=== PATIENT | female | born 1975 | race Caucasian/White ===

== ENCOUNTER 2017-12-13 09:27 | Emergency (ER) | payer MEDICAID, SELFPAY ==
[2017-12-13 09:35] VITALS: BP 158/89; PULSE 88; RESP 16; TEMP 36.9; O2SAT 94
[2017-12-13 09:51] LABS: Bilirubin Negative (Negative); Blood Small (Negative); Clarity Cloudy; Glucose 500 mg/dL (Negative); Ketones Negative (Negative); Leukocyte Esterase Trace (Negative); Nitrite Negative (Negative)
[2017-12-13 10:00] LABS: Bacteria Moderate HPF (Negative); C & S Indicated? Yes; Casts Negative LPF (Negative); Crystals Negative HPF (Negative); Epithelial Cells Few HPF (Negative); Mucus Moderate (Negative); Other Cells Few Renal (Negative)
[2017-12-13] MEDS: Cephalexin 500 MG CAP PO (10:27)
[2017-12-13] MEDS: Phenazopyridine 100 MG TAB PO (10:27)
[2017-12-13 11:00] VITALS: BP 158/89; PULSE 88; RESP 16; TEMP 36.9; O2SAT 94
--- NOTE | 2017-12-16 18:10 | ED.GENADUL_ITS ---
Discharge Plan Disposition Patient Disposition: HOME Discharge Details Chief Complaint: Urinary Clinical Impression: UTI (urinary tract infection) Primary Care Provider: Emeli Villarreal ED Provider: Jose Eduardo Olguin Home Meds and New Rx's Prescriptions: New phenazopyridine [Pyridium] 100 mg tablet 100 mg PO TID PRN (Reason: uti) 5 Days Qty: 6 RF: 0 cephalexin [Keflex] 500 mg capsule 500 mg PO BID Qty: 14 RF: 0 Continue fluticasone-salmeterol [Advair Diskus] 1 EACH blister with device 1 puff Inhalation BID Qty: 1 RF: 11 pen needle, diabetic [Pen Needle] 1 EACH needle 1 ea Miscellaneous DAILY Qty: 100 RF: 3 metformin 850 MG tablet 850 mg PO BID Qty: 60 RF: 6 montelukast [Singulair] 10 MG tablet 10 mg PO DAILY Qty: 30 RF: 3 lisinopril 5 MG tablet 5 mg PO DAILY Qty: 90 RF: 6 Shower Chair DAILY Qty: 1 RF: 0 albuterol sulfate 2.5 MG/3 ML solution for nebulization 2.5 mg Inhalation Q4H PRNQty: 125 RF: 11 ipratropium-albuterol [Combivent Respimat] 4 GM mist 1 puff Inhalation QID Qty: 1 RF: 11 blood sugar diagnostic [OneTouch Ultra Test] 1 EACH strip 1 ea Miscellaneous BID Qty: 200 RF: 3 lancets [OneTouch UltraSoft Lancets] 1 EACH misc 1 ea Miscellaneous BID Qty: 200 RF: 3 blood-glucose meter [OneTouch UltraMini] 1 EACH kit 1 ea Miscellaneous BID Qty: 1 RF: 0 trazodone 150 MG tablet 150 mg PO HS RF: 0 quetiapine [Seroquel] 200 MG tablet 200 mg PO HS Qty: 28 RF: 0 insulin glargine [Lantus Solostar U-100 Insulin] 300 UNITS/3 ML insulin pen 12 units Sub-Q DAILY Qty: 5 RF: 3 insulin lispro [Humalog KwikPen Insulin] 200 UNIT/1 ML insulin pen 5 unit SQ AC Qty: 5 RF: 3 buprenorphine-naloxone [Suboxone] 1 EACH film 14 mg Sublingual DAILY RF: 0 diclofenac sodium 50 MG tablet,delayed release (DR/EC) 50 mg PO Q8H PRN (Reason: Pain) Qty: 15 RF: 0 Discharge Instructions Instructions: Urinary Tract Infection in Women (ED) Additional Instructions: Please take antibiotic as prescribed. Please follow-up with your primary care physician. Call on Friday to arrange follow-up. 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 We can always return to the emergency department and should should she have any worsening or new concerning symptoms. Referrals: Emeli Villarreal NP [Primary Care Provider] - Discharge Data Discharge Date/Time-TO BE ENTERED AT DEPARTURE: 12/13/17 11:03 Medical Decision Making MDM Narrative Medical decision making narrative: 42-year-old female presents with symptoms consistent with urinary tract infection. Urinalysis reviewed and consistent with UTI. Plan to start antibiotics and Pyridium. Usual and customary discharge instructions were provided to the patient. Patient was instructed to return immediately to the emergency department should she have any worsening or new concerning symptoms. Lab Data Lab results reviewed: Yes I reviewed the patient's lab results. Lab Results 12/13/17 Range/Units 09:44 Urine Color Yellow (Yellow) Urine Clarity Cloudy Urine pH 7.0 (5-8) Ur Specific [place] 1.020 (1.005-1.025) Urine Protein 30 H (Negative) mg/dL Urine Ketones Negative (Negative) mg/dL Urine Blood Small H (Negative) Urine Nitrite Negative (Negative) Urine Bilirubin Negative (Negative) Urine Urobilinogen 1.0 H (Up TO 0.2) EU/dL Ur Leukocyte Esterase Trace H (Negative) Urine RBC 5-10 H (0-2) Urine WBC 10-20 (0-5) HPF Ur Epithelial Cells Few (Negative) HPF Urine Crystals Negative (Negative) HPF Urine Bacteria Moderate (Negative) HPF Urine Casts Negative (Negative) LPF Urine Mucus Moderate (Negative) Urine Other Few renal (Negative) Ur Culture Indicated? Yes Urine Glucose 500 H (Negative) mg/dL HPI - General Adult General Mode of arrival: ambulatory . Date/Time Provider Initiated Documentation: 12/13/17 10:05 . Limitations to Documentation: no limitations . Information obtained by: patient . HPI Narrative: 42-year-old female here with chief plan of urinary tract infection. Patient notes that for the past week she has had increased urinary frequency, dysuria, blood tinged urine. Symptoms are moderate with no modifiers no associated fever. No flank pain. Related Data Home Medications Medication Instructions Recorded Confirmed fluticasone-salmeterol [Advair 1 puff INHALATION BID #1 puff 10/25/16 12/13/17 Diskus] pen needle, diabetic [Pen Needle] #100 ndl 11/05/16 12/13/17 Shower Chair DAILY #1 03/21/17 albuterol sulfate 2.5 mg INHALATION Q4H PRN #125 vial 03/21/17 12/13/17 trazodone 150 mg PO HS 05/09/17 12/13/17 buprenorphine-naloxone [Suboxone] 14 mg SUBLINGUAL DAILY film 10/14/17 12/13/17 Previous Rx's Medication Instructions Recorded lisinopril 5 mg PO DAILY #90 tab-cap 12/16/16 metformin 850 mg PO BID #60 tab-cap 12/16/16 montelukast [Singulair] 10 mg PO DAILY #30 tab-cap 12/16/16 ipratropium-albuterol [Combivent 1 puff INHALATION QID #1 inhaler 03/21/17 Respimat] blood sugar diagnostic [OneTouch #200 strip 03/28/17 Ultra Test] blood-glucose meter [OneTouch #1 kit 03/28/17 UltraMini] lancets [OneTouch UltraSoft #200 ea 03/28/17 Lancets] diclofenac sodium 50 mg PO Q8H PRN #15 tablet. 09/21/17 insulin glargine [Lantus Solostar 12 units SUB-Q DAILY #5 box 09/22/17 U-100 Insulin] insulin lispro [Humalog KwikPen 5 unit SQ AC #5 box 09/22/17 Insulin] quetiapine [Seroquel] 200 mg PO HS #28 tab-cap 09/22/17 cephalexin [Keflex] 500 mg PO BID #14 cap 12/13/17 phenazopyridine [Pyridium] 100 mg PO TID PRN 5 Days #6 tab 12/13/17 Allergies Allergy/AdvReac Type Severity Reaction Status Date / Time povidone-iodine Allergy Severe Skin Rash Unverified 12/13/17 10:28 [From Betadine] acetaminophen AdvReac Severe GI upset Unverified 12/13/17 10:28 paroxetine AdvReac Intermediate nightmares, Unverified 12/13/17 10:28 shaking codeine [Codeine] AdvReac Mild Nausea Unverified 12/13/17 10:28 lisdexamfetamine dimesylate AdvReac Unknown GI upset Unverified 12/13/17 10:28 [From Ana] General Stated Complaint: Urinary LAWANDA: 4 Review of Systems Constitutional Denies fever(s) Genitourinary Reports as per HPI and Denies vaginal discharge PFSH Family History Son Crohn disease Daughter Crohn disease Daughter Crohn disease Medical History Diabetes type 2, uncontrolled HLD (hyperlipidemia) History of peptic ulcer Hypertension LBBB (left bundle branch block) Mental health disorder Morbid obesity Steatosis of liver Substance use disorder Urolithiasis Social History Smoking/Tobacco Use Status: Former Tobacco Use Surgical History Appendectomy section Cholecystectomy Colonoscopy - MAC (02/07/16) Ligation of fallopian tube Open Carpal Tunnel release Removal of foreign body (06/26/16) Trigger Finger release Exam Const General: well developed and not in acute distress HENMT Mouth: moist mucous membranes Eyes Conjunctivae: conjunctivae normal Sclera: sclerae normal Neck Neck: normal visual inspection Resp Effort & Inspection: normal respiratory effort and no respiratory distress Auscultation: no rales, no rhonchi and no wheezes Cardio Jugular venous pressure: no JVD Rate: regular rate Rhythm: regular rhythm Heart Sounds: no gallops, no murmurs and no rubs GI Inspection: non-distended Palpation: soft and nontender Auscultation: normal bowel sounds Skin General skin exam: no rashes or lesions noted and other (warm) Neuro General: alert, awake and moves all extremities Extrem General: no edema Psych Appearance: grossly normal Mental Status: mental status grossly normal Speech and Movement: speech and movement normal Course Vital Signs Temperature 36.9 C 12/13/17 09:35 Pulse 88 12/13/17 09:35 Respiratory Rate 16 12/13/17 09:35 Blood Pressure 158/89 H 12/13/17 09:35 Pulse Oximetry 94 L 12/13/17 09:35 Temperature 36.9 C 12/13/17 09:35 Pulse 88 12/13/17 09:35 Respiratory Rate 16 12/13/17 09:35 Blood Pressure 158/89 H 12/13/17 09:35 Pulse Oximetry 94 L 12/13/17 09:35 Lab/Test Results Lab/Test Results: Laboratory Tests 12/13/17 09:44 Urine Color Yellow Urine Clarity Cloudy Urine pH 7.0 Ur Specific Bacova 1.020 Urine Protein 30 H Urine Ketones Negative Urine Blood Small H Urine Nitrite Negative Urine Bilirubin Negative Urine Urobilinogen 1.0 H Ur Leukocyte Esterase Trace H Urine RBC 5-10 H Urine WBC 10-20 Ur Epithelial Cells Few Urine Crystals Negative Urine Bacteria Moderate Urine Casts Negative Urine Mucus Moderate Urine Other Few renal Ur Culture Indicated? Yes Urine Glucose 500 H
== END 2017-12-13 11:03 | disposition home or self-care (01) ==
PROVIDERS: Emergency Provider Student in an Organized Health Care Education/Training Program; PCP Nurse Practitioner Family
DX: N39.0 Urinary tract infection, site not specified (principal); B95.7 Other staphylococcus as the cause of diseases classified elsewhere; E11.9 Type 2 diabetes mellitus without complications; Z79.4 Long term (current) use of insulin; I10 Essential (primary) hypertension
CPT/HCPCS: 81025; 99283; 81003; 81015; 87086; 87186

== ENCOUNTER 2018-01-21 02:13 | Outpatient (CLI) | payer MEDICAID, SELFPAY | END 2018-01-21 02:33 | PROVIDERS: PCP Nurse Practitioner Family; Visit Provider Internal Medicine | DX: J45.909 Unspecified asthma, uncomplicated (principal) ==

== ENCOUNTER 2018-02-09 12:33 | Outpatient (REF) | payer MEDICAID, SELFPAY ==
[2018-02-09 15:20] LABS: Bilirubin Negative (Negative); Glucose 500 mg/dL (Negative); Ketones Negative (Negative); Leukocyte Esterase Negative (Negative); Nitrite Negative (Negative)
[2018-02-09 15:25] LABS: Clarity Cloudy
[2018-02-09 15:42] LABS: Blood Color Interference (Negative)
[2018-02-09 15:47] LABS: C & S Indicated? C&S Done As Ordered
[2018-02-09 16:55] LABS: COMMENT (LAB VIEW ONLY) 36.29 mg/dL; Microalb ug/mg Crea 138.3 ug/mg Cr
== END 2018-02-09 12:53 ==
LOC: LBN 12:33
PROVIDERS: PCP Nurse Practitioner Family; Visit Provider Nurse Practitioner Family
DX: R31.0 Gross hematuria (principal); R80.9 Proteinuria, unspecified
CPT/HCPCS: 81003; 81015; 82043; 82570; 87086

== ENCOUNTER 2018-02-11 00:21 | Outpatient (CLI) | payer MEDICAID, SELFPAY ==
--- NOTE | 2018-02-11 07:19 | MERGEMPI_ITS ---
*[facility]* *[facility]* [address] [place] [address] Myocardial Perfusion Imaging - SPECT [place] protocol Date of study: 02/11/2018 *PATIENT PRESENTATION* Height: 152.4cm (60in) Blood Pressure: Weight: 124.1kg (273lb) BSA: 2.38m^2 Referring physician: Brody Dempsey Ordering physician: Emeli Villarreal Impressions: Normal myocardial perfusion and contraction after pharmacological stress. Summary: 1. Myocardial perfusion imaging: No myocardial perfusion defects noted. 2. The calculated left ventricular ejection fraction after stress: 51%. LV global systolic function is low normal. No left ventricular regional motion abnormality. 3. Stress ECG conclusions: The stress ECG is negative. Recommendations: Medical management is recommended. Indication: R07.89. I44.7, Appropriate Use Criteria: A (Appropriate). History: REASON FOR TESTING: INTERMITTANT CHEST PRESSURE ON GOING FOR SOMETIME RADIATING DOWN LEFT EXTREMITY. HX OF LEFT AND RIGHT BUNDLE BRANCH BLOCKS. PMH: DIABETES, FRANKI SECONDARY TO POSSIBLE OD, HX OF LEFT AND RIGHT BUNDLE BRANCH BLOCK, SUBSTANCE AND OPIOD USE DISORDER, OBESITY, APNEA, SNORING, SCIATICA, DEVELOPMENTAL DIASBILITY, TOBACCO USE DISORDER, HYPERTENSION, ADD, ASTHMA, MOOD DISORDER, DIABETIC NEUROPATHY, RESTLESS LEG DISORDER, HERNIATED LUMBAR DISC, CHRONIC PAIN, INSOMNIA, RIGHT ARM PAIN, HEMORRHOIDS, PUD, NEPHROLITHIASIS, TRIGGER FINGER, UROLITHIASIS, ESOPHAGEAL MICROPERFORATION. FAMILY HX: NON-DONTRIBUTORY. SMOKING: FORMER SMOKER, 1/2PPD X 11 YEARS. EXCERCISE: WALKS DAILY X 3HRS, WORKS OUT IN GYM. PMH: COPD. Asthma. Asthma. Risk factors: Hypertension. Diabetes mellitus. Obesity. Cholesterol: 214mg/dl. HDL: 146mg/dl. LDL: 36mg/dl. Triglycerides: 203mg/dl. ALLERGIES: POVIDONE-IODINE, ACETAMINOPHIN, PAROXETIN, CODEINE, LISDEXAMFETAMINE DIMESYLATE. MEDICATIONS: TRAZADONE 150 MG HS, SERTRALINE 25 MG DAILY, QUETIAPETAMINE 200 MG HS, OMEPRAZOLE 20 MG BID, MONTELUKAST 10 MG DAILY, METFORMIN 850 MG DAILY, LISINOPRIL 5 MG DAILY, IPRATROPIUM-ALBUTEROL 1 PUFF QID, INUSLIN LISPRO 5 UNITS SQ AC, INSULIN GLARGINE 12 UNITS SQ DAILY, FLUTICASONE-SALMETEROL 1 PUFF BID, DICLOFENAC SODIUM 50 MG Q8H PRN, BUPRENORPHINE-NALOXONE 14 MG SL DAILY, ALBUTEROL SULFATE 90 MMCG 2 PUFFS Q4H PRN, ALBUTEROL SULFATE 2.5 MG INHALLATIION Q4H PRN. Imaging Technique: Protocol: [place] protocol. Acquisition: Gated SPECT; 1 day - rest/stress. The patient was imaged in the supine position. Attenuation correction used. Isotope administration: - Rest. Tc[99m]-sestamibi. Dose: 10.2mCi. Injection time: 11:41 AM. Injection to stress time: 00:45. - Stress. Tc[99m]-sestamibi. Dose: 32.1mCi. Injection time: 02:05 PM. 1-2 min before end of exercise Baseline ECG: LAST EKG1-SINUS RHYTHM, VEB, LBBB. HR 74. TODAY'S EKG-SINUS RHYTHM, 1ST DEGREE AVB, INC. RBBB, AND LAFB, PROLONGED QT INTERVAL. Normal sinus rhythm. Stress protocol: +--------+--+ + + !Stage !HR!BP (mmHg) !Comments ! +--------+--+ + + !Baseline!79!150/80 (103)! ! +--------+--+ + + !1 min !91!152/84 (107)!Inject Regadenoson.! +--------+--+ + + !3 min !84!164/78 (107)! ! +--------+--+ + + !6 min !83!146/64 (91) ! ! +--------+--+ + + !9 min !76!132/68 (89) ! ! +--------+--+ + + !1 min !--! !Inject Regadenoson.! +--------+--+ + + * Stress results: The rate-pressure product for the peak heart rate and blood pressure was 60274wn Hg/min. Stress ECG: LEXISCAN TESTING ENDED IN 8 MINS, 30 SECS, EFFECT OF MEDICATION NO LONGER PRESENT. MAX HR WAS 92, WITH A HYPERTENSIVE BLOOD PRESSURE RESPONSE. ECTOPY:OCCASIONAL PAC NOTED. ANGINA: PT REPORTED 5/10 CHEST HEAVINESS AND PRESSURE AT 2 MINS OF TESTING, 2/10 AT 5 MINS OF TESTING, AND 0/10 AT 8 MINS OF TESTING. ISCHEMIA: NO ISCHEMIC CHANGES NOTED. The stress ECG is negative. Myocardial perfusion: Imaging information: gated. Image quality reduced due to breast attenuation. Left ventricular size is normal. No myocardial perfusion defects noted. Ventricular Function (Wall Motion): The calculated left ventricular ejection fraction after stress: 51%. LV global systolic function is low normal. No left ventricular regional motion abnormality. Study data: Brody Dempsey MD supervised and was readily available during the procedure. This study was interpreted by [facility]. Study status: Routine. Consent: The risks, benefits, and alternatives to the procedure were explained to the patient and informed consent was obtained. Procedure: Initial setup. A baseline ECG was recorded. Surface ECG leads and manual cuff blood pressure measurements were monitored. Heart sounds: Normal. Lung sounds: Normal. Treadmill exercise testing was performed using the [place] protocol. Study completion: All catheters inserted during the procedure were removed. The patient tolerated the procedure well and was discharged from the lab. Discharge: The patient left the laboratory in stable condition. Birthdate: Patient birthdate: 1975. Sex: Gender: female. Study date: Study date: 02/11/2018. Study time: 07:19 AM. Signature Documentation: - The imaging portion of this study was interpreted by Nuclear Christmas Tree Contractor Brody Dempsey MD. - The imaging portion of this study was interpreted by Nuclear Radiologist Torin Campbell MD. - The Stress ECG portion of this study was interpreted by Brody Dempsey MD. Electronically signed by Brody Dempsey 02/13/2018 10:08
[2018-02-11 11:43] LABS: Abs Immature Grans 0.01 k/cumm (0.0-0.09); Absolute Basophil Count 0.02 k/cumm (0.0-0.2); Absolute Eosinophil Count 0.05 k/cumm (0.0-0.7); Absolute Lymphocyte Count 1.97 k/cumm (1.2-3.4); Absolute Monocyte Count 0.36 k/cumm (0.11-0.7); Absolute Neutrophil Count 5.55 k/cumm (1.2-6.7); Basophils % 0.3; Eosinophils % 0.6; HCT 42.9 % (36.0-46.0); HGB 14.7 g/dL (12.0-15.5); Immature Grans % 0.1; Lymphocytes % 24.7; Mean Corp. HGB Concentration 34.3 g/dL (32.0-36.0); Mean Corpuscular Hemoglobin 29.1 pg (27.0-33.0); Mean Platelet Volume 10.3 fL (8.0-11.0); Monocytes % 4.5; Neutrophils % 69.8; Platelet Count 265 x1000/uL (130-400); RBC 5.05 m/cumm (4.00-5.20); White Blood Cell Count 7.96 k/cumm (4.4-10.8)
[2018-02-11 12:02] LABS: ALT 29 U/L (12-78); AST 15 U/L (15-37); Albumin 3.2 g/dL (3.4-5.0); Alkaline Phosphatase 103 U/L (46-116); BUN 12 mg/dL (7-18); Bilirubin, Total 0.3 mg/dL (0.2-1.0); CREATININE 0.86 mg/dL (0.55-1.02); Calcium 8.5 mg/dL (8.5-10.1); Chloride 97 mmol/L (98-107); Potassium 3.9 mmol/L (3.5-5.1); Sodium 133 mmol/L (136-145); Total Protein 6.9 g/dL (6.4-8.2)
[2018-02-11 12:43] LABS: Glucose 527 mg/dL (70-100)
[2018-02-11] MEDS: Regadenoson 0.4 MG/5 ML SYR IVP (14:35)
== END 2018-02-11 00:41 ==
PROVIDERS: PCP Nurse Practitioner Family; Visit Provider Nurse Practitioner Family
DX: R07.89 Other chest pain (principal); I45.2 Bifascicular block; I10 Essential (primary) hypertension; E11.9 Type 2 diabetes mellitus without complications; Z79.4 Long term (current) use of insulin; D72.829 Elevated white blood cell count, unspecified; F11.20 Opioid dependence, uncomplicated; F17.200 Nicotine dependence, unspecified, uncomplicated; N17.9 Acute kidney failure, unspecified; Z51.81 Encounter for therapeutic drug level monitoring
CPT/HCPCS: 36415; 78452; 80053; 85025; 93017; J2785

== ENCOUNTER 2018-02-26 02:46 | Outpatient (CLI) | payer MEDICAID, SELFPAY | END 2018-02-26 03:06 | PROVIDERS: PCP Nurse Practitioner Family; Visit Provider Internal Medicine | DX: J45.909 Unspecified asthma, uncomplicated (principal) ==

== ENCOUNTER 2018-09-14 13:17 | Emergency (ER) | payer MEDICAID, SELFPAY ==
[2018-09-14 13:21] VITALS: BP 173/92; PULSE 84; RESP 18; TEMP 36.3; O2SAT 96
--- NOTE | 2018-09-14 13:40 | W.ED.GENAD ---
Discharge Plan Disposition Patient Disposition: HOME Condition: Stable Discharge Details Chief Complaint: DentalOral Clinical Impression: Tooth abscess Primary Care Provider: Emeli Villarreal ED Provider: Bobby Solo [place] Meds and New Rx's Prescriptions: No Action fluticasone propion-salmeterol [Advair Diskus] 500-50 mcg/dose blister with device 1 inh IH BID Qty: 3 RF: 3 buspirone 10 mg tablet 10 mg PO BID RF: 0 Jardiance 25 mg tablet 25 mg PO DAILY AM Qty: 90 RF: 3 Metamucil (sugar) powder 1 tbs PO DAILY Qty: 368 RF: 0 blood-glucose meter misc .ROUTE .MEDSUPPLY Qty: 1 RF: 0 lisinopril 10 mg tablet 10 mg PO DAILY Qty: 90 RF: 3 lancets misc .ROUTE .MEDSUPPLY Qty: 500 RF: 3 Blood Glucose Test strip .ROUTE .MEDSUPPLY Qty: 500 RF: 3 pen needle, diabetic [Pen Needle] 1 EACH needle 1 ea Miscellaneous DAILY Qty: 100 RF: 3 metformin 850 MG tablet 850 mg PO BID Qty: 60 RF: 6 montelukast [Singulair] 10 MG tablet 10 mg PO DAILY Qty: 30 RF: 3 Shower Chair DAILY Qty: 1 RF: 0 albuterol sulfate 2.5 MG/3 ML solution for nebulization 2.5 mg Inhalation Q4H PRNQty: 125 RF: 11 Combivent Respimat 4 GM mist 1 puff Inhalation QID Qty: 1 RF: 11 lancets [OneTouch UltraSoft Lancets] 1 EACH misc 1 ea Miscellaneous BID Qty: 200 RF: 3 trazodone 150 MG tablet 150 mg PO HS RF: 0 quetiapine [Seroquel] 200 MG tablet 200 mg PO HS Qty: 28 RF: 0 Lantus Solostar U-100 Insulin 300 UNITS/3 ML insulin pen 12 units Sub-Q DAILY Qty: 5 RF: 3 Humalog KwikPen Insulin 200 UNIT/1 ML insulin pen 5 unit SQ AC Qty: 5 RF: 3 buprenorphine-naloxone [Suboxone] 1 EACH film 14 mg Sublingual DAILY RF: 0 omeprazole 20 mg capsule,delayed release(DR/EC) 20 mg PO BID RF: 0 albuterol sulfate [ProAir HFA] 90 mcg/actuation HFA aerosol inhaler 2 puff IH Q4H PRNRF: 0 Discharge Instructions Instructions: Dental Abscess (ED) Medical Decision Making 43 yo female comes in with 2 weeks of right upper tooth pain. She has been on abx from her dentist and is f/u with them this week per pt. She has continued to have pain and swelling so came here. She has no submandibular swelling and normal oropharynx, no pain over hyoid and midline uvula, no findings to suggest ludwigs, rpa, river captain, epiglotitis. She has a right upper anterior molar abscess , I drained this with a 21G needle and had return of significant amount of purulent material and she felt better. She will continue her abx and f/u with dentist, return precautions given Differential Diagnosis abscess, pulpitis HPI General Mode of arrival: ambulatory. Date/Time Provider Initiated Documentation: 09/14/18 13:30. Limitations to Documentation: no limitations. Information obtained by: patient. History of Present Illness 43 year old F presents to the emergency department with the chief complaint of right upper tooth pain, described as moderate and severe, Quality is described as aching, and is localized to the mouth. Patient started experiencing this week(s) (2) and it has been constant. No relieving factors improve symptom(s), No exacerbating factors reported . Patient did receive the following treatments prior to arrival, NSAID Related Data Home Medications Medication Instructions Recorded Confirmed pen needle, diabetic [Pen Needle] #100 ndl 11/05/16 08/28/18 metformin 850 mg PO BID #60 tab-cap 12/16/16 09/14/18 montelukast [Singulair] 10 mg PO DAILY #30 tab-cap 12/16/16 09/14/18 Combivent Respimat 1 puff INHALATION QID #1 inhaler 03/21/17 09/14/18 Shower Chair DAILY #1 03/21/17 08/28/18 albuterol sulfate 2.5 mg INHALATION Q4H PRN #125 vial 03/21/17 09/14/18 lancets [OneTouch UltraSoft #200 ea 03/28/17 08/28/18 Lancets] trazodone 150 mg PO HS 05/09/17 09/14/18 Humalog KwikPen Insulin 5 unit SQ AC #5 box 09/22/17 09/14/18 Lantus Solostar U-100 Insulin 12 units SUB-Q DAILY #5 box 09/22/17 09/14/18 quetiapine [Seroquel] 200 mg PO HS #28 tab-cap 09/22/17 09/14/18 buprenorphine-naloxone [Suboxone] 14 mg SUBLINGUAL DAILY film 10/14/17 09/14/18 albuterol sulfate HFA 90 2 puff IH Q4H PRN gm 01/16/18 09/14/18 mcg/actuation aerosol inhaler omeprazole 20 mg capsule,delayed 20 mg PO BID cap 01/16/18 09/14/18 release fluticasone 500 mcg-salmeterol 50 1 inh IH BID #3 device 04/01/18 09/14/18 mcg/dose blistr powdr for inhalation blood sugar diagnostic strips #500 each 08/28/18 08/28/18 blood-glucose meter #1 each 08/28/18 08/28/18 buspirone 10 mg tablet 10 mg PO BID 08/28/18 09/14/18 empagliflozin 25 mg tablet 25 mg PO DAILY AM #90 tab-cap 08/28/18 09/14/18 lancets #500 each 08/28/18 08/28/18 lisinopril 10 mg tablet 10 mg PO DAILY #90 tab-cap 08/28/18 09/14/18 psyllium seed (sugar) oral powder 1 tbs PO DAILY #368 gm 08/28/18 09/14/18 Previous Rx's Medication Instructions Recorded metformin 850 mg PO BID #60 tab-cap 12/16/16 montelukast [Singulair] 10 mg PO DAILY #30 tab-cap 12/16/16 Combivent Respimat 1 puff INHALATION QID #1 inhaler 03/21/17 lancets [OneTouch UltraSoft #200 ea 03/28/17 Lancets] Humalog KwikPen Insulin 5 unit SQ AC #5 box 09/22/17 Lantus Solostar U-100 Insulin 12 units SUB-Q DAILY #5 box 09/22/17 quetiapine [Seroquel] 200 mg PO HS #28 tab-cap 09/22/17 fluticasone 500 mcg-salmeterol 50 1 inh IH BID #3 device 04/01/18 mcg/dose blistr powdr for inhalation blood sugar diagnostic strips #500 each 08/28/18 blood-glucose meter #1 each 08/28/18 empagliflozin 25 mg tablet 25 mg PO DAILY AM #90 tab-cap 08/28/18 lancets #500 each 08/28/18 lisinopril 10 mg tablet 10 mg PO DAILY #90 tab-cap 08/28/18 psyllium seed (sugar) oral powder 1 tbs PO DAILY #368 gm 08/28/18 Allergies Allergy/AdvReac Type Severity Reaction Status Date / Time povidone-iodine Allergy Severe Skin Rash Verified 09/14/18 13:25 [From Betadine] acetaminophen AdvReac Severe GI upset Verified 09/14/18 13:25 paroxetine AdvReac Intermediate nightmares, Verified 09/14/18 13:25 shaking codeine [Codeine] AdvReac Mild Nausea Verified 09/14/18 13:25 lisdexamfetamine dimesylate AdvReac Unknown GI upset Verified 09/14/18 13:25 [From Vyvanse] General Stated Complaint: DentalOral LAWANDA: 3 Review of Systems Review of Systems All systems reviewed & are unremarkable except as noted in HPI and below Constitutional Denies chills and Denies fever(s) Cardiovascular Denies chest pain and Denies dyspnea Respiratory Denies cough and Denies dyspnea Gastrointestinal Denies abdominal pain, Denies nausea and Denies vomiting Integumentary/Breasts Denies rash PFSH Medical History Microalbuminuria due to type 2 diabetes mellitus (Chronic) Anxiety (Chronic 03/15/15) Calculus of kidney (Chronic 06/07/15) Substance use disorder (Chronic) Steatosis of liver (Chronic) Opioid use disorder (Chronic ~2008) Body mass index (BMI) 50-59.9, adult (Chronic) Witnessed apneic spells (Chronic) Uncontrolled type 2 diabetes mellitus with complication, with long-term current use of insulin (Chronic 01/28/17) Snoring (Chronic) Sciatica of right side (Inactive 08/23/16) Disability, 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) Left bundle branch block (LBBB) on electrocardiogram (Chronic 08/30/16) Essential hypertension (Chronic 03/15/15) Attention deficit hyperactivity disorder, combined type (Chronic 03/11/16) Asthma (Chronic 06/07/15) Hyperlipidemia (Chronic) Mood disorder (Chronic) Diabetic neuropathy (Chronic) Restless legs syndrome (Chronic) Herniated lumbar disc without myelopathy (Chronic) Chronic pain (Chronic) Insomnia (Chronic) Arm pain, right (Resolved 11/11/16) Grade II internal hemorrhoids (Resolved 02/07/16) History of peptic ulcer (Resolved) Nephrolithiasis (Resolved 06/07/15) Tobacco use disorder (Resolved) Trigger finger, left middle finger (Resolved 02/26/16) Urolithiasis (Resolved) esophageal microperforation (Resolved) Surgical History Appendectomy (Resolved) section (Resolved) Cholecystectomy (Resolved) Colonoscopy - MAC (Resolved 02/07/16) Ligation of fallopian tube (Resolved) Open Carpal Tunnel release (Resolved) Removal of foreign body (Resolved 06/26/16) Trigger Finger release (Resolved) Social History Smoking/Tobacco Use Status: Former Tobacco Use Alcohol Intake: never Drug use: Current Sobriety Caregiver/Support person: No Housing: apartment Number of Children: 3 Communication Needs: None Pets and animals: Yes Pets and animals: cat(s), dog(s) and snake(s) Sexually active: Yes Current gender identity: female Do you feel safe at home: Yes Do you feel safe in your relationship?: Yes Exam Const General: no acute distress Orientation: alert HENMT Head: normal to inspection Ears: external ears normal General nose exam: external nose normal Mouth: moist mucous membranes Eyes General: appearance normal, both eyes and all related structures Neck Neck: normal visual inspection Resp Effort & Inspection: normal respiratory effort and able to speak in complete sentences Cardio Rate: regular rate Skin General skin exam: no rashes or lesions noted Neuro General: alert and oriented x3 Extrem General: normal to inspection Psych Mental Status: mental status grossly normal Course Vital Signs Temperature 36.3 C L 09/14/18 13:21 Pulse 84 09/14/18 13:21 Respiratory Rate 18 09/14/18 13:21 Blood Pressure 173/92 H 09/14/18 13:21 Pulse Oximetry 96 09/14/18 13:21 Temperature 36.3 C L 09/14/18 13:21 Temperature Source Temporal Artery Scan 09/14/18 13:21 Pulse 84 09/14/18 13:21 Respiratory Rate 18 09/14/18 13:21 Respiratory Effort Non-Labored 09/14/18 13:23 Blood Pressure 173/92 H 09/14/18 13:21 Blood Pressure Position Sitting 09/14/18 13:21 Pulse Oximetry 96 09/14/18 13:21 Oxygen Delivery Method Room Air 09/14/18 13:21 Oxygen Flow Rate 0 09/14/18 13:21 Pain Level 10 09/14/18 13:21
== END 2018-09-14 13:50 | disposition home or self-care (01) ==
PROVIDERS: Emergency Provider Emergency Medicine; PCP Nurse Practitioner Family
DX: K04.7 Periapical abscess without sinus (principal)
CPT/HCPCS: 10160

== ENCOUNTER 2019-04-29 09:45 | Outpatient (CLI) | payer MEDICAID, SELFPAY ==
--- NOTE | 2019-04-29 | DI.RAD_ITS ---
EXAM: XR KNEE LT 4V AP,LAT,KORIN,PAT CLINICAL HISTORY: left knee pain TECHNIQUE: COMPARISON: LEFT KNEE 3 VIEW COMPLETE from 04/18/2010 FINDINGS: Four views were obtained. Cartilaginous joint spaces appear fairly well maintained. Minimal margina l osteophyte formation noted involving the joints of the knee, most prominent at the patellofemoral j oint laterally. IMPRESSION: Mild degenerative changes as described above.
== END 2019-04-29 10:05 ==
PROVIDERS: PCP Nurse Practitioner Family; Visit Provider Physician Assistant
DX: M25.562 Pain in left knee (principal); M17.12 Unilateral primary osteoarthritis, left knee
CPT/HCPCS: 73564

== ENCOUNTER 2019-12-06 09:33 | Emergency (ER) | payer MEDICAID, SELFPAY ==
[2019-12-06] VITALS (35 sets, daily range): BP systolic 91–180; BP diastolic 70–136; PULSE 81–112; RESP 12–34; TEMP 36.6; O2SAT 92–97
--- NOTE | 2019-12-06 09:30 | RT.EKG_ITS ---
APPROVED REPORT Exam: Resting ECG Patient Location: E HR:109 bpm ECG Measurements Heart Rate 109 AXIS MO 170 P 76 QRSd 130 QRS -57 QT 371 T 78 QTc 499 Conclusion Sinus tachycardia...rate> 99 RBBB and LAFB...QRSd >120mS, axis(-40,240) Probable left ventricular hypertrophy...(RaVL+SV3)xQRSd >300 ST elevation secondary to LVH...Multiple VCG criteria Abnrm T, consider ischemia, anterolateral lds...T <-0.20mV, I aVL V2-V6 ST elevation, consider lateral injury...ST >0.10mV, I aVL V5 V6 sinus tach at 109, left axis, right bundle branch block, questionablel ST elevation, diffuse ST bagley es
[2019-12-06] MEDS: MORPHine 10 MG/ML VIAL (09:38)
--- NOTE | 2019-12-06 09:40 | W.ED.GENAD ---
Discharge Plan Discharge Details Chief Complaint: Chest Pain Primary Care Provider: Unknown,Unknown ED Provider: Sheryl Olguin Home Meds and New Rx's Prescriptions: No Action quetiapine [Seroquel] 200 mg Tablet 200 mg PO QHS RF: 0 buprenorphine-naloxone [Suboxone] 8-2 mg Film 2 film SUBLINGUAL DAILY RF: 0 trazodone 150 mg Tablet 150 mg PO QHS RF: 0 Jardiance 25 mg Tablet 25 mg PO DAILY RF: 0 Discharge Data Discharge Date/Time-TO BE ENTERED AT DEPARTURE: 12/06/19 11:22 Medical Decision Making Breonna Ureña is a 44 y/o woman who presented to the emergency department with chest heaviness radiating into her left arm. On exam Pt appears uncomfortable and is diaphoretic. STEMI called from the field by EMS. Field rhythm strip with questonable STEMI, however Pt's clinical picture concerning for acute coronary syndrome. Doubt acute aortic pathology, pulmonary embolism. EKG obtained emergently, borderline ST elevations, given overall clinical assessment cardiology at [facility] called emergently for transfer for emergent cardiac cath. 9:49 [facility] flying per transfer center, awaiting call back from cardiology Pt given SLNG without significant relief, NG gtt started. IV opiates given for pain, Pt with some relief from dilaudid 1003 Cardiology called back, recommended heparin, plavix, no clear stemi, hold tpa EKG repeated with dynamic changes and now with GODFREY leads I and aVL, faxed immediately to [facility], called back transfer center requesting transfer and [facility]. 1026 Cardiology called back, requested full dose tenecteplaseHeather accepting physician CXR shows normal mediastinum. Pt denies any contraindication to TNK, verbal consent given. Pt continues to request pain meds for chest pain. VSS. Multiple doses of dialudid given. NG gtt not advanced beyond 30 2/2 hypotension. Pt transferred out of ED with [facility]. Clinical Impression: STEMI Disposition: [facility] Medical Records Medical records reviewed: Yes I reviewed the patient's medical records. Imaging Data Radiologic Study: Attestation: I personally reviewed and interpreted this imaging study as follows: Radiologist's impression: Exam(s) PROCEDURE INFORMATION: Exam: XR Chest, 1 View Exam date and time: 12/06/2019 9:49 AM Age: 44 years old Clinical indication: Chest pain TECHNIQUE: Imaging protocol: XR of the chest Views: 1 view. COMPARISON: No relevant prior studies available. FINDINGS: Lungs: The lungs are normally expanded and clear. Pleural space: Normal. Heart/Mediastinum: Normal heart and cardiomediastinal silhouette. Vasculature: Normal pulmonary vessel caliber. Normal aorta. Bones/joints: The bones are intact. IMPRESSION: No acute disease or suspicious finding. Lab Data Lab results reviewed: Yes I reviewed the patient's lab results. Labs: Laboratory Tests Range/Units 12/06/19 12/06/19 09:40 09:40 WBC (4.4-10.8) 10^3/uL 12.23 H RBC (3.93-5.22) 10^6/uL 5.85 H Hgb (11.2-15.7) g/dL 16.9 H Hct (36.0-46.0) % 48.7 H MCV (80-95) fL 83.2 MCH (27.0-33.0) pg 28.9 MCHC (32.0-36.0) % 34.7 RDW (11.7-14.6) % 12.1 Plt Count (130-400) 10^3/uL 356 MPV (8.0-11.0) fL 10.1 Immature Gran % 0.3 Neutrophils % 56.4 Lymphocytes % 36.1 Monocytes % 6.1 Eosinophils % 0.8 Basophils % 0.3 Nucleated RBC % % 0 Absolute Neutrophils (1.2-6.7) 10^3/uL 6.90 H Absolute Lymphocytes (1.2-3.4) 10^3/uL 4.42 H Absolute Monocytes (0.1-0.8) 10^3/uL 0.75 Absolute Eosinophils (0.0-0.7) 10^3/uL 0.10 Absolute Basophils (0.0-0.2) 10^3/uL 0.04 Sodium (136-145) mmol/L 131 L Potassium (3.5-5.1) mmol/L 4.2 Chloride (98-107) mmol/L 95 L Carbon Dioxide (21.0-32.0) mmol/L 27.5 Anion Gap (3-11) mmol/L 8.5 BUN (7-18) mg/dL 12 Creatinine (0.55-1.02) mg/dL 0.83 Estimated GFR/1.73 m2 (mL/min/1.73m2) >= 60.00 Glucose (74-106) mg/dL 451 H Calcium (8.5-10.1) mg/dL 9.6 Magnesium (1.8-2.4) mg/dL 1.5 L Total Bilirubin (0.2-1.0) mg/dL 0.6 AST (15-37) U/L 18 ALT (14-59) U/L 29 Alkaline Phosphatase (46-116) U/L 119 H Troponin I (<0.06) ng/mL 0.18 H* Total Protein (6.4-8.2) g/dL 7.5 Albumin (3.4-5.0) g/dL 3.5 ECG Data Attestation: I personally reviewed and interpreted this ECG (s) as follows: Interpretation: EKG 9:34 shows sinus tach at 109, left axis, right bundle branch block, questionable ST elevation, diffuse ST changes EKG 9: 55 shows sinus rhythm at 96, left axis, right bundle branch block, new ST elevation in lead aVL, lead V2 EKG 10: 47 shows sinus rhythm at 81, left axis, right bundle branch block, ST elevation in lead I, aVL, V2, V3, V4, V5 HPI General Mode of arrival: EMS. Date/Time Provider Initiated Documentation: 12/06/19 09:36. Limitations to Documentation: no limitations. Information obtained by: patient, EMS, RN notes reviewed and old records reviewed. HPI Narrative: Breonna Ureña is a 44-year-old woman with history of hypertension, exw-ayxkuxj-rdibkincl diabetes, former p.o. opiate use now on Suboxone presenting to the emergency department with chest pain. Patient reports that over the past 2 days she has noticed a burning sensation in her chest like heartburn worse with exertion. Patient reports that she woke up at 3 AM this morning with a pressure sensation in her left chest radiating into her left arm. Patient reports the pain has gradually worsened throughout the day. Patient reports that pain feels heavy like something sitting on my chest. Patient is unsure if this pain extends exertional. Nonpleuritic. Pain continues to radiate into the left arm, no other radiation. She reports nausea. She denies fever, cough, shortness of breath, any other pain, vomiting, diarrhea, numbness, weakness, rash. Patient reports that she has never had similar pain in the past. Patient reports that she has not used any recreational drugs for 2 years. She states that she takes 60 mg of Suboxone, last dose was yesterday, did not take her morning dose this morning secondary to her chest pain. Related Data Home Medications Medication Instructions Recorded Confirmed buprenorphine-naloxone [Suboxone] 2 film SUBLINGUAL DAILY 12/06/19 12/06/19 empagliflozin [Jardiance] 25 mg PO DAILY 12/06/19 12/06/19 quetiapine [Seroquel] 200 mg PO QHS 12/06/19 12/06/19 trazodone 150 mg PO QHS 12/06/19 12/06/19 Allergies Allergy/AdvReac Type Severity Reaction Status Date / Time codeine Allergy Skin Rash Unverified 12/06/19 09:51 povidone-iodine Allergy Skin Rash Unverified 12/06/19 09:51 [From Betadine] soap [From Betadine] Allergy Skin Rash Unverified 12/06/19 09:51 Review of Systems Narrative: Constitutional: denies fevers Eyes: denies eye pain ENT: denies ear pain, dental pain, sore throat Cardiovascular: denies edema, reports chest pain Respiratory: denies SOB, cough GI: denies abdominal pain, vomiting, diarrhea, reports nausea : denies flank pain MSK: denies back pain, neck pain, arthralgias, myalgias Skin: denies rash Neuro: denies headaches, numbness, weakness [facility] Medical History Diabetes Hypertension 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 pills, has been clean for 2 years- on suboxone from [facility] in [place], [place] Surgical History (Updated 12/06/19 @ 09:52 by Sheryl Dee) H/O: History of appendectomy History of cholecystectomy Social History Smoking/Tobacco Use Status: Current every day Tobacco Type: cigarettes Alcohol Intake: never Drug use: Current Sobriety Substance use type: former substance user Exam Narrative Exam Narrative: Constitutional: Pt appears uncomfortable, diaphoretic, conversing normally HENT: head atraumatic/normocephalic/normal inspection, mucous membranes moist Eyes: conjunctiva normal, sclera normal, pupils 3mm b/l Neck: no stridor, normal ROM, trachea midline Chest: normal inspection Resp: normal work of breathing, LCTAB Cardio: normal rate, normal rhythm, no murmur appreciated GI: abdomen soft, non-tender, non-distended Back: normal inspection, no rash Skin: warm, dry, normal color, no rash Neuro: alert, not altered, grossly non-focal, normal tone Ext: no edema, no posterior calf TTP Psych: normal mood, normal affect, normal behavior Critical Care Time Critical Care Time Critical Care Time: Yes Total Critical Care Time: 45 Attestation: I have spent greater than 45 minutes of critical care time with this critically ill patient, including but not limited to frequent bedside reassessments, discussions with consultants, management of infusions.
[2019-12-06] MEDS: nitroGLYcerin 0.4 MG TAB SL (09:41)
--- NOTE | 2019-12-06 09:45 | RT.EKG_ITS ---
APPROVED REPORT Exam: Resting ECG Patient Location: E HR:96 bpm ECG Measurements Heart Rate 96 AXIS [place] 182 P 40 QRSd 128 QRS -52 QT 401 T 37 QTc 506 Conclusion Sinus rhythm...normal P axis, V-rate 60- 99 Atrial premature complex...SV complex w/ short R-R interval RBBB and LAFB...QRSd >120mS, axis(-40,240) Probable left ventricular hypertrophy...(RaVL+SV3)xQRSd >300 ST elevation suggests acute pericarditis...ST >0.10mV, ant/lat/inf sinus rhythm at 96, left axis, right bundle branch block, new ST elevation in lead aVL, lead V2
--- NOTE | 2019-12-06 09:52 | DI.RAD_ITS ---
EXAM: XR PORTABLE CHEST AP CLINICAL HISTORY: chest pain TECHNIQUE: 2D digital imaging was performed. COMPARISON: No exams were available for comparison FINDINGS: LUNGS: Clear. No pleural abnormality seen. HEART: Normal. MEDIASTINUM: Normal. OTHER FINDINGS: None. IMPRESSION: No acute pulmonary findings. DATA REPOSITORY: RADIATION DOSE DELIVERED:
[2019-12-06 09:57] LABS: Abs Immature Grans 0.04 10^3/uL (0.0-0.06); Absolute Basophil Count 0.04 10^3/uL (0.0-0.2); Absolute Lymphocyte Count 4.42 10^3/uL (1.2-3.4); Basophils % 0.3; Eosinophils % 0.8; HCT 48.7 % (36.0-46.0); HGB 16.9 g/dL (11.2-15.7); Immature Grans % 0.3; Lymphocytes % 36.1; MCH 28.9 pg (27.0-33.0); MCHC 34.7 % (32.0-36.0); MCV 83.2 fL (80-95); MPV 10.1 fL (8.0-11.0); Monocytes % 6.1; Neutrophils % 56.4; Nucleated RBC 0 %; Platelet Count 356 10^3/uL (130-400); RBC 5.85 10^6/uL (3.93-5.22); RDW 12.1 % (11.7-14.6); RDW-SD 36.8 fL; WBC 12.23 10^3/uL (4.4-10.8)
--- NOTE | 2019-12-06 09:58 | DI.VRAD_ITS ---
PROCEDURE INFORMATION: Exam: XR Chest, 1 View Exam date and time: 12/06/2019 9:49 AM Age: 44 years old Clinical indication: Chest pain TECHNIQUE: Imaging protocol: XR of the chest Views: 1 view. COMPARISON: No relevant prior studies available. FINDINGS: Lungs: The lungs are normally expanded and clear. Pleural space: Normal. Heart/Mediastinum: Normal heart and cardiomediastinal silhouette. Vasculature: Normal pulmonary vessel caliber. Normal aorta. Bones/joints: The bones are intact. IMPRESSION: No acute disease or suspicious finding. Dictated and Authenticated by: Jani Gupta MD. Ordering:NAVIN Saucedo MD
[2019-12-06] MEDS: Normal Saline 1,000 ML 150 ML IV (10:00)
[2019-12-06] MEDS: Clopidogrel 300 MG TAB PO (10:05)
[2019-12-06 10:06] LABS: Absolute Monocyte Count 0.75 10^3/uL (0.1-0.8)
[2019-12-06 10:09] LABS: ALT 29 U/L (14-59); AST 18 U/L (15-37); Albumin 3.5 g/dL (3.4-5.0); Alkaline Phosphatase 119 U/L (46-116); Anion Gap 8.5 mmol/L (3-11); BUN 12 mg/dL (7-18); Bilirubin, Total 0.6 mg/dL (0.2-1.0); CO2 27.5 mmol/L (21.0-32.0); CREATININE 0.83 mg/dL (0.55-1.02); Calcium 9.6 mg/dL (8.5-10.1); Chloride 95 mmol/L (98-107); Glucose 451 mg/dL (74-106); Magnesium 1.5 mg/dL (1.8-2.4); Potassium 4.2 mmol/L (3.5-5.1); Sodium 131 mmol/L (136-145); Total Protein 7.5 g/dL (6.4-8.2)
[2019-12-06 10:10] LABS: Troponin I 0.18 ng/mL (<0.06)
[2019-12-06] MEDS: HYDROmorphone 2 MG/ML VIAL ×2 (10:10→10:26)
--- NOTE | 2019-12-06 10:30 | RT.EKG_ITS ---
APPROVED REPORT Exam: Resting ECG Patient Location: E HR:81 bpm ECG Measurements Heart Rate 81 AXIS TN 182 P 15 QRSd 132 QRS -52 QT 414 T 43 QTc 480 Conclusion Sinus rhythm...normal P axis, V-rate 60- 99 RBBB and LAFB...QRSd >120mS, axis(-40,240) Probable left ventricular hypertrophy...(RaVL+SV3)xQRSd >300 ST elevation suggests acute pericarditis...ST >0.10mV, ant/lat/inf sinus rhythm at 81, left axis, right bundle branch block, ST elevation in lead I, aVL, V2, V3, V4, V5
[2019-12-06] MEDS: Tenecteplase 50 MG KIT IVP (10:36)
[2019-12-06] MEDS: HYDROmorphone 2 MG/ML VIAL IVP (10:56)
== END 2019-12-06 11:22 ==
PROVIDERS: Emergency Provider Student in an Organized Health Care Education/Training Program
DX: I21.3 ST elevation (STEMI) myocardial infarction of unspecified site (principal); I10 Essential (primary) hypertension; E11.9 Type 2 diabetes mellitus without complications; Z79.891 Long term (current) use of opiate analgesic; F11.21 Opioid dependence, in remission
CPT/HCPCS: 80053; 93005; 96361; 96365; 96366; 96375; 96376; 99291; 71045; 83735; 84484; 85025; 93010; J2270; J3101

== ENCOUNTER 2020-01-21 13:15 | Outpatient (RCR) | payer MEDICAID, SELFPAY | END 2020-01-29 23:59 | disposition home or self-care (01) | LOC: CR 13:15 | PROVIDERS: PCP Family Medicine; Visit Provider Family Medicine | DX: Z53.9 Procedure and treatment not carried out, unspecified reason (principal) ==

== ENCOUNTER 2020-04-14 22:45 | Emergency (ER) | payer MEDICAID, SELFPAY ==
--- NOTE | 2020-04-14 22:45 | RT.EKG_ITS ---
APPROVED REPORT Exam: Resting ECG Patient Location: E HR:78 bpm ECG Measurements Heart Rate 78 AXIS OK 224 P 42 QRSd 115 QRS -64 QT 432 T 58 QTc 493 Conclusion Sinus rhythm...normal P axis, V-rate 60- 99 Prolonged OK interval...OK >210, V-rate 50- 90 Incomplete right bundle branch block...QRSd >112, terminal axis(90,270) Probable left ventricular hypertrophy...multiple LVH criteria Inferior infarct, old...Q >35mS, II III aVF ST elevation present on previous EKG now resolved.
[2020-04-14 22:46] VITALS: BP 144/64; PULSE 80; RESP 20; TEMP 36.1; O2SAT 94
[2020-04-14 23:01] VITALS: RESP 20
[2020-04-14 23:19] LABS: Abs Immature Grans 0.05 10^3/uL (0.0-0.06); Absolute Basophil Count 0.03 10^3/uL (0.0-0.2); Absolute Eosinophil Count 0.13 10^3/uL (0.0-0.7); Absolute Lymphocyte Count 3.85 10^3/uL (1.2-3.4); Absolute Monocyte Count 0.75 10^3/uL (0.1-0.8); Basophils % 0.2; HCT 43.7 % (36.0-46.0); HGB 14.7 g/dL (11.2-15.7); Immature Grans % 0.4; Lymphocytes % 29.4; MCH 28.4 pg (27.0-33.0); MCHC 33.6 % (32.0-36.0); MCV 84.4 fL (80-95); MPV 10.2 fL (8.0-11.0); Monocytes % 5.7; Neutrophils % 63.3; Nucleated RBC 0 %; RBC 5.18 10^6/uL (3.93-5.22); RDW 12.4 % (11.7-14.6); RDW-SD 37.8 fL; WBC 13.11 10^3/uL (4.4-10.8)
[2020-04-14 23:30] LABS: ALT 28 U/L (14-59); AST 12 U/L (15-37); Albumin 3.1 g/dL (3.4-5.0); Alkaline Phosphatase 133 U/L (46-116); Anion Gap 5.3 mmol/L (3-11); BUN 13 mg/dL (7-18); Bilirubin, Total 0.3 mg/dL (0.2-1.0); CO2 29.7 mmol/L (21.0-32.0); CREATININE 0.81 mg/dL (0.55-1.02); Calcium 8.7 mg/dL (8.5-10.1); Chloride 99 mmol/L (98-107); Glucose 319 mg/dL (74-106); Magnesium 1.7 mg/dL (1.8-2.4); Potassium 4.2 mmol/L (3.5-5.1); Sodium 134 mmol/L (136-145); Total Protein 7.2 g/dL (6.4-8.2); Troponin I < 0.05 ng/mL (<0.06)
[2020-04-14 23:31] VITALS: BP 124/59; PULSE 69; PULSE 73; RESP 16; O2SAT 96
[2020-04-14 23:36] LABS: Platelet Count 374 10^3/uL (130-400)
[2020-04-14 23:50] LABS: D-Dimer 438 ng/mlFEU (<500)
--- NOTE | 2020-04-14 23:53 | DI.RAD_ITS ---
EXAM: XR PORTABLE CHEST AP CLINICAL HISTORY: CP TECHNIQUE: 2D digital imaging was performed. COMPARISON: CR,XR XR PORTABLE CHEST AP from 12/06/2019 FINDINGS: MEDIASTINUM: Normal. HEART: Normal. PULMONARY VASCULATURE: Normal. LUNGS: Clear. PLEURAL SPACE: No pleural effusion or pneumothorax. BONE:Within normal limits for the patient's age. OTHER FINDINGS:Normal. IMPRESSION: No acute pulmonary findings. DATA REPOSITORY: RADIATION DOSE DELIVERED:
[2020-04-15] VITALS (14 sets, daily range): BP systolic 88–133; BP diastolic 50–74; PULSE 60–77; RESP 11–18; TEMP 36.1; O2SAT 90–96
--- NOTE | 2020-04-15 00:05 | DI.VRAD_ITS ---
PROCEDURE INFORMATION: Exam: XR Chest, 1 View Exam date and time: 04/14/2020 23:28 Age: 45 years old Clinical indication: Chest pain; Type not specified TECHNIQUE: Imaging protocol: XR of the chest Views: 1 view. COMPARISON: CR XR PORTABLE CHEST AP 12/06/2019 09:41 FINDINGS: Lungs: No consolidation. Pleural space: No significant pleural effusion. No pneumothorax. Heart/Mediastinum: No significant cardiomegaly for position and projection. Bones/joints: No acute fracture. IMPRESSION: Negative portable chest. Dictated and Authenticated by: Christine Kendall MD. Ordering:ELI Monaco MD
--- NOTE | 2020-04-15 00:45 | RT.EKG_ITS ---
APPROVED REPORT Exam: Resting ECG Patient Location: E HR:69 bpm ECG Measurements Heart Rate 69 AXIS [place] 210 P 42 QRSd 135 QRS -60 QT 469 T 36 QTc 503 Conclusion Sinus rhythm...normal P axis, V-rate 60- 99 Prolonged [place] interval...[place] >210, V-rate 50- 90 RBBB and LAFB...QRSd >120mS, axis(-40,240) Probable left ventricular hypertrophy...(RaVL+SV3)xQRSd >300 There are no significant changes compared to prior EKG performed on 04/14/2020 at 22:53.
--- NOTE | 2020-04-15 00:52 | W.ED.GENAD ---
Discharge Plan Disposition Patient Disposition: HOME Condition: Good Discharge Details Clinical Impression: Acute chest wall pain Primary Care Provider: Shabbir Hamilton ED Provider: Carlos Enrique Spencer Meds and New Rx's Prescriptions: New lidocaine 5 % adhesive patch,medicated 1 patch topical DAILY Qty: 15 RF: 0 Continued fluticasone propion-salmeterol [Advair Diskus] 500-50 mcg/dose blister with device 1 inh IH BID Qty: 3 RF: 3 metformin 500 mg tablet 500 mg PO BID Qty: 180 RF: 3 Metamucil (sugar) powder 1 tbs PO DAILY Qty: 368 RF: 0 (DME) blood-glucose meter misc See Dose Instructions .ROUTE .MEDSUPPLY Qty: 1 RF: 0 (DME) lancets misc See Dose Instructions .ROUTE .MEDSUPPLY Qty: 500 RF: 3 metoprolol succinate 100 mg tablet extended release 24 hr 100 mg PO .nightly Qty: 90 RF: 5 (DME) pen needle, diabetic [Pen Needle] 1 EACH needle 1 ea Miscellaneous DAILY Qty: 100 RF: 3 albuterol sulfate 2.5 MG/3 ML solution for nebulization 2.5 mg Inhalation Q4H PRNQty: 125 RF: 11 Combivent Respimat 4 GM mist 1 puff Inhalation QID Qty: 1 RF: 11 (DME) lancets [OneTouch UltraSoft Lancets] 1 EACH misc 1 ea Miscellaneous BID Qty: 200 RF: 3 omeprazole 20 mg capsule,delayed release(DR/EC) 20 mg PO BID RF: 0 atorvastatin 80 mg tablet 80 mg PO QPM RF: 0 Lantus U-100 Insulin 100 unit/mL solution 40 unit subcut QPM RF: 0 lisinopril 5 mg tablet 5 mg PO DAILY RF: 0 prasugrel 10 mg tablet 10 mg PO DAILY RF: 0 nitroglycerin 0.4 mg tablet, sublingual 0.4 mg sublingual Q5M PRNRF: 0 aspirin [Adult Low Dose Aspirin] 81 mg tablet,delayed release (DR/EC) 81 mg PO DAILY RF: 0 dapagliflozin 10 mg tablet 25 mg PO DAILY RF: 0 (DME) OneTouch Verio test strips Strip See Rx Instructions .ROUTE .MEDSUPPLY Qty: 100 RF: 6 albuterol sulfate [ProAir HFA] 90 mcg/actuation HFA aerosol inhaler 2 puff IH Q4H PRN (Reason: bronchospasm) Qty: 18 RF: 3 quetiapine [Seroquel] 200 mg Tablet 200 mg PO QHS RF: 0 trazodone 150 mg Tablet 150 mg PO QHS RF: 0 Jardiance 25 mg Tablet 25 mg PO DAILY RF: 0 Discharge Instructions Instructions: Chest Wall Pain (ED) Additional Instructions: Your laboratory studies, chest x-ray, CT scan, EKG shows no acute abnormalities. Your chest pain appears to be chest wall pain from lifting a mattress to make to bed. You may use lidocaine patches as directed. Take Tylenol 1 g every 6-8 hours. You may also try ice or heat to the area whichever 1 seems to work better. Follow-up with primary care next week if not improving. Return to ED if new or worsening problems. Referrals: Shabbir Hamilton DO [Primary Care Provider] - Medical Decision Making Patient presenting to ED with left-sided chest pain described as pressure and similar to her STEMI in November. She does appear to be uncomfortable. She has some bilateral diffuse wheezing. No rales. No calf tenderness or history of clot. Initial EKG is sinus rhythm with bundle branch block but no ST elevation which was noted on EKG from November. She feels that the nitroglycerin helps but as it wears off the pain crescendos again. We will start her on a nitroglycerin drip and give some morphine. Aspirin given by EMS. Laboratory studies and chest x-ray ordered. Patient first troponin negative. D-dimer negative. Chest x-ray unremarkable. Second EKG unchanged from first. Glucose and WBC elevated otherwise unremarkable labs. Patient has received 8 mg of morphine, 15 mg of ketorolac, nitroglycerin drip at 30 and seems to be stuck at 5 out of 10 pain. Second troponin due to momentarily so we will hold on any further medical decisions until this returns. CTA of chest negative for PE, dissection or other acute abnormality. Patient seen briefly by Dr. Miner covering hospitalist for consideration of admitting. Patient reported to him that making the bed included lifting the mattress to tuck in the fitted sheets. This is when she developed pain. He subsequently has been able to reproduce her pain quite locally. On my exam I concur, her pain is easily reproduced now that she is more comfortable from the morphine she received. Nitroglycerin discontinued. Lidocaine patch applied to chest wall. Patient has been sleeping. Third troponin done and remains negative. At this point chest pain appears to be chest wall pain. She will be discharged home with lidocaine patch and take Tylenol 1 g every 6 hours. Follow-up with primary care next week if not getting better. Return to the ED if new or worsening symptoms. Medical Records Medical records reviewed: Yes I reviewed the patient's medical records. Lab Data Lab results reviewed: Yes I reviewed the patient's lab results. ECG Data Attestation: I personally reviewed and interpreted this ECG (s) as follows: Prior ECG tracings: available for review Interpretation: see EKG HPI General Mode of arrival: EMS. Date/Time Provider Initiated Documentation: 04/14/20 23:05. Limitations to Documentation: no limitations. Information obtained by: patient, RN notes reviewed and old records reviewed. HPI Narrative: Patient presents to ED with left-sided chest pain that started while she was making her bed tonight. Patient status post STEMI in November. She had 2 stents placed. She has since stopped smoking. She has not had any issues since discharge from [facility] until [facility]. She describes the pain is similar but not exactly like the pain she had with a heart attack. It is left-sided and pressure. It is not pleuritic. It does make it hard for her to breathe but it is the intensity of the pain not necessarily pleuritic component of the pain. Radiates to some degree to her left underarm. No radiation down the arm, into the back, into the neck. She has some sweatiness but denies lightheadedness, nausea or vomiting. She had taken 5 nitroglycerin at home which seemed to help but the pain always returned. EMS gave her nitroglycerin and aspirin. Again the nitroglycerin seemed to help but pain did not resolve completely. It is also becoming worse again while here. She denies fever, cough, URI symptoms. She has no Covid exposures. Related Data Home Medications Medication Instructions Recorded Confirmed pen needle, diabetic [Pen Needle] #100 ndl 11/05/16 12/30/19 Combivent Respimat 1 puff INHALATION QID #1 inhaler 03/21/17 04/14/20 albuterol sulfate 2.5 mg INHALATION Q4H PRN #125 vial 12/22/17 01/15/21 lancets [OneTouch UltraSoft #200 ea 03/28/17 12/30/19 Lancets] omeprazole 20 mg capsule,delayed 20 mg PO BID cap 01/16/18 04/14/20 release fluticasone 500 mcg-salmeterol 50 1 inh IH BID #3 device 04/01/18 04/14/20 mcg/dose blistr powdr for inhalation blood-glucose meter #1 each 08/28/18 12/30/19 lancets #500 each 08/28/18 12/30/19 psyllium seed (sugar) oral powder 1 tbs PO DAILY #368 gm 08/28/18 04/14/20 Jardiance 25 mg PO DAILY 12/06/19 04/14/20 quetiapine [Seroquel] 200 mg PO QHS 12/06/19 04/14/20 trazodone 150 mg PO QHS 12/06/19 04/14/20 aspirin 81 mg tablet,delayed 81 mg PO DAILY 12/13/19 04/14/20 release atorvastatin 80 mg tablet 80 mg PO QPM 12/13/19 04/14/20 blood sugar diagnostic #100 ea 12/13/19 12/30/19 dapagliflozin 10 mg tablet 25 mg PO DAILY tab 12/13/19 12/30/19 insulin glargine 100 unit/mL 40 unit SUBCUT QPM 12/13/19 04/14/20 subcutaneous solution lisinopril 5 mg tablet 5 mg PO DAILY 12/13/19 04/14/20 nitroglycerin 0.4 mg sublingual 0.4 mg SUBLINGUAL Q5M PRN 12/13/19 04/14/20 tablet prasugrel 10 mg tablet 10 mg PO DAILY 12/13/19 04/14/20 metformin 500 mg tablet 500 mg PO BID #180 tab 12/14/19 04/14/20 metoprolol succinate 100 mg 100 mg PO .nightly #90 tab 12/30/19 04/14/20 tablet,extended release 24 hr albuterol sulfate 90 mcg/actuation 2 puff IH Q4H PRN #18 g 02/15/20 04/14/20 aerosol inhaler lidocaine 1 patch TOPICAL DAILY #15 ea 04/15/20 Previous Rx's Medication Instructions Recorded Combivent Respimat 1 puff INHALATION QID #1 inhaler 03/21/17 lancets [OneTouch UltraSoft #200 ea 03/28/17 Lancets] fluticasone 500 mcg-salmeterol 50 1 inh IH BID #3 device 04/01/18 mcg/dose blistr powdr for inhalation blood-glucose meter #1 each 08/28/18 lancets #500 each 08/28/18 psyllium seed (sugar) oral powder 1 tbs PO DAILY #368 gm 08/28/18 blood sugar diagnostic #100 ea 12/13/19 metformin 500 mg tablet 500 mg PO BID #180 tab 12/14/19 metoprolol succinate 100 mg 100 mg PO .nightly #90 tab 12/30/19 tablet,extended release 24 hr albuterol sulfate 90 mcg/actuation 2 puff IH Q4H PRN #18 g 02/15/20 aerosol inhaler lidocaine 1 patch TOPICAL DAILY #15 ea 04/15/20 Allergies Allergy/AdvReac Type Severity Reaction Status Date / Time povidone-iodine Allergy Severe Skin Rash Verified 04/14/20 22:52 [From Betadine] soap [From Betadine] Allergy Skin Rash Unverified 04/14/20 22:52 acetaminophen AdvReac Severe GI upset Verified 04/14/20 22:52 paroxetine AdvReac Intermediate nightmares, Verified 04/14/20 22:52 shaking codeine [Codeine] AdvReac Mild Nausea Verified 04/14/20 22:52 lisdexamfetamine dimesylate AdvReac Unknown GI upset Verified 04/14/20 22:52 [From Vyvanse] General Stated Complaint: Chest Pain LAWANDA: 2 Review of Systems Narrative: 01/11 Review of Systems completed and is negative except as stated above in HPI (Systems reviewed: Const, Eyes, ENT, Resp, CV, GI, , MSK, Skin, Neuro) [facility] Medical History Acute heart failure with reduced ejection fraction and diastolic dysfunction (~11/2019) Anxiety (03/15/15) Arm pain, right (11/11/16) R upper arm pain and weakness and decreased sensation Asthma (06/07/15) Recurrent CO2 retention!; [facility] status 10/2016 Attention deficit hyperactivity disorder, combined type (03/11/16) [facility] Body mass index (BMI) 50-59.9, adult Calculus of kidney (06/07/15) Left, non-obstructing Chronic pain Congestive heart failure (CHF) s/p OK, EF 40-45% Depression Diabetes Diabetic neuropathy Gabapentin in the past; d/c'ed following overdose leading to [facility] hospitalization (~2016 or 2017?) Disability, 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 Microalbuminuria due to type 2 diabetes mellitus Mood disorder Anxiety, depression, PTSD, ADHD Nephrolithiasis (06/07/15) Opioid use disorder (~2008) MAT at [facility]: switched back to Suboxone 2017; methadone prior to that since ~09/2013; prior Suboxone ([facility]) Restless legs syndrome Sciatica of right side (08/23/16) Snoring ST elevation (STEMI) myocardial infarction involving left anterior descending coronary artery (~11/2019) Steatosis of liver 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 pills, has been clean for 2 years- on suboxone from [facility] in [place], [place] Substance use disorder Opioids Tobacco use disorder Trigger finger, left middle finger (02/26/16) Type 2 diabetes mellitus, with long-term current use of insulin Neuropathy, microalbuminuria, labile blood sugars Urolithiasis Witnessed apneic spells Surgical History Appendectomy section x3 Cholecystectomy Colonoscopy - [facility] (02/07/16) H/O: History of appendectomy History of cholecystectomy Ligation of fallopian tube Open Carpal Tunnel release Removal of foreign body (06/26/16) Dr Ott, [facility] Trigger Finger release Rgt thumb and middle finger; Dr Solomon Family History Son Crohn disease Daughter Crohn disease Daughter Crohn disease Social History Smoking/Tobacco Use Status: Former Tobacco Use Quit Date: 11/30/19 Smoking risk assessment performed?: Yes Alcohol Intake: never Drug use: Current Sobriety Substance use type: former substance user Caregiver/Support person: No Housing: apartment Number of Children: 3 Communication Needs: None Pets and animals: Yes Pets and animals: cat(s), dog(s) and snake(s) Sexually active: Yes Current gender identity: female Do you feel safe at home: Yes Do you feel safe in your relationship?: Yes Exam Narrative Exam Narrative: Const: Obese female in NAD. HEENT: NC/AT. Normal facial exam. Eyes: Normal conjunctiva and sclera. Neck: Supple. Trachea midline. Lungs: Normal respiratory effort. Lungs with some wheezing throughout. Cor: RRR without murmur/gallop. Good radial pulses. GI: Soft. NT/ND. No guarding or rebound. Neuro: A+O x 3. Normal speech, mentation, gait. Cranial nerves II - XII grossly intact. No gross motor or sensory deficit. Ext: No C/C/E. No calf tenderness. Skin: Warm and dry without rash. Course Vital Signs Vital signs: Vital Signs Temperature 97.0 F L 04/14/20 22:46 Pulse 80 04/14/20 22:46 Respiratory Rate 20 04/14/20 22:46 Blood Pressure 144/64 H 04/14/20 22:46 Pulse Oximetry 94 04/14/20 22:46 Temperature 97.0 F L 04/14/20 22:46 Temperature Source Temporal Artery Scan 04/14/20 22:46 Pulse 80 04/14/20 22:46 Respiratory Rate 20 04/14/20 23:01 Respiratory Effort Incrsd Work of Breathing 04/14/20 23:01 Blood Pressure 144/64 H 04/14/20 22:46 Pulse Oximetry 94 04/14/20 22:46 Pain Level 7 04/14/20 23:51 Lab/Test Results Lab/Test Results: Laboratory Tests Range/Units 04/14/20 04/14/20 04/14/20 22:50 22:50 22:50 WBC (4.4-10.8) 10^3/uL 13.11 H RBC (3.93-5.22) 10^6/uL 5.18 Hgb (11.2-15.7) g/dL 14.7 Hct (36.0-46.0) % 43.7 MCV (80-95) fL 84.4 MCH (27.0-33.0) pg 28.4 MCHC (32.0-36.0) % 33.6 RDW (11.7-14.6) % 12.4 Plt Count (130-400) 10^3/uL 374 MPV (8.0-11.0) fL 10.2 Immature Gran % 0.4 Neutrophils % 63.3 Lymphocytes % 29.4 Monocytes % 5.7 Eosinophils % 1.0 Basophils % 0.2 Nucleated RBC % % 0 Absolute Neutrophils (1.2-6.7) 10^3/uL 8.30 H Absolute Lymphocytes (1.2-3.4) 10^3/uL 3.85 H Absolute Monocytes (0.1-0.8) 10^3/uL 0.75 Absolute Eosinophils (0.0-0.7) 10^3/uL 0.13 Absolute Basophils (0.0-0.2) 10^3/uL 0.03 D-Dimer (<500) ng/mlFEU 438 Sodium (136-145) mmol/L 134 L Potassium (3.5-5.1) mmol/L 4.2 Chloride (98-107) mmol/L 99 Carbon Dioxide (21.0-32.0) mmol/L 29.7 Anion Gap (3-11) mmol/L 5.3 BUN (7-18) mg/dL 13 Creatinine (0.55-1.02) mg/dL 0.81 Estimated GFR/1.73 m2 (mL/min/1.73m2) >= 60.00 Glucose (74-106) mg/dL 319 H Calcium (8.5-10.1) mg/dL 8.7 Magnesium (1.8-2.4) mg/dL 1.7 L Total Bilirubin (0.2-1.0) mg/dL 0.3 AST (15-37) U/L 12 L ALT (14-59) U/L 28 Alkaline Phosphatase (46-116) U/L 133 H Troponin I (<0.06) ng/mL < 0.05 Total Protein (6.4-8.2) g/dL 7.2 Albumin (3.4-5.0) g/dL 3.1 L
[2020-04-15 00:53] LABS: PTT Activated 24.7 sec (21.0-27.5); Prothrombin Time 9.6 sec (9.3-11.0)
[2020-04-15] MEDS: Ketorolac 15 MG/ML VIAL IVP (01:32)
[2020-04-15 02:35] LABS: Troponin I < 0.05 ng/mL (<0.06)
--- NOTE | 2020-04-15 03:04 | DI.CT_ITS ---
EXAM: CT CHEST PE CTA CLINICAL HISTORY: ongoing chest pain. TECHNIQUE: Imaging Protocol: Axial CT angiography was performed with multi-slice acquisition and mu lti-planar and/or 3D reconstructions. CONTRAST MATERIAL: Intravenous: Omnipaque 350 Contrast volume:100 mL COMPARISON: CT CHEST ABD PELVIS WO CONTRAST from 09/29/2017 FINDINGS: The examination is limited due to patient motion artifact. Tracheobronchial tree: Patent where visualized. Pulmonary parenchyma: No consolidation or dominant measurable mass. No architectural distortion. Pulmonary Arteries: No evidence of filling defect to suggest pulmonary emboli. Mediastinum and Aparna: No dominant adenopathy or fluid collection. Visualized thyroid gland: Unremarkable. Pleura: No effusion or pneumothorax. Heart: The heart is not dilated. Mild coronary artery calcification. No pericardial effusion. No ev idence of right heart failure. Aorta: Thoracic aorta non-dilated. No evidence of dissection. Upper abdomen: Status post cholecystectomy. Bones: Degenerative changes. Soft tissues: Unremarkable. IMPRESSION: No evidence of pulmonary embolism, thoracic aortic dissection or aneurysm. RADIATION DOSE DELIVERED: 646.15mGy.cm Total DLP DATA REPOSITORY: All CT scans at this facility are submitted to the National Radiology Data Registry (NRDR) Dose Index Registry (DIR) with the [employer] (ACR). RADIATION OPTIMIZATION: All CT scans at this facility use at least one of these dose optimization te chniques: automated exposure control; mA and/or kV adjustment per patient size (includes targeted exa ms where dose is matched to clinical indication); or iterative reconstruction.
[2020-04-15] MEDS: Normal Saline Flush 10 ML SYR IVP (03:07)
[2020-04-15] MEDS: Normal Saline - Diluent 50 ML VIAL IV (03:07)
[2020-04-15] MEDS: Omnipaque 350 MG/ML 100 ML BTL IJ (03:08)
--- NOTE | 2020-04-15 04:03 | DI.VRAD_ITS ---
PROCEDURE INFORMATION: Exam: CT Angiography Chest With Contrast Exam date and time: 04/15/2020 2:02 AM Age: 45 years old Clinical indication: Type not specified; Prior surgery; Surgery type: Stent placement S/P heart attack 12/06/2019; Patient HX: Ongoing chest pain, pe vs dissection TECHNIQUE: Imaging protocol: Computed tomographic angiography of the chest with intravenous contrast. 3D rendering (Not supervised by radiologist): MIP and/or 3D reconstructed images were created by the technologist. Radiation optimization: All CT scans at this facility use at least one of these dose optimization techniques: automated exposure control; mA and/or kV adjustment per patient size (includes targeted exams where dose is matched to clinical indication); or iterative reconstruction. Contrast material: [id number]; Contrast volume: 100 ml; Contrast route: INTRAVENOUS (IV); COMPARISON: CT CHEST ABD PELVIS WO CONTRAST 09/29/2017 5:18 PM FINDINGS: Limitations: Patient motion artifacts degrade multiple images of this examination. These artifacts can cause image blurring and limit interpretation. Pulmonary arteries: No obvious large or central pulmonary embolus. Aorta: The aorta is nonaneurysmal and has a normal appearance. No evidence of dissection. Lungs: No evidence of pneumonia. No lung nodule. Pleural space: There are no pleural effusions present. Heart: The heart is not enlarged. Lymph nodes: Unremarkable. No enlarged lymph nodes. Gallbladder and bile ducts: Cholecystectomy clips. Bones/joints: Thoracic spine degenerative changes. Soft tissues: Unremarkable. IMPRESSION: 1. No large or central pulmonary embolus. 2. Thoracic spine degenerative changes. Dictated and Authenticated by: Lencho Allen MD. Ordering:ELI Monaco MD
[2020-04-15 05:23] LABS: Troponin I < 0.05 ng/mL (<0.06)
== END 2020-04-15 06:35 | disposition home or self-care (01) ==
PROVIDERS: Emergency Provider Emergency Medicine; PCP Family Medicine
DX: R07.81 Pleurodynia (principal); E11.9 Type 2 diabetes mellitus without complications; Z79.4 Long term (current) use of insulin; I10 Essential (primary) hypertension; I25.2 Old myocardial infarction
CPT/HCPCS: 36415; 71275; 80053; 93005; 96365; 96366; 96375; 96376; 99285; 71045; 83735; 84484; 85025; 85379; 85610; 85730; 93010; J1885; J3490

== ENCOUNTER 2020-04-19 02:44 | Outpatient (CLI) | payer MEDICAID, SELFPAY | END 2020-04-19 03:04 | PROVIDERS: PCP Family Medicine; Visit Provider Internal Medicine Cardiovascular Disease | DX: R69 Illness, unspecified (principal) ==

== ENCOUNTER 2020-06-26 12:54 | Emergency (ER) | payer MEDICAID, SELFPAY ==
[2020-06-26] VITALS (24 sets, daily range): BP systolic 119–140; BP diastolic 68–96; PULSE 68–102; RESP 14–26; TEMP 36.7; O2SAT 92–100
--- NOTE | 2020-06-26 13:00 | RT.EKG_ITS ---
APPROVED REPORT Exam: Resting ECG Patient Location: E HR:69 bpm ECG Measurements Heart Rate 69 AXIS FL 218 P 2 QRSd 123 QRS -62 QT 458 T 73 QTc 492 Conclusion Sinus rhythm...normal P axis, V-rate 60- 99 Prolonged FL interval...FL >210, V-rate 50- 90 IVCD, consider RBBB...QRSd>120mS, terminal axis(90,270) Left ventricular hypertrophy...multiple LVH criteria Inferior infarct, old...Q >35mS, II III aVF Probable anterior infarct, age indeterminate...Q >35mS, T neg, V2-V5 no STEMI, non-diagnostic EKG I have reviewed and interpreted ECG and agree with software generated interpretation.
--- NOTE | 2020-06-26 13:16 | ED.GENADUL_ITS ---
Discharge Plan Discharge Details Chief Complaint: Chest/Rib Primary Care Provider: Shabbir Hamilton ED Provider: Sol Kemp Home Meds and New Rx's Prescriptions: No Action (DME) blood-glucose meter misc See Dose Instructions .ROUTE .MEDSUPPLY Qty: 1 RF: 0 (DME) lancets misc See Dose Instructions .ROUTE .MEDSUPPLY Qty: 500 RF: 3 metoprolol succinate 100 mg tablet extended release 24 hr 100 mg PO .nightly Qty: 90 RF: 5 buprenorphine-naloxone [Suboxone] 8-2 mg film 2 film sublingual DAILY RF: 0 buprenorphine-naloxone [Suboxone] 2-0.5 mg film 2 film buccal DAILY RF: 0 Jardiance 25 mg tablet 25 mg PO DAILY Qty: 90 RF: 3 metformin 1,000 mg tablet 1,000 mg PO BID Qty: 180 RF: 3 albuterol sulfate [ProAir HFA] 90 mcg/actuation HFA aerosol inhaler 2 puff IH Q4H PRN (Reason: bronchospasm) Qty: 18 RF: 3 atorvastatin 80 mg tablet 80 mg PO QPM Qty: 90 RF: 3 fluticasone propion-salmeterol [Advair Diskus] 500-50 mcg/dose blister with device 1 inh IH BID Qty: 3 RF: 3 Lantus U-100 Insulin 100 unit/mL solution 40 unit subcut QPM Qty: 30 RF: 6 lisinopril 5 mg tablet 5 mg PO DAILY Qty: 90 RF: 3 omeprazole 20 mg capsule,delayed release(DR/EC) 20 mg PO BID Qty: 180 RF: 3 Metamucil (sugar) Powder 1 tsp PO DAILY Qty: 368 RF: 6 (DME) pen needle, diabetic [Pen Needle] 1 EACH needle 1 ea Miscellaneous DAILY Qty: 100 RF: 3 albuterol sulfate 2.5 MG/3 ML solution for nebulization 2.5 mg Inhalation Q4H PRNQty: 125 RF: 11 (DME) lancets [OneTouch UltraSoft Lancets] 1 EACH misc 1 ea Miscellaneous BID Qty: 200 RF: 3 prasugrel 10 mg tablet 10 mg PO DAILY RF: 0 nitroglycerin 0.4 mg tablet, sublingual 0.4 mg sublingual Q5M PRNRF: 0 aspirin [Adult Low Dose Aspirin] 81 mg tablet,delayed release (DR/EC) 81 mg PO DAILY RF: 0 (DME) OneTouch Verio test strips Strip See Rx Instructions .ROUTE .MEDSUPPLY Qty: 100 RF: 6 quetiapine [Seroquel] 200 mg Tablet 200 mg PO QHS RF: 0 trazodone 150 mg Tablet 150 mg PO QHS RF: 0 lidocaine 5 % adhesive patch,medicated 1 patch topical DAILY Qty: 15 RF: 0 Medical Decision Making Case discussed with Dr. Calderon, possible pulmonary contusion, elevated troponin with sternal bruising, EKG with subtle T wave changes with troponin 0.[address] Leija on-call for [facility] and agreed that patient will need higher level of care No evidence of ST elevation, 3 EKGs do not show evidence of ST elevation TN Case discussed with , Trauma surgeon [facility] and agrees to take patient in transfer, patient has remained hemodynamically stable throughout encounter -Oxygen for comfort Lidoderm patches Received 8 mg of morphine, 50 of fentanyl Telemetry monitoring Agreeable to transfer at this time Differential Diagnosis Differential Diagnosis: Cardiac contusion, pulmonary contusion, rib fracture, splenic injury Medical Records Medical records reviewed: Yes I reviewed the patient's medical records. HPI This 45-year-old female with past medical history of coronary artery disease non-ST elevation TN, CHF, insulin-dependent diabetes presents status post fall 48 hours prior to arrival. Patient states she had a mechanical fall where she tripped over her dog. She landed on her left side and has been in pain since that time. She states that she has shortness of breath only secondary to not being able to take a complete inspiration. She denies head injury or loss of consciousness. She denies lower abdominal pain but does have some left upper quadrant pain. She states the pain is exacerbated with any sort of movement and breathing. She denies any history of anticoagulation. She does take antiplatelet therapy. She states the pain is constant and worsened with movement. She denies any lower extremity pain or chance of . General Date/Time Provider Initiated Documentation: 06/26/20 12:55 . Related Data Home Medications Medication Instructions Recorded Confirmed pen needle, diabetic [Pen Needle] #100 ndl 11/05/16 06/26/20 albuterol sulfate 2.5 mg INHALATION Q4H PRN #125 vial 12/22/17 03/29/21 lancets [OneTouch UltraSoft #200 ea 03/28/17 06/26/20 Lancets] blood-glucose meter #1 each 08/28/18 06/26/20 lancets #500 each 08/28/18 06/26/20 quetiapine [Seroquel] 200 mg PO QHS 12/06/19 06/26/20 trazodone 150 mg PO QHS 12/06/19 06/26/20 aspirin 81 mg tablet,delayed 81 mg PO DAILY 12/13/19 06/26/20 release blood sugar diagnostic #100 ea 12/13/19 06/26/20 nitroglycerin 0.4 mg sublingual 0.4 mg SUBLINGUAL Q5M PRN 12/13/19 06/26/20 tablet prasugrel 10 mg tablet 10 mg PO DAILY 12/13/19 06/26/20 metoprolol succinate 100 mg 100 mg PO .nightly #90 tab 12/30/19 06/26/20 tablet,extended release 24 hr lidocaine 1 patch TOPICAL DAILY #15 ea 04/15/20 06/26/20 albuterol sulfate 90 mcg/actuation 2 puff IH Q4H PRN #18 g 04/20/20 06/26/20 aerosol inhaler atorvastatin 80 mg tablet 80 mg PO QPM #90 tab 04/20/20 06/26/20 buprenorphine 2 mg-naloxone 0.5 mg 2 film BUCCAL DAILY 04/20/20 06/26/20 sublingual film buprenorphine 8 mg-naloxone 2 mg 2 film SUBLINGUAL DAILY 04/20/20 06/26/20 sublingual film empagliflozin 25 mg tablet 25 mg PO DAILY #90 tab 04/20/20 06/26/20 fluticasone 500 mcg-salmeterol 50 1 inh IH BID #3 ea 04/20/20 06/26/20 mcg/dose blistr powdr for inhalation insulin glargine 100 unit/mL 40 unit SUBCUT QPM #30 ml 04/20/20 06/26/20 subcutaneous solution lisinopril 5 mg tablet 5 mg PO DAILY #90 tab 04/20/20 06/26/20 metformin 1,000 mg tablet 1,000 mg PO BID #180 tab 04/20/20 06/26/20 omeprazole 20 mg capsule,delayed 20 mg PO BID #180 cap 04/20/20 06/26/20 release psyllium seed (sugar) oral powder 1 tsp PO DAILY #368 g 04/20/20 06/26/20 Previous Rx's Medication Instructions Recorded lancets [OneTouch UltraSoft #200 ea 03/28/17 Lancets] blood-glucose meter #1 each 08/28/18 lancets #500 each 08/28/18 blood sugar diagnostic #100 ea 12/13/19 metoprolol succinate 100 mg 100 mg PO .nightly #90 tab 12/30/19 tablet,extended release 24 hr lidocaine 1 patch TOPICAL DAILY #15 ea 04/15/20 albuterol sulfate 90 mcg/actuation 2 puff IH Q4H PRN #18 g 04/20/20 aerosol inhaler atorvastatin 80 mg tablet 80 mg PO QPM #90 tab 04/20/20 empagliflozin 25 mg tablet 25 mg PO DAILY #90 tab 04/20/20 fluticasone 500 mcg-salmeterol 50 1 inh IH BID #3 ea 04/20/20 mcg/dose blistr powdr for inhalation insulin glargine 100 unit/mL 40 unit SUBCUT QPM #30 ml 04/20/20 subcutaneous solution lisinopril 5 mg tablet 5 mg PO DAILY #90 tab 04/20/20 metformin 1,000 mg tablet 1,000 mg PO BID #180 tab 04/20/20 omeprazole 20 mg capsule,delayed 20 mg PO BID #180 cap 04/20/20 release psyllium seed (sugar) oral powder 1 tsp PO DAILY #368 g 04/20/20 Allergies Allergy/AdvReac Type Severity Reaction Status Date / Time povidone-iodine Allergy Severe Skin Rash Verified 06/26/20 13:00 [From Betadine] soap [From Betadine] Allergy Skin Rash Verified 06/26/20 13:00 acetaminophen AdvReac Severe GI upset Verified 06/26/20 13:00 paroxetine AdvReac Intermediate nightmares, Verified 06/26/20 13:00 shaking codeine [Codeine] AdvReac Mild Nausea Verified 06/26/20 13:00 lisdexamfetamine dimesylate AdvReac Unknown GI upset Verified 06/26/20 13:00 [From Vyvanse] General Stated Complaint: Chest/Rib LAWANDA: 3 Review of Systems Narrative: Review of systems obtained x7 aside from where indicated in HPI [facility] Medical History Acute heart failure with reduced ejection fraction and diastolic dysfunction (~11/2019) Anxiety (03/15/15) Arm pain, right (11/11/16) R upper arm pain and weakness and decreased sensation Asthma (06/07/15) Recurrent CO2 retention!; [facility] status 10/2016 Attention deficit hyperactivity disorder, combined type (03/11/16) [facility] Body mass index (BMI) 50-59.9, adult Calculus of kidney (06/07/15) Left, non-obstructing Chronic pain Congestive heart failure (CHF) s/p TN, EF 40-45% Depression Diabetes Diabetic neuropathy Gabapentin in the past; d/c'ed following overdose leading to [facility] hospitalization (~2016 or 2017?) Disability, 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 Easy bruising dual anti-platelets esophageal microperforation Essential hypertension (03/15/15) Grade II internal hemorrhoids (02/07/16) colonoscopy 02/07/16 Herniated lumbar disc without myelopathy History of peptic ulcer History of smoking Hyperlipidemia Hypertension Insomnia difficulty initiating sleep, Trazodone Rx, ?[facility] Internal derangement of left knee (~10/2018) Left bundle branch block (LBBB) on electrocardiogram (08/30/16) new 08/27/16; prior [facility] Microalbuminuria due to type 2 diabetes mellitus Mood disorder Anxiety, depression, PTSD, ADHD Nephrolithiasis (06/07/15) Opioid use disorder (~2008) MAT at [facility]: switched back to Suboxone 2017; methadone prior to that since ~09/2013; prior Suboxone ([facility]) Restless legs syndrome Sciatica of right side (08/23/16) Snoring ST elevation (STEMI) myocardial infarction involving left anterior descending coronary artery (~11/2019) Steatosis of liver 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 pills, has been clean for 2 years- on suboxone from [facility] in [place], [place] Substance use disorder Opioids Tobacco use disorder Trigger finger, left middle finger (02/26/16) Type 2 diabetes mellitus, with long-term current use of insulin Neuropathy, microalbuminuria, labile blood sugars Urolithiasis Witnessed apneic spells Surgical History Appendectomy section x3 Cholecystectomy Colonoscopy - [facility] (02/07/16) H/O: History of appendectomy History of cholecystectomy Ligation of fallopian tube Open Carpal Tunnel release Removal of foreign body (06/26/16) Dr Ott, [facility] Trigger Finger release Rgt thumb and middle finger; Dr Solomon Family History Son Crohn disease Daughter Crohn disease Daughter Crohn disease Social History (Updated 04/20/20 @ 14:04 by Daniella Peraza LPN) Smoking/Tobacco Use Status: Former Tobacco Use Quit Date: 11/30/19 Smoking risk assessment performed?: Yes Alcohol Intake: never Drug use: Current Sobriety Substance use type: former substance user Caregiver/Support person: No Housing: apartment Number of Children: 3 Communication Needs: None Pets and animals: Yes Pets and animals: cat(s), dog(s) and snake(s) Sexually active: Yes Current gender identity: female What type of physical activity do you participate in: none Do you feel safe at home: Yes Do you feel safe in your relationship?: Yes Exam Const General: cooperative and acute distress HENMT Head: normal to inspection Other: No hemotympanum, no visible sign of trauma Eyes Pupils: PERRL Neck Other: No crepitus, no midline tenderness Chest Other: Left-sided anterior chest wall tenderness with extension down to left lower anterior chest, no crepitus, ecchymosis Resp Effort & Inspection: labored Cardio Rate: regular rate Rhythm: regular rhythm GI Other: Left upper quadrant tenderness, no ecchymosis, no CVA tenderness Back/Spine/Pelvis Other: No midline tenderness No visible sign of trauma Neuro General: patient alert, patient oriented x3 and CN's II-XI intact bilaterally Other: GCS 15 Extrem Other: No visible evidence of trauma, Course Vital Signs Vital signs: Vital Signs Temperature 36.7 C 06/26/20 12:55 Pulse 87 06/26/20 12:55 Respiratory Rate 22 06/26/20 12:55 Blood Pressure 123/90 06/26/20 12:55 Pulse Oximetry 95 06/26/20 12:55 Temperature 36.7 C 06/26/20 12:55 Temperature Source Skin 06/26/20 12:55 Pulse 87 06/26/20 12:55 Respiratory Rate 22 06/26/20 12:55 Respiratory Effort 06/26/20 13:00 Blood Pressure 123/90 06/26/20 12:55 Blood Pressure Position Sitting 06/26/20 12:55 Pulse Oximetry 95 06/26/20 12:55 Oxygen Delivery Method Room Air 06/26/20 12:55 Oxygen Flow Rate 0 06/26/20 12:55 Pain Level 9 06/26/20 12:55 Critical Care Time Critical Care Time Critical Care Time: Yes Total Critical Care Time: 45 Attestation: Cardiac contusion, pulmonary contusion, telemetry monitoring, trauma surgery consultation, IV analgesia, transport to higher level of care
[2020-06-26] MEDS: fentaNYL 100 MCG/2 ML VIAL 50 MCG IVP (13:40)
[2020-06-26 13:47] LABS: Abs Immature Grans 0.05 10^3/uL (0.0-0.06); Absolute Basophil Count 0.03 10^3/uL (0.0-0.2); Absolute Lymphocyte Count 3.02 10^3/uL (1.2-3.4); Absolute Monocyte Count 0.64 10^3/uL (0.1-0.8); Absolute Neutrophil Count 7.27 10^3/uL (1.2-6.7); Basophils % 0.3; Eosinophils % 0.9; HCT 46.2 % (36.0-46.0); HGB 14.9 g/dL (11.2-15.7); Immature Grans % 0.4; Lymphocytes % 27.2; MCH 28.3 pg (27.0-33.0); MCHC 32.3 % (32.0-36.0); MCV 87.7 fL (80-95); MPV 10.1 fL (8.0-11.0); Monocytes % 5.8; Neutrophils % 65.4; Nucleated RBC 0 %; Platelet Count 400 10^3/uL (130-400); RBC 5.27 10^6/uL (3.93-5.22); RDW-SD 41.6 fL; WBC 11.12 10^3/uL (4.4-10.8)
[2020-06-26] MEDS: Normal Saline - Diluent 50 ML VIAL IV (13:56)
--- NOTE | 2020-06-26 14:00 | RT.EKG_ITS ---
APPROVED REPORT Exam: Resting ECG Patient Location: E HR:71 bpm ECG Measurements Heart Rate 71 AXIS MT 219 P 11 QRSd 127 QRS -62 QT 427 T 86 QTc 464 Conclusion Sinus rhythm...normal P axis, V-rate 60- 99 Prolonged MT interval...MT >210, V-rate 50- 90 IVCD, consider RBBB...QRSd>120mS, terminal axis(90,270) Left ventricular hypertrophy...multiple LVH criteria Inferior infarct, old...Q >35mS, II III aVF no STEMI, non-diagnostic EKG I have reviewed and interpreted ECG and agree with software generated interpretation.
[2020-06-26 14:02] LABS: ALT 32 U/L (14-59); AST 23 U/L (15-37); Albumin 3.3 g/dL (3.4-5.0); Alkaline Phosphatase 88 U/L (46-116); Anion Gap 10.3 mmol/L (3-11); BUN 11 mg/dL (7-18); CO2 27.7 mmol/L (21.0-32.0); CREATININE 0.8 mg/dL (0.55-1.02); Calcium 9.1 mg/dL (8.5-10.1); Chloride 101 mmol/L (98-107); Glucose 237 mg/dL (74-106); Potassium 3.8 mmol/L (3.5-5.1); Sodium 139 mmol/L (136-145); Total Protein 7.5 g/dL (6.4-8.2)
[2020-06-26] MEDS: Omnipaque 350 MG/ML 100 ML BTL IJ (14:05)
--- NOTE | 2020-06-26 14:17 | DI.CT_ITS ---
EXAM: CT CHEST/ABD/PEL W CLINICAL HISTORY: left chest pain and luq pain post fall, ecchymosis. TECHNIQUE: Imaging Protocol: Axial computed tomography images with coronal and sagittal reformatted images were created and reviewed CONTRAST MATERIAL: Intravenous: Omnipaque 350 Contrast volume:100 ml Oral: None COMPARISON: CT CT CHEST PE CTA from 04/15/2020 FINDINGS: All images of this study are degraded by motion artifact CHEST: LUNGS: There is mild infiltrate in the left lung base and there is a small-moderate sized unilateral left pleural effusion. No obvious rib fractures. No focal findings in the trachea and mainstem bron chi. The opposite-right lung is clear. There is no pleural fluid on the right side. There is no pn eumothorax. MEDIASTINUM: No mediastinal hematoma. No sternal fracture. Visualized thyroid unremarkable. CARDIAC: Heart size is normal. There is no pericardial effusion.There is no pericardial effusion. T horacic aorta is intact. No dissection. Incidentally noted is coronary artery calcification in the LAD. OSSEOUS: No significant osseous lesions.No fractures evident. ABDOMEN: There is no ascites. LIVER: No evidence of hepatic laceration or incidental hepatic lesions. GALLBLADDER/BILIARY: The gallbladder surgically absent. CBD is not dilated. PANCREAS: No evidence of pancreatic mass nor dilatation of the pancreatic duct. SPLEEN: Spleen is somewhat blurred due to motion artifact. However, there does not appear to be a sp lenic laceration nor significant perisplenic fluid. ADRENALS: There are no significant adrenal masses. KIDNEYS: No evidence of significant renal trauma. No renal laceration or subcapsular hematoma.. No focal renal findings. No hydronephrosis. ABDOMINAL AORTA: The abdominal aorta is intact. Aortoiliac segments are intact. No aneurysms. LYMPH NODES: There is no retroperitoneal nor paraaortic adenopathy. ABDOMINAL WALL/GI: No evidence of significant anterior abdominal wall hernia. No evidence of bowel w all nor mesenteric hematoma. PELVIS: LYMPH NODES: There is no intrapelvic nor inguinal adenopathy. GI: No evidence of appendicitis.No evidence of sigmoid diverticulitis. URINARY BLADDER: Urinary bladder appears intact. No extravasation. REPRODUCTIVE: Uterus size is age-appropriate. Right adnexa unremarkable. There is a peripherally ca lcified 11 by 11 millimeter structure in the left ovary incidentally noted. No fluid in the cul-de-s ac. OSSEOUS: No pelvic or hip fractures evident. Sacroiliac joints unremarkable. IMPRESSION: 1. There is mild infiltrate and pleural effusion in the left lung base. These findings were not evid ent on the CT scan of 04/15/2020. No rib fracture seen. No splenic laceration. 2. Aorta is intact. No mediastinal hematoma. 3. No evidence of significant itrgi-[id number]-[id number] trauma sequelae. 4. No ascites. Findings called by myself to ER provider following completion of the study 06/26/2020. RADIATION DOSE DELIVERED: 2,199.46mGy.cm Total DLP DATA REPOSITORY: All CT scans at this facility are submitted to the National Radiology Data Registry (NRDR) Dose Index Registry (DIR) with the [employer] ([employer]). RADIATION OPTIMIZATION: All CT scans at this facility use at least one of these dose optimization te chniques: automated exposure control; mA and/or kV adjustment per patient size (includes targeted exa ms where dose is matched to clinical indication); or iterative reconstruction.
--- NOTE | 2020-06-26 14:18 | DI.CT_ITS ---
EXAM: CT HEAD CERVICAL SPINE WO CLINICAL HISTORY: fall, distracting injury. TECHNIQUE: Imaging Protocol: Axial computed tomography images with coronal and sagittal reformatted images were created and reviewed COMPARISON: CT HEAD WITHOUT STROKE PROTOCOL from 09/29/[address] HEAD CERVICAL SPINE WO from 06/26/2020 FINDINGS: BRAIN: There are no skull fractures nor fluid in the visualized paranasal sinuses. There is no evidence of intracranial hemorrhage, mass effect, or shift of midline structures. There are no extra-axial fluid collections. The ventricles are not enlarged or shifted and there is no blo od within the ventricular system nor within the basal cisterns. CERVICAL SPINE: There is no evidence of fracture nor listhesis. No significant prevertebral soft tissue swelling. There is some degenerative disc disease noted. There is no significant facet joint malalignment. No significant osseous lesions evident. IMPRESSION: No acute intracranial findings on this noninfused CT scan of the brain. No evidence of cervical spine fracture, malalignment, nor acute compromise of the cervical spinal can al. RADIATION DOSE DELIVERED: 1,597.39mGy.cm Total DLP DATA REPOSITORY: All CT scans at this facility are submitted to the National Radiology Data Registry (NRDR) Dose Index Registry (DIR) with the [employer] ([employer]). RADIATION OPTIMIZATION: All CT scans at this facility use at least one of these dose optimization te chniques: automated exposure control; mA and/or kV adjustment per patient size (includes targeted exa ms where dose is matched to clinical indication); or iterative reconstruction.
[2020-06-26] MEDS: Aspirin 81 MG CHEW 162 MG PO (15:35)
[2020-06-26] MEDS: Lidocaine 5% Patch 2 PATCH TP (15:36)
[2020-06-26] MEDS: HYDROmorphone 2 MG/ML VIAL 1 MG IVP (16:00)
== END 2020-06-26 16:00 ==
LOC: ER 15:45
PROVIDERS: Emergency Provider Physician Assistant; PCP Family Medicine
DX: S27.321A Contusion of lung, unilateral, initial encounter (principal); S26.91XA Contusion of heart, unspecified with or without hemopericardium, initial encounter; W01.0XXA Fall on same level from slipping, tripping and stumbling without subsequent striking against object, initial encounter
CPT/HCPCS: 74177; 80053; 86850; 86900; 86901; 93005; 96374; 96375; 99291; 70450; 71260; 72125; 84484; 85025; 93010; J3010; J3490

== ENCOUNTER 2020-11-28 20:22 | Emergency (ER) | payer MEDICAID, SELFPAY ==
[2020-11-28] VITALS (26 sets, daily range): BP systolic 51–144; BP diastolic 42–73; PULSE 35–149; RESP 12–24; TEMP 36.6–36.9; O2SAT 93–98
--- NOTE | 2020-11-28 20:15 | RT.EKG_ITS ---
APPROVED REPORT Exam: Resting ECG Reason for Exam: chest pain Patient Location: E HR:72 bpm ECG Measurements Heart Rate 72 AXIS NC 219 P 27 QRSd 126 QRS -66 QT 482 T 80 QTc 528 Conclusion Sinus rhythm...normal P axis, V-rate 60- 99 Ventricular premature complex...V complex w/ short R-R interval Prolonged NC interval...NC >210, V-rate 50- 90 Probable left atrial enlargement...P >50mS, <-0.10mV V1 IVCD, consider RBBB...QRSd>120mS, terminal axis(90,270) Inferior infarct, old...Q >35mS, II III aVF
--- NOTE | 2020-11-28 20:30 | DI.CT_ITS ---
Exam(s) CT THORAX CTA EXAM: CT THORAX CTA CLINICAL HISTORY: chest and back pain. TECHNIQUE: Imaging Protocol: Axial CT angiography was performed with multi-slice acquisition and mu lti-planar and/or 3D reconstructions. CONTRAST MATERIAL: Intravenous: Omnipaque 350 Contrast volume:100 mL COMPARISON: CT CT CHEST/ABD/PEL W from 06/26/2020 FINDINGS: Tracheobronchial tree: Patent where visualized. Pulmonary parenchyma: No consolidation or dominant measurable mass. No architectural distortion. Pulmonary Arteries: No evidence of filling defect to suggest pulmonary emboli. Mediastinum and Aparna: No dominant adenopathy or fluid collection. Visualized thyroid gland: Unremarkable. Pleura: There is a small left pleural effusion and a tiny right pleural effusion. No pneumothorax. Heart: Mild cardiomegaly. Mild coronary artery calcification. No pericardial effusion. Aorta: Thoracic aorta non-dilated. No dissection. Upper abdomen: Status post cholecystectomy. Soft tissues: Unremarkable. Bones: Within normal limits. IMPRESSION: 1. No evidence of pulmonary embolism, thoracic aortic dissection or aneurysm. 2. Small pleural effusions, left greater than right. 3. Mild cardiomegaly. RADIATION DOSE DELIVERED: 768.95mGy.cm Total DLP 768.95mGy.cm Total DLP DATA REPOSITORY: All CT scans at this facility are submitted to the National Radiology Data Registry (NRDR) Dose Index Registry (DIR) with the [employer] (ACR). RADIATION OPTIMIZATION: All CT scans at this facility use at least one of these dose optimization te chniques: automated exposure control; mA and/or kV adjustment per patient size (includes targeted exa ms where dose is matched to clinical indication); or iterative reconstruction.
--- NOTE | 2020-11-28 20:30 | W.ED.GENAD ---
Discharge Plan Disposition Patient Disposition: HOME Condition: Stable Discharge Details Clinical Impression: Chest pain, CHF (congestive heart failure) Primary Care Provider: Shabbir Hamilton ED Provider: Bobby Solo Home Meds and New Rx's Prescriptions: New furosemide 40 mg tablet 40 mg PO DAILY Qty: 14 RF: 0 Continued (DME) blood-glucose meter misc See Dose Instructions .ROUTE .MEDSUPPLY Qty: 1 RF: 0 (DME) lancets misc See Dose Instructions .ROUTE .MEDSUPPLY Qty: 500 RF: 3 metoprolol succinate 100 mg tablet extended release 24 hr 100 mg PO .nightly Qty: 90 RF: 5 Jardiance 25 mg tablet 25 mg PO DAILY Qty: 90 RF: 3 metformin 1,000 mg tablet 1,000 mg PO BID Qty: 180 RF: 3 albuterol sulfate [ProAir HFA] 90 mcg/actuation HFA aerosol inhaler 2 puff IH Q4H PRN (Reason: bronchospasm) Qty: 18 RF: 3 atorvastatin 80 mg tablet 80 mg PO QPM Qty: 90 RF: 3 fluticasone propion-salmeterol [Advair Diskus] 500-50 mcg/dose blister with device 1 inh IH BID Qty: 3 RF: 3 Lantus U-100 Insulin 100 unit/mL solution 40 unit subcut QPM Qty: 30 RF: 6 lisinopril 5 mg tablet 5 mg PO DAILY Qty: 90 RF: 3 omeprazole 20 mg capsule,delayed release(DR/EC) 20 mg PO BID Qty: 180 RF: 3 Metamucil (sugar) Powder 1 tsp PO DAILY Qty: 368 RF: 6 (DME) pen needle, diabetic [Pen Needle] 1 EACH needle 1 ea Miscellaneous DAILY Qty: 100 RF: 3 albuterol sulfate 2.5 MG/3 ML solution for nebulization 2.5 mg Inhalation Q4H PRNQty: 125 RF: 11 (DME) lancets [OneTouch UltraSoft Lancets] 1 EACH misc 1 ea Miscellaneous BID Qty: 200 RF: 3 prasugrel 10 mg tablet 10 mg PO DAILY RF: 0 nitroglycerin 0.4 mg tablet, sublingual 0.4 mg sublingual Q5M PRNRF: 0 aspirin [Adult Low Dose Aspirin] 81 mg tablet,delayed release (DR/EC) 81 mg PO DAILY RF: 0 (DME) OneTouch Verio test strips Strip See Rx Instructions .ROUTE .MEDSUPPLY Qty: 100 RF: 6 gabapentin 300 mg capsule 300 mg PO TID RF: 0 methocarbamol 750 mg tablet 750 mg PO TID RF: 0 polyethylene glycol 3350 [Miralax] 17 gram/dose powder 17 g PO DAILY RF: 0 sennosides-docusate sodium [Senna with Docusate Sodium] 8.6-50 mg tablet 2 tab-cap PO BID RF: 0 acetaminophen 500 mg capsule 500 mg PO Q6H PRNRF: 0 buprenorphine-naloxone [Suboxone] 8-2 mg film 1 film sublingual TID RF: 0 methylphenidate HCl 10 mg tablet,chewable 20 mg PO BID RF: 0 quetiapine [Seroquel] 200 mg Tablet 200 mg PO QHS RF: 0 trazodone 150 mg Tablet 150 mg PO QHS RF: 0 lidocaine 5 % adhesive patch,medicated 1 patch topical DAILY Qty: 15 RF: 0 Discharge Instructions Instructions: Heart Failure (ED), Hypomagnesemia (ED) Additional Instructions: you have a small amount of fluids in your lungs follow up with your primary care provider within 1 week try to increase your dietary intake of magnesium as it was mildly low today if you feel more ill, have worsening difficulty breathing, fevers or new or worsening pain return to the emergency department Medical Decision Making 45 yo with hx of stemi in 2020, ischemic cardiomyopathy, former smoker, who comes in with dyspnea and leg swelling for a few days and today has had several hours of chest pain radiating to the back pain. She denies fevers, chills, has had a dry cough but is not sure if it's changed from her chronic cough she states she has. She appears in pain. Her HR with triage was noted to be 40 but dduring my exam and on tele is sinus with rate of 68. No abdomen tenderness, is speaking clearly, does have pitting edema of both legs to the mid tibia and diminished breath sounds at the bases. No acute findings on ecg, will send troponin, was given asa with ems. Given her pain radiates to the back concern for dissection, will obtain CTA. No pleuritic pain and no calf tenderness so feel PE is less likely pt remains stable, labs show elevated probnp, mildly low mag and cta shows no emergent findings, small pleural effusions which is likely causing his pain. Discussed findings with patient and given she only has pain with deep breathing now she would prefer d/c rather than admission which I feel is reasonable if repeat troponin and ekg unchaged. She has known chf and suspect this is the cause of the effusions, will give lasix and reassess. pt has been ambulating without increased pain and no dyspnea, remains stable on exam and repeat troponin unremarkable. Discussed with patient and she wants discharge rather than observation admission which I feel is reasonable. Will start her on lasix and have her f/u with her pcp. Discussed at length return precautions and she verbalized understanding Differential Diagnosis Differential Diagnosis: pleurisy, nstemi, dissection Medical Records Medical records reviewed: Yes I reviewed the patient's medical records. Imaging Data Radiologic Study: Attestation: I personally reviewed and interpreted this imaging study as follows: Imaging: CT Scan Radiologist's impression: IMPRESSION: 1. No evidence of pulmonary embolism. 2. No evidence of acute cardiopulmonary process. 3. Small left pleural effusion. 4. Interval worsening of mild to moderate cardiomegaly. Lab Data Lab results reviewed: Yes I reviewed the patient's lab results. ECG Data Attestation: I personally reviewed and interpreted this ECG (s) as follows: Prior ECG tracings: available for review Interpretation: sinus rhythm, rate of 72, no acute st t wave ischemic findings and no significant changes from prior 2nd ekg sinus rhythm, rate of 60, no acute st t wave ischemic changes HPI General Mode of arrival: EMS. Date/Time Provider Initiated Documentation: 11/28/20 20:23. Limitations to Documentation: no limitations. Information obtained by: patient. History of Present Illness 45 year old F presents to the emergency department with the chief complaint of chest pain, described as moderate and severe, and is localized to the chest. Patient reports radiation to back. Patient started experiencing this hour(s) (5) and it has been intermittent. No relieving factors improve symptom(s), No exacerbating factors reported . Patient notes shortness of breath. Patient did receive the following treatments prior to arrival, Aspirin Related Data Home Medications Medication Instructions Recorded Confirmed pen needle, diabetic [Pen Needle] #100 ndl 11/05/16 11/28/20 albuterol sulfate 2.5 mg INHALATION Q4H PRN #125 vial 03/21/17 11/28/20 lancets [OneTouch UltraSoft #200 ea 03/28/17 11/28/20 Lancets] blood-glucose meter #1 each 08/28/18 11/28/20 lancets #500 each 08/28/18 11/28/20 quetiapine [Seroquel] 200 mg PO QHS 12/06/19 11/28/20 trazodone 150 mg PO QHS 12/06/19 11/28/20 aspirin 81 mg tablet,delayed 81 mg PO DAILY 12/13/19 11/28/20 release blood sugar diagnostic #100 ea 12/13/19 11/28/20 nitroglycerin 0.4 mg sublingual 0.4 mg SUBLINGUAL Q5M PRN 12/13/19 11/28/20 tablet prasugrel 10 mg tablet 10 mg PO DAILY 12/13/19 06/26/20 metoprolol succinate 100 mg 100 mg PO .nightly #90 tab 12/30/19 11/28/20 tablet,extended release 24 hr lidocaine 1 patch TOPICAL DAILY #15 ea 04/15/20 06/26/20 albuterol sulfate 90 mcg/actuation 2 puff IH Q4H PRN #18 g 04/20/20 11/28/20 aerosol inhaler atorvastatin 80 mg tablet 80 mg PO QPM #90 tab 04/20/20 11/28/20 empagliflozin 25 mg tablet 25 mg PO DAILY #90 tab 04/20/20 06/26/20 fluticasone 500 mcg-salmeterol 50 1 inh IH BID #3 ea 04/20/20 06/26/20 mcg/dose blistr powdr for inhalation insulin glargine 100 unit/mL 40 unit SUBCUT QPM #30 ml 04/20/20 11/28/20 subcutaneous solution lisinopril 5 mg tablet 5 mg PO DAILY #90 tab 04/20/20 11/28/20 metformin 1,000 mg tablet 1,000 mg PO BID #180 tab 04/20/20 11/28/20 omeprazole 20 mg capsule,delayed 20 mg PO BID #180 cap 04/20/20 11/28/20 release psyllium seed (sugar) oral powder 1 tsp PO DAILY #368 g 04/20/20 06/26/20 acetaminophen 500 mg capsule 500 mg PO Q6H PRN 07/03/20 11/28/20 gabapentin 300 mg capsule 300 mg PO TID 07/03/20 methocarbamol 750 mg tablet 750 mg PO TID 07/03/20 polyethylene glycol 3350 17 17 g PO DAILY 07/03/20 gram/dose oral powder sennosides 8.6 mg-docusate sodium 2 tab-cap PO BID tab 07/03/20 50 mg tablet buprenorphine 8 mg-naloxone 2 mg 1 film SUBLINGUAL TID ea 07/05/20 sublingual film methylphenidate HCl 10 mg chewable 20 mg PO BID tab 10/24/20 tablet furosemide 40 mg PO DAILY #14 tab 11/28/20 Previous Rx's Medication Instructions Recorded lancets [OneTouch UltraSoft #200 ea 03/28/17 Lancets] blood-glucose meter #1 each 08/28/18 lancets #500 each 08/28/18 blood sugar diagnostic #100 ea 12/13/19 metoprolol succinate 100 mg 100 mg PO .nightly #90 tab 12/30/19 tablet,extended release 24 hr lidocaine 1 patch TOPICAL DAILY #15 ea 04/15/20 albuterol sulfate 90 mcg/actuation 2 puff IH Q4H PRN #18 g 04/20/20 aerosol inhaler atorvastatin 80 mg tablet 80 mg PO QPM #90 tab 04/20/20 empagliflozin 25 mg tablet 25 mg PO DAILY #90 tab 04/20/20 fluticasone 500 mcg-salmeterol 50 1 inh IH BID #3 ea 04/20/20 mcg/dose blistr powdr for inhalation insulin glargine 100 unit/mL 40 unit SUBCUT QPM #30 ml 04/20/20 subcutaneous solution lisinopril 5 mg tablet 5 mg PO DAILY #90 tab 04/20/20 metformin 1,000 mg tablet 1,000 mg PO BID #180 tab 04/20/20 omeprazole 20 mg capsule,delayed 20 mg PO BID #180 cap 04/20/20 release psyllium seed (sugar) oral powder 1 tsp PO DAILY #368 g 04/20/20 furosemide 40 mg PO DAILY #14 tab 11/28/20 Allergies Allergy/AdvReac Type Severity Reaction Status Date / Time povidone-iodine Allergy Severe Skin Rash Verified 11/28/20 20:30 [From Betadine] soap [From Betadine] Allergy Skin Rash Verified 11/28/20 20:30 acetaminophen AdvReac Severe GI upset Verified 11/28/20 20:30 paroxetine AdvReac Intermediate nightmares, Verified 11/28/20 20:30 shaking codeine [Codeine] AdvReac Mild Nausea Verified 11/28/20 20:30 lisdexamfetamine dimesylate AdvReac Unknown GI upset Verified 11/28/20 20:30 [From Ana] General Stated Complaint: Chest Pain LAWANDA: 2 Review of Systems All systems reviewed & are unremarkable except as noted in HPI and below Constitutional Constitutional: Denies chills, Denies fever(s) and Denies weakness Respiratory Respiratory: Denies cough Gastrointestinal Gastrointestinal: Denies abdominal pain, Denies nausea and Denies vomiting Genitourinary Genitourinary: Denies dysuria Integumentary/Breasts Skin/Breast: Denies rash Neurologic Neurologic: Denies weakness [facility] Medical History Acute heart failure with reduced ejection fraction and diastolic dysfunction (~11/2019) Anxiety (03/15/15) Arm pain, right (11/11/16) R upper arm pain and weakness and decreased sensation Asthma (06/07/15) Recurrent CO2 retention!; [facility] status 10/2016 Attention deficit hyperactivity disorder, combined type (03/11/16) 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 Easy bruising dual anti-platelets esophageal microperforation Essential hypertension (03/15/15) Grade II internal hemorrhoids (02/07/16) colonoscopy 02/07/16 Herniated lumbar disc without myelopathy History of peptic ulcer History of smoking Hyperlipidemia Hypertension Insomnia difficulty initiating sleep, Trazodone Rx, ?KARL Internal derangement of left knee (~10/2018) Left bundle branch block (LBBB) on electrocardiogram (08/30/16) new 08/27/16; prior JANET Microalbuminuria due to type 2 diabetes mellitus Mood disorder Anxiety, depression, PTSD, ADHD Nephrolithiasis (06/07/15) Opioid use disorder (~2008) MAT at [facility]: switched back to Suboxone 2017; methadone prior to that since ~09/2013; prior Suboxone ([facility]) Restless legs syndrome Sciatica of right side (08/23/16) Snoring ST elevation (STEMI) myocardial infarction involving left anterior descending coronary artery (~11/2019) Steatosis of liver 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 pills, has been clean for 2 years- on suboxone from [facility] in [place], [place] Substance use disorder Opioids Tobacco use disorder Trigger finger, left middle finger (02/26/16) Type 2 diabetes mellitus, with long-term current use of insulin Neuropathy, microalbuminuria, labile blood sugars Urolithiasis Witnessed apneic spells Surgical History Appendectomy section x3 Cholecystectomy Colonoscopy - [facility] (02/07/16) H/O: History of appendectomy History of cholecystectomy Ligation of fallopian tube Open Carpal Tunnel release Removal of foreign body (06/26/16) Dr Ott, [facility] Trigger Finger release Rgt thumb and middle finger; Dr Solomon Family History Son Crohn disease Daughter Crohn disease Daughter Crohn disease Social History Smoking/Tobacco Use Status: Former Tobacco Use Quit Date: 11/30/19 Smoking risk assessment performed?: Yes Alcohol Intake: never Drug use: Current Sobriety Substance use type: former substance user Caregiver/Support person: No Housing: apartment Number of Children: 3 Communication Needs: None Pets and animals: Yes Pets and animals: cat(s), dog(s) and snake(s) Sexually active: Yes Current gender identity: female What type of physical activity do you participate in: none Do you feel safe at home: Yes Do you feel safe in your relationship?: Yes Exam Const General: uncomfortable Orientation: alert HENMT Head: normal to inspection Ears: external ears normal General nose exam: external nose normal Mouth: moist mucous membranes Eyes General: appearance normal, both eyes and all related structures Neck Neck: normal visual inspection Resp Effort & Inspection: normal respiratory effort and able to speak in complete sentences Cardio Rate: regular rate Skin General skin exam: no rashes or lesions noted Neuro General: patient alert and patient oriented x3 Extrem General: normal to inspection Psych Mental Status: mental status grossly normal Course Vital Signs Vital signs: Vital Signs Temperature 36.6 C 11/28/20 20:25 Pulse 39 L 11/28/20 20:25 Respiratory Rate 16 11/28/20 20:25 Pulse Oximetry 95 11/28/20 20:25 Temperature 36.6 C 11/28/20 20:25 Temperature Source Tympanic 11/28/20 20:25 Pulse 39 L 11/28/20 20:25 Respiratory Rate 16 11/28/20 20:25 Blood Pressure Position Sitting 11/28/20 20:25 Pulse Oximetry 95 11/28/20 20:25 Oxygen Delivery Method Room Air 11/28/20 20:25 Oxygen Flow Rate 0 11/28/20 20:25 Pain Level 7 11/28/20 20:25
[2020-11-28 20:48] LABS: BE (Venous) 3 mmol/L (-2-3); HCO3 (Venous) 27 mmol/L (23-28); O2 Sat (Venous) 81 %; TCO2 (Venous) 25 mmol/L (24-29); pCO2 (Venous) 45 mmHg (41-51); pO2 (Venous) 47 mmHg
[2020-11-28] MEDS: fentaNYL 100 MCG/2 ML VIAL IVP (20:48)
[2020-11-28 20:51] LABS: Abs Immature Grans 0.03 10^3/uL (0.0-0.06); Absolute Basophil Count 0.04 10^3/uL (0.0-0.2); Absolute Eosinophil Count 0.11 10^3/uL (0.0-0.7); Absolute Monocyte Count 0.66 10^3/uL (0.1-0.8); Basophils % 0.4; HCT 42.5 % (36.0-46.0); Immature Grans % 0.3; Lymphocytes % 28.7; MCH 24.8 pg (27.0-33.0); MCHC 30.6 % (32.0-36.0); MCV 81.1 fL (80-95); MPV 10.8 fL (8.0-11.0); Monocytes % 5.9; Neutrophils % 63.7; Nucleated RBC 0 %; Platelet Count 306 10^3/uL (130-400); RBC 5.24 10^6/uL (3.93-5.22); RDW 16.4 % (11.7-14.6); RDW-SD 48.8 fL; WBC 11.15 10^3/uL (4.4-10.8)
[2020-11-28 21:02] LABS: Magnesium 1.5 mg/dL (1.8-2.4)
[2020-11-28 21:13] LABS: ALT 24 U/L (14-59); AST 16 U/L (15-37); Albumin 3.3 g/dL (3.4-5.0); Alkaline Phosphatase 80 U/L (46-116); Anion Gap 6.3 mmol/L (3-11); BUN 13 mg/dL (7-18); Bilirubin, Direct 0.2 mg/dL (0.0-0.2); Bilirubin, Total 0.5 mg/dL (0.2-1.0); CO2 27.7 mmol/L (21.0-32.0); CREATININE 0.8 mg/dL (0.55-1.02); Calcium 8.3 mg/dL (8.5-10.1); Chloride 107 mmol/L (98-107); Glucose 113 mg/dL (74-106); Lipase 47 U/L (73-393); NT-proBNP 5464 pg/mL (<300); Sodium 141 mmol/L (136-145); TSH (W/Ref FT4) 2.45 uIU/mL (0.36-3.74); Total Protein 6.6 g/dL (6.4-8.2); Troponin I < 0.05 ng/mL (<0.06)
[2020-11-28] MEDS: Omnipaque 350 MG/ML 100 ML BTL IJ (21:23)
[2020-11-28] MEDS: Normal Saline Flush 10 ML SYR IVP (21:24)
--- NOTE | 2020-11-28 21:30 | RT.EKG_ITS ---
APPROVED REPORT Exam: Resting ECG Reason for Exam: chest pain Patient Location: E HR:61 bpm ECG Measurements Heart Rate 61 AXIS MO 226 P 19 QRSd 128 QRS -62 QT 460 T 99 QTc 465 Conclusion Sinus rhythm...normal P axis, V-rate 60- 99 Prolonged MO interval...MO >210, V-rate 50- 90 Probable left atrial enlargement...P >50mS, <-0.10mV V1 IVCD, consider RBBB...QRSd>120mS, terminal axis(90,270) Inferior infarct, old...Q >35mS, II III aVF Nonspecific T abnormalities, lateral leads...T <-0.10mV, I aVL V5 V6
[2020-11-28] MEDS: HYDROmorphone 2 MG/ML VIAL 1 MG IVP (21:34)
[2020-11-28 21:41] LABS: Source Nasal/Nares
--- NOTE | 2020-11-28 21:42 | DI.VRAD_ITS ---
PROCEDURE INFORMATION: Exam: CTA Chest With Contrast Exam date and time: 11/28/2020 8:44 PM Age: 45 years old Clinical indication: Chest pressure; Patient HX: Chest and back pain TECHNIQUE: Imaging protocol: Computed tomographic angiography of the chest with contrast. 3D rendering (Not supervised by radiologist): MIP and/or 3D reconstructed images were created by the technologist. Radiation optimization: All CT scans at this facility use at least one of these dose optimization techniques: automated exposure control; mA and/or kV adjustment per patient size (includes targeted exams where dose is matched to clinical indication); or iterative reconstruction. Contrast material: OMNIPAQUE 350; Contrast volume: 100 ml; Contrast route: INTRAVENOUS (IV); COMPARISON: CT CHEST PE CTA 04/15/2020 2:44 AM FINDINGS: Pulmonary arteries: Normal. No pulmonary emboli. Aorta: Unremarkable. No aortic aneurysm. No aortic dissection. Lungs: Unremarkable. No consolidation. No masses. Pleural spaces: Small left pleural effusion. Heart: Mild atherosclerotic calcifications of the coronary arteries. [id number] cardiomegaly, worsened in the interval. Lymph nodes: Small right paratracheal calcified lymph nodes most likely compatible with prior granulomatous disease. Bones/joints: Unremarkable. No acute fracture. Soft tissues: Unremarkable. Other findings: The study is somewhat limited by motion artifact. IMPRESSION: 1. No evidence of pulmonary embolism. 2. No evidence of acute cardiopulmonary process. 3. Small left pleural effusion. 4. Interval worsening of mild to moderate cardiomegaly. Dictated and Authenticated by: Adrian Holder MD. Ordering:CARYN Rosales MD
[2020-11-28] MEDS: Furosemide 40 MG/4 ML VIAL IVP (22:23)
[2020-11-28] MEDS: Magnesium Chloride 64 MG TABCR PO (22:34)
[2020-11-28 22:51] LABS: COVID-19 PCR Negative (Negative)
[2020-11-28 22:57] LABS: Troponin I < 0.05 ng/mL (<0.06)
--- NOTE | 2020-11-28 23:12 | NUR.NOTE ---
referral faxed to [facility] Dr Hamilton to follow up in 1 week for CHF.Nursing Note:
== END 2020-11-28 23:44 | disposition home or self-care (01) ==
PROVIDERS: Emergency Provider Emergency Medicine; PCP Family Medicine
DX: R07.9 Chest pain, unspecified (principal); I11.0 Hypertensive heart disease with heart failure; I50.9 Heart failure, unspecified
CPT/HCPCS: 36415; 71275; 80053; 82805; 83690; 87635; 93005; 96374; 96375; 99285; 82248; 83735; 83880; 84443; 84484; 85025; 93010; 99284; J1940; J3010; J3490

== ENCOUNTER 2020-12-25 02:19 | Outpatient (CLI) | payer MEDICAID, SELFPAY ==
--- NOTE | 2020-12-25 06:45 | DI.CT_ITS ---
Exam(s) CT ABDOMEN PELVIS W EXAM: CT ABDOMEN PELVIS W CLINICAL HISTORY: Abdominal distension, rapid weight gain, ascites,R14.0. TECHNIQUE: Imaging Protocol: Axial computed tomography images with coronal and sagittal reformatted images were created and reviewed CONTRAST MATERIAL: Intravenous: Omnipaque 100cc Oral: Yes COMPARISON: CT CHEST ABD PELVIS WO CONTRAST from 09/29/2017 CT CHEST ABD PELVIS WO CONTRAST from 09/29/[address] THORAX CTA from 11/28/2020 FINDINGS: VISUALIZED LUNG BASES: There is a small left pleural effusion evident.. There also appears to be a s mall amount of increased pericardial fluid over the inferior aspect of the heart. ABDOMEN: There is an element of anasarca in the subcutaneous soft tissues, more so anteriorly than posteriorly and more prominent below the umbilicus level. There is a single subcutaneous gas bubble in the ante rior right abdominal wall. No abscess at this level or drainable fluid collection elsewhere in the s ubcutaneous tissues. There is a small amount of perihepatic ascites. Also small amount of perisplenic ascites and some as cites is also noted in the pelvis, not previously present. LIVER: There are no focal hepatic lesions evident . GALLBLADDER/BILIARY: The gallbladder surgically absent. CBD is not dilated. PANCREAS: No evidence of pancreatic mass nor dilatation of the pancreatic duct. SPLEEN: Spleen is not enlarged. No obvious intrasplenic lesions. Splenic and portal veins are paten t. ADRENALS: There are no significant adrenal masses. KIDNEYS:No cysts evident. No solid renal masses. No calculi nor hydronephrosis.. ABDOMINAL AORTA: Abdominal aorta is not enlarged. LYMPH NODES:There is no retroperitoneal nor paraaortic adenopathy. ABDOMINAL WALL: As above. Nevertheless, there is no evidence of anterior abdominal wall nor inguinal hernia. GI: There is no evidence of bowel obstruction, free air, nor abscess. PELVIS: GI: Appendix is difficult to identify is separate structure. However, there is no evidence of obviou s acute appendicitis.No evidence of sigmoid diverticulitis. LYMPH NODES: There is no intrapelvic nor inguinal adenopathy. REPRODUCTIVE: Uterus size is age-appropriate. Ovaries not well seen. No obvious large ovarian cassidy s. URINARY BLADDER: No calculi nor obvious masses evident OSSEOUS: No significant osseous lesions. IMPRESSION: 1. Compared to the prior CT scan of September 2017 there is now an element of anasarca, mild-moderate asci tracie, and a small left pleural effusion. 2. Ovaries are not well seen but there is no obvious large ovarian mass. Recommend follow-up pelvic ultrasound. 3. The gallbladder surgically absent. The biliary tree is not dilated. 4. No evidence of bowel obstruction or free intraperitoneal air. RADIATION DOSE DELIVERED: 1,677.34mGy.cm Total DLP DATA REPOSITORY: All CT scans at this facility are submitted to the National Radiology Data Registry (NRDR) Dose Index Registry (DIR) with the [employer] (ACR). RADIATION OPTIMIZATION: All CT scans at this facility use at least one of these dose optimization te chniques: automated exposure control; mA and/or kV adjustment per patient size (includes targeted exa ms where dose is matched to clinical indication); or iterative reconstruction.
[2020-12-25] MEDS: Omnipaque 350 MG/ML 50 ML BTL PO (07:44)
[2020-12-25] MEDS: Breeza Beverage 473 ML BTL PO (07:45)
[2020-12-25] MEDS: Omnipaque 350 MG/ML 100 ML BTL IJ (09:25)
[2020-12-25] MEDS: Normal Saline - Diluent 50 ML VIAL IV (09:26)
== END 2020-12-25 02:39 ==
PROVIDERS: PCP Family Medicine; Visit Provider Family Medicine
DX: R14.0 Abdominal distension (gaseous) (principal); R63.5 Abnormal weight gain; J90 Pleural effusion, not elsewhere classified; R18.8 Other ascites
CPT/HCPCS: 74177; J3490; Q9967

== ENCOUNTER 2020-12-28 14:56 | Inpatient (IN) | payer MEDICAID, SELFPAY ==
[2020-12-28] VITALS (119 sets, daily range): BP systolic 85–162; BP diastolic 48–119; PULSE 36–80; RESP 9–24; TEMP 36.8; O2SAT 93–99
--- NOTE | 2020-12-28 15:15 | DI.RAD_ITS ---
Exam(s) XR PORTABLE CHEST AP EXAM: XR PORTABLE CHEST AP CLINICAL HISTORY: weight gain TECHNIQUE: 2D digital imaging was performed of the chest. One image was obtained. An AP view was ob tained. COMPARISON: CR,XR XR PORTABLE CHEST AP from 04/14/2020 FINDINGS: MEDIASTINUM: Normal. HEART: Within normal limits given the projection. PULMONARY VASCULATURE: Normal. LUNGS: Clear. PLEURAL SPACE: No pleural effusion or pneumothorax. BONE:Within normal limits for the patient's age. OTHER FINDINGS:Normal. IMPRESSION: No acute pulmonary findings. DATA REPOSITORY: RADIATION DOSE DELIVERED:
--- NOTE | 2020-12-28 15:15 | RT.EKG_ITS ---
APPROVED REPORT Exam: Resting ECG Reason for Exam: sob Patient Location: E HR:69 bpm ECG Measurements Heart Rate 69 AXIS NH 221 P 31 QRSd 124 QRS -61 QT 456 T 103 QTc 474 Conclusion Sinus rhythm...normal P axis, V-rate 60- 99 Ventricular premature complex...V complex w/ short R-R interval Prolonged NH interval...NH >210, V-rate 50- 90 Probable left atrial enlargement...P >50mS, <-0.10mV V1 IVCD, consider RBBB...QRSd>120mS, terminal axis(90,270) Inferior infarct, old...Q >35mS, II III aVF Nonspecific T abnormalities, lateral leads...T <-0.10mV, I aVL V5 V6
--- NOTE | 2020-12-28 15:30 | RT.EKG_ITS ---
APPROVED REPORT Exam: Resting ECG Reason for Exam: bradycardia Patient Location: E HR:39 bpm ECG Measurements Heart Rate 39 AXIS MA 210 P 37 QRSd 137 QRS -61 QT 581 T 93 QTc 467 Conclusion Predominant 2:1 AV block...most complexes 2 Ps Atrial premature complex...SV complex w/ short R-R interval Probable left atrial enlargement...P >50mS, <-0.10mV V1 IVCD, consider RBBB...QRSd>120mS, terminal axis(90,270) Inferior infarct, old...Q >35mS, II III aVF
--- NOTE | 2020-12-28 15:39 | ED.GENADUL_ITS ---
Discharge Plan Disposition Patient Disposition: STILL A PATIENT Condition: Stable Discharge Details Admit Date/Time: 12/28/20 20:11 Admit Provider: Bobby Segura Attending Provider: Bobby Segura Primary Care Provider: Shabbir Hamilton ED Provider: Ailyn Dale Medical Decision Making <MEREDITH Frost - Last Filed: 12/28/20 15:49> 45-year-old female with significant past medical history presenting to the ER today for 20 pound weight gain over the past month even though her legs was increased from 40 now up to 80 mg daily. Concern for anasarca, CHF, nephrotic syndrome, etc. Plan is to obtain IV access, obtain routine laboratory values including EKG, troponin, BNP, Covid swab, etc. Based upon her renal function and volume status, will likely need to provide additional IV diuretics. Based upon her back and abdominal pain, likely CT imaging indicated but would first like to see laboratory values whether or not it will be obtained with or without contrast. 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 I did witness her has a brief episode of bradycardia, rate was as low as 38. Patient did not feel any additional symptoms. Medical Records Medical records reviewed: Yes I reviewed the patient's medical records. ECG Data Attestation: I personally reviewed and interpreted this ECG (s) as follows: Interpretation: Please see official report by Dr. Solo, sinus rhythm, ventricular of 69. Prolonged MN interval, nonspecific T wave abnormalities, no STEMI <Ailyn Dale - Last Filed: 12/29/20 00:42> 1615: Care assumed from provider MEREDITH Rob pending lab cardiac work-up and possible CT chest and abdomen. Please see his official HPI and physical exam. Upon my initial take over of patient care I was notified by nursing staff development coordinator that blood sugar is 56, patient is alert and oriented his reason or she was at bedside, heart rate frequently dropped down into the high 30s to mid to lower 40s patient is complaining of chest pressure intermittently at rest. She reports that she has not taken her recently increased dose of 80 mg of Lasix over the last 2 days due to unable to fill the medication. She reports that she has not urinated since 530 this morning. She did notice some increased edema to her bilateral lower extremities. Second EKG obtained possibly type II Mobitz block 2-1 AV block. At this time troponin is pending. EKGs faxed to [facility] [place] will consult cardiology for possible transfer request. Imaging protocol: XR of the chest. Views: 1 view. COMPARISON: CT THORAX CTA 11/28/2020 9:19 PM FINDINGS: Lungs: No mass. No consolidation. Pleural spaces: Unremarkable. No pleural effusion. No pneumothorax. Heart/Mediastinum: There is cardiomegaly. Bones/joints: Unremarkable. IMPRESSION: 1. No evidence for acute cardiopulmonary disease. 2. Cardiomegaly. At this time Lara ordered 40 mg Lasix IV. Chest x-ray shows cardiomegaly. 1640: [facility] transfer center contacted regarding patient case and details. Will call back after more information is obtained. 1647: Patient was given Furosemide 40 mg IVP. 1714: Per RN report, 600ml Urine output from Lara at this time. Labs show no evidence for leukocytosis, absolute neutrophils 7.24, D-dimer is pending, lactate is 2.3, CMP BUN 9 creatinine 0.8 GFR greater than 60 glucose is 50 magnesium 1.7 BNP is 4083 urinalysis shows small blood 2.0 urobilinogen greater than thousand glucose. Covid is pending at this time. 1728: Initial troponin within normal limits. Serial troponin is pending at this time. Heart rate seems to have stabilized during 69. Still irregular. But has not bradycardia down in the last 30 minutes or so. Patient did take 81 mg aspirin this morning. Patient was given fentanyl 50 mics IV for back pain. Plan to CT chest and abdomen. 1800: Second call made to [facility] to consult with cardiology. 1800: She has had at least 2 more episodes of bradycardia lowest heart rate noted to be 38. She reports pressure and bandlike pressure from the right side of her chest over to the left side of her chest and the feeling of needing to bear down during the pain. 1819: Dr. Germania WEAVER ER attending at bedside for ultrasound-guided IV. 20-gauge in the right AC. Patient pale and diaphoretic. Patient going over for chest CT on junior art director with RN assistance. Patient was given 162 mg aspirin p.o. 50 mcg fentanyl IV ordered. 1844: Informed by Dr. Solo he was called over to CT for patient complaining of shortness of breath and discomfort with lying flat. Patient was placed on BiPAP over his CT which seemed to improve her symptoms. 1900: Spoke again with [facility] transfer center, they will call back. COMPARISON: CT THORAX CTA 11/28/2020 9:19 PM FINDINGS: Pulmonary arteries: There is a suboptimal pulmonary arterial bolus limiting evaluation for embolism of the more distal segmental arterial branches. No evidence for central or primary branch pulmonary embolism. Aorta: Unremarkable. No aortic aneurysm. No aortic dissection. Lungs: Unremarkable. No consolidation. No masses. Pleural spaces: There is a small left pleural effusion. No pneumothorax. Heart: There is mild cardiomegaly. No pericardial effusion. Lymph nodes: Unremarkable. No enlarged lymph nodes. Bones/joints: Unremarkable. No acute fracture. Soft tissues: Unremarkable. IMPRESSION: 1. Suboptimal pulmonary arterial bolus limiting evaluation for embolism of the more distal segmental arterial branches. No evidence for central or primary branch pulmonary embolism. 2. Small left pleural effusion. 3. Cardiomegaly. 1941: Spoke with Dr. Catalan with [facility] cardiology who agrees to list her for admission tomorrow she is instructed to contact cardiology again for any new oxygen requirement, symptomatic bradycardia with pauses greater than 3 seconds, she recommends holding metoprolol, holding Seroquel, continue the Lasix every 6 hours placing patient on a sliding scale insulin protocol, continuing the aspirin and prasugrel. Patient is on the accepting list for tomorrow excepting physician will be Dr. Sorensen. She recommends to be notified for increasing oxygen requirement, positive greater than 3 seconds in the bradycardia. Will page hospitalist for possible admission. 2006: Spoke with Priti García [facility] [facility] MAKER and Dr. Segura who is on for ICU admission discussed patient case and details. Dr. Segura agrees to accept patient for admission to ICU status. 2129: Dr. Aguila here for patient evaluation at bedside. Medical Records Medical records reviewed: Yes I reviewed the patient's medical records. Medical records narrative: CT AbD Pelvis 12-25-20 FINDINGS: VISUALIZED LUNG BASES: There is a small left pleural effusion evident.. There also appears to be a small amount of increased pericardial fluid over the inferior aspect of the heart. ABDOMEN: There is an element of anasarca in the subcutaneous soft tissues, more so anteriorly than posteriorly and more prominent below the umbilicus level. There is a single subcutaneous gas bubble in the anterior right abdominal wall. No abscess at this level or drainable fluid collection elsewhere in the subcutaneou s tissues. There is a small amount of perihepatic ascites. Also small amount of perisplenic ascites and some ascites is also noted in the pelvis, not previously present. LIVER: There are no focal hepatic lesions evident . GALLBLADDER/BILIARY: The gallbladder surgically absent. CBD is not dilated. PANCREAS: No evidence of pancreatic mass nor dilatation of the pancreatic duct. SPLEEN: Spleen is not enlarged. No obvious intrasplenic lesions. Splenic and portal veins are patent. ADRENALS: There are no significant adrenal masses. KIDNEYS:No cysts evident. No solid renal masses. No calculi nor hydronephrosis.. ABDOMINAL AORTA: Abdominal aorta is not enlarged. LYMPH NODES:There is no retroperitoneal nor paraaortic adenopathy. ABDOMINAL WALL: As above. Nevertheless, there is no evidence of anterior abdominal wall nor inguinal hernia. GI: There is no evidence of bowel obstruction, free air, nor abscess. PELVIS: GI: Appendix is difficult to identify is separate structure. However, there is no evidence of obvious acute appendicitis.No evidence of sigmoid diverticulitis. LYMPH NODES: There is no intrapelvic nor inguinal adenopathy. REPRODUCTIVE: Uterus size is age-appropriate. Ovaries not well seen. No obvious large ovarian masses. URINARY BLADDER: No calculi nor obvious masses evident OSSEOUS: No significant osseous lesions. IMPRESSION: 1. Compared to the prior CT scan of September 2017 there is now an element of anasarca, mild-moderate ascites, and a small left pleural effusion. 2. Ovaries are not well seen but there is no obvious large ovarian mass. Re commend follow-up pelvic ultrasound. 3. The gallbladder surgically absent. The biliary tree is not dilated. 4. No evidence of bowel obstruction or free intraperitoneal air. CT Chest 11-28-20 FINDINGS: Tracheobronchial tree: Patent where visualized. Pulmonary parenchyma: No consolidation or dominant measurable mass. No architectural distortion. Pulmonary Arteries: No evidence of filling defect to suggest pulmonary emboli. Mediastinum and Aparna: No dominant adenopathy or fluid collection. Visualized thyroid gland: Unremarkable. Pleura: There is a small left pleural effusion and a tiny right pleural effusion. No pneumothorax. Heart: Mild cardiomegaly. Mild coronary artery calcification. No pericardial effusion. Aorta: Thoracic aorta non-dilated. No dissection. Upper abdomen: Status post cholecystectomy. Soft tissues: Unremarkable. Bones: Within normal limits. IMPRESSION: 1. No evidence of pulmonary embolism, thoracic aortic dissection or aneurysm. 2. Small pleural effusions, left greater than right. 3. Mild cardiomegaly. HPI <MEREDITH Frost - Last Filed: 12/28/20 15:49> General Mode of arrival: ambulatory . Date/Time Provider Initiated Documentation: 12/28/20 14:58 . Limitations to Documentation: no limitations . Information obtained by: patient . HPI Narrative: This is a 45-year-old female, past medical history of CAD with stent placement, CHF, depression, type 2 diabetes, anxiety, history of substance abuse, clean for 3-1/2 years, obesity, hypertension, ADHD, asthma, hyperlipidemia, neuropathy, mood disorder, presenting to the ER today after being evaluated by her primary care provider for evaluation of 20 pound weight gain over the past month, abdominal pain, right-sided back pain, shortness of breath. Patient was admitted roughly 1 month ago for CHF exacerbation, discharged, subsequently increased her Lasix from 40 to 80 mg now but still gaining weight. She reports a fever of 1012 or 3 days ago. She denies headache, neck pain, chest pain, cough, vomiting, dysuria, hematuria, diarrhea. She feels like her whole body is tight worse in her abdomen and legs, reports nausea. She reports that her pain is moderate to severe. Has been taking all of her regular medications but took nothing [id number] today for her symptoms Related Data Home Medications Medication Instructions Recorded Confirmed pen needle, diabetic [Pen Needle] #100 ndl 11/05/16 12/28/20 albuterol sulfate 2.5 mg INHALATION Q4H PRN #125 vial 03/21/17 12/28/20 lancets [OneTouch UltraSoft #200 ea 03/28/17 12/28/20 Lancets] blood-glucose meter #1 each 08/28/18 12/28/20 lancets #500 each 08/28/18 12/28/20 quetiapine [Seroquel] 200 mg PO QHS 12/06/19 12/28/20 trazodone 150 mg PO QHS 12/06/19 12/28/20 aspirin 81 mg tablet,delayed 81 mg PO DAILY 12/13/19 12/28/20 release blood sugar diagnostic #100 ea 12/13/19 12/28/20 nitroglycerin 0.4 mg sublingual 0.4 mg SUBLINGUAL Q5M PRN 12/13/19 12/28/20 tablet metoprolol succinate 100 mg 100 mg PO .nightly #90 tab 12/30/19 12/28/20 tablet,extended release 24 hr albuterol sulfate 90 mcg/actuation 2 puff IH Q4H PRN #18 g 04/20/20 12/28/20 aerosol inhaler atorvastatin 80 mg tablet 80 mg PO QPM #90 tab 04/20/20 12/28/20 empagliflozin 25 mg tablet 25 mg PO DAILY #90 tab 04/20/20 12/28/20 fluticasone 500 mcg-salmeterol 50 1 inh IH BID #3 ea 04/20/20 12/28/20 mcg/dose blistr powdr for inhalation insulin glargine 100 unit/mL 40 unit SUBCUT QPM #30 ml 04/20/20 12/28/20 subcutaneous solution lisinopril 5 mg tablet 5 mg PO DAILY #90 tab 04/20/20 12/28/20 omeprazole 20 mg capsule,delayed 20 mg PO BID #180 cap 04/20/20 12/28/20 release buprenorphine 8 mg-naloxone 2 mg 1 film SUBLINGUAL TID ea 07/05/20 12/28/20 sublingual film furosemide 80 mg tablet 80 mg PO DAILY #30 tab 12/14/20 12/28/20 metformin 1,000 mg tablet 1,000 mg PO BID #180 tab 12/14/20 12/28/20 nebulizers #1 ea 12/14/20 12/28/20 prasugrel 10 mg tablet 10 mg PO DAILY #90 tab 12/21/20 12/28/20 Previous Rx's Medication Instructions Recorded lancets [OneTouch UltraSoft #200 ea 03/28/17 Lancets] blood-glucose meter #1 each 08/28/18 lancets #500 each 08/28/18 blood sugar diagnostic #100 ea 12/13/19 metoprolol succinate 100 mg 100 mg PO .nightly #90 tab 12/30/19 tablet,extended release 24 hr albuterol sulfate 90 mcg/actuation 2 puff IH Q4H PRN #18 g 04/20/20 aerosol inhaler atorvastatin 80 mg tablet 80 mg PO QPM #90 tab 04/20/20 empagliflozin 25 mg tablet 25 mg PO DAILY #90 tab 04/20/20 fluticasone 500 mcg-salmeterol 50 1 inh IH BID #3 ea 04/20/20 mcg/dose blistr powdr for inhalation insulin glargine 100 unit/mL 40 unit SUBCUT QPM #30 ml 04/20/20 subcutaneous solution lisinopril 5 mg tablet 5 mg PO DAILY #90 tab 04/20/20 omeprazole 20 mg capsule,delayed 20 mg PO BID #180 cap 04/20/20 release furosemide 80 mg tablet 80 mg PO DAILY #30 tab 12/14/20 metformin 1,000 mg tablet 1,000 mg PO BID #180 tab 12/14/20 nebulizers #1 ea 12/14/20 prasugrel 10 mg tablet 10 mg PO DAILY #90 tab 12/21/20 Allergies Allergy/AdvReac Type Severity Reaction Status Date / Time povidone-iodine Allergy Severe Skin Rash Verified 12/28/20 15:35 [From Betadine] soap [From Betadine] Allergy Skin Rash Verified 12/28/20 15:35 acetaminophen AdvReac Severe GI upset Verified 12/28/20 15:35 paroxetine AdvReac Intermediate nightmares, Verified 12/28/20 15:35 shaking codeine [Codeine] AdvReac Mild Nausea Verified 12/28/20 15:35 lisdexamfetamine dimesylate AdvReac Unknown GI upset Verified 12/28/20 15:35 [From Vyvanse] General Stated Complaint: GenMedical LAWANDA: 3 Review of Systems <MEREDITH Frost - Last Filed: 12/28/20 15:49> Constitutional Constitutional: Denies fatigue, Reports fever(s) and Denies headache(s) Eyes Eyes: Denies change in vision ENT Ears, Nose, Mouth, and Throat: Denies headache(s) and Denies neck pain Cardiovascular Cardiovascular: Denies chest pain and Reports dyspnea Respiratory Respiratory: Denies cough and Reports dyspnea Gastrointestinal Gastrointestinal: Reports abdominal pain, Reports nausea and Denies vomiting Genitourinary Genitourinary: Denies dysuria Musculoskeletal Musculoskeletal: Reports back pain and Denies neck pain Integumentary/Breasts Skin/Breast: Denies rash Neurologic Neurologic: Denies headache(s) Endocrine Endocrine: Denies fatigue Hematologic/Lymphatic Hematologic/Lymphatic: Denies easy bleeding and Denies easy bruising PFS <MEREDITH Frost - Last Filed: 12/28/20 15:49> Medical History (Updated 12/28/20 @ 22:35 by Bobby Segura MD) Abdominal distension Acute heart failure with reduced ejection fraction and diastolic dysfunction (~11/2019) Anxiety (03/15/15) Arm pain, right (11/11/16) R upper arm pain and weakness and decreased sensation Asthma (06/07/15) Recurrent CO2 retention!; [facility] status 10/2016 Attention deficit hyperactivity disorder, combined type (03/11/16) [facility] Body mass index (BMI) 50-59.9, adult Calculus of kidney (06/07/15) Left, non-obstructing Chronic pain Congestive heart failure (CHF) s/p CT, EF 40-45% Constipation Coronary artery disease Depression Diabetes Diabetic neuropathy Gabapentin in the past; d/c'ed following overdose leading to [facility] hospitalization (~2016 or 2017?) Disability, 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 Microalbuminuria due to type 2 diabetes mellitus Mood disorder Anxiety, depression, PTSD, ADHD Nephrolithiasis (06/07/15) Opioid use disorder (~2008) MAT at [facility]: switched back to Suboxone 2017; methadone prior to that since ~09/2013; prior Suboxone ([facility]) Restless legs syndrome Sciatica of right side (08/23/16) Snoring ST elevation (STEMI) myocardial infarction involving left anterior descending coronary artery (~11/2019) Steatosis of liver 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 pills, has been clean for 2 years- on suboxone from [facility] in [place], [place] Substance use disorder Opioids Tobacco use disorder Trigger finger, left middle finger (02/26/16) Type 2 diabetes mellitus, with long-term current use of insulin Neuropathy, microalbuminuria, labile blood sugars Urolithiasis Witnessed apneic spells Surgical History Appendectomy section x3 Cholecystectomy Colonoscopy - [facility] (02/07/16) H/O: History of appendectomy History of cholecystectomy Ligation of fallopian tube Open Carpal Tunnel release Removal of foreign body (06/26/16) Dr Ott, [facility] Trigger Finger release Rgt thumb and middle finger; Dr Solomon Family History Son Crohn disease Daughter Crohn disease Daughter Crohn disease Social History Smoking/Tobacco Use Status: Former Tobacco Use Quit Date: 11/30/19 Smoking risk assessment performed?: Yes Alcohol Intake: never Drug use: Current Sobriety Substance use type: former substance user Caregiver/Support person: No Housing: apartment Number of Children: 3 Communication Needs: None Pets and animals: Yes Pets and animals: cat(s), dog(s) and snake(s) Sexually active: Yes Current gender identity: female What type of physical activity do you participate in: none Do you feel safe at home: Yes Do you feel safe in your relationship?: Yes Exam <MEREDITH Frost - Last Filed: 12/28/20 15:49> Const General: cooperative, no acute distress and ill appearing chronically Orientation: alert, awake and oriented x3 HENMT Head: normal to inspection, normocephalic and atraumatic Face and sinus: normal facial exam Mouth: moist mucous membranes Eyes General: appearance normal, both eyes and all related structures Conjunctivae: conjunctivae normal Neck Neck: normal visual inspection, full ROM, trachea midline, supple and nontender Resp Effort & Inspection: normal respiratory effort and able to speak in complete sentences Auscultation: diminished lung sounds bilaterally in the lower lung cui and rales bilaterally throughout Cardio Rate: regular rate Rhythm: regular rhythm GI Inspection: normal to inspection and obesity Palpation: soft, not firm, no guarding, no pulsatile masses and tender (Diffusely throughout) with no rebound tenderness Auscultation: normal bowel sounds Back/Spine/Pelvis Back: no CVA tenderness and back tenderness (Diffuse lumbar, right side worse than left) Skin General skin exam: no rashes or lesions noted Neuro General: patient alert, patient awake, moves all extremities and no focal motor deficits Cognition: normal cognition Speech: speech normal Motor: muscle tone normal throughout and strength 5/5 throughout Sensory Exam: no sensory deficits noted Extrem General: normal to inspection, full ROM, capillary refill normal, no calf tenderness and pedal edema bilaterally pitting and 2+ Psych Appearance: grossly normal Mental Status: mental status grossly normal Course <MEREDITH Frost - Last Filed: 12/28/20 15:49> Vital Signs Vital signs: Vital Signs Temperature 36.8 C 12/28/20 15:05 Pulse 73 12/28/20 15:05 Respiratory Rate 16 12/28/20 15:05 Blood Pressure 157/92 H 12/28/20 15:05 Pulse Oximetry 97 12/28/20 15:05 Temperature 36.8 C 12/28/20 15:05 Temperature Source Oral 12/28/20 15:05 Pulse 71 12/28/20 15:08 Pulse 64 12/28/20 15:20 Respiratory Rate 17 12/28/20 15:20 Respiratory Effort Non-Labored 12/28/20 15:13 Respiratory Depth Normal 12/28/20 15:13 Respiratory Pattern Normal 12/28/20 15:13 Blood Pressure 157/92 H 12/28/20 15:08 Blood Pressure Mean 108 12/28/20 15:08 Blood Pressure Position Sitting 12/28/20 15:05 Pulse Oximetry 98 12/28/20 15:20 Oxygen Delivery Method Room Air 12/28/20 15:05 Oxygen Flow Rate 0 12/28/20 15:05 Pain Level 8 12/28/20 15:05 Comment 12/28/20 15:05 <Ailyn Dale - Last Filed: 12/29/20 00:42> Critical Care Time Critical Care Time: Yes Total Critical Care Time: 90 Attestation: I spent greater than 35 minutes addressing this patient's acute life threatening illness. This time was spent engaged in actions directly related to the patient's care. Failure to initiate these interventions would have likely resulted in clinically significant or life threatening deterioration in the patients condition. Sign Out <MEREDITH Frost - Last Filed: 12/28/20 15:49> Sign Out Data: Sign Out Comment: History of diabetes, CAD, stent placement, CHF, multiple comorbidities. 20 pound weight gain over 1 month even though Lasix was doubled up to 80 mg. Sent in by primary care provider for concern of CHF exacerbation, anasarca, nephrotic syndrome. Patient with abdominal pain and right-sided back pain. Will likely need CT, IV diuretics, and admission. Last updated by Jeffery Luis PA at 12/28/20 15:51
[2020-12-28 15:54] LABS: Source Nasal/Nares
--- NOTE | 2020-12-28 16:00 | RT.EKG_ITS ---
APPROVED REPORT Exam: Resting ECG Reason for Exam: tiara Patient Location: E HR:48 bpm ECG Measurements Heart Rate 48 AXIS CA 214 P 25 QRSd 125 QRS -62 QT 652 T 70 QTc 584 Conclusion Sinus bradycardia...rate< 60 Supraventricular bigeminy...bigeminy string>4 w/ SV complexes Borderline prolonged CA interval...CA >212, V-rate 30- 49 Probable left atrial enlargement...P >50mS, <-0.10mV V1 IVCD, consider RBBB...QRSd>120mS, terminal axis(90,270) Inferior infarct, old...Q >35mS, II III aVF Prolonged QT interval...QTc >510mS
--- NOTE | 2020-12-28 16:25 | DI.VRAD_ITS ---
PROCEDURE INFORMATION: Exam: XR Chest Exam date and time: 12/28/2020 4:03 PM Age: 45 years old Clinical indication: Other: Weight gain TECHNIQUE: Imaging protocol: XR of the chest. Views: 1 view. COMPARISON: CT THORAX CTA 11/28/2020 9:19 PM FINDINGS: Lungs: No mass. No consolidation. Pleural spaces: Unremarkable. No pleural effusion. No pneumothorax. Heart/Mediastinum: There is cardiomegaly. Bones/joints: Unremarkable. IMPRESSION: 1. No evidence for acute cardiopulmonary disease. 2. Cardiomegaly. Dictated and Authenticated by: Jimenez Hadley MD. Ordering:RULA Gil MD
[2020-12-28] MEDS: Furosemide 40 MG/4 ML VIAL IVP (16:47)
[2020-12-28 16:49] LABS: Lactate 2.3 mmol/L (0.6-1.4)
[2020-12-28 16:56] LABS: Abs Immature Grans 0.03 10^3/uL (0.0-0.06); Absolute Basophil Count 0.04 10^3/uL (0.0-0.2); Absolute Eosinophil Count 0.07 10^3/uL (0.0-0.7); Absolute Lymphocyte Count 2.44 10^3/uL (1.2-3.4); Absolute Monocyte Count 0.57 10^3/uL (0.1-0.8); Absolute Neutrophil Count 7.24 10^3/uL (1.2-6.7); Basophils % 0.4; Eosinophils % 0.7; HCT 41.7 % (36.0-46.0); HGB 13.4 g/dL (11.2-15.7); Immature Grans % 0.3; Lymphocytes % 23.5; MCH 26.2 pg (27.0-33.0); MCHC 32.1 % (32.0-36.0); MCV 81.6 fL (80-95); MPV 11.3 fL (8.0-11.0); Monocytes % 5.5; Neutrophils % 69.6; Nucleated RBC 0 %; Platelet Count 311 10^3/uL (130-400); RBC 5.11 10^6/uL (3.93-5.22); RDW 17.1 % (11.7-14.6); RDW-SD 49.9 fL; WBC 10.39 10^3/uL (4.4-10.8)
[2020-12-28] MEDS: fentaNYL 100 MCG/2 ML VIAL 50 MCG IVP ×3 (17:07→23:58)
[2020-12-28 17:08] LABS: Bilirubin Negative (Negative); Blood Small (Negative); Clarity Clear (Clear); Glucose >=1000 mg/dL (Negative); Ketones Negative (Negative); Leukocyte Esterase Negative (Negative); Nitrite Negative (Negative); Specific Gravity 1.025 (1.005-1.025); pH 5.5 (5-8)
[2020-12-28 17:10] LABS: ALT 19 U/L (14-59); AST 16 U/L (15-37); Albumin 3.5 g/dL (3.4-5.0); Alkaline Phosphatase 81 U/L (46-116); Anion Gap 5.9 mmol/L (3-11); BUN 9 mg/dL (7-18); Bilirubin, Total 0.7 mg/dL (0.2-1.0); CO2 30.1 mmol/L (21.0-32.0); CREATININE 0.8 mg/dL (0.55-1.02); Calcium 8.8 mg/dL (8.5-10.1); Chloride 104 mmol/L (98-107); Glucose 50 mg/dL (74-106); Magnesium 1.7 mg/dL (1.8-2.4); NT-proBNP 4083 pg/mL (<300); Potassium 4.1 mmol/L (3.5-5.1); Sodium 140 mmol/L (136-145); Total Protein 6.7 g/dL (6.4-8.2); Troponin I < 0.05 ng/mL (<0.06)
[2020-12-28 17:26] LABS: D-Dimer 683 ng/mlFEU (<500)
[2020-12-28 17:40] LABS: Bacteria Negative HPF (Negative); C & S Indicated? No; Casts Negative LPF (Negative); Crystals Negative HPF (Negative); Epithelial Cells Rare HPF (Negative); Mucus Negative (Negative); Other Cells Negative (Negative); WBC 0-2 HPF (0-5)
[2020-12-28 17:52] LABS: COVID-19 PCR Negative (Negative)
--- NOTE | 2020-12-28 18:00 | DI.CT_ITS ---
Exam(s) CT CHEST PE CTA EXAM: CT CHEST PE CTA CLINICAL HISTORY: chest pain, sob. TECHNIQUE: Imaging Protocol: Axial CT angiography was performed with multi-slice acquisition and mu lti-planar and/or 3D reconstructions. CONTRAST MATERIAL: Intravenous: Omnipaque 350 Contrast volume:85 mL COMPARISON: CT CT ABDOMEN PELVIS W from 12/25/2020 FINDINGS: Tracheobronchial tree: Patent where visualized. Pulmonary parenchyma: No consolidation or dominant measurable mass. No architectural distortion. Pulmonary Arteries: There is suboptimal enhancement of the pulmonary arteries. No filling defect is seen in the main or right or left pulmonary arteries. Mediastinum and Aparna: No dominant adenopathy or fluid collection. Visualized thyroid gland: Unremarkable. Pleura: There is a small left pleural effusion. No significant right pleural effusion or pneumothora x is present. Heart: Mild cardiomegaly. Coronary artery calcification. No pericardial effusion. Aorta: Thoracic aorta non-dilated. No evidence of dissection. Upper abdomen: Status post cholecystectomy. Soft tissues: Unremarkable. Bones: Within normal limits for the patient's age. IMPRESSION: 1. No optimal opacification the pulmonary arteries limits evaluation for embolism in the distal segme nts. No evidence of an embolism in the main or right or left pulmonary arteries. 2. Small left pleural effusion. RADIATION DOSE DELIVERED: 844.7mGy.cm Total DLP DATA REPOSITORY: All CT scans at this facility are submitted to the National Radiology Data Registry (NRDR) Dose Index Registry (DIR) with the [employer] (ACR). RADIATION OPTIMIZATION: All CT scans at this facility use at least one of these dose optimization te chniques: automated exposure control; mA and/or kV adjustment per patient size (includes targeted exa ms where dose is matched to clinical indication); or iterative reconstruction.
[2020-12-28] MEDS: Aspirin 81 MG CHEW (18:17)
[2020-12-28] MEDS: Omnipaque 350 MG/ML 100 ML BTL IJ (18:58)
[2020-12-28] MEDS: Normal Saline - Diluent 50 ML VIAL IV (18:58)
[2020-12-28] MEDS: Normal Saline Flush 10 ML SYR IVP (18:59)
--- NOTE | 2020-12-28 19:04 | DI.VRAD_ITS ---
PROCEDURE INFORMATION: Exam: CTA Chest With Contrast Exam date and time: 12/28/2020 6:06 PM Age: 45 years old Clinical indication: Shortness of breath TECHNIQUE: Imaging protocol: Computed tomographic angiography of the chest with contrast. 3D rendering (Not supervised by radiologist): MIP and/or 3D reconstructed images were created by the technologist. Contrast material: OMNIPAQUE 350; Contrast volume: 85 ml; Contrast route: INTRAVENOUS (IV); COMPARISON: CT THORAX CTA 11/28/2020 9:19 PM FINDINGS: Pulmonary arteries: There is a suboptimal pulmonary arterial bolus limiting evaluation for embolism of the more distal segmental arterial branches. No evidence for central or primary branch pulmonary embolism. Aorta: Unremarkable. No aortic aneurysm. No aortic dissection. Lungs: Unremarkable. No consolidation. No masses. Pleural spaces: There is a small left pleural effusion. No pneumothorax. Heart: There is mild cardiomegaly. No pericardial effusion. Lymph nodes: Unremarkable. No enlarged lymph nodes. Bones/joints: Unremarkable. No acute fracture. Soft tissues: Unremarkable. IMPRESSION: 1. Suboptimal pulmonary arterial bolus limiting evaluation for embolism of the more distal segmental arterial branches. No evidence for central or primary branch pulmonary embolism. 2. Small left pleural effusion. 3. Cardiomegaly. Dictated and Authenticated by: Jimenez Hadley MD. Ordering:CAMILLE Robertson MD
[2020-12-28 21:09] LABS: Troponin I < 0.05 ng/mL (<0.06)
--- NOTE | 2020-12-28 22:02 | W.PM.HP.N ---
Date of service: 12/28/20 Time of Service: 22:02 Assessment and Plan Assessment and plan (1) Congestive heart failure (CHF): Status: Chronic Assessment and plan: She appears to be in congestive heart failure based on the anasarca, weight gain, elevated BNP. She has a known ischemic cardiomyopathy from her prior FL with an EF of 40 to 45%. I suspect it is worse now and I suspect there is a right-sided component. She is responding well to the IV furosemide. Plan is to continue furosemide 40 mg IV every 6 hours. Continue the Prasurgel and aspirin. And is to transfer to [facility] [place] in the a.m. (2) Coronary artery disease: Status: Chronic Assessment and plan: She has a history of [facility] in November 2020. She was stented x2 in the left anterior descending artery. She had multiple other coronary lesions that were not treated at that time. I am suspicious she may have a right coronary artery lesion this time because of the bradycardia. She is at risk to go into complete heart block. Will monitor on continuous cardiac monitoring. Hold on beta-sonia. Lisinopril with parameters. She is receiving her dual antiplatelet therapy. We did not put her on heparin. Her initial troponin is less than 0.05. Her EKG does not show acute ischemia. (3) Chest pain: Status: Acute Assessment and plan: She gets a pressure-like feeling with the bradycardia events. This does not appear to be angina. We will trend her troponins. Further follow-up with [facility] cardi[facility]. (4) History of smoking: Status: Acute Assessment and plan: She reportedly quit smoking on 11/29/2020. Will provide nicotine replacement as needed. (5) Type 2 diabetes mellitus, with long-term current use of insulin: Status: Chronic Assessment and plan: Her blood sugars were low initially on presentation to the ER. She had a blood sugar of 50. She has been able to take p.o. and her blood sugar has come up to 75. We will hold her insulin for now continue the Metformin. 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 She is normally on Seroquel and trazodone. She was recently discontinued from Ritalin. We will hold the Seroquel continue the trazodone. (7) Chronic pain: Status: Chronic Assessment and plan: She has chronic pain and a substance use disorder. She has been on Suboxone therapy currently 8 mg daily. We will continue with her Suboxone every morning. Will provide as needed fentanyl 50 mcg IV every 2 hours as needed for her discomfort. (8) Elevated d-dimer: Status: Acute Assessment and plan: Her D-dimer on presentation was elevated at 683. A CT angiogram did not demonstrate pulmonary embolus. Will continue with prophylactic enoxaparin. History of Present Illness History of Present Illness Chief Complaint: CHF, Bradycardia, Ischemic Cardiomyopathy Narrative: 45-year-old female referred from [facility] internal medicine because of total body anasarca, shortness of breath, chest pressure, weight gain. She has been actively treated for anasarca recently. She has had about a 13 pound weight gain. She was initially treated with furosemide [address] Hamilton increase that to 80 mg daily recently. She apparently ran out of her furosemide in the last few days and has been having orthopnea, chest pressure, and worsening abdominal distention. In the emergency room she received furosemide 40 mg IV push x1. She is put out 2400 cc of clear urine. She overall feels a little better with her breathing though she is noted to have episodes of bradycardia on the monitor during which time she has pressure in her chest. She is being admitted to the intensive care unit for close monitoring. [facility] cardiology has been informed and is agreed to take her in transfer in the morning. Plan is to continue aspirin and Prasurgrel. Every 6 hours Lasix. Review of Systems Narrative: She has been having severe orthopnea for several weeks. She has noticed a 13 pound weight gain in the last 2 weeks. Worse since she ran out of her Lasix. She feels pitting edema on her abdomen. She only feels a small amount of swelling around her ankles. She has wheezing and shortness of breath. She has a pressure-like feeling when she has a slow heart rate. She has not had overt chest pain. [facility] Medical History (Updated 12/28/20 @ 22:35 by Bobby Segura MD) Abdominal distension Acute heart failure with reduced ejection fraction and diastolic dysfunction (~11/2019) Anxiety (03/15/15) Arm pain, right (11/11/16) R upper arm pain and weakness and decreased sensation Asthma (06/07/15) Recurrent CO2 retention!; [facility] status 10/2016 Attention deficit hyperactivity disorder, combined type (03/11/16) [facility] Body mass index (BMI) 50-59.9, adult Calculus of kidney (06/07/15) Left, non-obstructing Chronic pain Congestive heart failure (CHF) s/p FL, EF 40-45% Constipation Coronary artery disease Depression Diabetes Diabetic neuropathy Gabapentin in the past; d/c'ed following overdose leading to [facility] (~2016 or 2018?) Disability, 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 Easy bruising dual anti-platelets esophageal microperforation Essential hypertension (03/15/15) Grade II internal hemorrhoids (02/07/16) colonoscopy 02/07/16 Herniated lumbar disc without myelopathy History of peptic ulcer History of smoking Hyperlipidemia Hypertension Insomnia difficulty initiating sleep, Trazodone Rx, ?[facility]ARL Internal derangement of left knee (~10/2018) Left bundle branch block (LBBB) on electrocardiogram (08/30/16) new 08/27/16; prior [facility] Microalbuminuria due to type 2 diabetes mellitus Mood disorder Anxiety, depression, PTSD, ADHD Nephrolithiasis (06/07/15) Opioid use disorder (~2008) MAT at [facility]: switched back to Suboxone 2017; methadone prior to that since ~09/2013; prior Sub[facility]one ([facility]) Restless legs syndrome Sciatica of right side (08/23/16) Snoring ST elevation (STEMI) myocardial infarction involving left anterior descending coronary artery (~11/2019) Steatosis of liver 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 pills, has been clean for 2 years- on suboxone from [facility] in [place], [place] Substance use disorder Opioids Tobacco use disorder Trigger finger, left middle finger (02/26/16) Type 2 diabetes mellitus, with long-term current use of insulin Neuropathy, microalbuminuria, labile blood sugars Urolithiasis Witnessed apneic spells Surgical History Appendectomy section x3 Cholecystectomy Colonoscopy - MAC (02/07/16) H/O: History of appendectomy History of cholecystectomy Ligation of fallopian tube Open Carpal Tunnel release Removal of foreign body (06/26/16) Dr Ott, [facility] Trigger Finger release Rgt thumb and middle finger; Dr Solomon Family History Son Crohn disease Daughter Crohn disease Daughter Crohn disease Social History Smoking/Tobacco Use Status: Former Tobacco Use Quit Date: 11/30/19 Smoking risk assessment performed?: Yes Alcohol Intake: never Drug use: Current Sobriety Substance use type: former substance user Caregiver/Support person: No Housing: apartment Number of Children: 3 Communication Needs: None Pets and animals: Yes Pets and animals: cat(s), dog(s) and snake(s) Sexually active: Yes Current gender identity: female What type of physical activity do you participate in: none Do you feel safe at home: Yes Do you feel safe in your relationship?: Yes Meds Allergies and Home Medications Allergies Allergy/AdvReac Type Severity Reaction Status Date / Time povidone-iodine Allergy Severe Skin Rash Verified 12/28/20 15:35 [From Betadine] soap [From Betadine] Allergy Skin Rash Verified 12/28/20 15:35 acetaminophen AdvReac Severe GI upset Verified 12/28/20 15:35 paroxetine AdvReac Intermediate nightmares, Verified 12/28/20 15:35 shaking codeine [Codeine] AdvReac Mild Nausea Verified 12/28/20 15:35 lisdexamfetamine dimesylate AdvReac Unknown GI upset Verified 12/28/20 15:35 [From Vyvanse] Home Medications Medication Instructions Recorded Confirmed Type pen needle, diabetic [Pen Needle] #100 ndl 11/05/16 12/28/20 History albuterol sulfate 2.5 mg INHALATION Q4H PRN #125 vial 03/21/17 12/28/20 History lancets [OneTouch UltraSoft #200 ea 03/28/17 12/28/20 Rx Lancets] blood-glucose meter #1 each 08/28/18 12/28/20 Rx lancets #500 each 08/28/18 12/28/20 Rx quetiapine [Seroquel] 200 mg PO QHS 12/06/19 12/28/20 History trazodone 150 mg PO QHS 12/06/19 12/28/20 History aspirin 81 mg tablet,delayed 81 mg PO DAILY 12/13/19 12/28/20 History release blood sugar diagnostic #100 ea 12/13/19 12/28/20 Rx nitroglycerin 0.4 mg sublingual 0.4 mg SUBLINGUAL Q5M PRN 12/13/19 12/28/20 History tablet metoprolol succinate 100 mg 100 mg PO .nightly #90 tab 12/30/19 12/28/20 Rx tablet,extended release 24 hr albuterol sulfate 90 mcg/actuation 2 puff IH Q4H PRN #18 g 04/20/20 12/28/20 Rx aerosol inhaler atorvastatin 80 mg tablet 80 mg PO QPM #90 tab 04/20/20 12/28/20 Rx empagliflozin 25 mg tablet 25 mg PO DAILY #90 tab 04/20/20 12/28/20 Rx fluticasone 500 mcg-salmeterol 50 1 inh IH BID #3 ea 04/20/20 12/28/20 Rx mcg/dose blistr powdr for inhalation insulin glargine 100 unit/mL 40 unit SUBCUT QPM #30 ml 04/20/20 12/28/20 Rx subcutaneous solution lisinopril 5 mg tablet 5 mg PO DAILY #90 tab 04/20/20 12/28/20 Rx omeprazole 20 mg capsule,delayed 20 mg PO BID #180 cap 04/20/20 12/28/20 Rx release buprenorphine 8 mg-naloxone 2 mg 1 film SUBLINGUAL TID ea 07/05/20 12/28/20 History sublingual film furosemide 80 mg tablet 80 mg PO DAILY #30 tab 12/14/20 12/28/20 Rx metformin 1,000 mg tablet 1,000 mg PO BID #180 tab 12/14/20 12/28/20 Rx nebulizers #1 ea 12/14/20 12/28/20 Rx prasugrel 10 mg tablet 10 mg PO DAILY #90 tab 12/21/20 12/28/20 Rx Exam Narrative Exam Narrative: On exam she has bright red hair that is somewhat unkempt. She attends well and her speech is clear. Her sensorium appears to be clear. She is in no significant respiratory distress though she does have audible expiratory wheezes. She has minimal cough. Her posterior lung exam shows diffuse wheezes throughout both lung cui. No specific rales are heard at the bases. Her heart rate is notable for marked bradycardia that rapidly recovers from a heart rate of 37 up to a heart rate of 70. She is symptomatic when her heart rate dips with chest pressure. She satting 96% on room air. Her abdomen is massively obese there is a peau d'orange texture to her abdomen and there is pitting edema throughout. The lower extremities still maintain normal contour and shape there is trace pitting edema bilaterally. There are otherwise well perfused. Neurologically there are no focal deficits. Results Labs Result diagrams: 12/28/20 16:30 12/28/20 16:30 Labs: Laboratory Results - last 24 hr 12/28/20 12/28/20 12/28/20 15:50 16:30 16:30 WBC 10.39 RBC 5.11 Hgb 13.4 Hct 41.7 MCV 81.6 MCH 26.2 L MCHC 32.1 RDW 17.1 H Plt Count 311 MPV 11.3 H Immature Gran % 0.3 Neutrophils % 69.6 Lymphocytes % 23.5 Monocytes % 5.5 Eosinophils % 0.7 Basophils % 0.4 Nucleated RBC % 0 Absolute Neutrophils 7.24 H Absolute Lymphocytes 2.44 Absolute Monocytes 0.57 Absolute Eosinophils 0.07 Absolute Basophils 0.04 D-Dimer VBG Lactate Sodium 140 Potassium 4.1 Chloride 104 Carbon Dioxide 30.1 Anion Gap 5.9 BUN 9 Creatinine 0.8 Estimated GFR/1.73 m2 >= 60.00 Glucose 50 L Calcium 8.8 Magnesium 1.7 L Total Bilirubin 0.7 AST 16 ALT 19 Alkaline Phosphatase 81 Troponin I < 0.05 NT-Pro-B Natriuret Pep 4083 H Total Protein 6.7 Albumin 3.5 Urine Color Urine Clarity Urine pH Ur Specific [place] Urine Protein Urine Ketones Urine Blood Urine Nitrite Urine Bilirubin Urine Urobilinogen Ur Leukocyte Esterase Urine RBC Urine WBC Ur Epithelial Cells Urine Crystals Urine Bacteria Urine Casts Urine Mucus Urine Other Ur Culture Indicated? Urine Glucose COVID-19 Source Nasal/Nares SARS-CoV-2 (PCR) Negative 12/28/20 12/28/20 12/28/20 16:30 16:30 16:43 WBC RBC Hgb Hct MCV MCH MCHC RDW Plt Count MPV Immature Gran % Neutrophils % Lymphocytes % Monocytes % Eosinophils % Basophils % Nucleated RBC % Absolute Neutrophils Absolute Lymphocytes Absolute Monocytes Absolute Eosinophils Absolute Basophils D-Dimer 683 H VBG Lactate 2.3 H* Sodium Potassium Chloride Carbon Dioxide Anion Gap BUN Creatinine Estimated GFR/1.73 m2 Glucose Calcium Magnesium Total Bilirubin AST ALT Alkaline Phosphatase Troponin I NT-Pro-B Natriuret Pep Total Protein Albumin Urine Color Yellow Urine Clarity Clear Urine pH 5.5 Ur Specific [place] 1.025 Urine Protein Negative Urine Ketones Negative Urine Blood Small H Urine Nitrite Negative Urine Bilirubin Negative Urine Urobilinogen 2.0 H Ur Leukocyte Esterase Negative Urine RBC 10-20 H Urine WBC 0-2 Ur Epithelial Cells Rare Urine Crystals Negative Urine Bacteria Negative Urine Casts Negative Urine Mucus Negative Urine Other Negative Ur Culture Indicated? No Urine Glucose >=1000 H COVID-19 Source SARS-CoV-2 (PCR) 12/28/20 20:47 WBC RBC Hgb Hct MCV MCH MCHC RDW Plt Count MPV Immature Gran % Neutrophils % Lymphocytes % Monocytes % Eosinophils % Basophils % Nucleated RBC % Absolute Neutrophils Absolute Lymphocytes Absolute Monocytes Absolute Eosinophils Absolute Basophils D-Dimer VBG Lactate Sodium Potassium Chloride Carbon Dioxide Anion Gap BUN Creatinine Estimated GFR/1.73 m2 Glucose Calcium Magnesium Total Bilirubin AST ALT Alkaline Phosphatase Troponin I < 0.05 NT-Pro-B Natriuret Pep Total Protein Albumin Urine Color Urine Clarity Urine pH Ur Specific [place] Urine Protein Urine Ketones Urine Blood Urine Nitrite Urine Bilirubin Urine Urobilinogen Ur Leukocyte Esterase Urine RBC Urine WBC Ur Epithelial Cells Urine Crystals Urine Bacteria Urine Casts Urine Mucus Urine Other Ur Culture Indicated? Urine Glucose COVID-19 Source SARS-CoV-2 (PCR) Last Vital Signs Temp 36.8 C 12/28/20 15:05 Pulse 62 12/28/20 21:01 Resp 11 L 12/28/20 21:01 BP 135/69 12/28/20 21:01 Pulse Ox 96 12/28/20 21:01 PAWSS Pt Consumed Any Amount of Alcohol Within the Last 30 days OR had positive MECHELLE Upon Admission: No
[2020-12-28 22:13] LABS: BE (Venous) 5 mmol/L (-2-3); HCO3 (Venous) 29 mmol/L (23-28); O2 Sat (Venous) 90 %; TCO2 (Venous) 26 mmol/L (24-29); pCO2 (Venous) 45 mmHg (41-51); pH (Venous) 7.42 (7.31-7.41); pO2 (Venous) 58 mmHg
[2020-12-29] VITALS (130 sets, daily range): BP systolic 95–144; BP diastolic 48–104; PULSE 34–82; RESP 9–24; TEMP 35.6–37.3; O2SAT 85–99
[2020-12-29 01:44] LABS: Troponin I < 0.05 ng/mL (<0.06)
[2020-12-29] MEDS: Enoxaparin 40 MG/0.4 ML SYR SC (02:08)
[2020-12-29] MEDS: fentaNYL 100 MCG/2 ML VIAL 50 MCG IVP ×2 (02:09→05:56)
[2020-12-29 02:27] LABS: *AMPHETAMINES SCREEN URINE Negative (Negative); *BARBITURATES SCREEN URINE Negative (Negative); *BENZODIAZEPINES SCREEN URINE Negative (Negative); Cannabinoids THC Negative (Negative); Cocaine Screen,Urine Negative (Negative); METHADONE URINE SCREEN Negative (Negative); OPIATES URINE SCREEN Negative (Negative)
[2020-12-29 02:33] LABS: Tricyclic Antidepressants Positive (Negative)
--- NOTE | 2020-12-29 06:43 | NUR.NOTE ---
Spoke with Joan RT about vent alarming constantly for low ET CO2. Discussed possibilities, vent is not indicating that pt is over breathing. Agreed to adjust alarm setting for ET CO2 down to 15 until Harvey, RT comes in to attempt an ABG and see the patient. Nursing Note:
[2020-12-29 08:43] LABS: Abs Immature Grans 0.03 10^3/uL (0.0-0.06); Absolute Basophil Count 0.03 10^3/uL (0.0-0.2); Absolute Lymphocyte Count 2.38 10^3/uL (1.2-3.4); Absolute Monocyte Count 0.53 10^3/uL (0.1-0.8); Basophils % 0.3; HGB 12.5 g/dL (11.2-15.7); Immature Grans % 0.3; Lymphocytes % 24.6; MCH 25.3 pg (27.0-33.0); MCHC 31.3 % (32.0-36.0); MPV 11.3 fL (8.0-11.0); Monocytes % 5.5; Neutrophils % 68.3; Nucleated RBC 0 %; Platelet Count 320 10^3/uL (130-400); RBC 4.94 10^6/uL (3.93-5.22); RDW 16.9 % (11.7-14.6); RDW-SD 49.4 fL; WBC 9.67 10^3/uL (4.4-10.8)
[2020-12-29 09:01] LABS: Anion Gap 8.8 mmol/L (3-11); BUN 10 mg/dL (7-18); CO2 30.2 mmol/L (21.0-32.0); CREATININE 0.7 mg/dL (0.55-1.02); Calcium 8.3 mg/dL (8.5-10.1); Calculated LDL 47 mg/dL (<100); Chloride 102 mmol/L (98-107); Cholesterol 93 mg/dL (<200); Glucose 72 mg/dL (74-106); HDL Cholesterol 38 mg/dL (40-60); Potassium 3.8 mmol/L (3.5-5.1); Sodium 141 mmol/L (136-145); Triglyceride 43 mg/dL (<150)
[2020-12-29 09:04] LABS: Troponin I < 0.05 ng/mL (<0.06)
[2020-12-29] MEDS: Lisinopril 5 MG TAB PO (09:29)
[2020-12-29] MEDS: Aspirin E.C. 81 MG TABEC PO (09:29)
[2020-12-29] MEDS: Furosemide 40 MG/4 ML VIAL IVP ×3 (09:29→16:26)
[2020-12-29] MEDS: Omeprazole 20 MG CAPCR PO (09:29)
[2020-12-29] MEDS: Buprenorphine/Naloxone 8 mg/2 mg FILM 1 EACH SL ×2 (09:29→14:28)
--- NOTE | 2020-12-29 09:52 | INITIAL_ITS ---
- If Service Date Differs Date of service: 12/29/20 Time of Service: 09:52 Care Management Initial Assess REASON FOR HOSPITALIZATION:: CHF, bradycardia, ischemic cardiomyopathy PAST MEDICAL HISTORY/PAST SURGICAL HISTORY:: Medical History. Abdominal distension. Acute heart failure with reduced ejection fraction and diastolic dysfunction (~11/2019). Anxiety (03/15/15). Arm pain, right (11/11/16). R upper arm pain and weakness and decreased sensation. Asthma (06/07/15). Recurrent CO2 retention!; [facility] status 10/2016. Attention deficit hyperactivity disorder, combined type (03/11/16). [facility]. Body mass index (BMI) 50-59.9, adult. Calculus of kidney (06/07/15). Left, non-obstructing. Chronic pain. Congestive heart failure (CHF). s/p FL, EF 40-45%. Constipation. Coronary artery disease. Depression. Diabetes. Diabetic neuropathy. Gabapentin in the past; d/c'ed following overdose leading to [facility] hospitalization (~2016 or 2017?). 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 Easy bruising. dual anti-platelets. esophageal microperforation. Essential hypertension (03/15/15). Grade II internal hemorrhoids (02/07/16). colonoscopy 02/07/16. Herniated lumbar disc without myelopathy. History of peptic ulcer. History of smoking. Hyperlipidemia. Hypertension. Insomnia. difficulty initiating sleep, Trazodone Rx, ?KARL. Internal derangement of left knee (~10/2018). Left bundle branch block (LBBB) on electrocardiogram (08/30/16). new 08/27/16; prior [facility]. Microalbuminuria due to type 2 diabetes mellitus. Mood disorder. Anxiety, depression, PTSD, ADHD. Nephrolithiasis (06/07/15). Opioid use disorder (~2008). MAT at [facility]: switched back to Suboxone 2017; methadone prior to that since ~09/2013; prior Suboxone ([facility]). Restless legs syndrome. Sciatica of right side (08/23/16). Snoring. ST elevation (STEMI) myocardial infarction involving left anterior descending coronary artery (~11/2019). Steatosis of liver. Substance abuse in remission. opiod pills, has been clean for 2 years- on suboxone from [facility] in [place], [place]. Substance use disorder. Opioids. Tobacco use disorder. Trigger finger, left middle finger (02/26/16). Type 2 diabetes mellitus, with long-term current use of insulin. Neuropathy, microalbuminuria, labile blood sugars. Urolithiasis. Witnessed apneic spells. Surgical History. Appendectomy. section. x3. Cholecystectomy. Colonoscopy - MAC (02/07/16). H/O: . History of appendectomy. History of cholecystectomy. Ligation of fallopian tube. Open Carpal Tunnel release. Removal of foreign body (06/26/16). Dr Ott, [facility]. Trigger Finger release. Rgt thumb and middle finger; Dr Solomon PREVIOUS FUNCTIONAL STATUS/SOCIAL/FAMILY SUPPORTS:: Breonna lives in an apartment in [place], alone, with her dog and cat. She has three children who are 30, 27, and 17 years old. Her youngest daugher lives with her sister in [place]. Her apartment is on the third floor, so she has 36 steps to get in and out of her home. She is independent at baseline. CURRENT FUNCTIONAL STATUS:: Breonna was sitting up in bed, having her hair brushed while CM talked with her. She reported that she is feeling ok, and is glad to be getting cleaned up. She stated that she talked to MD today, who reported that she has been accepted at [facility], and will be transferred once a bed becomes available. She is comfortable with transfer, but is wondering if [facility] will be placing more stents. CM relayed this to the MD to address. CM will continue to follow. ADVANCE DIRECTIVES:: Not on file. CM will offer forms. Has patient been provided with info about the portal/API?: Yes Did the patient sign up for the portal?: No CODE STATUS:: Full Code INSURANCE COVERAGE / FINANCIAL ISSUES:: [facility] CURRENT HOME/COMMUNITY SERVICES/EQUIPMENT:: No current services. Breonna has a FWW, and cane, and a shower chair at home. PRIMARY CARE PHYSICIAN:: Shabbir Hamilton POTENTIAL DISCHARGE NEEDS:: Breonna may be transferred to [facility], depending on bed availability. PATIENT/FAMILY EDUCATION NEEDS:: Review discharge instructions, discussion of self care needs including ask me three and goals of care. ANTICIPATED BARRIERS TO DISCHARGE:: Bed availability at [facility]. TRANSPORTATION:: EMS, coordinated by RN pharmaceutical compounding supervisor, as this is a tertiary transfer. PLAN:: Anticipate Breonna will be transferred to [facility] once a bed becomes available. She will be transported via EMS, coordinated by RN Director Of Pediatric Rehabilitation. She will follow up with her PCP and discharge plan of care. CM will continue to follow.
[2020-12-29] MEDS: Simethicone 80 MG CHEW 240 MG PO (11:55)
[2020-12-29] MEDS: Acetaminophen 325 MG TAB PO (11:55)
[2020-12-29] MEDS: Budesonide/Formoterol 160/4.5 6 GM 60 PUFF INH IH (12:45)
--- NOTE | 2020-12-29 15:45 | RT.EKG_ITS ---
APPROVED REPORT Exam: Resting ECG Reason for Exam: chest pain Patient Location: I HR:58 bpm ECG Measurements Heart Rate 58 AXIS MO 230 P 37 QRSd 131 QRS -62 QT 505 T 89 QTc 481 Conclusion Sinus bradycardia...rate< 60 Ventricular premature complex...V complex w/ short R-R interval Prolonged MO interval...MO >210, V-rate 50- 90 IVCD, consider RBBB...QRSd>120mS, terminal axis(90,270) Inferior infarct, old...Q >35mS, II III aVF
--- NOTE | 2020-12-29 16:12 | DSE_ITS ---
Date of service: 12/29/20 Time of Service: 16:13 DS: Diagnosis Discharge Diagnosis (1) Congestive heart failure (CHF): Status: Chronic Asessment and Plan: Ischemic cardiomyopathy from prior MS. EF of 40-45%. Responding to IV lasix. Renal function stable. (2) Coronary artery disease: Status: Chronic (3) Chest pain: Status: Acute (4) History of smoking: Status: Acute (5) Type 2 diabetes mellitus, with long-term current use of insulin: Status: Chronic Asessment and Plan: Glucose low on admission Holding her insulin. Continued metformin. (6) Depression: Status: Chronic (7) Chronic pain: Status: Chronic (8) Elevated d-dimer: Status: Acute Discharge Plan Disposition Patient Disposition: [facility] Condition: Stable Discharge Details Reason For Visit: Motibz Type II Symptomatic Bradycardia,IDDM,CHF EX Admit Date/Time: 12/28/20 20:11 Admit Provider: Bobby Segura Attending Provider: Bobby Segura Primary Care Provider: Shabbir Hamilton [facility] Course Hospital Course: CHF, Bradycardia, Ischemic Cardiomyopathy Narrative: 45-year-old female referred from [facility] internal medicine because of total body anasarca, shortness of breath, chest pressure, weight gain. She has been actively treated for anasarca recently. She has had about a 13 pound weight gain. She was initially treated with furosemide [address] Hamilton increase that to 80 mg daily recently. She apparently ran out of her furosemide in the last few days and has been having orthopnea, chest pressure, and worsening abdominal distention. In the emergency room she received furosemide 40 mg IV push x1. She is put out 2400 cc of clear urine. She overall feels a little better with her breathing though she is noted to have episodes of bradycardia on the monitor during which time she has pressure in her chest. She is being admitted to the intensive care unit for close monitoring. [facility] cardiology has been informed and is agreed to take her in transfer in the morning. Plan is to continue aspirin and Prasurgrel. Every 6 hours Lasix. After admission she had an episode of central chest pressure; no EKG changes noted. Morphine 4mg IV administered. A bed has been secured at [facility] and will be transferred for further treatment. Home Meds and New Rx's Prescriptions: No Action furosemide 80 mg tablet 80 mg PO DAILY Qty: 30 RF: 0 metformin 1,000 mg tablet 1,000 mg PO BID Qty: 180 RF: 3 (DME) nebulizers Misc See Rx Instructions .ROUTE .MEDSUPPLY Qty: 1 RF: 0 (DME) blood-glucose meter misc See Dose Instructions .ROUTE .MEDSUPPLY Qty: 1 RF: 0 (DME) lancets misc See Dose Instructions .ROUTE .MEDSUPPLY Qty: 500 RF: 3 metoprolol succinate 100 mg tablet extended release 24 hr 100 mg PO .nightly Qty: 90 RF: 5 Jardiance 25 mg tablet 25 mg PO DAILY Qty: 90 RF: 3 albuterol sulfate [ProAir HFA] 90 mcg/actuation HFA aerosol inhaler 2 puff IH Q4H PRN (Reason: bronchospasm) Qty: 18 RF: 3 atorvastatin 80 mg tablet 80 mg PO QPM Qty: 90 RF: 3 fluticasone propion-salmeterol [Advair Diskus] 500-50 mcg/dose blister with device 1 inh IH BID Qty: 3 RF: 3 Lantus U-100 Insulin 100 unit/mL solution 40 unit subcut QPM Qty: 30 RF: 6 lisinopril 5 mg tablet 5 mg PO DAILY Qty: 90 RF: 3 omeprazole 20 mg capsule,delayed release(DR/EC) 20 mg PO BID Qty: 180 RF: 3 (DME) pen needle, diabetic [Pen Needle] 1 EACH needle 1 ea Miscellaneous DAILY Qty: 100 RF: 3 albuterol sulfate 2.5 MG/3 ML solution for nebulization 2.5 mg Inhalation Q4H PRNQty: 125 RF: 11 (DME) lancets [OneTouch UltraSoft Lancets] 1 EACH misc 1 ea Miscellaneous BID Qty: 200 RF: 3 nitroglycerin 0.4 mg tablet, sublingual 0.4 mg sublingual Q5M PRNRF: 0 aspirin [Adult Low Dose Aspirin] 81 mg tablet,delayed release (DR/EC) 81 mg PO DAILY RF: 0 (DME) OneTouch Verio test strips Strip See Rx Instructions .ROUTE .MEDSUPPLY Qty: 100 RF: 6 buprenorphine-naloxone [Suboxone] 8-2 mg film 1 film sublingual TID RF: 0 prasugrel 10 mg tablet 10 mg PO DAILY Qty: 90 RF: 3 quetiapine [Seroquel] 200 mg Tablet 200 mg PO QHS RF: 0 trazodone 150 mg Tablet 150 mg PO QHS RF: 0 Discharge Instructions Activity:: Bedrest Diet:: per accepting hospital Discharge Orders Discharge Orders: Discharge Order (Routine); Ordered 12/29/20 Ordered By: Ralph Campoverde DS: Summary Time Spent with Patient providing and/or coordinating discharge services: Greater than 30 minutes Status at Discharge Functional status at discharge: independent ambulation Overall status at discharge: patient is not back to baseline Mental Status: mental status grossly normal Speech and Movement: speech and movement normal Mood: anxious mood Affect: normal affect Exam Narrative Exam Narrative: On exam she has bright red hair that is somewhat unkempt. She attends well and her speech is clear. Her sensorium appears to be clear. She is in no significant respiratory distress though she does have audible expiratory wheezes. She has minimal cough. Her posterior lung exam shows diffuse wheezes throughout both lung cui. No specific rales are heard at the bases. Her heart rate is notable for marked bradycardia that rapidly recovers from a heart rate of 37 up to a heart rate of 70. She is symptomatic when her heart rate dips with chest pressure. She satting 96% on room air. Her abdomen is massively obese there is a peau d'orange texture to her abdomen and there is pitting edema throughout. The lower extremities still maintain normal contour and shape there is trace pitting edema bilaterally. There are otherwise well perfused. Neurologically there are no focal deficits. Const General: cooperative and no acute distress Nutritional Appearance: obese Orientation: alert and oriented x3 Eyes General: appearance normal, both eyes and all related structures Sclera: sclerae normal Pupils: PERRL Neck Neck: full ROM and other (large girth) Resp Effort & Inspection: normal respiratory effort Auscultation: clear to auscultation bilaterally and diminished lung sounds Cardio Rate: regular rate Rhythm: regular rhythm Heart Sounds: S1 normal and S2 normal GI Inspection: obesity Palpation: soft Skin General skin exam: no rashes or lesions noted Neuro General: moves all extremities Cranial Nerves: CN's II-XI intact bilaterally Speech: speech normal Extrem General: edema (All extremities and abd.) Psych Mental Status: mental status grossly normal Speech and Movement: speech and movement normal Mood: anxious mood Affect: normal affect DS: Data Vitals/I&O Vitals and I&O: Vital Signs Temperature 37.3 C 12/29/20 12:16 Temperature Source Temporal Artery Scan 12/29/20 12:16 Pulse 38 L 12/29/20 12:16 Pulse 37 L 12/29/20 12:01 Respiratory Rate 10 L 12/29/20 12:16 Respiratory Effort 12/29/20 12:16 Respiratory Depth Normal 12/29/20 12:16 Respiratory Pattern Normal 12/29/20 12:16 Blood Pressure 120/80 12/29/20 12:16 Blood Pressure Mean 93 12/29/20 12:16 Blood Pressure Position Sitting 12/29/20 00:27 Pulse Oximetry 95 12/29/20 12:16 Oxygen Delivery Method Room Air 12/29/20 12:16 Oxygen Flow Rate 0 12/29/20 12:16 Pain Level 7 12/29/20 12:16 Comment 12/28/20 15:05 Intake & Output 12/28/20 12/29/20 12/29/20 23:59 11:59 23:59 Intake Total 240 / 360 120 / 360 Output Total 150 / 150 2825 / 5475 2650 / 5475 Balance -150 / -150 -2585 / -5115 -2530 / -5115 Weight 113.398 kg 112.9 kg Intake: Oral 240 / 360 120 / 360 Output: Urine 150 / 150 2825 / 5475 2650 / 5475 Other: Urine Color Yellow Yellow Pale Yellow Urine Appearance Clear Clear Clear Cloudy Comment Clear but slightly cloudy. Clear but slightly cloudy. Data Completed and Pending Labs on day of discharge: Labs from last 24 hours 12/29/20 12/29/20 12/29/20 15:56 08:04 08:04 WBC 9.67 RBC 4.94 Hgb 12.5 Hct 40.0 MCV 81.0 MCH 25.3 L MCHC 31.3 L RDW 16.9 H Plt Count 320 MPV 11.3 H Immature Gran % 0.3 Neutrophils % 68.3 Lymphocytes % 24.6 Monocytes % 5.5 Eosinophils % 1.0 Basophils % 0.3 Nucleated RBC % 0 Absolute Neutrophils 6.60 Absolute Lymphocytes 2.38 Absolute Monocytes 0.53 Absolute Eosinophils 0.10 Absolute Basophils 0.03 D-Dimer VBG pH VBG pCO2 VBG pO2 VBG HCO3 VBG Total CO2 VBG O2 Saturation VBG Base Excess VBG Lactate Sodium Potassium Chloride Carbon Dioxide Anion Gap BUN Creatinine Estimated GFR/1.73 m2 Glucose Hemoglobin A1c 6.0 H Calcium Magnesium Total Bilirubin AST ALT Alkaline Phosphatase Troponin I Pending NT-Pro-B Natriuret Pep Total Protein Albumin Triglycerides Total Cholesterol LDL Cholesterol, Calc HDL Cholesterol Urine Color Urine Clarity Urine pH Ur Specific [place] Urine Protein Urine Ketones Urine Blood Urine Nitrite Urine Bilirubin Urine Urobilinogen Ur Leukocyte Esterase Urine RBC Urine WBC Ur Epithelial Cells Urine Crystals Urine Bacteria Urine Casts Urine Mucus Urine Other Ur Culture Indicated? Urine Glucose Urine Opiates Screen Urine Methadone Screen Ur Barbiturates Screen Ur Tricyclics Screen Ur Amphetamines Screen U Benzodiazepines Scrn Urine Cocaine Screen Ur THC Screen SARS-CoV-2 (PCR) 12/29/20 12/29/20 12/29/20 08:04 08:04 02:05 WBC RBC Hgb Hct MCV MCH MCHC RDW Plt Count MPV Immature Gran % Neutrophils % Lymphocytes % Monocytes % Eosinophils % Basophils % Nucleated RBC % Absolute Neutrophils Absolute Lymphocytes Absolute Monocytes Absolute Eosinophils Absolute Basophils D-Dimer VBG pH VBG pCO2 VBG pO2 VBG HCO3 VBG Total CO2 VBG O2 Saturation VBG Base Excess VBG Lactate Sodium 141 Potassium 3.8 Chloride 102 Carbon Dioxide 30.2 Anion Gap 8.8 BUN 10 Creatinine 0.7 Estimated GFR/1.73 m2 >= 60.00 Glucose 72 L Hemoglobin A1c Calcium 8.3 L Magnesium Total Bilirubin AST ALT Alkaline Phosphatase Troponin I < 0.05 NT-Pro-B Natriuret Pep Total Protein Albumin Triglycerides 43 Total Cholesterol 93 LDL Cholesterol, Calc 47 HDL Cholesterol 38 L Urine Color Urine Clarity Urine pH Ur Specific [place] Urine Protein Urine Ketones Urine Blood Urine Nitrite Urine Bilirubin Urine Urobilinogen Ur Leukocyte Esterase Urine RBC Urine WBC Ur Epithelial Cells Urine Crystals Urine Bacteria Urine Casts Urine Mucus Urine Other Ur Culture Indicated? Urine Glucose Urine Opiates Screen Negative Urine Methadone Screen Negative Ur Barbiturates Screen Negative Ur Tricyclics Screen Positive A Ur Amphetamines Screen Negative U Benzodiazepines Scrn Negative Urine Cocaine Screen Negative Ur THC Screen Negative SARS-CoV-2 (PCR) 12/29/20 12/28/20 12/28/20 00:15 22:06 20:47 WBC RBC Hgb Hct MCV MCH MCHC RDW Plt Count MPV Immature Gran % Neutrophils % Lymphocytes % Monocytes % Eosinophils % Basophils % Nucleated RBC % Absolute Neutrophils Absolute Lymphocytes Absolute Monocytes Absolute Eosinophils Absolute Basophils D-Dimer VBG pH 7.42 H VBG pCO2 45 VBG pO2 58 VBG HCO3 29 H VBG Total CO2 26 VBG O2 Saturation 90 VBG Base Excess 5 H VBG Lactate Sodium Potassium Chloride Carbon Dioxide Anion Gap BUN Creatinine Estimated GFR/1.73 m2 Glucose Hemoglobin A1c Calcium Magnesium Total Bilirubin AST ALT Alkaline Phosphatase Troponin I < 0.05 < 0.05 NT-Pro-B Natriuret Pep Total Protein Albumin Triglycerides Total Cholesterol LDL Cholesterol, Calc HDL Cholesterol Urine Color Urine Clarity Urine pH Ur Specific [place] Urine Protein Urine Ketones Urine Blood Urine Nitrite Urine Bilirubin Urine Urobilinogen Ur Leukocyte Esterase Urine RBC Urine WBC Ur Epithelial Cells Urine Crystals Urine Bacteria Urine Casts Urine Mucus Urine Other Ur Culture Indicated? Urine Glucose Urine Opiates Screen Urine Methadone Screen Ur Barbiturates Screen Ur Tricyclics Screen Ur Amphetamines Screen U Benzodiazepines Scrn Urine Cocaine Screen Ur THC Screen SARS-CoV-2 (PCR) 12/28/20 12/28/20 12/28/20 16:43 16:30 16:30 WBC RBC Hgb Hct MCV MCH MCHC RDW Plt Count MPV Immature Gran % Neutrophils % Lymphocytes % Monocytes % Eosinophils % Basophils % Nucleated RBC % Absolute Neutrophils Absolute Lymphocytes Absolute Monocytes Absolute Eosinophils Absolute Basophils D-Dimer 683 H VBG pH VBG pCO2 VBG pO2 VBG HCO3 VBG Total CO2 VBG O2 Saturation VBG Base Excess VBG Lactate 2.3 H* Sodium Potassium Chloride Carbon Dioxide Anion Gap BUN Creatinine Estimated GFR/1.73 m2 Glucose Hemoglobin A1c Calcium Magnesium Total Bilirubin AST ALT Alkaline Phosphatase Troponin I NT-Pro-B Natriuret Pep Total Protein Albumin Triglycerides Total Cholesterol LDL Cholesterol, Calc HDL Cholesterol Urine Color Yellow Urine Clarity Clear Urine pH 5.5 Ur Specific [place] 1.025 Urine Protein Negative Urine Ketones Negative Urine Blood Small H Urine Nitrite Negative Urine Bilirubin Negative Urine Urobilinogen 2.0 H Ur Leukocyte Esterase Negative Urine RBC 10-20 H Urine WBC 0-2 Ur Epithelial Cells Rare Urine Crystals Negative Urine Bacteria Negative Urine Casts Negative Urine Mucus Negative Urine Other Negative Ur Culture Indicated? No Urine Glucose >=1000 H Urine Opiates Screen Urine Methadone Screen Ur Barbiturates Screen Ur Tricyclics Screen Ur Amphetamines Screen U Benzodiazepines Scrn Urine Cocaine Screen Ur THC Screen SARS-CoV-2 (PCR) 12/28/20 12/28/20 12/28/20 16:30 16:30 15:50 WBC 10.39 RBC 5.11 Hgb 13.4 Hct 41.7 MCV 81.6 MCH 26.2 L MCHC 32.1 RDW 17.1 H Plt Count 311 MPV 11.3 H Immature Gran % 0.3 Neutrophils % 69.6 Lymphocytes % 23.5 Monocytes % 5.5 Eosinophils % 0.7 Basophils % 0.4 Nucleated RBC % 0 Absolute Neutrophils 7.24 H Absolute Lymphocytes 2.44 Absolute Monocytes 0.57 Absolute Eosinophils 0.07 Absolute Basophils 0.04 D-Dimer VBG pH VBG pCO2 VBG pO2 VBG HCO3 VBG Total CO2 VBG O2 Saturation VBG Base Excess VBG Lactate Sodium 140 Potassium 4.1 Chloride 104 Carbon Dioxide 30.1 Anion Gap 5.9 BUN 9 Creatinine 0.8 Estimated GFR/1.73 m2 >= 60.00 Glucose 50 L Hemoglobin A1c Calcium 8.8 Magnesium 1.7 L Total Bilirubin 0.7 AST 16 ALT 19 Alkaline Phosphatase 81 Troponin I < 0.05 NT-Pro-B Natriuret Pep 4083 H Total Protein 6.7 Albumin 3.5 Triglycerides Total Cholesterol LDL Cholesterol, Calc HDL Cholesterol Urine Color Urine Clarity Urine pH Ur Specific [place] Urine Protein Urine Ketones Urine Blood Urine Nitrite Urine Bilirubin Urine Urobilinogen Ur Leukocyte Esterase Urine RBC Urine WBC Ur Epithelial Cells Urine Crystals Urine Bacteria Urine Casts Urine Mucus Urine Other Ur Culture Indicated? Urine Glucose Urine Opiates Screen Urine Methadone Screen Ur Barbiturates Screen Ur Tricyclics Screen Ur Amphetamines Screen U Benzodiazepines Scrn Urine Cocaine Screen Ur THC Screen SARS-CoV-2 (PCR) Negative [facility] Medical History Abdominal distension Acute heart failure with reduced ejection fraction and diastolic dysfunction (~11/2019) Anxiety (03/15/15) Arm pain, right (11/11/16) R upper arm pain and weakness and decreased sensation Asthma (06/07/15) Recurrent CO2 retention!; [facility] status 10/2016 Attention deficit hyperactivity disorder, combined type (03/11/16) [facility] Body mass index (BMI) 50-59.9, adult Calculus of kidney (06/07/15) Left, non-obstructing Chronic pain Congestive heart failure (CHF) s/p MS, EF 40-45% Constipation Coronary artery disease Depression Diabetes Diabetic neuropathy Gabapentin in the past; d/c'ed following overdose leading to [facility] hospitalization (~2016 or 2018?) Disability, 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 Easy bruising dual anti-platelets esophageal microperforation Essential hypertension (03/15/15) Grade II internal hemorrhoids (02/07/16) colonoscopy 02/07/16 Herniated lumbar disc without myelopathy History of peptic ulcer History of smoking Hyperlipidemia Hypertension Insomnia difficulty initiating sleep, Trazodone Rx, ?KARL Internal derangement of left knee (~10/2018) Left bundle branch block (LBBB) on electrocardiogram (08/30/16) new 08/27/16; prior JANET Microalbuminuria due to type 2 diabetes mellitus Mood disorder Anxiety, depression, PTSD, ADHD Nephrolithiasis (06/07/15) Opioid use disorder (~2008) MAT at [facility]: switched back to Suboxone 2017; methadone prior to that since ~09/2013; prior Suboxone ([facility]) Restless legs syndrome Sciatica of right side (08/23/16) Snoring ST elevation (STEMI) myocardial infarction involving left anterior descending coronary artery (~11/2019) Steatosis of liver 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 pills, has been clean for 2 years- on suboxone from [facility] in [place], [place] Substance use disorder Opioids Tobacco use disorder Trigger finger, left middle finger (02/26/16) Type 2 diabetes mellitus, with long-term current use of insulin Neuropathy, microalbuminuria, labile blood sugars Urolithiasis Witnessed apneic spells Surgical History Appendectomy section x3 Cholecystectomy Colonoscopy - [facility] (02/07/16) H/O: History of appendectomy History of cholecystectomy Ligation of fallopian tube Open Carpal Tunnel release Removal of foreign body (06/26/16) Dr Ott, [facility] Trigger Finger release Rgt thumb and middle finger; Dr Solomon Family History Son Crohn disease Daughter Crohn disease Daughter Crohn disease Social History Smoking/Tobacco Use Status: Former Tobacco Use Quit Date: 11/30/19 Smoking risk assessment performed?: Yes Alcohol Intake: never Drug use: Current Sobriety Substance use type: former substance user Caregiver/Support person: No Housing: apartment Number of Children: 3 Communication Needs: None Pets and animals: Yes Pets and animals: cat(s), dog(s) and snake(s) Sexually active: Yes Current gender identity: female What type of physical activity do you participate in: none Do you feel safe at home: Yes Do you feel safe in your relationship?: Yes
[2020-12-29] MEDS: MORPHine 4 MG/ML SYR IVP (16:38)
[2020-12-29 16:48] LABS: Troponin I < 0.05 ng/mL (<0.06)
--- NOTE | 2020-12-31 16:11 | NUR.NOTE ---
Nursing Note: At the request of Romana Underwood, RN [employer], the CT report from12/28/20 was faxed to [facility] [phone]. Keeley Underwood
== END 2020-12-29 17:30 | disposition short-term general hospital (02) | DRG 292 ==
LOC: ER 16:08 → ICU 12-29 00:29
PROVIDERS: Family Medicine; Physician Assistant; Admitting Provider Family Medicine; Emergency Provider Registered Nurse Emergency; PCP Family Medicine; Visit Provider Family Medicine
DX: I11.0 Hypertensive heart disease with heart failure (principal); Z68.43 Body mass index [BMI] 50.0-59.9, adult; F41.9 Anxiety disorder, unspecified; J45.909 Unspecified asthma, uncomplicated; F90.2 Attention-deficit hyperactivity disorder, combined type; G89.29 Other chronic pain; I25.2 Old myocardial infarction; K59.00 Constipation, unspecified; I25.10 Atherosclerotic heart disease of native coronary artery without angina pectoris; F32.9 Major depressive disorder, single episode, unspecified; E11.42 Type 2 diabetes mellitus with diabetic polyneuropathy; K64.1 Second degree hemorrhoids; I44.7 Left bundle-branch block, unspecified; M51.26 Other intervertebral disc displacement, lumbar region; Z87.11 Personal history of peptic ulcer disease; Z87.891 Personal history of nicotine dependence; E78.5 Hyperlipidemia, unspecified; G47.00 Insomnia, unspecified; G25.81 Restless legs syndrome; Z79.4 Long term (current) use of insulin; F11.11 Opioid abuse, in remission; E66.9 Obesity, unspecified; I44.1 Atrioventricular block, second degree; R00.1 Bradycardia, unspecified; R07.89 Other chest pain; Z95.5 Presence of coronary angioplasty implant and graft; Z20.822 Contact with and (suspected) exposure to COVID-19; E11.65 Type 2 diabetes mellitus with hyperglycemia; I50.22 Chronic systolic (congestive) heart failure
CPT/HCPCS: 36415; 36416; 71275; 80048; 80053; 80061; 80307; 82805; 82962; 87635; 93005; 94640; 96374; 96375; 96376; 99291; 99292; J1650; 71045; 81003; 81015; 83036; 83605; 83735; 83880; 84484; 85025; 85379; 93010; 99223; 99239; J1940; J2270; J3010; J3490

== ENCOUNTER 2021-01-16 13:01 | Outpatient (CLI) | payer MEDICAID, SELFPAY ==
--- NOTE | 2021-01-16 13:00 | RT.EKG_ITS ---
APPROVED REPORT Exam: Resting ECG Reason for Exam: AVB Patient Location: O HR:80 bpm ECG Measurements Heart Rate 80 AXIS MO 42 P 54 QRSd 176 QRS 265 QT 479 T 45 QTc 553 Conclusion A-V dual-paced complexes w/ some inhibition...other complexes also detected No further analysis attempted due to paced rhythm
== END 2021-01-16 13:02 | disposition home or self-care (01) ==
LOC: DI.CARD 13:01
PROVIDERS: PCP Family Medicine; Visit Provider Internal Medicine Cardiovascular Disease
DX: I44.30 Unspecified atrioventricular block (principal)
CPT/HCPCS: 93010

== ENCOUNTER 2021-01-17 13:01 | Outpatient (REF) | payer MEDICAID, SELFPAY ==
[2021-01-17 13:25] LABS: Abs Immature Grans 0.03 10^3/uL (0.0-0.06); Absolute Basophil Count 0.03 10^3/uL (0.0-0.2); Absolute Lymphocyte Count 2.25 10^3/uL (1.2-3.4); Absolute Monocyte Count 0.58 10^3/uL (0.1-0.8); Absolute Neutrophil Count 6.88 10^3/uL (1.2-6.7); Basophils % 0.3; HCT 38.5 % (36.0-46.0); HGB 11.9 g/dL (11.2-15.7); Immature Grans % 0.3; Lymphocytes % 22.8; MCH 25.8 pg (27.0-33.0); MCHC 30.9 % (32.0-36.0); MCV 83.5 fL (80-95); Monocytes % 5.9; Neutrophils % 69.7; Nucleated RBC 0 %; Platelet Count 356 10^3/uL (130-400); RBC 4.61 10^6/uL (3.93-5.22); RDW 17.2 % (11.7-14.6); RDW-SD 52.1 fL; WBC 9.87 10^3/uL (4.4-10.8)
== END 2021-01-17 13:02 | disposition home or self-care (01) ==
LOC: LBN 13:01
PROVIDERS: PCP Family Medicine; Visit Provider Physician Assistant
DX: T82.7XXA Infection and inflammatory reaction due to other cardiac and vascular devices, implants and grafts, initial encounter; Z95.0 Presence of cardiac pacemaker
CPT/HCPCS: 85025

== ENCOUNTER 2021-02-13 08:49 | Outpatient (CLI) | payer MEDICAID, SELFPAY ==
--- NOTE | 2021-02-13 11:28 | DI.US_ITS ---
Exam(s) US UPPER EXTREMITY VENOUS LT EXAM: US UPPER EXTREMITY VENOUS LT CLINICAL HISTORY: Unilateral LUE swelling, r/o DVT,M79.89. TECHNIQUE: Ultrasound examination of the left upper extremity venous system(s) is performed using gr ayscale, color-flow, and spectral Doppler analysis. COMPARISON: CT CT CHEST PE CTA from 12/28/[address] CHEST PE CTA from 12/28/2020 FINDINGS: The left internal jugular, axillary, subclavian, cephalic, basilic, brachial, radial, and ulnar veins are patent without evidence of thrombosis. No localized fluid collection or hematoma is identified. IMPRESSION: No deep or superficial venous thrombosis... DATA REPOSITORY:
== END 2021-02-13 09:09 ==
PROVIDERS: PCP Family Medicine; Visit Provider Family Medicine
DX: M79.89 Other specified soft tissue disorders (principal)
CPT/HCPCS: 93971

== ENCOUNTER 2021-05-11 20:36 | Inpatient (IN) | payer MEDICAID, SELFPAY ==
[2021-05-11] VITALS (107 sets, daily range): BP systolic 127–164; BP diastolic 70–103; PULSE 79–95; RESP 8–31; TEMP 36.8; O2SAT 83–99
--- NOTE | 2021-05-11 20:30 | RT.EKG_ITS ---
APPROVED REPORT Exam: Resting ECG Reason for Exam: sob Patient Location: E HR:93 bpm ECG Measurements Heart Rate 93 AXIS OH 201 P 28 QRSd 188 QRS 207 QT 436 T 35 QTc 543 Conclusion Ventricular-paced rhythm
--- NOTE | 2021-05-11 20:45 | DI.RAD_ITS ---
Exam(s) XR PORTABLE CHEST AP EXAM: XR PORTABLE CHEST AP CLINICAL HISTORY: SOB TECHNIQUE: 2D digital imaging was performed of the chest. Two images were obtained. AP views were obtained. COMPARISON: CR,XR XR PORTABLE CHEST AP from 12/28/2020 FINDINGS: MEDIASTINUM: Normal. HEART: The heart appears mildly enlarged but stable. PULMONARY VASCULATURE: Normal. LUNGS: Clear. PLEURAL SPACE: No pleural effusion or pneumothorax. BONE:Within normal limits for the patient's age. OTHER FINDINGS:Since the prior examination the patient has had a pacemaker placed. IMPRESSION: No acute pulmonary findings. DATA REPOSITORY: RADIATION DOSE DELIVERED:
[2021-05-11 21:13] LABS: Source Nasal/Nares
[2021-05-11] MEDS: nitroGLYcerin 0.4 MG TAB SL (21:17)
[2021-05-11 21:18] LABS: Abs Immature Grans 0.02 10^3/uL (0.0-0.06); Absolute Basophil Count 0.03 10^3/uL (0.0-0.2); Absolute Eosinophil Count 0.07 10^3/uL (0.0-0.7); Absolute Lymphocyte Count 2.47 10^3/uL (1.2-3.4); Absolute Monocyte Count 0.67 10^3/uL (0.1-0.8); Absolute Neutrophil Count 6.78 10^3/uL (1.2-6.7); Basophils % 0.3; Eosinophils % 0.7; HCT 42.7 % (36.0-46.0); HGB 13.1 g/dL (11.2-15.7); Immature Grans % 0.2; Lymphocytes % 24.6; MCH 24.7 pg (27.0-33.0); MCHC 30.7 % (32.0-36.0); MCV 80.6 fL (80-95); MPV 10.6 fL (8.0-11.0); Monocytes % 6.7; Neutrophils % 67.5; Nucleated RBC 0 %; Platelet Count 376 10^3/uL (130-400); RDW 16.2 % (11.7-14.6); RDW-SD 47.5 fL; WBC 10.04 10^3/uL (4.4-10.8)
[2021-05-11] MEDS: nitroGLYcerin in D5W 50 MG/250 ML BTL IV (21:28)
[2021-05-11 21:36] LABS: ALT 19 U/L (14-59); AST 17 U/L (15-37); Albumin 3.8 g/dL (3.4-5.0); Alkaline Phosphatase 105 U/L (46-116); Anion Gap 9.1 mmol/L (3-11); BUN 13 mg/dL (7-18); Bilirubin, Total 0.7 mg/dL (0.2-1.0); CO2 25.9 mmol/L (21.0-32.0); CREATININE 0.8 mg/dL (0.55-1.02); Chloride 102 mmol/L (98-107); Glucose 106 mg/dL (74-106); Potassium 4.2 mmol/L (3.5-5.1); Sodium 137 mmol/L (136-145); Total Protein 7.6 g/dL (6.4-8.2)
[2021-05-11 21:42] LABS: NT-proBNP 3874 pg/mL (<300); Troponin I < 50 ng/L (<or=60)
[2021-05-11 22:16] LABS: COVID-19 PCR Negative (Negative); Influenza A PCR Negative (Negative); Influenza B PCR Negative (Negative); RSV PCR Negative (Negative)
--- NOTE | 2021-05-11 22:33 | DI.VRAD_ITS ---
PROCEDURE INFORMATION: Exam: XR Chest Exam date and time: 05/11/2021 8:51 PM Age: 46 years old Clinical indication: Shortness of breath TECHNIQUE: Imaging protocol: XR of the chest. Views: 1 view. COMPARISON: XR PORTABLE CHEST AP 12/28/2020 3:48 PM FINDINGS: Tubes, catheters and devices: Pacemaker noted. Lungs: Unremarkable. No consolidation. Pulmonary vessels are not congested. Pleural spaces: Unremarkable. No pleural effusion. No pneumothorax. Heart/Mediastinum: Moderate cardiomegaly. Bones/joints: Unremarkable. IMPRESSION: No acute cardiopulmonary abnormality. Dictated and Authenticated by: Bobby Salmon MD. Ordering:ANDRA Whitt MD
[2021-05-11 22:46] LABS: Lab Add On Test DONE
[2021-05-11 23:00] LABS: Magnesium 1.7 mg/dL (1.8-2.4)
[2021-05-11] MEDS: Furosemide 100 MG/10 ML VIAL 80 MG IVP (23:05)
--- NOTE | 2021-05-11 23:18 | ED.GENADUL_ITS ---
Discharge Plan Disposition Patient Disposition: [facility] INPATIENT Condition: Improving Discharge Details Chief Complaint: SOB Reason For Visit: Acute on Chronic Congestive Heart Failure Admit Date/Time: 05/11/21 22:35 Admit Provider: Ralph Campoverde Attending Provider: Ralph Campoverde Primary Care Provider: Shabbir Hamilton ED Provider: Jose Eduardo Olguin Home Meds and New Rx's Prescriptions: No Action metformin 1,000 mg tablet 1,000 mg PO BID Qty: 180 3RF (DME) nebulizers Mis See Rx Instructions .ROUTE .MEDSUPPLY Qty: 1 0RF Rx Instructions: As directed, for dyspnea prn (DME) blood-glucose meter mis See Dose Instructions .ROUTE .MEDSUPPLY Qty: 1 0RF Dose Instruction: As directed to check daily morning fasting blood glucose. No insulin. Dispense covered brand. Rx Instructions: As directed to check 5 times daily blood glucose. On insulin. Dispense covered brand. (DME) lancets mis See Dose Instructions .ROUTE .MEDSUPPLY Qty: 500 3RF Dose Instruction: As directed to check daily morning fasting blood glucose Rx Instructions: To check 5 times daily blood glucose. On insulin. Dispense covered brand. albuterol sulfate [ProAir HFA] 90 mcg/actuation HFA aerosol inhaler 2 puff IH Q4H PRN (Reason: bronchospasm) Qty: 18 3RF fluticasone propion-salmeterol [Advair Diskus] 500-50 mcg/dose blister with device 1 inh IH BID Qty: 3 3RF lisinopril 5 mg tablet 5 mg PO DAILY Qty: 90 3RF Rx Instructions: per [facility] d/c 12/09/19 omeprazole 20 mg capsule,delayed release(DR/EC) 20 mg PO BID Qty: 180 3RF atorvastatin 80 mg tablet 80 mg PO QPM Qty: 90 3RF Rx Instructions: per [facility] d/c 12/09/19 (DME) lancets [OneTouch UltraSoft Lancets] [facility] Miscellaneous BID Qty: 200 3RF Rx Instructions: to check BS for poorly controlled DM to get A1c at or below 7. nitroglycerin 0.4 mg tablet, sublingual 0.4 mg sublingual Q5M PRN0RF Label Comments: per [facility] d/c 12/09/19 Rx Instructions: do not exceed 3 doses per episode aspirin [Adult Low Dose Aspirin] 81 mg tablet,delayed release (DR/EC) 81 mg PO DAILY 0RF (DME) OneTouch Verio test strips Strip See Rx Instructions .ROUTE .MEDSUPPLY Qty: 100 6RF Rx Instructions: 4 times daily to keep A1c at or below 7.5 acetaminophen 500 mg capsule 500 mg PO Q6H PRN0RF methocarbamol 750 mg tablet 750 mg PO TID PRN0RF metoprolol succinate 50 mg tablet extended release 24 hr 50 mg PO DAILY 0RF trazodone 100 mg tablet 200 mg PO DAILY PRN0RF Rx Instructions: at bedtime as needed. suboxone 18 mg PO 0RF quetiapine 50 mg tablet 50 mg PO QHS PRN0RF quetiapine 200 mg tablet 200 mg PO DAILY 0RF buspirone 30 mg tablet 30 mg PO BID 0RF Lantus U-100 Insulin 100 unit/mL solution 35 unit subcut QPM Qty: 30 6RF (DME) insulin syringe-needle U-100 [BD Insulin Syringe Ultra-Fine] 0.5 mL 31 gauge x 5/16 syringe See Rx Instructions .ROUTE .MEDSUPPLY Qty: 100 3RF Rx Instructions: As directed Jardiance 25 mg tablet 25 mg PO DAILY Qty: 90 3RF furosemide 80 mg tablet 80 mg PO BID 0RF Rx Instructions: 80 mg PO Alternate BID and QD; Medical Decision Making 46yo female with multiple medical problems including history of coronary artery disease, CHF, here with progressive shortness of breath with dyspnea on exertion and orthopnea over the past 1 week with swelling of her lower extremities this despite apparently taking high-dose Lasix as prescribed. Patient is tachypneic and in respiratory distress on arrival. Respiratory therapy was consulted and BiPAP was initiated. EKG was reviewed and interpreted by me: Please see report, ventricular paced rhythm at 93 bpm. Patient was given nitroglycerin sublingual and then nitroglycerin infusion was initiated and titrated up for preload reduction. Patient was reassessed and demonstrated significant improvement with the combination of nitroglycerin and bipap. Chest x-ray was reviewed and interpreted by radiology: No acute cardiopulmonary abnormality noted. Labs reviewed and BNP is significantly elevated. Normal troponin. Covid negative. Plan to admit to ICU. I called and spoke with hospitalist on-call, Dr. Campoverde, discussed ED present ation and course, he will admit the patient to the ICU. Care transition at time of admission Lab Data Lab results reviewed: Yes I reviewed the patient's lab results. HPI General Mode of arrival: EMS . Date/Time Provider Initiated Documentation: 05/11/21 20:47 . Information obtained by: patient . HPI Narrative: 46-year-old female with multiple medical problems including history of coronary artery disease, CHF, diabetes, hyperlipidemia, chronic pain, obesity, substance use disorder, status post AICD placement, here with chief complaint of shortness of breath. Patient notes progressive shortness of breath over the past 1 week. Symptoms are now severe. Shortness of breath is worse with lying flat and any exertion. She has associated swelling of her bilateral lower extremities extending up into her abdomen. Patient notes she has been taking her Lasix 80 mg twice a day. She also notes associated cough. No fever. Patient does have some nonpleuritic chest discomfort localized retrosternally. Related Data Home Medications Medication Instructions Recorded Confirmed lancets ([employer] UltraSoft #200 ea 03/28/17 05/11/21 Lancets) blood-glucose meter #1 each 08/28/18 05/11/21 lancets #500 each 08/28/18 05/11/21 aspirin 81 mg tablet,delayed 81 mg PO DAILY 12/13/19 05/11/21 release (Adult Low Dose Aspirin) blood sugar diagnostic (TechfooTouch #100 ea 12/13/19 05/11/21 Verio test strips) nitroglycerin 0.4 mg sublingual 0.4 mg SUBLINGUAL Q5M PRN 12/13/19 05/11/21 tablet albuterol sulfate 90 mcg/actuation 2 puff IH Q4H PRN #18 g 04/20/20 05/11/21 aerosol inhaler (ProAir HFA) fluticasone 500 mcg-salmeterol 50 1 inh IH BID #3 ea 04/20/20 05/11/21 mcg/dose blistr powdr for inhalation (Advair Diskus) lisinopril 5 mg tablet 5 mg PO DAILY #90 tab 04/20/20 05/11/21 omeprazole 20 mg capsule,delayed 20 mg PO BID #180 cap 04/20/20 05/11/21 release metformin 1,000 mg tablet 1,000 mg PO BID #180 tab 12/14/20 05/11/21 nebulizers #1 ea 12/14/20 05/11/21 atorvastatin 80 mg tablet 80 mg PO QPM #90 tab 01/11/21 05/11/21 acetaminophen 500 mg capsule 500 mg PO Q6H PRN 01/16/21 02/09/21 methocarbamol 750 mg tablet 750 mg PO TID PRN 01/16/21 02/09/21 metoprolol succinate 50 mg 50 mg PO DAILY 01/16/21 05/11/21 tablet,extended release 24 hr buspirone 30 mg tablet 30 mg PO BID 01/25/21 05/11/21 quetiapine 200 mg tablet 200 mg PO DAILY 01/25/21 05/11/21 quetiapine 50 mg tablet 50 mg PO QHS PRN 01/25/21 05/11/21 suboxone PO 01/25/21 02/09/21 trazodone 100 mg tablet 200 mg PO DAILY PRN tab 01/25/21 05/11/21 insulin glargine 100 unit/mL 35 unit (0.35 mL) SUBCUT QPM #30 ml 03/12/21 05/11/21 subcutaneous solution (Lantus U-100 Insulin) insulin syringe-needle U-100 0.5 #100 ea 03/12/21 05/11/21 mL 31 gauge x 5/16 (BD Insulin Syringe Ultra-Fine) empagliflozin 25 mg tablet 25 mg PO DAILY #90 tab 05/08/21 (Jardiance) furosemide 80 mg tablet 80 mg PO BID 05/11/21 05/11/21 Previous Rx's Medication Instructions Recorded lancets (OneTouch UltraSoft #200 ea 03/28/17 Lancets) blood-glucose meter #1 each 08/28/18 lancets #500 each 08/28/18 blood sugar diagnostic (OneTouch #100 ea 12/13/19 Verio test strips) albuterol sulfate 90 mcg/actuation 2 puff IH Q4H PRN #18 g 04/20/20 aerosol inhaler (ProAir HFA) fluticasone 500 mcg-salmeterol 50 1 inh IH BID #3 ea 04/20/20 mcg/dose blistr powdr for inhalation (Advair Diskus) lisinopril 5 mg tablet 5 mg PO DAILY #90 tab 04/20/20 omeprazole 20 mg capsule,delayed 20 mg PO BID #180 cap 04/20/20 release metformin 1,000 mg tablet 1,000 mg PO BID #180 tab 12/14/20 nebulizers #1 ea 12/14/20 atorvastatin 80 mg tablet 80 mg PO QPM #90 tab 01/11/21 insulin glargine 100 unit/mL 35 unit (0.35 mL) SUBCUT QPM #30 ml 03/12/21 subcutaneous solution (Lantus U-100 Insulin) insulin syringe-needle U-100 0.5 #100 ea 03/12/21 mL 31 gauge x 5/16 (BD Insulin Syringe Ultra-Fine) empagliflozin 25 mg tablet 25 mg PO DAILY #90 tab 05/08/21 (Jardiance) Allergies Allergy/AdvReac Type Severity Reaction Status Date / Time povidone-iodine Allergy Severe Skin Rash Verified 02/09/21 11:20 [From Betadine] soap [From Betadine] Allergy Skin Rash Verified 02/09/21 11:20 acetaminophen AdvReac Severe GI upset Verified 02/09/21 11:20 paroxetine AdvReac Intermediate nightmares, Verified 02/09/21 11:20 shaking codeine [Codeine] AdvReac Mild Nausea Verified 02/09/21 11:20 lisdexamfetamine dimesylate AdvReac Unknown GI upset Verified 02/09/21 11:20 [From Vyvanse] General Stated Complaint: SOB LAWANDA: 2 Review of Systems All systems reviewed & are unremarkable except as noted in HPI and below Constitutional Constitutional: Denies fever(s) Cardiovascular Cardiovascular: Reports as per HPI Respiratory Respiratory: Reports as per HPI PFSH All Active Problems Left upper extremity swelling (Acute) Post op infection (Acute) Pacemaker infection (Acute) Coronary artery disease (Acute) Pacemaker (Acute) Dual lead Medtronic pacemaker - [id number] 01/03/2021 RA Medtronic 5076-52 [id number] RV Medtronic 5076-58 [id number] Bradycardia (Acute) Pacemaker placed 01/03/21 [facility] AV heart block (Acute ~12/2020) 2:1, pacemaker place 01/03 21 Chest pain (Acute) History of smoking (Acute) Easy bruising (Chronic) dual anti-platelets Congestive heart failure (CHF) (Chronic) s/p SD, EF 40-45% Depression (Chronic) Type 2 diabetes mellitus, with long-term current use of insulin (Chronic) Neuropathy, microalbuminuria, labile blood sugars Microalbuminuria due to type 2 diabetes mellitus (Chronic) Anxiety (Chronic 03/15/15) Calculus of kidney (Chronic 06/07/15) Left, non-obstructing Substance use disorder (Chronic) Opioids Steatosis of liver (Chronic) Opioid use disorder (Chronic ~2008) MAT at [facility]: switched back to Suboxone 2017; methadone prior to that since ~09/2013; prior Suboxone ([facility]) Body mass index (BMI) 50-59.9, adult (Chronic) Witnessed apneic spells (Chronic) Snoring (Chronic) Disability, 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 Left bundle branch block (LBBB) on electrocardiogram (Chronic 08/30/16) new 08/27/16; prior JANET Essential hypertension (Chronic 03/15/15) Attention deficit hyperactivity disorder, combined type (Chronic 03/11/16) [facility] Asthma (Chronic 06/07/15) Recurrent CO2 retention!; [facility] status 10/2016 Hyperlipidemia (Chronic) Mood disorder (Chronic) Anxiety, depression, PTSD, ADHD Diabetic neuropathy (Chronic) Gabapentin in the past; d/c'ed following overdose leading to [facility] hospitalization (~2016 or 2017?) Restless legs syndrome (Chronic) Herniated lumbar disc without myelopathy (Chronic) Chronic pain (Chronic) Insomnia (Chronic) difficulty initiating sleep, Trazodone Rx, ?KARL Medical History Abdominal distension Acute heart failure with reduced ejection fraction and diastolic dysfunction (~11/2019) Arm pain, right (11/11/16) R upper arm pain and weakness and decreased sensation Constipation Diabetes esophageal microperforation Grade II internal hemorrhoids (02/07/16) colonoscopy 02/07/16 History of peptic ulcer Hypertension Internal derangement of left knee (~10/2018) Misuse of medication Myocardial infarct 12/06/2019 at [facility] ANKIT to LAD Nephrolithiasis (06/07/15) ST elevation (STEMI) myocardial infarction involving left anterior descending coronary artery (~11/2019) 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 pills, has been clean for 2 years- on suboxone from [facility] in [place], [place] Tobacco use disorder Trigger finger, left middle finger (02/26/16) Urolithiasis Surgical History Appendectomy section x3 Cholecystectomy Colonoscopy - [facility] (02/07/16) H/O: History of appendectomy History of cholecystectomy Ligation of fallopian tube Open Carpal Tunnel release Removal of foreign body (06/26/16) Dr Ott, [facility] S/P placement of cardiac pacemaker (01/03/21) Trigger Finger release Rgt thumb and middle finger; Dr Solomon Family History Son Crohn disease Daughter Crohn disease Daughter Crohn disease Social History Smoking/Tobacco Use Status: Former Tobacco Use Quit Date: 11/30/19 Smoking risk assessment performed?: Yes Alcohol Intake: never Drug use: Current Sobriety Substance use type: former substance user Caregiver/Support person: No Housing: apartment Number of Children: 3 Communication Needs: None Pets and animals: Yes Pets and animals: cat(s), dog(s) and snake(s) Sexually active: Yes Current gender identity: female What type of physical activity do you participate in: none Do you feel safe at home: Yes Do you feel safe in your relationship?: Yes Exam Const General: cooperative and in distress respiratory Nutritional Appearance: obese Orientation: alert and awake HENMT Head: normocephalic Mouth: moist mucous membranes Eyes Conjunctivae: normal conjunctivae Sclera: normal sclerae Neck Neck: trachea midline and supple Resp Effort & Inspection: labored and tachypneic Auscultation: rales and no rhonchi Cardio Rate: tachycardic Rhythm: regular rhythm GI Palpation: soft, no guarding, no masses and not rigid Skin General skin exam: no rashes or lesions noted Neuro General: patient alert, patient awake, patient oriented x3 and tone normal Extrem General: edema Laterality: bilateral Psych Appearance: grossly normal Mental Status: mental status grossly normal Speech and Movement: speech and movement normal Course Vital Signs Vital signs: Vital Signs Temperature 36.8 C 05/11/21 20:31 Pulse 95 H 05/11/21 20:31 Respiratory Rate 20 05/11/21 20:31 Blood Pressure 164/70 H 05/11/21 20:31 Pulse Oximetry 95 05/11/21 20:31 Temperature 36.8 C 05/11/21 20:31 Temperature Source Temporal Artery Scan 05/11/21 20:31 Pulse 79 05/11/21 22:47 Pulse 80 05/11/21 23:00 Respiratory Rate 13 05/11/21 23:00 Respiratory Effort Labored 05/11/21 21:32 Respiratory Depth Shallow 05/11/21 21:32 Blood Pressure 132/83 05/11/21 22:47 Blood Pressure Mean 94 05/11/21 22:47 Blood Pressure Position Supine 05/11/21 20:31 Pulse Oximetry 92 05/11/21 23:00 Oxygen Delivery Method Room Air 05/11/21 20:31 Oxygen Flow Rate 0 05/11/21 20:31 Fraction of Inspired Oxygen (FIO2) 30 05/11/21 21:36 Pain Level 7 05/11/21 21:17 Lab/Test Results Lab/Test Results: Laboratory Tests Range/Units 05/11/21 05/11/21 05/11/21 20:54 21:03 21:03 WBC (4.4-10.8) 10^3/uL RBC (3.93-5.22) 10^6/uL Hgb (11.2-15.7) g/dL Hct (36.0-46.0) % MCV (80-95) fL MCH (27.0-33.0) pg MCHC (32.0-36.0) % RDW (11.7-14.6) % Plt Count (130-400) 10^3/uL MPV (8.0-11.0) fL Immature Gran % Neutrophils % Lymphocytes % Monocytes % Eosinophils % Basophils % Nucleated RBC % % Absolute Neutrophils (1.2-6.7) 10^3/uL Absolute Lymphocytes (1.2-3.4) 10^3/uL Absolute Monocytes (0.1-0.8) 10^3/uL Absolute Eosinophils (0.0-0.7) 10^3/uL Absolute Basophils (0.0-0.2) 10^3/uL Sodium (136-145) mmol/L 137 Potassium (3.5-5.1) mmol/L 4.2 Chloride (98-107) mmol/L 102 Carbon Dioxide (21.0-32.0) mmol/L 25.9 Anion Gap (3-11) mmol/L 9.1 BUN (7-18) mg/dL 13 Creatinine (0.55-1.02) mg/dL 0.8 Estimated GFR/1.73 m2 (mL/min/1.73m2) >= 60.00 Glucose (74-106) mg/dL 106 Calcium (8.5-10.1) mg/dL 9.0 Magnesium (1.8-2.4) mg/dL Total Bilirubin (0.2-1.0) mg/dL 0.7 AST (15-37) U/L 17 ALT (14-59) U/L 19 Alkaline Phosphatase (46-116) U/L 105 Troponin I (<or=60) ng/L < 50 NT-Pro-B Natriuret Pep (<300) pg/mL 3874 H Total Protein (6.4-8.2) g/dL 7.6 Albumin (3.4-5.0) g/dL 3.8 COVID-19 Source Nasal/Nares SARS-CoV-2 (PCR) (Negative) Negative Influenza Type A (PCR) (Negative) Negative Influenza Type B (PCR) (Negative) Negative RSV (PCR) (Negative) Negative Add-On Test Request Range/Units 05/11/21 05/11/21 05/11/21 21:03 21:05 Unknown WBC (4.4-10.8) 10^3/uL 10.04 RBC (3.93-5.22) 10^6/uL 5.30 H Hgb (11.2-15.7) g/dL 13.1 Hct (36.0-46.0) % 42.7 MCV (80-95) fL 80.6 MCH (27.0-33.0) pg 24.7 L MCHC (32.0-36.0) % 30.7 L RDW (11.7-14.6) % 16.2 H Plt Count (130-400) 10^3/uL 376 MPV (8.0-11.0) fL 10.6 Immature Gran % 0.2 Neutrophils % 67.5 Lymphocytes % 24.6 Monocytes % 6.7 Eosinophils % 0.7 Basophils % 0.3 Nucleated RBC % % 0 Absolute Neutrophils (1.2-6.7) 10^3/uL 6.78 H Absolute Lymphocytes (1.2-3.4) 10^3/uL 2.47 Absolute Monocytes (0.1-0.8) 10^3/uL 0.67 Absolute Eosinophils (0.0-0.7) 10^3/uL 0.07 Absolute Basophils (0.0-0.2) 10^3/uL 0.03 Sodium (136-145) mmol/L Potassium (3.5-5.1) mmol/L Chloride (98-107) mmol/L Carbon Dioxide (21.0-32.0) mmol/L Anion Gap (3-11) mmol/L BUN (7-18) mg/dL Creatinine (0.55-1.02) mg/dL Estimated GFR/1.73 m2 (mL/min/1.73m2) Glucose (74-106) mg/dL Calcium (8.5-10.1) mg/dL Magnesium (1.8-2.4) mg/dL 1.7 L Total Bilirubin (0.2-1.0) mg/dL AST (15-37) U/L ALT (14-59) U/L Alkaline Phosphatase (46-116) U/L Troponin I (<or=60) ng/L NT-Pro-B Natriuret Pep (<300) pg/mL Total Protein (6.4-8.2) g/dL Albumin (3.4-5.0) g/dL COVID-19 Source SARS-CoV-2 (PCR) (Negative) Influenza Type A (PCR) (Negative) Influenza Type B (PCR) (Negative) RSV (PCR) (Negative) Add-On Test Request DONE Critical Care Time Critical Care Time Critical Care Time: Yes Total Critical Care Time: 75 Attestation: I spent greater than 75 minutes addressing this patient's immediate life threats. Please see MDM section of note. This time was spent engaged in work directly related to the patient's care, exclusive of separate procedures, and failure to initiate these interventions would have likely resulted in clinically significant or life threatening deterioration in the patient's condition.
[2021-05-12] VITALS (98 sets, daily range): BP systolic 78–128; BP diastolic 41–102; PULSE 59–84; RESP 9–25; TEMP 36–36.7; O2SAT 86–100
--- NOTE | 2021-05-12 | DI.CT_ITS ---
Exam(s) CT CHEST/ABD/PEL WO EXAM: CT CHEST/ABD/PEL WO CLINICAL HISTORY: Shortness of breath, abdominal fluid collection TECHNIQUE: Imaging Protocol: Axial computed tomography images with coronal and sagittal reformatted images were created and reviewed CONTRAST MATERIAL: Imaging Protocol: Axial computed tomography images with coronal and sagittal refo rmatted images were created and reviewed. COMPARISON: CT CT ABDOMEN PELVIS W from 12/25/[address] CHEST PE CTA from 12/28/2020 FINDINGS: The examination is limited due to patient motion artifact. CHEST: Tracheobronchial tree: Patent where visualized. Pulmonary parenchyma: No consolidation or dominant measurable mass. No architectural distortion. Mediastinum and Aparna: No dominant adenopathy or fluid collection. The esophagus is unremarkable. Thyroid gland: Unremarkable. Pleura: No effusion or pneumothorax. Heart: The heart is not dilated. Coronary artery calcifications are present. No pericardial effusion . Aorta: Thoracic aorta non-dilated. Atherosclerosis. Lymph nodes: Within normal limits. Bones:Within normal limits for the patient's age. Tubes, Catheters, and Lines: The patient has a dual lead cardiac pacing device. Soft tissues: Unremarkable. ABDOMEN: Liver: Normal density. No measurable mass. Gallbladder and Biliary Tract: Status post cholecystectomy no biliary ductal dilatation. Pancreas: Normal density, no abnormal calcifications or inflammatory process. Spleen: Normal. Adrenals: No masses seen. Kidneys: Normal size, contour and axis. No radiodense stones or obstructive uropathy. Right renal cys t. Abdominal Aorta: Abdominal portion non-dilated. Atherosclerosis. Bowel: No obstruction or bowel wall thickening. No evidence of appendicitis. There are scattered air -fluid levels in the colon as well as the small bowel suggesting ileus. Peritoneal Cavity: Moderate amount of pelvic ascites. No free air. Lymph Nodes: Within normal limits. Bones: Within normal limits for the patient's age. Soft Tissues: Unremarkable. PELVIS: Bladder: Symmetric distention, no gross wall thickening. There is a small amount of air in the urinar y bladder which may reflect recent catheterization. Please correlate clinically. Reproductive Organs: Unremarkable as visualized. Lymph Nodes: Within normal limits. Bones: Within normal limits. IMPRESSION: 1. No acute pulmonary process. 2. Moderate amount of free fluid in the pelvis. 3. Findings suggestive of an ileus. RADIATION DOSE DELIVERED: 1,835.82mGy.cm Total DLP 1,835.82mGy.cm Total DLP DATA REPOSITORY: All CT scans at this facility are submitted to the National Radiology Data Registry (NRDR) Dose Index Registry (DIR) with the [employer] ([employer]). RADIATION OPTIMIZATION: All CT scans at this facility use at least one of these dose optimization te chniques: automated exposure control; mA and/or kV adjustment per patient size (includes targeted exa ms where dose is matched to clinical indication); or iterative reconstruction.
--- NOTE | 2021-05-12 00:01 | HPE_ITS ---
Date of service: 05/12/21 Time of Service: 00:01 Assessment and Plan Assessment and plan (1) Coronary artery disease: Status: Acute Assessment and plan: Cont ASA 81mg daily, atorvastatin 80 mg HS, metoprolol ER 50mg daily. Trend troponin; initial was negative. Placed on nitroglycerine drip in ED. Morphine 2mg IV Q3H prn chest pain/pressure. (2) AV heart block: Status: Acute Assessment and plan: Pacemaker functioning as noted on EKG. (3) Chest pain: Status: Acute Assessment and plan: Cardiac vs pleuritic. No EKG changes concerning for ischemia. Cont nitroglycerin drip. Morphine prn. GI cocktail x1 given. If not improving; consider CTA chest. (4) Congestive heart failure (CHF): Status: Chronic Assessment and plan: Significant abd wall and BLE edema. On lasix 80mg po BID at home. Lasix 80mg IV given in ED. Cont IV lasix; titrate to effectiveness. Low Na intake. 1200 free water restriction. No recent Echocardiogram in chart. If none obtained at [facility] in recent past, consider echo on Friday. (5) Type 2 diabetes mellitus, with long-term current use of insulin: Status: Chronic Assessment and plan: She can bring her Jardiance from home. SS insulin. Holding home glargine d/t poor current intake and glucose of 106. Restart glargine once eating is established. Hold metformin. Qualifiers: Diabetes mellitus complication status: with hyperglycemia Qualified Code(s): E11.65 - Type 2 diabetes mellitus with hyperglycemia; Z79.4 - adjunct faculty for medical terminology (current) use of insulin (6) Depression: Status: Chronic Assessment and plan: Cont Trazadone QHS prn Cont Seroquel. (7) Anxiety: Status: Chronic Assessment and plan: Cont Buspar. (8) Essential hypertension: Status: Chronic Assessment and plan: Cont metoprolol and lisinopril. Monitor. (9) Asthma: Status: Chronic Assessment and plan: Cont Advair Albuterol nebs prn. History of Present Illness History of Present Illness Chief Complaint: Shortness of breath and chest pain Narrative: This is a 46 yo female with a PMH of AV heart block requiring pacemaker, CAD, CHF, DM2 with insulin req., substance use disorder, morbid obesity, asthma, HLD, depression. She presented to the ED endorsing progressive SOA over appx 1 week. She has also noted increasing wt gain / pedal edema / abd wall fluid retention. She denies missing doses of her lasix. No increased Na intake. She describes left sided chest pain as heavy and burning. No acid brash. No palpitations. No trauma or chest wall tenderness with compression or movement. No F/C, N/V/diarrhea. Upon presentation she was tachypneic. BiPAP initiated. She was given a SL nitroglycerin then a nitro infusion initiated. She initially had improvement but once she was brought to the ICU she stated she couldn't tolerate the BiPAP d/t claustrophobia and her chest complaint had returned. CXR showed no acute processes. NTProBNP elevated at 3874. Troponin I negative. Mg 1.7. Glucose 106. Creatinine 0.8. Na and K normal. WBC count 10.04. Hgb 13.1. Review of Systems All systems reviewed & are unremarkable except as noted in HPI and below PFSH All Active Problems (Updated 05/12/21 @ 00:31 by Ralph Campoverde MD) Hypokalemia (Acute) Left upper extremity swelling (Acute) Post op infection (Acute) Pacemaker infection (Acute) Coronary artery disease (Acute) Pacemaker (Acute) Dual lead Medtronic pacemaker - [id number] 01/03/2021 RA Medtronic 5076-52 [id number] RV Medtronic 5076-58 [id number] Bradycardia (Acute) Pacemaker placed 01/03/21 [facility] AV heart block (Acute ~12/2020) 2:1, pacemaker place 01/03 21 Chest pain (Acute) History of smoking (Acute) Easy bruising (Chronic) dual anti-platelets Congestive heart failure (CHF) (Chronic) s/p [place], EF 40-45% Depression (Chronic) Type 2 diabetes mellitus, with long-term current use of insulin (Chronic) Neuropathy, microalbuminuria, labile blood sugars Microalbuminuria due to type 2 diabetes mellitus (Chronic) Anxiety (Chronic 03/15/15) Calculus of kidney (Chronic 06/07/15) Left, non-obstructing Substance use disorder (Chronic) Opioids Steatosis of liver (Chronic) Opioid use disorder (Chronic ~2008) MAT at [facility]: switched back to Suboxone 2017; methadone prior to that since ~ 09/2013; prior Suboxone ([facility]) Body mass index (BMI) 50-59.9, adult (Chronic) Witnessed apneic spells (Chronic) Snoring (Chronic) Disability, 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 Left bundle branch block (LBBB) on electrocardiogram (Chronic 08/30/16) new 08/27/16; prior JANET Essential hypertension (Chronic 03/15/15) Attention deficit hyperactivity disorder, combined type (Chronic 03/11/16) NKHS Asthma (Chronic 06/07/15) Recurrent CO2 retention!; [facility] status 10/2016 Hyperlipidemia (Chronic) Mood disorder (Chronic) Anxiety, depression, PTSD, ADHD Diabetic neuropathy (Chronic) Gabapentin in the past; d/c'ed following overdose leading to [facility] hospitalization (~2016 or 2017?) Restless legs syndrome (Chronic) Herniated lumbar disc without myelopathy (Chronic) Chronic pain (Chronic) Insomnia (Chronic) difficulty initiating sleep, Trazodone Rx, ?KARL Medical History Abdominal distension Acute heart failure with reduced ejection fraction and diastolic dysfunction (~11/2019) Arm pain, right (11/11/16) R upper arm pain and weakness and decreased sensation Constipation Diabetes esophageal microperforation Grade II internal hemorrhoids (02/07/16) colonoscopy 02/07/16 History of peptic ulcer Hypertension Internal derangement of left knee (~10/2018) Misuse of medication Myocardial infarct 12/06/2019 at [facility] to LAD Nephrolithiasis (06/07/15) ST elevation (STEMI) myocardial infarction involving left anterior descending coronary artery (~11/2019) 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 pills, has been clean for 2 years- on suboxone from [facility] in [place], [place] Tobacco use disorder Trigger finger, left middle finger (02/26/16) Urolithiasis Surgical History Appendectomy section x3 Cholecystectomy Colonoscopy - [facility] (02/07/16) H/O: History of appendectomy History of cholecystectomy Ligation of fallopian tube Open Carpal Tunnel release [facility] of [facility] Trigger Finger release Rgt thumb and middle finger; Dr Solomon Family History Son Crohn disease Daughter Crohn disease Daughter Crohn disease Social History Smoking/Tobacco Use Status: Former Tobacco Use Quit Date: 11/30/19 Smoking risk assessment performed?: Yes Alcohol Intake: never Drug use: Current Sobriety Substance use type: former substance user Caregiver/Support person: No Housing: apartment Number of Children: 3 Communication Needs: None Pets and animals: Yes Pets and animals: cat(s), dog(s) and snake(s) Sexually active: Yes Current gender identity: female What type of physical activity do you participate in: none Do you feel safe at home: Yes Do you feel safe in your relationship?: Yes Meds Allergies and Home Medications Allergies Allergy/AdvReac Type Severity Reaction Status Date / Time povidone-iodine Allergy Severe Skin Rash Verified 02/09/21 11:20 [From Betadine] soap [From Betadine] Allergy Skin Rash Verified 02/09/21 11:20 acetaminophen AdvReac Severe GI upset Verified 02/09/21 11:20 paroxetine AdvReac Intermediate nightmares, Verified 02/09/21 11:20 shaking codeine [Codeine] AdvReac Mild Nausea Verified 02/09/21 11:20 lisdexamfetamine dimesylate AdvReac Unknown GI upset Verified 02/09/21 11:20 [From Vyvanse] Home Medications Medication Instructions Recorded Confirmed Type lancets (ZerplyTouch UltraSoft #200 ea 03/28/17 05/11/21 Rx Lancets) blood-glucose meter #1 each 08/28/18 05/11/21 Rx lancets #500 each 08/28/18 05/11/21 Rx aspirin 81 mg tablet,delayed 81 mg PO DAILY 12/13/19 05/11/21 History release (Adult Low Dose Aspirin) blood sugar diagnostic (ZerplyTouch #100 ea 12/13/19 05/11/21 Rx Verio test strips) nitroglycerin 0.4 mg sublingual 0.4 mg SUBLINGUAL Q5M PRN 12/13/19 05/11/21 History tablet albuterol sulfate 90 mcg/actuation 2 puff IH Q4H PRN #18 g 04/20/20 05/11/21 Rx aerosol inhaler (ProAir HFA) fluticasone 500 mcg-salmeterol 50 1 inh IH BID #3 ea 04/20/20 05/11/21 Rx mcg/dose blistr powdr for inhalation (Advair Diskus) lisinopril 5 mg tablet 5 mg PO DAILY #90 tab 04/20/20 05/11/21 Rx omeprazole 20 mg capsule,delayed 20 mg PO BID #180 cap 04/20/20 05/11/21 Rx release metformin 1,000 mg tablet 1,000 mg PO BID #180 tab 12/14/20 05/11/21 Rx nebulizers #1 ea 12/14/20 05/11/21 Rx atorvastatin 80 mg tablet 80 mg PO QPM #90 tab 01/11/21 05/11/21 Rx acetaminophen 500 mg capsule 500 mg PO Q6H PRN 01/16/21 02/09/21 History methocarbamol 750 mg tablet 750 mg PO TID PRN 01/16/21 02/09/21 History metoprolol succinate 50 mg 50 mg PO DAILY 01/16/21 05/11/21 History tablet,extended release 24 hr buspirone 30 mg tablet 30 mg PO BID 01/25/21 05/11/21 History quetiapine 200 mg tablet 200 mg PO DAILY 01/25/21 05/11/21 History quetiapine 50 mg tablet 50 mg PO QHS PRN 01/25/21 05/11/21 History suboxone PO 01/25/21 02/09/21 History trazodone 100 mg tablet 200 mg PO DAILY PRN tab 01/25/21 05/11/21 History insulin glargine 100 unit/mL 35 unit (0.35 mL) SUBCUT QPM #30 ml 03/12/21 05/11/21 Rx subcutaneous solution (Lantus U-100 Insulin) insulin syringe-needle U-100 0.5 #100 ea 03/12/21 05/11/21 Rx mL 31 gauge x 5/16 (BD Insulin Syringe Ultra-Fine) empagliflozin 25 mg tablet 25 mg PO DAILY #90 tab 05/08/21 Rx (Jardiance) furosemide 80 mg tablet 80 mg PO BID 05/11/21 05/11/21 History Exam Narrative Exam Narrative: Sitting in bed with HOB raised. CPAP in place. Increased WOB noted. Const General: cooperative Nutritional Appearance: obese Orientation: alert and oriented x3 Eyes General: appearance normal, both eyes and all related structures Sclera: sclerae normal Chest Chest: normal palpation of entire chest wall, no tenderness and pacemaker Resp Effort & Inspection: other (Short of air with conversation. ) Auscultation: clear to auscultation bilaterally and rales bilaterally at the base Cardio Rate: tachycardic Rhythm: regular rhythm GI Inspection: large pannus and other (firm induration of area of distal abd pannus on left / tender) Palpation: soft and nontender Skin General skin exam: no rashes or lesions noted Neuro General: no focal motor deficits Cranial Nerves: facial strength normal Cognition: normal cognition Speech: speech normal Extrem General: no calf tenderness and edema Laterality: bilateral (3+ from below knees to toes. ) Results Labs Result diagrams: 05/11/21 21:03 05/11/21 21:03 Labs: Laboratory Results - last 24 hr 05/11/21 05/11/21 05/11/21 20:54 21:03 21:03 WBC RBC Hgb Hct MCV MCH MCHC RDW Plt Count MPV Immature Gran % Neutrophils % Lymphocytes % Monocytes % Eosinophils % Basophils % Nucleated RBC % Absolute Neutrophils Absolute Lymphocytes Absolute Monocytes Absolute Eosinophils Absolute Basophils Sodium 137 Potassium 4.2 Chloride 102 Carbon Dioxide 25.9 Anion Gap 9.1 BUN 13 Creatinine 0.8 Estimated GFR/1.73 m2 >= 60.00 Glucose 106 Calcium 9.0 Magnesium Total Bilirubin 0.7 AST 17 ALT 19 Alkaline Phosphatase 105 Troponin I < 50 NT-Pro-B Natriuret Pep 3874 H Total Protein 7.6 Albumin 3.8 COVID-19 Source Nasal/Nares SARS-CoV-2 (PCR) Negative Influenza Type A (PCR) Negative Influenza Type B (PCR) Negative RSV (PCR) Negative Add-On Test Request 05/11/21 05/11/21 05/11/21 21:03 21:05 Unknown WBC 10.04 RBC 5.30 H Hgb 13.1 Hct 42.7 MCV 80.6 MCH 24.7 L MCHC 30.7 L RDW 16.2 H Plt Count 376 MPV 10.6 Immature Gran % 0.2 Neutrophils % 67.5 Lymphocytes % 24.6 Monocytes % 6.7 Eosinophils % 0.7 Basophils % 0.3 Nucleated RBC % 0 Absolute Neutrophils 6.78 H Absolute Lymphocytes 2.47 Absolute Monocytes 0.67 Absolute Eosinophils 0.07 Absolute Basophils 0.03 Sodium Potassium Chloride Carbon Dioxide Anion Gap BUN Creatinine Estimated GFR/1.73 m2 Glucose Calcium Magnesium 1.7 L Total Bilirubin AST ALT Alkaline Phosphatase Troponin I NT-Pro-B Natriuret Pep Total Protein Albumin COVID-19 Source SARS-CoV-2 (PCR) Influenza Type A (PCR) Influenza Type B (PCR) RSV (PCR) Add-On Test Request DONE Last Vital Signs Temp 36.8 C 05/11/21 20:31 Pulse 79 05/11/21 22:47 Resp 13 05/11/21 23:00 BP 132/83 05/11/21 22:47 Pulse Ox 92 05/11/21 23:00
[2021-05-12] MEDS: Magnesium Oxide 400 MG TAB PO ×2 (00:19→21:08)
[2021-05-12] MEDS: Normal Saline Flush 10 ML SYR IVP ×4 (00:21→23:46)
[2021-05-12] MEDS: MORPHine 2 MG/ML SYR IVP ×5 (00:28→23:46)
[2021-05-12] MEDS: QUEtiapine 25 MG TAB 50 MG PO ×2 (00:28→21:08)
[2021-05-12] MEDS: traZODone 100 MG TAB 200 MG PO ×2 (00:28→21:08)
[2021-05-12 00:50] LABS: Troponin I < 50 ng/L (<or=60)
[2021-05-12 06:07] LABS: Abs Immature Grans 0.01 10^3/uL (0.0-0.06); Absolute Basophil Count 0.03 10^3/uL (0.0-0.2); Absolute Eosinophil Count 0.06 10^3/uL (0.0-0.7); Absolute Lymphocyte Count 2.68 10^3/uL (1.2-3.4); Absolute Monocyte Count 0.81 10^3/uL (0.1-0.8); Absolute Neutrophil Count 4.92 10^3/uL (1.2-6.7); Basophils % 0.4; Eosinophils % 0.7; HCT 37.8 % (36.0-46.0); HGB 11.4 g/dL (11.2-15.7); Immature Grans % 0.1; Lymphocytes % 31.5; MCH 24.3 pg (27.0-33.0); MCHC 30.2 % (32.0-36.0); MCV 80.4 fL (80-95); MPV 10.4 fL (8.0-11.0); Monocytes % 9.5; Neutrophils % 57.8; Nucleated RBC 0 %; Platelet Count 314 10^3/uL (130-400); RDW-SD 46.7 fL; WBC 8.51 10^3/uL (4.4-10.8)
[2021-05-12 06:23] LABS: Anion Gap 7.4 mmol/L (3-11); BUN 15 mg/dL (7-18); CO2 29.6 mmol/L (21.0-32.0); CREATININE 0.8 mg/dL (0.55-1.02); Calcium 8.8 mg/dL (8.5-10.1); Chloride 102 mmol/L (98-107); Glucose 56 mg/dL (74-106); Potassium 3.3 mmol/L (3.5-5.1); Sodium 139 mmol/L (136-145)
[2021-05-12] MEDS: Heparin 5,000 UNITS/ML VIAL 5000 UNITS SC (06:30)
--- NOTE | 2021-05-12 07:55 | NUR.NOTE ---
Patient given crackers with peanut butter and a glass of orange juice for blood sugar of 60 this a.m.Nursing Note:
--- NOTE | 2021-05-12 07:57 | RESPIRATORY ---
MEDS NOT HERE FROM PHARM- CALLED PHARM NO ANSWER.
--- NOTE | 2021-05-12 07:59 | INITIAL_ITS ---
- If Service Date Differs Date of service: 05/12/21 Time of Service: 07:59 Care Management Initial Assess REASON FOR HOSPITALIZATION:: Acute on Chronic Congestive Heart Failure PAST MEDICAL HISTORY/PAST SURGICAL HISTORY:: All Active Problems (Updated 05/12/21 @ 00:31 by Ralph Campoverde MD). Hypokalemia (Acute). Left upper extremity swelling (Acute). Post op infection (Acute). Pacemaker infection (Acute). Coronary artery disease (Acute). Pacemaker (Acute). Dual lead Medtronic pacemaker - [id number] [id number] 01/03/2021. RA Medtronic 5076-52 [id number]. RV Medtronic 5076-58 [id number]. Bradycardia (Acute). [place] [facility] AV heart block (Acute ~12/2020). 2:1, pacemaker place 01/03 21. Chest pain (Acute). History of smoking (Acute). Easy bruising (Chronic). dual anti-platelets. Congestive heart failure (CHF) (Chronic). s/p SD, EF 40-45%. Depression (Chronic). Type 2 diabetes mellitus, with long-term current use of insulin (Chronic). Neuropathy, microalbuminuria, labile blood sugars. Microalbuminuria due to type 2 diabetes mellitus (Chronic). Anxiety (Chronic 03/15/15). Calculus of kidney (Chronic 06/07/15). Left, non- obstructing. Substance use disorder (Chronic). Opioids. Steatosis of liver (Chronic). Opioid use disorder (Chronic ~2008). MAT at [facility]: switched back to Suboxone 2017; methadone prior to that since ~09/2013; prior Suboxone ([facility]). Body mass index (BMI) 50-59.9, adult (Chronic). Witnessed apneic spells (Chronic). Snoring (Chronic). 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 since 15 y/o due to breathing. Left bundle branch block (LBBB) on electrocardiogram (Chronic 08/30/16). new 08/27/16; prior JANET. Essential hypertension (Chronic 03/15/15). Attention deficit hyperactivity disorder, combined type (Chronic 03/11/16). NKHS. Asthma (Chronic 06/07/15). Recurrent CO2 retention!; [facility] [place]. Hyperlipidemia (Chronic). Mood disorder (Chronic). Anxiety, depression, PTSD, ADHD. Diabetic neuropathy (Chronic). Gabapentin in the past; d/c'ed following overdose leading to [facility] [place] (~2016 [place] 2017?). Restless legs syndrome (Chronic). Herniated lumbar disc without myelopathy (Chronic). Chronic pain (Chronic). Insomnia (Chronic). difficulty initiating sleep, Trazodone Rx, ?KARL. Medical History . Abdominal distension. Acute heart failure with reduced ejection fraction and diastolic dysfunction (~11/2019). Arm pain, right (11/11/16). R upper arm pain and weakness and decreased sensation. Constipation. Diabetes. esophageal microperforation. Grade II internal hemorrhoids (02/07/16). colonoscopy 02/07/16. History of peptic ulcer. Hypertension. Internal derangement of left knee (~10/2018). Misuse of medication. Myocardial infarct. [place] [facility] [place] [place] [facility]. Nephrolithiasis (06/07/15). ST elevation (STEMI) myocardial infarction involving left anterior descending coronary artery (~11/2019). Substance abuse in remission. opiod pills, has been clean for 2 years- on suboxone from [facility] in [place], [place]. Tobacco use disorder. Trigger finger, left middle finger (02/26/16). Urolithiasis. Surgical History . Appendectomy. section. x3. Cholecystectomy. Colonoscopy - [facility] (02/07/16). H/O: . History of appendectomy. History of cholecystectomy. Ligation of fallopian tube. Open Carpal Tunnel release. Removal of foreign body (06/26/16). Dr Ott, [facility]. S/P placement of cardiac pacemaker (01/03/21). Trigger Finger release. Rgt thumb and middle finger; Dr Solomon PREVIOUS FUNCTIONAL STATUS/SOCIAL/FAMILY SUPPORTS:: Breonna lives in an apartment in [facility] [place] [facility], alone, with her dog and cat. She has three children who are 30, 27, and 17 years old. Her youngest daugher lives with her sister in [place]. Her apartment is on the third floor, so she has 36 steps to get in and out of her home. She is independent at baseline. Her friend Karin is caring for her pets while she is in the hospital. CURRENT FUNCTIONAL STATUS:: Breonna was lying in bed when CM met with her. She was pleasant and easily engaged in conversation. She is 94% on RA and using a CPAP at night. ADVANCE DIRECTIVES:: Not on file. Per pt, she has forms to fill out at home. Has patient been provided with info about the portal/API?: Yes Did the patient sign up for the portal?: No CODE STATUS:: Full Code INSURANCE COVERAGE / FINANCIAL ISSUES:: Medicaid CURRENT HOME/COMMUNITY SERVICES/EQUIPMENT:: Daja has a FWW, and cane, and a shower chair at home. PRIMARY CARE PHYSICIAN:: Shabbir Hamilton POTENTIAL DISCHARGE NEEDS:: Follow up appointments PATIENT/FAMILY EDUCATION NEEDS:: Review discharge instructions, limitations and plan to follow up with community providers. Discuss ask me three and goals of care. TRANSPORTATION:: via private vehicle with friend Karin. PLAN:: Breonna continues to require close monitoring in the ICU. She may transition to med surg later today depending on the results of her CT scan and BP. Anticipate, Breonna will discharge home via private vehicle with friend when medically ready. With new [facility] services, if indicated. Breonna will follow up with community providers and discharge plan of care as prescribed.
[2021-05-12] MEDS: Furosemide 100 MG/10 ML VIAL 80 MG IVP (08:08)
[2021-05-12] MEDS: Aspirin E.C. 81 MG TABEC PO (08:11)
[2021-05-12] MEDS: Lisinopril 5 MG TAB PO (08:12)
[2021-05-12] MEDS: Metoprolol CR 50 MG TABCR PO (08:12)
[2021-05-12] MEDS: Omeprazole 20 MG CAPCR PO ×2 (08:13→21:08)
[2021-05-12] MEDS: QUEtiapine 100 MG TAB 200 MG PO (08:13)
[2021-05-12] MEDS: Normal Saline 50 ML 200 ML (08:13)
--- NOTE | 2021-05-12 08:25 | NUR.NOTE ---
Respiratory therapist documented Symbicort was not given, but same is documented because medication was not available on unit. Medication is now available and is given by RN.Nursing Note:
[2021-05-12] MEDS: Empaglifozin 25 MG TAB PO (08:26)
[2021-05-12] MEDS: busPIRone 15 MG TAB 30 MG PO ×2 (08:26→21:08)
--- NOTE | 2021-05-12 08:58 | NUR.NOTE ---
RN dc's olvera catheter.Nursing Note:
[2021-05-12 09:13] LABS: Lab Add On Test COMPLETE
[2021-05-12 09:14] LABS: Lab Add On Test COMPLETE
[2021-05-12 09:22] LABS: Magnesium 1.5 mg/dL (1.8-2.4)
[2021-05-12 10:05] LABS: Procalcitonin < 0.1 ng/mL
[2021-05-12] MEDS: Potassium Chloride 20 MEQ TABCR 40 MEQ PO ×2 (10:11→14:48)
[2021-05-12] MEDS: POTASSIUM CHLORIDE 20 MEQ/100 ML BAG 50 MEQ IVPB ×2 (10:47→12:33)
--- NOTE | 2021-05-12 11:18 | PGE_ITS ---
Date of Service Date of service: 05/12/21 Time of Service: 11:18 Assessment and Plan Assessment and plan (1) Congestive heart failure (CHF): Status: Chronic Assessment and plan: Diuresed impressively. Hold further IV diuresis for today - will actually give a bolus of 500 cc of LR given hypotension. Obtain echocardiogram. Monitor I/O's, daily weights. (2) LLQ pain: Status: Acute Assessment and plan: Await CT imaging abdomen/pelvis. Allergic to iodine. Will obtain a noncontrast CT first - if no clear answer and IV contrast is needed, will need pretreatment prior to IV contrast. (3) Asthma: Status: Chronic Assessment and plan: Does appear to be in acute exacerbation. Will start systemic steroids. Continue symbicort, prn albuterol. (4) Coronary artery disease: Status: Chronic Assessment and plan: No ACS on this admission. Chest pain is actually likely contiguous with abdominal pain. (5) AV heart block: Status: Chronic Assessment and plan: V paced. (6) Chest pain: Status: Acute Assessment and plan: As above - noncardiac. (7) Type 2 diabetes mellitus, with long-term current use of insulin: Status: Chronic Assessment and plan: Hypoglycemic this am. Hold jardiance (did receive this morning's dose). Cover with SSI only. Qualifiers: Diabetes mellitus complication status: with hyperglycemia Qualified Code(s): E11.65 - Type 2 diabetes mellitus with hyperglycemia; Z79.4 - terminal block assembler (current) use of insulin (8) Depression: Status: Chronic Assessment and plan: Continue home therapy (9) Anxiety: Status: Chronic Assessment and plan: Continue home therapy (10) Essential hypertension: Status: Chronic Assessment and plan: Hold lisinopril given borderline BP. [place] holding parameters for the beta blockers. Stop IV lasix given low BP. (11) Hypokalemia: Status: Acute Assessment and plan: Replete, recheck in am (12) Hypomagnesemia: Status: Acute Assessment and plan: Replete, recheck in am (13) DVT prophylaxis: Status: Acute Assessment and plan: hold SC heparin until results of CT are known (14) Discharge planning issues: Status: Acute Assessment and plan: Full code Continues to require hospitalization. Depending on BP and results of CT, might be able to transfer out of the ICU later today. Subjective Subjective Interval history since last seen: Nitroglycerin gtt did not help the pain and has been off since 6 am this morning. Hypoglycemic this am. V paced. UOP >3.5L overnight and 1.2 L this morning shift already. Requests olvera out. States that the source of the pain is the endurated area in LLQ, which was red and warm, but is not now, though still very tender. Remembers feeling a pop in her abdomen during a coughing episode a week and a half ago. No BM x 10 days. + a little flatus. +nausea this am, though not right now. C/o dizziness. C/o tingling around lips. Wheezing/SOB. Cough nonproductive. Wheezing has been going on for a week. Exam Narrative Exam Narrative: General: Obese female who looks tired/weak, A&Ox3 HEENT: EOMI, MMM Heart: RRR, no m/r/g Lungs: Expiratory wheezing B Abdomen: + bowel sounds; soft with the exception of endurated non-erythematous indurated area midline and to the left in the lower abdomen, which is exquisitely tender Extremities: +1 BLE edema, no c/c. Objective Last Vital Signs Temp 36.3 C L 05/12/21 11:08 Pulse 65 05/12/21 11:08 Resp 21 05/12/21 11:08 BP 86/48 L 05/12/21 11:08 Pulse Ox 91 L 05/12/21 11:08 Laboratory Results - last 24 hr 05/11/21 05/11/21 05/11/21 20:54 21:03 21:03 WBC RBC Hgb Hct MCV MCH MCHC RDW Plt Count MPV Immature Gran % Neutrophils % Lymphocytes % Monocytes % Eosinophils % Basophils % Nucleated RBC % Absolute Neutrophils Absolute Lymphocytes Absolute Monocytes Absolute Eosinophils Absolute Basophils Sodium 137 Potassium 4.2 Chloride 102 Carbon Dioxide 25.9 Anion Gap 9.1 BUN 13 Creatinine 0.8 Estimated GFR/1.73 m2 >= 60.00 Glucose 106 Calcium 9.0 Magnesium Total Bilirubin 0.7 AST 17 ALT 19 Alkaline Phosphatase 105 Troponin I < 50 NT-Pro-B Natriuret Pep 3874 H Total Protein 7.6 Albumin 3.8 Procalcitonin COVID-19 Source Nasal/Nares SARS-CoV-2 (PCR) Negative Influenza Type A (PCR) Negative Influenza Type B (PCR) Negative RSV (PCR) Negative Add-On Test Request 05/11/21 05/11/21 05/11/21 21:03 21:05 Unknown WBC 10.04 RBC 5.30 H Hgb 13.1 Hct 42.7 MCV 80.6 MCH 24.7 L MCHC 30.7 L RDW 16.2 H Plt Count 376 MPV 10.6 Immature Gran % 0.2 Neutrophils % 67.5 Lymphocytes % 24.6 Monocytes % 6.7 Eosinophils % 0.7 Basophils % 0.3 Nucleated RBC % 0 Absolute Neutrophils 6.78 H Absolute Lymphocytes 2.47 Absolute Monocytes 0.67 Absolute Eosinophils 0.07 Absolute Basophils 0.03 Sodium Potassium Chloride Carbon Dioxide Anion Gap BUN Creatinine Estimated GFR/1.73 m2 Glucose Calcium Magnesium 1.7 L Total Bilirubin AST ALT Alkaline Phosphatase Troponin I NT-Pro-B Natriuret Pep Total Protein Albumin Procalcitonin COVID-19 Source SARS-CoV-2 (PCR) Influenza Type A (PCR) Influenza Type B (PCR) RSV (PCR) Add-On Test Request DONE 05/12/21 05/12/21 05/12/21 00:20 05:50 05:50 WBC 8.51 RBC 4.70 Hgb 11.4 Hct 37.8 MCV 80.4 MCH 24.3 L MCHC 30.2 L RDW 16.0 H Plt Count 314 MPV 10.4 Immature Gran % 0.1 Neutrophils % 57.8 Lymphocytes % 31.5 Monocytes % 9.5 Eosinophils % 0.7 Basophils % 0.4 Nucleated RBC % 0 Absolute Neutrophils 4.92 Absolute Lymphocytes 2.68 Absolute Monocytes 0.81 H Absolute Eosinophils 0.06 Absolute Basophils 0.03 Sodium 139 Potassium 3.3 L Chloride 102 Carbon Dioxide 29.6 Anion Gap 7.4 BUN 15 Creatinine 0.8 Estimated GFR/1.73 m2 >= 60.00 Glucose 56 L D Calcium 8.8 Magnesium 1.5 L Total Bilirubin AST ALT Alkaline Phosphatase Troponin I < 50 NT-Pro-B Natriuret Pep Total Protein Albumin Procalcitonin COVID-19 Source SARS-CoV-2 (PCR) Influenza Type A (PCR) Influenza Type B (PCR) RSV (PCR) Add-On Test Request 05/12/21 05/12/21 05/12/21 05:50 09:13 09:13 WBC RBC Hgb Hct MCV MCH MCHC RDW Plt Count MPV Immature Gran % Neutrophils % Lymphocytes % Monocytes % Eosinophils % Basophils % Nucleated RBC % Absolute Neutrophils Absolute Lymphocytes Absolute Monocytes Absolute Eosinophils Absolute Basophils Sodium Potassium Chloride Carbon Dioxide Anion Gap BUN Creatinine Estimated GFR/1.73 m2 Glucose Calcium Magnesium Total Bilirubin AST ALT Alkaline Phosphatase Troponin I NT-Pro-B Natriuret Pep Total Protein Albumin Procalcitonin < 0.1 COVID-19 Source SARS-CoV-2 (PCR) Influenza Type A (PCR) Influenza Type B (PCR) RSV (PCR) Add-On Test Request COMPLETE COMPLETE
[2021-05-12] MEDS: Lactated Ringers 500 ML IV (11:43)
[2021-05-12] MEDS: methylPREDNISolone SUCC 125 MG VIAL IVP (13:04)
[2021-05-12] MEDS: MAGNESIUM SULFATE 4 GM/100 ML BAG IVPB (13:04)
--- NOTE | 2021-05-12 15:10 | DI.VRAD_ITS ---
PROCEDURE INFORMATION: Exam: CT Chest Without Contrast; Diagnostic Exam date and time: 05/12/2021 8:44 AM Age: 46 years old Clinical indication: Other: Shortness of breath, abdominal fluid collection TECHNIQUE: Imaging protocol: Diagnostic computed tomography of the chest without contrast. Radiation optimization: All CT scans at this facility use at least one of these dose optimization techniques: automated exposure control; mA and/or kV adjustment per patient size (includes targeted exams where dose is matched to clinical indication); or iterative reconstruction. COMPARISON: CT CHEST/ABD/PEL W 26/06/2020 14:06 FINDINGS: Tubes, catheters and devices: Left subclavian cardiac pacemaker is in place. Thyroid: Normal. No significant nodule or enlargement. Trachea: Normal. Lungs: Unremarkable. No consolidation. No nodule or mass. Pleural spaces: Unremarkable. No pneumothorax. No pleural effusion or thickening. Heart: There is prominent coronary artery calcification. Coronary arteries: No significant calcification. Esophagus: No esophageal mass or wall thickening. No hiatal hernia. Mediastinal space: Normal. No mass or adenopathy. Pulmonary arteries: Nonenlarged. No filling defects demonstrated. Aorta: Unremarkable. No aortic aneurysm or significant atherosclerosis. Lymph nodes: No enlarged mediastinal or axillary lymph nodes. Bones/joints: Unremarkable. No acute fracture. Soft tissues: Unremarkable. Other findings: Visualized upper abdomen is unremarkable. IMPRESSION: No acute abnormality in the chest. PROCEDURE INFORMATION: Exam: CT Abdomen And Pelvis Without Contrast Exam date and time: 05/12/2021 8:44 AM Age: 46 years old Clinical indication: Other: Shortness of breath, abdominal fluid collection TECHNIQUE: Imaging protocol: Computed tomography of the abdomen and pelvis without contrast. Radiation optimization: All CT scans at this facility use at least one of these dose optimization techniques: automated exposure control; mA and/or kV adjustment per patient size (includes targeted exams where dose is matched to clinical indication); or iterative reconstruction. COMPARISON: CT CHEST/ABD/PEL W 26/06/2020 14:06 FINDINGS: Lungs: Visualized lung bases are clear. Liver: Normal. No mass or intrahepatic biliary ductal dilatation. Gallbladder and bile ducts: Gallbladder is absent. Pancreas: Normal. No mass or ductal dilation. Spleen: Normal. No splenomegaly. Adrenal glands: Normal. No mass. Kidneys and ureters: Normal. No hydronephrosis, calculus, cyst or mass. Stomach and bowel: Scattered air-fluid levels are present in the colon as well as in distal small bowel. There is no significant degree of dilatation. Appendix: No evidence of appendicitis. Intraperitoneal space: There is a moderate amount of nonspecific free fluid in the cul-de-sac of the pelvis. Vasculature: Unremarkable. No abdominal aortic aneurysm or significant atherosclerosis. Lymph nodes: No enlarged retroperitoneal or mesenteric lymph nodes. Urinary bladder: No mass or wall thickening. Reproductive: Left adnexal calcification is unchanged. Bones/joints: Unremarkable. No acute fracture. No lytic lesion. Moderate degenerative change in the lower lumbar spine. Soft tissues: Unremarkable. IMPRESSION: Scattered air-fluid levels in small bowel and colon suggest ileus. Dictated and Authenticated by: Torin Heart MD. Ordering:EMILEE Pichardo MD
--- NOTE | 2021-05-12 16:14 | W.SURGCON ---
Date of service: 05/12/21 Time of Service: 16:55 Assessment and Plan Assessment and plan (1) Hypomagnesemia: Status: Resolved (2) Ileus, unspecified: Status: Acute Assessment and plan: -Dulcolax suppository BID -Correct electrolyte derangements -Miralax BID, can change to or add magnesium citrate if no BM in 24-48h -Check TSH -Check UA to rule out UTI. Currently has no sx. -Resume PO diet, discussed starting slow and stopping if nausea/vomiting. -Lidocaine patch for superficial abdominal skin discomfort. (3) Hypokalemia: Status: Resolved (4) Coronary artery disease: Status: Chronic (5) Microalbuminuria due to type 2 diabetes mellitus: Status: Chronic (6) Type 2 diabetes mellitus, with long-term current use of insulin: Status: Chronic Qualifiers: Diabetes mellitus complication status: with hyperglycemia Qualified Code(s): E11.65 - Type 2 diabetes mellitus with hyperglycemia; Z79.4 - correction (current) use of insulin (7) Congestive heart failure (CHF): Status: Chronic (8) History of smoking: Status: Acute History of Present Illness Narrative: Patient states she has not had a BM in >10 days, CT done reveals mild ileus with air fluid levels in colon and small bowel, sigmoid colon completely decompressed. Patient denies nausea, vomiting, states shes hungry and wants to eat. Her main concern is an area of induration just below her umbilicus and to the left that is indurated. Patient states is does not really hurt to push on this area but the skin overlying it is burning. She reports a history of previous possibly perforated hernia while 39 weeks that was repaired primarily. No staple line on bowel was appreciated on CT, patient states she underwent Cesarian section first then hernia repair at the time. No mesh was used due to an allergy/sensitivity. She does have an element of anasarca which appears to be the main cause of her current discomfort. TSH has been checked before but not recently. Reports previous obstruction as a result of fecal impaction which she required sedation to relieve. Consults Consult date: 05/12/21 Requesting physician: Kylee Gonzalez Review of Systems All systems reviewed & are unremarkable except as noted in HPI and below PFSH All Active Problems (Updated 05/13/21 @ 12:24 by Kylee Gonzalez MD) Ileus, unspecified (Acute) Discharge planning issues (Acute) DVT prophylaxis (Acute) LLQ pain (Acute) Left upper extremity swelling (Acute) Post op infection (Acute) Pacemaker infection (Acute) Coronary artery disease (Chronic) Pacemaker (Acute) Dual lead Medtronic pacemaker - [id number] 01/03/2021 RA Medtronic 5076-52 [id number] RV Medtronic 5076-58 [id number] Bradycardia (Acute) Pacemaker placed 01/03/21 [facility] [place] AV heart block (Chronic ~12/2020) 2:1, pacemaker place 01/03 21 Chest pain (Acute) History of smoking (Acute) Easy bruising (Chronic) dual anti-platelets Congestive heart failure (CHF) (Chronic) s/p [place], EF 40-45% Depression (Chronic) Type 2 diabetes mellitus, with long-term current use of insulin (Chronic) Neuropathy, microalbuminuria, labile blood sugars Microalbuminuria due to type 2 diabetes mellitus (Chronic) Anxiety (Chronic 03/15/15) Calculus of kidney (Chronic 06/07/15) Left, non-obstructing Substance use disorder (Chronic) Opioids Steatosis of liver (Chronic) Opioid use disorder (Chronic ~2008) MAT at [facility]: switched back to Suboxone 2017; methadone prior to that since ~09/2013; prior Suboxone ([facility]) Body mass index (BMI) 50-59.9, adult (Chronic) Witnessed apneic spells (Chronic) Snoring (Chronic) Disability, 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 hospitalization (~2016 or 2018?) Restless legs syndrome (Chronic) Herniated lumbar disc without myelopathy (Chronic) Chronic pain (Chronic) Insomnia (Chronic) difficulty initiating sleep, Trazodone Rx, ?[facility] Medical History Abdominal distension Acute heart failure with reduced ejection fraction and diastolic dysfunction (~11/2019) Arm pain, right (11/11/16) R upper arm pain and weakness and decreased sensation Constipation Diabetes esophageal microperforation Grade II internal hemorrhoids (02/07/16) colonoscopy 02/07/16 History of peptic ulcer Hypertension Internal derangement of left knee (~10/2018) Misuse of medication Myocardial infarct 12/06/2019 at [facility] [place] [facility] ANKIT to LAD Nephrolithiasis (06/07/15) ST elevation (STEMI) myocardial infarction involving left anterior descending coronary artery (~11/2019) 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 pills, has been clean for 2 years- on suboxone from [facility] in [place], [place] Tobacco use disorder Trigger finger, left middle finger (02/26/16) Urolithiasis Surgical History Appendectomy section x3 Cholecystectomy Colonoscopy - [facility] (02/07/16) H/O: History of appendectomy History of cholecystectomy Ligation of fallopian tube Open Carpal Tunnel release Removal of foreign body (06/26/16) Dr Ott, [facility] S/P placement of cardiac pacemaker (01/03/21) Trigger Finger release Rgt thumb and middle finger; Dr Solomon Family History Son Crohn disease Daughter Crohn disease Daughter Crohn disease Social History Smoking/Tobacco Use Status: Former Tobacco Use Quit Date: 11/30/19 Smoking risk assessment performed?: Yes Alcohol Intake: never Drug use: Current Sobriety Substance use type: former substance user Caregiver/Support person: No Housing: apartment Number of Children: 3 Communication Needs: None Pets and animals: Yes Pets and animals: cat(s), dog(s) and snake(s) Sexually active: Yes Current gender identity: female What type of physical activity do you participate in: none Do you feel safe at home: Yes Do you feel safe in your relationship?: Yes Exam Const General: cooperative, comfortable and no acute distress Nutritional Appearance: obese Resp Effort & Inspection: normal respiratory effort and able to speak in complete sentences GI Inspection: normal to inspection, edema, large pannus, obesity and striae Palpation: soft, no guarding, no hernias and tender in the LLQ (mild, over indurated area of skin. No erythema.) Percussion: normal to percussion Neuro General: patient alert, patient awake and patient oriented x3 Extrem Right upper extremity: edema (mild 1+) Left upper extremity: edema (mild 1+) Results Last Vital Signs Temp 98.1 F 05/12/21 15:18 Pulse 62 05/12/21 15:18 Resp 18 05/12/21 15:18 BP 107/56 L 05/12/21 15:18 Pulse Ox 94 05/12/21 15:18 Labs Result diagrams: 05/12/21 05:50 05/13/21 05:50 Labs: Laboratory Results - last 24 hr 05/11/21 05/11/21 05/11/21 20:54 21:03 21:03 WBC RBC Hgb Hct MCV MCH MCHC RDW Plt Count MPV Immature Gran % Neutrophils % Lymphocytes % Monocytes % Eosinophils % Basophils % Nucleated RBC % Absolute Neutrophils Absolute Lymphocytes Absolute Monocytes Absolute Eosinophils Absolute Basophils Sodium 137 Potassium 4.2 Chloride 102 Carbon Dioxide 25.9 Anion Gap 9.1 BUN 13 Creatinine 0.8 Estimated GFR/1.73 m2 >= 60.00 Glucose 106 Calcium 9.0 Magnesium Total Bilirubin 0.7 AST 17 ALT 19 Alkaline Phosphatase 105 Troponin I < 50 NT-Pro-B Natriuret Pep 3874 H Total Protein 7.6 Albumin 3.8 Procalcitonin COVID-19 Source Nasal/Nares SARS-CoV-2 (PCR) Negative Influenza Type A (PCR) Negative Influenza Type B (PCR) Negative RSV (PCR) Negative Add-On Test Request 05/11/21 05/11/21 05/11/21 21:03 21:05 Unknown WBC 10.04 RBC 5.30 H Hgb 13.1 Hct 42.7 MCV 80.6 MCH 24.7 L MCHC 30.7 L RDW 16.2 H Plt Count 376 MPV 10.6 Immature Gran % 0.2 Neutrophils % 67.5 Lymphocytes % 24.6 Monocytes % 6.7 Eosinophils % 0.7 Basophils % 0.3 Nucleated RBC % 0 Absolute Neutrophils 6.78 H Absolute Lymphocytes 2.47 Absolute Monocytes 0.67 Absolute Eosinophils 0.07 Absolute Basophils 0.03 Sodium Potassium Chloride Carbon Dioxide Anion Gap BUN Creatinine Estimated GFR/1.73 m2 Glucose Calcium Magnesium 1.7 L Total Bilirubin AST ALT Alkaline Phosphatase Troponin I NT-Pro-B Natriuret Pep Total Protein Albumin Procalcitonin COVID-19 Source SARS-CoV-2 (PCR) Influenza Type A (PCR) Influenza Type B (PCR) RSV (PCR) Add-On Test Request DONE 05/12/21 05/12/21 05/12/21 00:20 05:50 05:50 WBC 8.51 RBC 4.70 Hgb 11.4 Hct 37.8 MCV 80.4 MCH 24.3 L MCHC 30.2 L RDW 16.0 H Plt Count 314 MPV 10.4 Immature Gran % 0.1 Neutrophils % 57.8 Lymphocytes % 31.5 Monocytes % 9.5 Eosinophils % 0.7 Basophils % 0.4 Nucleated RBC % 0 Absolute Neutrophils 4.92 Absolute Lymphocytes 2.68 Absolute Monocytes 0.81 H Absolute Eosinophils 0.06 Absolute Basophils 0.03 Sodium 139 Potassium 3.3 L Chloride 102 Carbon Dioxide 29.6 Anion Gap 7.4 BUN 15 Creatinine 0.8 Estimated GFR/1.73 m2 >= 60.00 Glucose 56 L D Calcium 8.8 Magnesium 1.5 L Total Bilirubin AST ALT Alkaline Phosphatase Troponin I < 50 NT-Pro-B Natriuret Pep Total Protein Albumin Procalcitonin COVID-19 Source SARS-CoV-2 (PCR) Influenza Type A (PCR) Influenza Type B (PCR) RSV (PCR) Add-On Test Request 05/12/21 05/12/21 05/12/21 05:50 09:13 09:13 WBC RBC Hgb Hct MCV MCH MCHC RDW Plt Count MPV Immature Gran % Neutrophils % Lymphocytes % Monocytes % Eosinophils % Basophils % Nucleated RBC % Absolute Neutrophils Absolute Lymphocytes Absolute Monocytes Absolute Eosinophils Absolute Basophils Sodium Potassium Chloride Carbon Dioxide Anion Gap BUN Creatinine Estimated GFR/1.73 m2 Glucose Calcium Magnesium Total Bilirubin AST ALT Alkaline Phosphatase Troponin I NT-Pro-B Natriuret Pep Total Protein Albumin Procalcitonin < 0.1 COVID-19 Source SARS-CoV-2 (PCR) Influenza Type A (PCR) Influenza Type B (PCR) RSV (PCR) Add-On Test Request COMPLETE COMPLETE
[2021-05-12] MEDS: Senna TAB 1 TAB PO ×2 (16:44→21:08)
[2021-05-12] MEDS: Bisacodyl 10 MG SUPP PR (16:44)
[2021-05-12] MEDS: Docusate Sodium 100 MG/10 ML CUP PO ×2 (16:44→21:08)
[2021-05-12] MEDS: Insulin Aspart 300 UNITS/3 ML PEN SC ×2 (17:38→21:50)
[2021-05-12] MEDS: Atorvastatin 40 MG TAB 80 MG PO (21:09)
[2021-05-13] VITALS (104 sets, daily range): BP systolic 89–114; BP diastolic 53–77; PULSE 55–78; RESP 9–22; TEMP 35.1–36.7; O2SAT 88–98
--- NOTE | 2021-05-13 | DI.RAD_ITS ---
Exam(s) XR ABDOMEN FLAT UPRIGHT EXAM: 2D digital imaging was performed. CLINICAL HISTORY: ileus vs SBO. COMPARISON: No exams were available for comparison TECHNIQUE: Supine and upright views of the abdomen was performed. FINDINGS: LUNG BASES: Clear. Cardiomegaly. The distal ends of a cardiac pacing device are present. BOWEL GAS PATTERN: There are dilated loops of bowel seen within the abdomen. The majority of the loo ps are of small bowel. There are however, distended loops of colon. FREE AIR: None. CALCIFICATIONS: No radiopaque calcifications. OSSEOUS STRUCTURES: Normal for age. OTHER FINDINGS: Surgical clips are seen in the right upper quadrant likely reflecting prior cholecyst ectomy. IMPRESSION: Air-filled loops of small and large bowel with some air-fluid levels. The findings are consistent wi th an ileus. Partial small bowel obstruction cannot be entirely excluded. DATA REPOSITORY: RADIATION DOSE DELIVERED:
[2021-05-13] MEDS: Normal Saline Flush 10 ML SYR IVP ×4 (03:41→20:59)
[2021-05-13] MEDS: MORPHine 2 MG/ML SYR IVP (03:42)
[2021-05-13 06:17] LABS: Anion Gap 5.6 mmol/L (3-11); BUN 17 mg/dL (7-18); CO2 29.4 mmol/L (21.0-32.0); CREATININE 0.7 mg/dL (0.55-1.02); Calcium 9.1 mg/dL (8.5-10.1); Chloride 101 mmol/L (98-107); Glucose 145 mg/dL (74-106); Magnesium 2.4 mg/dL (1.8-2.4); Potassium 4.6 mmol/L (3.5-5.1); Sodium 136 mmol/L (136-145)
[2021-05-13] MEDS: Aspirin E.C. 81 MG TABEC PO (08:04)
[2021-05-13] MEDS: Furosemide 40 MG/4 ML VIAL IVP ×2 (08:05→16:55)
[2021-05-13] MEDS: Docusate Sodium 100 MG/10 ML CUP PO ×2 (08:05→21:01)
[2021-05-13] MEDS: busPIRone 15 MG TAB 30 MG PO ×2 (08:05→21:00)
[2021-05-13] MEDS: Metoprolol CR 50 MG TABCR PO (08:06)
[2021-05-13] MEDS: Insulin Aspart 300 UNITS/3 ML PEN SC ×4 (08:06→20:58)
[2021-05-13] MEDS: Omeprazole 20 MG CAPCR PO ×2 (08:07→21:00)
[2021-05-13] MEDS: Senna TAB 1 TAB PO ×2 (08:07→21:00)
[2021-05-13] MEDS: Polyethylene Glycol 3350 17 GM PACKET PO (08:07)
[2021-05-13] MEDS: predniSONE 20 MG TAB 60 MG PO (08:07)
[2021-05-13 08:41] LABS: Lab Add On Test COMPLETE
[2021-05-13 09:02] LABS: TSH 0.44 uIU/mL (0.36-3.74)
[2021-05-13] MEDS: Buprenorphine/Naloxone 8 mg/2 mg FILM 1 EACH SL ×3 (10:52→21:00)
--- NOTE | 2021-05-13 11:09 | NUR.NOTE ---
Patient is upset that Dr. Raza has yet to visit her and calls switchboard to report her concern. teletype or varitype keyboard operator tells patient she will speak to Stock Taker. RN has informed patient he has spoken with Dr. Raza a couple of hours ago who told him she would visit patient in about an hour.Nursing Note:
[2021-05-13] MEDS: Magnesium Citrate 300 ML BTL 150 ML PO (11:27)
--- NOTE | 2021-05-13 12:08 | NUR.NOTE ---
Patient's diet changed to NPO.Nursing Note:
--- NOTE | 2021-05-13 12:12 | W.PM.PROGNOT ---
Date of Service Date of service: 05/13/21 Time of Service: 12:13 Assessment and Plan Assessment and plan (1) LLQ pain: Status: Acute Assessment and plan: CT imaging c/w ileus; clinically, I am more concerned about SBO and/or incarcerated hernia given the findings on physical exam (palpable Mass in LLQ). Awaiting surgical consult. Allergic to iodine; has required prep before. NPO. Await XR abdomen flat. (2) Congestive heart failure (CHF): Status: Chronic Assessment and plan: Better. Refused CPAP last night. Our pharmacy has verified with [facility], and the patient had not picked up furosemide or atorvastatin in several months, so she has likely not been taking it. Diuresed impressively with IV lasix 80 mg yesterday. Received 40 mg IV today and is planned to receive another dose this afternoon, BP permitting. Await echocardiogram. Monitor I/O's, daily weights. (3) Asthma: Status: Chronic Assessment and plan: Does appear to be in acute exacerbation. Improved. Continue prednisone, symbicort, prn albuterol. (4) Coronary artery disease: Status: Chronic Assessment and plan: No ACS on this admission. Chest pain is actually likely contiguous with abdominal pain. (5) AV heart block: Status: Chronic Assessment and plan: V paced. Pacemaker appears to be functioning well. (6) Chest pain: Status: Acute Assessment and plan: As above - noncardiac. (7) Type 2 diabetes mellitus, with long-term current use of insulin: Status: Chronic Assessment and plan: FBG 145. No further hypoglycemia. Hold jardiance. Continue SSI. Qualifiers: Diabetes mellitus complication status: with hyperglycemia Qualified Code(s): E11.65 - Type 2 diabetes mellitus with hyperglycemia; Z79.4 - nursing home (current) use of insulin (8) Depression: Status: Chronic Assessment and plan: Continue home therapy (we have verified the medications and are adjusting them to what [facility] was prescribing). (9) Anxiety: Status: Chronic Assessment and plan: As above (10) Essential hypertension: Status: Chronic Assessment and plan: Hold lisinopril given borderline BP. Continue beta blockers with holding parameters. IV lasix dose lowered. (11) Hypokalemia: Status: Resolved Assessment and plan: Recheck in am (12) Hypomagnesemia: Status: Resolved Assessment and plan: Recheck in am (13) DVT prophylaxis: Status: Acute Assessment and plan: hold SC heparin until a surgical opinion (14) Discharge planning issues: Status: Acute Assessment and plan: Full code Continues to require hospitalization. She remains an ICU patient at this time. Subjective Subjective Interval history since last seen: Reports no flatus today. She has been belching and expresses she feels like it tastes feculent. She has not had any significant BMs since yesterday. She says her pain is uncontrolled. + n, -v. Reports a h/o cholecystectomy, appendectomy, 3 c-sections and a subcutaneous cyst/abscess in the abdomen that had to be excised in the s in a hospital in [place], [place]. She is sure they don't have records of this because she had tried to get them before. Feels chest discomfort was continuation of the discomfort in the abdomen. Wheezing is better. Cough has been dry. States she is on suboxone as outpatient. Exam Narrative Exam Narrative: General: Obese female who looks more alert, very uncomfortable; A&Ox3 HEENT: EOMI, MMM Heart: RRR, no m/r/g Lungs: Expiratory wheezing B - improved. Abdomen: + bowel sounds; soft with the exception of indurated non-erythematous area midline and to the left in the lower abdomen, which is exquisitely tender; She also now has pain in BUQ. Extremities: trace BLE edema, no c/c. Objective Last Vital Signs Temp 35.1 C L 05/13/21 11:17 Pulse 60 05/13/21 11:17 Resp 11 L 05/13/21 11:17 BP 114/71 05/13/21 11:17 Pulse Ox 95 05/13/21 11:17 Laboratory Results - last 24 hr 05/13/21 05/13/21 05:50 08:41 Sodium 136 Potassium 4.6 D Chloride 101 Carbon Dioxide 29.4 Anion Gap 5.6 BUN 17 Creatinine 0.7 Estimated GFR/1.73 m2 >= 60.00 Glucose 145 H D Calcium 9.1 Magnesium 2.4 TSH 0.44 Add-On Test Request COMPLETE Objective Narrative Objective Narrative: CT chest/abdomen/pelvis 05/12/21: 1. No acute pulmonary process. 2. Moderate amount of free fluid in the pelvis. 3. Findings suggestive of an ileus. XR abdomen flat pending.
--- NOTE | 2021-05-13 13:09 | NUR.NOTE ---
Dr. Raza suggests lidocaine patch for subcutaneous fluid build-up in abdomen which is causing patient to have belly pain.Nursing Note:
--- NOTE | 2021-05-13 13:23 | DI.VRAD_ITS ---
PROCEDURE INFORMATION: Exam: XR Abdomen Exam date and time: 05/13/2021 12:29 PM Age: 46 years old Clinical indication: Other: Ileus vs sbo; Additional info: Best images possible due to PT condition TECHNIQUE: Imaging protocol: XR of the abdomen. Views: 8 Views. Upright and supine views. COMPARISON: CT CHEST/ABD/PEL WO 03/01/2022 14:00 FINDINGS: Limitations: Limited image quality. Tubes, catheters and devices: EKG wires overlie the chest. Heart/Mediastinum: Prominent cardiac silhouette. Gastrointestinal tract: Air distended small bowel loops measuring 3.2 cm. Unremarkable air distended colon. Intraperitoneal space: Surgical clips right upper quadrant. Bones/joints: Multilevel degenerative changes of the spine. IMPRESSION: Prominent air-filled colon and small bowel with air-fluid levels on the upright film consistent with ileus or early small bowel obstruction. Dictated and Authenticated by: Neida Larsen MD. Ordering:EMILEE Pcihardo MD
--- NOTE | 2021-05-13 13:27 | NUR.NOTE ---
Patient is completely relieved to know her hard bump on abdomen is nothing more than inflammation caused by subcutaneous fluid buildup.Nursing Note:
[2021-05-13] MEDS: Heparin 5,000 UNITS/ML VIAL 5000 UNITS SC ×2 (13:38→21:08)
[2021-05-13] MEDS: Lidocaine 5% Patch 1 PATCH TP (14:19)
--- NOTE | 2021-05-13 14:27 | NUR.NOTE ---
[Patient set up with late lunch tray since patient was on clear liquids and the NPO for awhile today.Nursing Note:
[2021-05-13] MEDS: traZODone 100 MG TAB PO (21:00)
[2021-05-13] MEDS: Magnesium Oxide 400 MG TAB PO (21:01)
[2021-05-13] MEDS: Atorvastatin 40 MG TAB 80 MG PO (21:01)
[2021-05-13] MEDS: QUEtiapine 300 MG TAB PO (21:07)
[2021-05-13] MEDS: QUEtiapine 100 MG TAB 200 MG PO (21:07)
[2021-05-13] MEDS: LIDOCAINE Patch Removal 1 EACH TP (21:51)
[2021-05-14] VITALS (55 sets, daily range): BP systolic 90–110; BP diastolic 56–92; PULSE 55–72; RESP 10–25; TEMP 35.8–36.6; O2SAT 97
[2021-05-14] MEDS: Heparin 5,000 UNITS/ML VIAL 5000 UNITS SC ×3 (06:15→21:19)
[2021-05-14 07:17] LABS: Abs Immature Grans 0.03 10^3/uL (0.0-0.06); Absolute Basophil Count 0.02 10^3/uL (0.0-0.2); Absolute Eosinophil Count 0.01 10^3/uL (0.0-0.7); Absolute Lymphocyte Count 2.04 10^3/uL (1.2-3.4); Absolute Monocyte Count 0.65 10^3/uL (0.1-0.8); Absolute Neutrophil Count 6.18 10^3/uL (1.2-6.7); Basophils % 0.2; Eosinophils % 0.1; HCT 39.2 % (36.0-46.0); HGB 12.1 g/dL (11.2-15.7); Immature Grans % 0.3; Lymphocytes % 22.8; MCH 24.6 pg (27.0-33.0); MCHC 30.9 % (32.0-36.0); MCV 79.7 fL (80-95); MPV 10.9 fL (8.0-11.0); Monocytes % 7.3; Neutrophils % 69.3; Nucleated RBC 0 %; Platelet Count 301 10^3/uL (130-400); RBC 4.92 10^6/uL (3.93-5.22); RDW 16.2 % (11.7-14.6); RDW-SD 46.5 fL; WBC 8.93 10^3/uL (4.4-10.8)
[2021-05-14 07:31] LABS: BUN 26 mg/dL (7-18); CREATININE 0.8 mg/dL (0.55-1.02); Chloride 98 mmol/L (98-107); Glucose 214 mg/dL (74-106); Magnesium 2.5 mg/dL (1.8-2.4); Potassium 4.5 mmol/L (3.5-5.1); Sodium 137 mmol/L (136-145)
[2021-05-14] MEDS: predniSONE 20 MG TAB 60 MG PO (07:47)
[2021-05-14] MEDS: Normal Saline Flush 10 ML SYR IVP (07:47)
[2021-05-14] MEDS: Senna TAB 1 TAB PO ×2 (07:48→20:18)
[2021-05-14] MEDS: Omeprazole 20 MG CAPCR PO ×2 (07:48→20:17)
[2021-05-14] MEDS: Docusate Sodium 100 MG/10 ML CUP PO ×2 (07:48→20:16)
[2021-05-14] MEDS: Buprenorphine/Naloxone 8 mg/2 mg FILM 1 EACH SL ×3 (07:48→20:16)
[2021-05-14] MEDS: busPIRone 15 MG TAB 30 MG PO ×2 (07:48→20:16)
[2021-05-14] MEDS: Aspirin E.C. 81 MG TABEC PO (07:48)
[2021-05-14] MEDS: Insulin Aspart 300 UNITS/3 ML PEN SC ×4 (08:33→16:14)
[2021-05-14] MEDS: Bisacodyl 10 MG SUPP PR ×2 (08:34→20:17)
[2021-05-14] MEDS: Metoprolol CR 50 MG TABCR PO (10:47)
[2021-05-14] MEDS: Lidocaine 5% Patch 1 PATCH TP (10:47)
--- NOTE | 2021-05-14 11:31 | PGE_ITS ---
Date of Service Date of service: 05/14/21 Time of Service: 11:31 Assessment and Plan Assessment and plan (1) LLQ pain: Status: Acute Assessment and plan: Combination of an ileus/constipation as well as abdominal wall edema. Continue bowel regimen - intensify as per surgical directions. No concerns for SBO at this point as the patient is tolerating PO and having BMs. Continue diuresis. Getting suboxone and lidocaine patches for pain. D/c toradol prn as she is not currently requiring it. (2) Congestive heart failure (CHF): Status: Chronic Assessment and plan: Systolic and probably also R-sided. Better clinically, but preliminary report of LVEF on the latest echo is 15%. We will wait for the formal read. She needs follow up with heart failure specialists at [facility]. Noncompliant with CPAP here and, it appears at home. The patient states she has 6 bottles of lasix at home which she takes 1 pill every other day and she thinks she is taking 40 mg, per Dr Hamilton's office directions. She admits to not taking it every day. We discussed how she should. Await echo read. Monitor I/O's, daily weights. Continue PO lasix. Qualifiers: Heart failure type: systolic Heart failure chronicity: acute on chronic Qualified Code(s): I50.23 - Acute on chronic systolic (congestive) heart failure (3) Asthma: Status: Chronic Assessment and plan: Improved. Very minimal wheezing today. Start to taper prednisone, continiue symbicort, prn albuterol. (4) Coronary artery disease: Status: Chronic Assessment and plan: No ACS on this admission. Chest pain is actually likely contiguous with abdominal pain. (5) AV heart block: Status: Chronic Assessment and plan: V paced. Pacemaker appears to be functioning well. (6) Chest pain: Status: Acute Assessment and plan: As above - noncardiac. (7) Type 2 diabetes mellitus, with long-term current use of insulin: Status: Chronic Assessment and plan: FBG 145. No further hypoglycemia. Hold jardiance. Continue SSI. Await DM education. Qualifiers: Diabetes mellitus complication status: with hyperglycemia Qualified Code(s): E11.65 - Type 2 diabetes mellitus with hyperglycemia; Z79.4 - assisted (current) use of insulin (8) Depression: Status: Chronic Assessment and plan: Continue home therapy. F/u with [facility]. (9) Anxiety: Status: Chronic Assessment and plan: As above (10) Essential hypertension: Status: Chronic Assessment and plan: Hold lisinopril given borderline BP. Continue beta blockers with holding parameters. On PO lasix. We may not be able to achieve normal BPs in this patient with systolic dysfunction. (11) Hypokalemia: Status: Resolved Assessment and plan: Recheck in am (12) Hypomagnesemia: Status: Resolved Assessment and plan: Recheck in am (13) DVT prophylaxis: Status: Acute Assessment and plan: Chemical DVT ppx restarted (SC heparin). (14) Discharge planning issues: Status: Acute Assessment and plan: Full code Transferred to [facility] on 05/13/21. Anticipate discharge home tomorrow. Will need Heart Failure follow up with [facility]. Subjective Subjective Interval history since last seen: Feels a little better today. Has had several small BMs. Vomited once yesterday, but no nausea today. Breathing is better. Pain is better. She denies chest pain/shortness of breath. She feels she will be ready to go home tomorrow. Concerned about her BP being in the 90s - we discussed that she may not be able to mount a high BP due to having systolic CHF. She does not currently see a CHF specialist, she does not think, but has been set up with a team at [facility]. We will look into this further. Exam Narrative Exam Narrative: General: Obese female who looks better, A&Ox3, looks more comfortable HEENT: EOMI, MMM Heart: RRR, no m/r/g Lungs: minimal expiratory wheezing heard today. Abdomen: + bowel sounds; soft with the exception of indurated non-erythematous area midline and to the left in the lower abdomen, which is less tender and feels to be smaller in size. Extremities: trace BLE edema, no c/c. Objective Last Vital Signs Temp 35.8 C L 05/14/21 02:31 Pulse 57 L 05/14/21 08:59 Resp 13 05/14/21 09:50 BP 95/72 L 05/14/21 08:59 Pulse Ox 97 05/14/21 08:57 Laboratory Results - last 24 hr 05/14/21 05/14/21 06:10 06:10 WBC 8.93 RBC 4.92 Hgb 12.1 Hct 39.2 MCV 79.7 L MCH 24.6 L MCHC 30.9 L RDW 16.2 H Plt Count 301 MPV 10.9 Immature Gran % 0.3 Neutrophils % 69.3 Lymphocytes % 22.8 Monocytes % 7.3 Eosinophils % 0.1 Basophils % 0.2 Nucleated RBC % 0 Absolute Neutrophils 6.18 Absolute Lymphocytes 2.04 Absolute Monocytes 0.65 Absolute Eosinophils 0.01 Absolute Basophils 0.02 Sodium 137 Potassium 4.5 Chloride 98 Carbon Dioxide 34.0 H Anion Gap 5.0 BUN 26 H D Creatinine 0.8 Estimated GFR/1.73 m2 >= 60.00 Glucose 214 H Calcium 9.0 Magnesium 2.5 H
[2021-05-14] MEDS: Furosemide 40 MG TAB 80 MG PO ×2 (12:31→16:05)
--- NOTE | 2021-05-14 17:54 | CMPROGNOTE_ITS ---
- If Service Date Differs Date of service: 05/14/21 Time of Service: 17:54 Care Management Progress Note S/O: Breonna continues to be monitored and treated, anticipate discharge home tomorrow, per MD. CM continues to follow. A: 46 year old female admitted to [facility] 05/11/21 for acute on chronic CHF. P: Breonna continues to require close monitoring in the ICU. Breonna will discharge home via private vehicle with friend when medically ready. With new [facility] services, if indicated. Breonna will follow up with community providers and discharge plan of care as prescribed.
[2021-05-14] MEDS: Atorvastatin 40 MG TAB 80 MG PO (20:14)
[2021-05-14] MEDS: Polyethylene Glycol 3350 17 GM PACKET PO (20:17)
[2021-05-14] MEDS: QUEtiapine 100 MG TAB 200 MG PO (21:14)
[2021-05-14] MEDS: traZODone 100 MG TAB PO (21:14)
[2021-05-14] MEDS: LIDOCAINE Patch Removal 1 EACH TP (21:14)
[2021-05-14] MEDS: QUEtiapine 300 MG TAB PO (21:14)
[2021-05-14] MEDS: Magnesium Oxide 400 MG TAB PO (21:19)
[2021-05-15] VITALS (8 sets, daily range): BP systolic 100–128; BP diastolic 57–87; PULSE 16–62; RESP 16–18; TEMP 36.4–36.8; O2SAT 93–98
--- NOTE | 2021-05-15 | DI.US_ITS ---
Exam(s) US SOFT TISS ABD WALL/LOW BACK EXAM: US SOFT TISS ABD WALL/LOW BACK CLINICAL HISTORY: LLQ pain; abdominal wall mass. TECHNIQUE: Ultrasound was performed using standard protocol. COMPARISON: CT CT CHEST/ABD/PEL WO from 05/12/2021 FINDINGS: Sonographic assessment utilizing grayscale and color Doppler imaging was performed and targeted to th e area of clinical concern. Recent CT scan 05/12/2021 was reviewed These ultrasound images reveal no evidence of solid or significant cystic lesion within the field of view of these images. There is also no evidence of abscess. Review of this area on the recent CT scan 3 days ago revealed skin thickening and subcutaneous strand ing, most probably inflammatory but no formed abscess IMPRESSION: No discernible mass nor abscess evident in the area scanned with ultrasound today. DATA REPOSITORY:
[2021-05-15] MEDS: Heparin 5,000 UNITS/ML VIAL 5000 UNITS SC ×2 (05:56→12:59)
[2021-05-15 07:10] LABS: Abs Immature Grans 0.01 10^3/uL (0.0-0.06); Absolute Basophil Count 0.02 10^3/uL (0.0-0.2); Absolute Eosinophil Count 0.02 10^3/uL (0.0-0.7); Absolute Lymphocyte Count 2.23 10^3/uL (1.2-3.4); Absolute Monocyte Count 0.76 10^3/uL (0.1-0.8); Absolute Neutrophil Count 6.48 10^3/uL (1.2-6.7); Basophils % 0.2; Eosinophils % 0.2; HCT 38.8 % (36.0-46.0); HGB 11.9 g/dL (11.2-15.7); Immature Grans % 0.1; Lymphocytes % 23.4; MCH 24.2 pg (27.0-33.0); MCHC 30.7 % (32.0-36.0); MCV 78.9 fL (80-95); MPV 11.4 fL (8.0-11.0); Neutrophils % 68.1; Nucleated RBC 0 %; Platelet Count 338 10^3/uL (130-400); RBC 4.92 10^6/uL (3.93-5.22); RDW-SD 46.1 fL; WBC 9.52 10^3/uL (4.4-10.8)
[2021-05-15 07:22] LABS: Anion Gap 3.8 mmol/L (3-11); BUN 27 mg/dL (7-18); CO2 35.2 mmol/L (21.0-32.0); CREATININE 0.9 mg/dL (0.55-1.02); Calcium 8.9 mg/dL (8.5-10.1); Chloride 98 mmol/L (98-107); Glucose 220 mg/dL (74-106); Magnesium 2.2 mg/dL (1.8-2.4); Sodium 137 mmol/L (136-145)
--- NOTE | 2021-05-15 08:32 | CCONE_ITS ---
Date of service: 05/15/21 Time of Service: 08:32 Assessment and Plan Assessment and plan (1) Coronary artery disease: Status: Chronic Assessment and plan: No current concerns related to coronary disease (2) Pacemaker: Status: Acute Assessment and plan: She will need follow-up in clinic for device monitoring (3) Acute heart failure with reduced ejection fraction and diastolic d ysfunction: Assessment and plan: Patient has new severe left ventricular dysfunction. Her care will be complicated by a tendency to noncompliance. Agree with referral to heart failure group at [facility]. She should be on guideline directed medical therapy with metoprolol succinate and lisinopril. Currently her volume status is corrected. I have no specific cardiac recommendations related to her current management In general I would recommend further attention to the patient's major complaint, which is the left lower quadrant pain and mass History of Present Illness History of Present Illness Chief Complaint: Shortness of breath and swelling Narrative: This 46-year-old woman presented to the hospital with progressive shortness of breath. She was found to have decompensated congestive heart failure. She had not been compliant with her medical regimen, specifically not taking furosemide as directed. She responded to diuresis. She has had an echocardiogram updated which shows severe left ventricular dysfunction, markedly different compared to previous. At present she is resting comfortably, says her breathing and edema have improved significantly. Her biggest complaint is left lower quadrant d iscomfort where there is a very firm/indurated area . she reports burning pain there. She also reports that she is anticipating discharge home later today Patient has known coronary artery disease. In November 2019 she had drug- eluting stents placed to the mid and proximal left anterior descending. She did not have any other obstructive coronary disease. Her EF at that time was 40 to 45%. She subsequently required a permanent pacemaker in December 2020 4 2-1 AV block, chronotropic incompetence. Her concerns initially that she might have an infected pacemaker pocket. She did not take antibiotics as prescribed and did not follow-up as scheduled at [facility] Review of Systems Cardiovascular Comments: Shortness of breath, edema PFSH All Active Problems Ileus, unspecified (Acute) Discharge planning issues (Acute) DVT prophylaxis (Acute) LLQ pain (Acute) Left upper extremity swelling (Acute) Post op infection (Acute) Pacemaker infection (Acute) Coronary artery disease (Chronic) Pacemaker (Acute) Dual lead Medtronic pacemaker - [id number] 01/03/2021 RA Medtronic [id number] RV Medtronic [id number] [id number] Bradycardia (Acute) Pacemaker placed 01/03/21 [facility] AV heart block (Chronic ~12/2020) 2:1, pacemaker place 01/03 21 Chest pain (Acute) History of smoking (Acute) Easy bruising (Chronic) dual anti-platelets Congestive heart failure (CHF) (Chronic) s/p GA, EF 40-45% Depression (Chronic) Type 2 diabetes mellitus, with long-term current use of insulin (Chronic) Neuropathy, microalbuminuria, labile blood sugars Microalbuminuria due to type 2 diabetes mellitus (Chronic) Anxiety (Chronic 03/15/15) Calculus of kidney (Chronic 06/07/15) Left, non-obstructing Substance use disorder (Chronic) Opioids Steatosis of liver (Chronic) Opioid use disorder (Chronic ~2008) MAT at [facility]: switched back to Suboxone 2017; methadone prior to that since ~09/2013; prior Suboxone ([facility]) Body mass index (BMI) 50-59.9, adult (Chronic) Witnessed apneic spells (Chronic) Snoring (Chronic) Disability, 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 Left bundle branch block (LBBB) on electrocardiogram (Chronic 08/30/16) new 08/27/16; prior [facility] Essential hypertension (Chronic 03/15/15) Attention deficit hyperactivity disorder, combined type (Chronic 03/11/16) [facility] Asthma (Chronic 06/07/15) Recurrent CO2 retention!; [facility] status 10/2016 Hyperlipidemia (Chronic) Mood disorder (Chronic) Anxiety, depression, PTSD, ADHD Diabetic neuropathy (Chronic) Gabapentin in the past; d/c'ed following overdose leading to [facility] hospitalization (~2016 or 2017?) Restless legs syndrome (Chronic) Herniated lumbar disc without myelopathy (Chronic) Chronic pain (Chronic) Insomnia (Chronic) difficulty initiating sleep, Trazodone Rx, ?[facility] Medical History Abdominal distension Acute heart failure with reduced ejection fraction and diastolic dysfunction (~11/2019) Arm pain, right (11/11/16) R upper arm pain and weakness and decreased sensation Constipation Diabetes esophageal microperforation Grade II internal hemorrhoids (02/07/16) colonoscopy 02/07/16 History of peptic ulcer Hypertension Internal derangement of left knee (~10/2018) Misuse of medication Myocardial infarct 12/06/2019 at [facility] ANKIT to LAD Nephrolithiasis (06/07/15) ST elevation (STEMI) myocardial infarction involving left anterior descending coronary artery (~11/2019) 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 pills, has been clean for 2 years- on suboxone from [facility] in [place], [place] Tobacco use disorder Trigger finger, left middle finger (02/26/16) Urolithiasis Surgical History Appendectomy section x3 Cholecystectomy Colonoscopy - [facility] (02/07/16) H/O: History of appendectomy History of cholecystectomy Ligation of fallopian tube Open Carpal Tunnel release Removal of foreign body (06/26/16) Dr Ott, [facility] S/P placement of cardiac pacemaker (01/03/21) Trigger Finger release Rgt thumb and middle finger; Dr Solomon Family History Son Crohn disease Daughter Crohn disease Daughter Crohn disease Social History Smoking/Tobacco Use Status: Former Tobacco Use Quit Date: 11/30/19 Smoking risk assessment performed?: Yes Alcohol Intake: never Drug use: Current Sobriety Substance use type: former substance user Caregiver/Support person: No Housing: apartment Number of Children: 3 Communication Needs: None Pets and animals: Yes Pets and animals: cat(s), dog(s) and snake(s) Sexually active: Yes Current gender identity: female What type of physical activity do you participate in: none Do you feel safe at home: Yes Do you feel safe in your relationship?: Yes Exam Narrative Exam Narrative: Morbidly obese no acute distress GI Other: In the left lower quadrant there is an approximately 3 cm firm mass which appears to be subcutaneous, not intra-abdominal. It is mildly tender, not fluctuant. It raises concerns for organized hematoma Results Last Vital Signs Temp 36.6 C 05/15/21 07:26 Pulse 61 05/15/21 07:28 Resp 16 05/15/21 07:26 BP 109/64 05/15/21 07:26 Pulse Ox 98 05/15/21 07:26 Labs Result diagrams: 05/15/21 06:18 05/15/21 06:18 Labs: Laboratory Results - last 24 hr 05/15/21 05/15/21 06:18 06:18 WBC 9.52 RBC 4.92 Hgb 11.9 Hct 38.8 MCV 78.9 L MCH 24.2 L MCHC 30.7 L RDW 16.0 H Plt Count 338 MPV 11.4 H Immature Gran % 0.1 Neutrophils % 68.1 Lymphocytes % 23.4 Monocytes % 8.0 Eosinophils % 0.2 Basophils % 0.2 Nucleated RBC % 0 Absolute Neutrophils 6.48 Absolute Lymphocytes 2.23 Absolute Monocytes 0.76 Absolute Eosinophils 0.02 Absolute Basophils 0.02 Sodium 137 Potassium 4.0 Chloride 98 Carbon Dioxide 35.2 H Anion Gap 3.8 BUN 27 H Creatinine 0.9 Estimated GFR/1.73 m2 >= 60.00 Glucose 220 H Calcium 8.9 Magnesium 2.2
[2021-05-15] MEDS: predniSONE 20 MG TAB 40 MG PO (08:33)
[2021-05-15] MEDS: Furosemide 40 MG TAB 80 MG PO ×2 (08:33→16:24)
[2021-05-15] MEDS: Aspirin E.C. 81 MG TABEC PO (08:33)
[2021-05-15] MEDS: Buprenorphine/Naloxone 8 mg/2 mg FILM 1 EACH SL ×3 (08:33→20:25)
[2021-05-15] MEDS: busPIRone 15 MG TAB 30 MG PO ×2 (08:33→20:25)
[2021-05-15] MEDS: Omeprazole 20 MG CAPCR PO ×2 (08:33→20:25)
[2021-05-15] MEDS: Docusate Sodium 100 MG/10 ML CUP PO (08:34)
[2021-05-15] MEDS: Metoprolol CR 50 MG TABCR PO (08:34)
[2021-05-15] MEDS: Senna TAB 1 TAB PO (08:34)
[2021-05-15] MEDS: Insulin Aspart 300 UNITS/3 ML PEN SC ×4 (08:47→21:52)
[2021-05-15] MEDS: Lidocaine 5% Patch 1 PATCH TP (11:17)
--- NOTE | 2021-05-15 14:55 | PGE_ITS ---
Date of Service Date of service: 05/15/21 Time of Service: 14:55 Assessment and Plan Assessment and plan (1) LLQ pain: Status: Acute Assessment and plan: Will obtain an ultrasound of the abdominal wall and I am asking for a surgical second opinion. Previous ddx: Combination of an ileus/constipation as well as abdominal wall edema. Continue bowel regimen No concerns for SBO. Continue diuresis. Getting suboxone and lidocaine patches for pain. Continue lidocaine patches. (2) Congestive heart failure (CHF): Status: Chronic Assessment and plan: Systolic and probably also R-sided. LVEF is 10% on echo yesterday. Seen by cardiology. Continue BB, lisinopril, lasix. She [place] [facility] [place] Noncompliant with CPAP here and, it appears at home. We discussed that on discharge she would benefit from home health services. She agrees. Monitor I/O's, daily weights. Continue PO lasix. Qualifiers: Heart failure type: systolic Heart failure chronicity: acute on chronic Qualified Code(s): I50.23 - Acute on chronic systolic (congestive) heart failure (3) Asthma: Status: Chronic Assessment and plan: Improved. No wheezing today. D/c prednisone. Continiue symbicort, prn albuterol. (4) Coronary artery disease: Status: Chronic Assessment and plan: No ACS on this admission. Chest pain is actually likely contiguous with abdominal pain. (5) AV heart block: Status: Chronic Assessment and plan: V paced. Pacemaker appears to be functioning well. (6) Chest pain: Status: Resolved Assessment and plan: As above - noncardiac. (7) Type 2 diabetes mellitus, with long-term current use of insulin: Status: Chronic Assessment and plan: FBG 145. No further hypoglycemia. Hold jardiance here; anticipate resumption on discharge. Continue SSI. Await DM education. Qualifiers: Diabetes mellitus complication status: with hyperglycemia Qualified Cod e(s): E11.65 - Type 2 diabetes mellitus with hyperglycemia; Z79.4 - CHCF (current) use of insulin (8) Depression: Status: Chronic Assessment and plan: Continue home therapy. F/u with [facility]. (9) Anxiety: Status: Chronic Assessment and plan: As above (10) Essential hypertension: Status: Chronic Assessment and plan: Lisinopril resumed. Continue beta blockers with holding parameters. On PO lasix. We may not be able to achieve normal BPs in this patient with systolic dysfunction. (11) Hypokalemia: Status: Resolved Assessment and plan: Recheck in am (12) Hypomagnesemia: Status: Resolved Assessment and plan: Recheck in am (13) DVT prophylaxis: Status: Acute Assessment and plan: Chemical DVT ppx restarted (SC heparin). (14) Discharge planning issues: Status: Acute Assessment and plan: Full code [facility]red to [facility] on 05/13/21. Anticipate discharge home tomorrow. Will need Heart [place] [facility] Subjective Subjective Interval history since last seen: LLQ pain is worse today. The patient requests that someone take a 2nd look. We decided on trying to obtain an ultrasound. She does not feel comfortable going home with her pain like this. Denies dizziness, chest pain, shortness of breath, nausea. Exam Narrative Exam Narrative: General: Obese female who looks better, A&Ox3, though does appear to be in more pain today HEENT: EOMI, MMM Heart: RRR, no m/r/g Lungs: CTAB Abdomen: + bowel sounds; soft with the exception of indurated non-erythematous area midline and to the left in the lower abdomen, which is more tender today Extremities: trace BLE edema, no c/c. Objective Last Vital Signs Temp 36.8 C 05/15/21 12:29 Pulse 62 05/15/21 12:29 Resp 16 05/15/21 12:29 BP 107/57 L 05/15/21 12:29 Pulse Ox 94 05/15/21 12:29 Laboratory Results - last 24 hr 05/15/21 05/15/21 06:18 06:18 WBC 9.52 RBC 4.92 Hgb 11.9 Hct 38.8 MCV 78.9 L MCH 24.2 L MCHC 30.7 L RDW 16.0 H Plt Count 338 MPV 11.4 H Immature Gran % 0.1 Neutrophils % 68.1 Lymphocytes % 23.4 Monocytes % 8.0 Eosinophils % 0.2 Basophils % 0.2 Nucleated RBC % 0 Absolute Neutrophils 6.48 Absolute Lymphocytes 2.23 Absolute Monocytes 0.76 Absolute Eosinophils 0.02 Absolute Basophils 0.02 Sodium 137 Potassium 4.0 Chloride 98 Carbon Dioxide 35.2 H Anion Gap 3.8 BUN 27 H Creatinine 0.9 Estimated GFR/1.73 m2 >= 60.00 Glucose 220 H Calcium 8.9 Magnesium 2.2
[2021-05-15] MEDS: Normal Saline Flush 10 ML SYR IVP (16:24)
--- NOTE | 2021-05-15 17:35 | W.SURGCON ---
Date of service: 05/15/21 Time of Service: 17:35 Assessment and Plan Assessment and plan (1) Sclerosing panniculitis: Status: Acute Assessment and plan: Sclerosant panniculitis versus early cellulitis versus fatty necrosis versus heparin induced necrosis. Treat with supportive care heating or cold pad whichever feels better antianalgesics. Consider lidocaine patches. I did start her on Rocephin to see if this will help although I think this is more inflammatory and not infectious. It will resolve with time. If it appears to be spreading then biopsy could be considered. No signs of hematoma or abscess- nothing to drain. pt wants the area excised. This is not technically feasible (it would have to be the entire pannus and she is not stable from a cardiac standpoint for this large of a surgery. She would have difficulty healing given her hx of smoking/poorly controlled DM/medical noncompliance). It will involute adn resolve- but may take 6months+ -stop heparin )she is on asa) -heating pad -oral non-narcotic analgesics (2) Ileus, unspecified: Status: Resolved (3) Cellulitis: Status: Acute (4) Pacemaker: Status: Acute (5) AV heart block: Status: Chronic (6) History of smoking: Status: Acute (7) Easy bruising: Status: Chronic (8) Congestive heart failure (CHF): Status: Chronic Qualifiers: Heart failure chronicity: acute on chronic Heart failure type: systolic Qualified Code(s): I50.23 - Acute on chronic systolic (congestive) heart failure (9) Type 2 diabetes mellitus, with long-term current use of insulin: Status: Chronic Qualifiers: Diabetes mellitus complication status: with hyperglycemia Qualified Code(s): E11.65 - Type 2 diabetes mellitus with hyperglycemia; Z79.4 - buttermaker helper (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) use of insulin (10) Myocardial infarct: (11) Substance use disorder: Status: Chronic (12) Opioid use disorder: Status: Chronic (13) Steatosis of liver: Status: Chronic (14) Body mass index (BMI) 50-59.9, adult: Status: Chronic (15) Witnessed apneic spells: Status: Chronic (16) Essential hypertension: Status: Chronic (17) Left bundle branch block (LBBB) on electrocardiogram: Status: Chronic (18) Asthma: Status: Chronic (19) Hyperlipidemia: Status: Chronic Qualifiers: Hyperlipidemia type: unspecified Qualified Code(s): E78.5 - Hyperlipidemia, unspecified (20) Diabetic neuropathy: Status: Chronic Qualifiers: Diabetes mellitus complication detail: diabetic polyneuropathy Diabetes mellitus type: type 2 Qualified Code(s): E11.42 - Type 2 diabetes mellitus with diabetic polyneuropathy (21) Herniated lumbar disc without myelopathy: Status: Chronic (22) LLQ pain: Status: Acute History of Present Illness Narrative: Patient has a 6 inch area of pain and irregular contour to the abdominal wall in the left lower quadrant. She is right somewhat vague as to how long its been for. Somewhere between the last 24 to 48 hours she complains bitterly of pain. There is no redness or drainage. There is definitely edema and firm induration of the tissue and areas where the fat has become very woody. She denies any trauma. She denies fever or chills. She is diabetic. She has a insulin pump that she wears on her right side. She has been getting subcutaneous heparin injections. These all appear to have been in the right lower quadrant. She has never had anything like this before. She states is incredibly painful. She did have an ultrasound today which did not show any organized abscess collection and some mild edematous changes. I did personally review the images, as well as her admitting CT. She was admitted for acute on chronic heart failure. She has a history of medical noncompliance. She is morbidly obese. She is diabetic. She is on chronic anticoagulation. She did stop smoking. Review of Systems All systems reviewed & are unremarkable except as noted in HPI and below PFSH All Active Problems (Updated 05/15/21 @ 21:32 by Lila Malcolm DO) Sclerosing panniculitis (Acute) Cellulitis (Acute) Discharge planning issues (Acute) DVT prophylaxis (Acute) LLQ pain (Acute) Left upper extremity swelling (Acute) Post op infection (Acute) Pacemaker infection (Acute) Coronary artery disease (Chronic) Pacemaker (Acute) Dual lead Medtronic pacemaker - [id number] 01/03/2021 RA Medtronic [id number] RV Medtronic [id number] [id number] Bradycardia (Acute) Pacemaker placed 01/03/21 [facility] AV heart block (Chronic ~12/2020) 2:1, pacemaker place 01/03 21 History of smoking (Acute) Easy bruising (Chronic) dual anti-platelets Congestive heart failure (CHF) (Chronic) s/p MA, EF 40-45% Depression (Chronic) Type 2 diabetes mellitus, with long-term current use of insulin (Chronic) Neuropathy, microalbuminuria, labile blood sugars Microalbuminuria due to type 2 diabetes mellitus (Chronic) Anxiety (Chronic 03/15/15) Calculus of kidney (Chronic 06/07/15) Left, non-obstructing Substance use disorder (Chronic) Opioids Steatosis of liver (Chronic) Opioid use disorder (Chronic ~2008) MAT at [facility] switched back to Suboxone 2018; methadone prior to that since ~09/2013; prior Suboxone ([facility]) Body mass index (BMI) 50-59.9, adult (Chronic) Witnessed apneic spells (Chronic) Snoring (Chronic) Disability, 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 Left bundle branch block (LBBB) on electrocardiogram (Chronic 08/30/16) new 08/27/16; prior JANET Essential hypertension (Chronic 03/15/15) Attention deficit hyperactivity disorder, combined type (Chronic 03/11/16) [facility] Asthma (Chronic 06/07/15) Recurrent CO2 retention!; [facility] status 10/2016 Hyperlipidemia (Chronic) Mood disorder (Chronic) Anxiety, depression, PTSD, ADHD Diabetic neuropathy (Chronic) Gabapentin in the past; d/c'ed following overdose leading to [facility] hospitalization (~2016 or 2017?) Restless legs syndrome (Chronic) Herniated lumbar disc without myelopathy (Chronic) Chronic pain (Chronic) Insomnia (Chronic) difficulty initiating sleep, Trazodone Rx, ?KARL Medical History Abdominal distension Acute heart failure with reduced ejection fraction and diastolic dysfunction (~11/2019) Arm pain, right (11/11/16) R upper arm pain and weakness and decreased sensation Constipation Diabetes esophageal microperforation Grade II internal hemorrhoids (02/07/16) colonoscopy 02/07/16 History of peptic ulcer Hypertension Internal derangement of left knee (~10/2018) Misuse of medication Myocardial infarct 12/06/2019 at [facility] ANKIT to LAD Nephrolithiasis (06/07/15) ST elevation (STEMI) myocardial infarction involving left anterior descending coronary artery (~11/2019) 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 pills, has been clean for 2 years- on suboxone from [facility] in [place], [place] Tobacco use disorder Trigger finger, left middle finger (02/26/16) Urolithiasis Surgical History Appendectomy section x3 Cholecystectomy Colonoscopy - MAC (02/07/16) H/O: History of appendectomy History of cholecystectomy Ligation of fallopian tube Open Carpal Tunnel release Removal of foreign body (06/26/16) Dr Ott, [facility] S/P placement of cardiac pacemaker (01/03/21) Trigger Finger release Rgt thumb and middle finger; Dr Solomon Family History Son Crohn disease Daughter Crohn disease Daughter Crohn disease Social History Smoking/Tobacco Use Status: Former Tobacco Use Quit Date: 11/30/19 Smoking risk assessment performed?: Yes Alcohol Intake: never Drug use: Current Sobriety Substance use type: former substance user Caregiver/Support person: No Housing: apartment Number of Children: 3 Communication Needs: None Pets and animals: Yes Pets and animals: cat(s), dog(s) and snake(s) Sexually active: Yes Current gender identity: female What type of physical activity do you participate in: none Do you feel safe at home: Yes Do you feel safe in your relationship?: Yes Exam GI Other: Abdomen is obese. Postsurgical changes noted. Hernias would not be detectable secondary to her obesity. In the left lower quadrant and extending to underneath the pannus, there is a area of firm induration. There is no redness or drainage. There are no palpable fluid collections. Is not a hernia. She does have good bowel sounds. It has some changes similar to [place] Results Last Vital Signs Temp 36.4 C L 05/15/21 15:47 Pulse 59 L 05/15/21 15:53 Resp 16 05/15/21 15:47 BP 114/76 05/15/21 15:47 Pulse Ox 95 05/15/21 15:47 Labs Result diagrams: 05/15/21 06:18 05/15/21 06:18 Labs: Laboratory Results - last 24 hr 05/15/21 05/15/21 06:18 06:18 WBC 9.52 RBC 4.92 Hgb 11.9 Hct 38.8 MCV 78.9 L MCH 24.2 L MCHC 30.7 L RDW 16.0 H Plt Count 338 MPV 11.4 H Immature Gran % 0.1 Neutrophils % 68.1 Lymphocytes % 23.4 Monocytes % 8.0 Eosinophils % 0.2 Basophils % 0.2 Nucleated RBC % 0 Absolute Neutrophils 6.48 Absolute Lymphocytes 2.23 Absolute Monocytes 0.76 Absolute Eosinophils 0.02 Absolute Basophils 0.02 Sodium 137 Potassium 4.0 Chloride 98 Carbon Dioxide 35.2 H Anion Gap 3.8 BUN 27 H Creatinine 0.9 Estimated GFR/1.73 m2 >= 60.00 Glucose 220 H Calcium 8.9 Magnesium 2.2
--- NOTE | 2021-05-15 17:46 | CMPROGNOTE_ITS ---
- If Service Date Differs Date of service: 05/15/21 Time of Service: 17:46 Care Management Progress Note S/O: Breonna continues to be monitored and treated, anticipate discharge home tomorrow, per MD. CM continues to follow. A: 46 year old female admitted to [facility] 05/11/21 for acute on chronic CHF. P: Breonna will discharge home via private vehicle with friend when medically ready with new [facility] services, through [facility]. She will follow up with [facility] . Breonna will follow up with community providers and discharge plan of care as prescribed.
--- NOTE | 2021-05-15 17:46 | PDOC.CMPRO ---
- If Service Date Differs Date of service: 05/15/21 Time of Service: 17:46 Care Management Progress Note S/O: Breonna continues to be monitored and treated, anticipate discharge home tomorrow, per MD. CM continues to follow. A: 46 year old female admitted to [facility] 05/11/21 for acute on chronic CHF. P: Breonna will discharge home via private vehicle with friend when medically ready with new [facility] services, through [facility] She [place] [facility] [place] Breonna will follow up with community providers and discharge plan of care as prescribed.
[2021-05-15] MEDS: cefTRIAXone 1 GM/50 ML BAG IVPB (18:24)
[2021-05-15] MEDS: Normal Saline 500 ML 50 ML IV (18:24)
[2021-05-15] MEDS: Atorvastatin 40 MG TAB 80 MG PO (20:25)
[2021-05-15] MEDS: Insulin Glargine 300 UNITS/3 ML PEN SC (21:51)
[2021-05-15] MEDS: LIDOCAINE Patch Removal 1 EACH TP (21:53)
[2021-05-15] MEDS: traZODone 100 MG TAB PO (21:53)
[2021-05-15] MEDS: QUEtiapine 300 MG TAB PO (21:53)
[2021-05-15] MEDS: Magnesium Oxide 400 MG TAB PO (21:53)
[2021-05-15] MEDS: QUEtiapine 100 MG TAB 200 MG PO (21:53)
[2021-05-16] VITALS (10 sets, daily range): BP systolic 103–125; BP diastolic 58–85; PULSE 56–86; RESP 16–18; TEMP 36.4–36.8; O2SAT 92–100
[2021-05-16 07:13] LABS: C-Reactive Protein 0.14 mg/dL (0.0-0.3)
[2021-05-16] MEDS: Omeprazole 20 MG CAPCR PO ×2 (08:46→21:08)
[2021-05-16] MEDS: Senna TAB 1 TAB PO (08:46)
[2021-05-16] MEDS: Lisinopril 5 MG TAB PO (08:46)
--- NOTE | 2021-05-16 08:46 | CMPROGNOTE_ITS ---
- If Service Date Differs Date of service: 05/16/21 Time of Service: 08:47 Care Management Progress Note S/O: Breonna continues to be monitored and treated. Anticipate that she will discharge home tomorrow and [place] [facility] [place] Palliative care consult is ordered for today. CM continues to follow. A: 46 year old female admitted to [facility] 05/11/21 for acute on chronic CHF. P: Breonna will discharge home via private vehicle with friend when medically ready with new [facility] services, through [facility]. She will [place] [facility] [place]. Breonna will follow up with community providers and discharge plan of care as prescribed.
--- NOTE | 2021-05-16 08:46 | PDOC.CMPRO ---
- If Service Date Differs Date of service: 05/16/21 Time of Service: 08:47 Care Management Progress Note S/O: Breonna continues to be monitored and treated. Anticipate that she will discharge home tomorrow and follow up with [facility]. Palliative care consult is ordered for today. CM continues to follow. A: 46 year old female admitted to [facility] 05[facility]21 for acute on chronic CHF. P: Breonna will discharge home via private vehicle with friend when medically ready with new [facility] services, through [facility]. She will follow up with [facility] cardiology. Breonna will follow up with community providers and discharge plan of care as prescribed.
[2021-05-16] MEDS: Furosemide 40 MG TAB 80 MG PO (08:47)
[2021-05-16] MEDS: Aspirin E.C. 81 MG TABEC PO (08:47)
[2021-05-16] MEDS: busPIRone 15 MG TAB 30 MG PO ×2 (08:47→21:08)
[2021-05-16] MEDS: Metoprolol CR 50 MG TABCR PO (08:48)
[2021-05-16] MEDS: Docusate Sodium 100 MG/10 ML CUP PO (08:49)
[2021-05-16] MEDS: Polyethylene Glycol 3350 17 GM PACKET PO (08:49)
[2021-05-16] MEDS: Buprenorphine/Naloxone 8 mg/2 mg FILM 1 EACH SL ×3 (08:49→21:09)
[2021-05-16] MEDS: Insulin Aspart 300 UNITS/3 ML PEN SC ×4 (08:52→21:10)
[2021-05-16] MEDS: Lidocaine 5% Patch 1 PATCH TP (11:11)
--- NOTE | 2021-05-16 12:13 | W.PM.PROGNOT ---
Date of Service Date of service: 05/16/21 Time of Service: 12:13 Assessment and Plan Assessment and plan (1) Sclerosing panniculitis: Status: Acute Assessment and plan: Causing the LLQ mass/pain. Fat necrosis. Continue ceftriaxone. Plan to discharge home on PO abx tomorrow. (2) Congestive heart failure (CHF): Status: Chronic Assessment and plan: LVEF 10%, worsened from 45% in the past. Seen by cardiology. Continue BB, lisinopril, lasix. Consult palliative care. She has a pacemaker in situ, not an AICD - may require an upgrade. Nonsustained V tach on tele overnigt (6 beats). She needs follow up with heart failure specialists at [facility] [place]. Noncompliant with CPAP here and at home. We discussed that on discharge she would benefit from home health services. . Monitor I/O's, daily weights. Continue PO lasix. Decrease dose. Qualifiers: Heart failure type: systolic Heart failure chronicity: acute on chronic Qualified Code(s): I50.23 - Acute on chronic systolic (congestive) heart failure (3) Asthma: Status: Chronic Assessment and plan: Now at baseline. Continiue symbicort, prn albuterol. (4) Coronary artery disease: Status: Chronic Assessment and plan: No ACS on this admission. Chest pain is actually likely contiguous with abdominal pain. (5) AV heart block: Status: Chronic Assessment and plan: V paced. Pacemaker appears to be functioning well. (6) Chest pain: Status: Resolved Assessment and plan: As above - noncardiac. (7) Type 2 diabetes mellitus, with long-term current use of insulin: Status: Chronic Assessment and plan: FBG 145. No further hypoglycemia. Hold jardiance here; anticipate resumption on discharge. Continue SSI. Await DM education. Qualifiers: Diabetes mellitus complication status: with hyperglycemia Qualified Code(s): E11.65 - Type 2 diabetes mellitus with hyperglycemia; Z79.4 - alf (current) use of insulin (8) Depression: Status: Chronic Assessment and plan: Continue home therapy. F/u with [facility]. (9) Anxiety: Status: Chronic Assessment and plan: As above (10) Essential hypertension: Status: Chronic Assessment and plan: Lisinopril resumed. Continue beta blockers with holding parameters. On PO lasix. We may not be able to achieve normal BPs in this patient with systolic dysfunction. (11) Hypokalemia: Status: Resolved Assessment and plan: Recheck in am (12) Hypomagnesemia: Status: Resolved Assessment and plan: Recheck in am (13) DVT prophylaxis: Status: Acute Assessment and plan: SC heparin (14) Discharge planning issues: Status: Acute Assessment and plan: Full code [facility]red to [facility] on 05/13/21. Anticipate discharge home tomorrow. Consult palliative care. Will need home health nursing. Will need Heart Failure follow up with [facility] [place] [place]. Subjective Subjective Interval history since last seen: Continues to feel pain in LLQ but it is better. Overall, the abdomen is less edematous, as are the legs, and Breonna has noticed. She denies dizziness, chest pain, shortness of breath. Seen by general surgery yesterday - felt to have fat necrosis, started on ceftriaxone. The patient and I agreed that she would benefit from another day of IV abx prior to going home tomorrow. We also discussed at length that with her low LVEF of 10%, she is at risk of ventricular arrhythmias. Currently, she only has a pacemaker and may require an upgrade to an AICD - I informed her of this. She admits she knows she is not good with taking her medications. We discussed how it would be a good idea for her to have home health nursing to help. We discussed that palliative care might be of benefit as well. Exam Narrative Exam Narrative: General: Obese female who looks better, A&Ox3, looks better today HEENT: EOMI, MMM Heart: RRR, no m/r/g Lungs: CTAB Abdomen: + bowel sounds; soft with the exception of indurated non-erythematous area midline and to the left in the lower abdomen, which appears to be smaller in area today Extremities: no BLE edema, no c/c. Objective Last Vital Signs Temp 36.5 C 05/16/21 11:30 Pulse 84 05/16/21 11:30 Resp 17 05/16/21 11:30 BP 103/62 05/16/21 11:30 Pulse Ox 100 05/16/21 11:30 Laboratory Results - last 24 hr 05/16/21 06:10 C-Reactive Protein 0.14
[2021-05-16] MEDS: Normal Saline Flush 10 ML SYR IVP ×2 (13:48→17:39)
--- NOTE | 2021-05-16 14:40 | W.NUTCONSULT ---
Date of service: 05/16/21 Time of Service: 14:41 Nutritional Consult ASSESSMENT: Breonna admitted with cellulitis, with PMH: DM2, CHF, Asthma, CAD with 3+ BLE. BMI 45. weight has been stable in last year. Has lost over 70 lbs in last 4 years. Labs: A1c: 6% (12/29/20), DM meds: 25 mg jardiance, 1000 mg metformin BID, 35 u glargine q HS. NUTRITIONAL DIAGNOSIS: Class 3 obesity as evidenced by BMI of 45 INTERVENTION: Attempted to meet with Breonna today to provide information on weight loss and diabetes management. She was not interested in education at this time. Did not want any reading materials or my business card either. Informed Breonna that I am available prn if she changes her mind. Breonna is hoping to go home tomorrow. MONITORING AND EVALUATION: weight, po intake, labs Time Spent in Nutritional Counseling and Treatment: 5
[2021-05-16] MEDS: Furosemide 40 MG TAB PO (15:35)
--- NOTE | 2021-05-16 16:33 | CHAPLAIN ---
Breonna was sitting up at the edge of her bed when I visited. I introduced myself, explained my role and offered support. She was pleasant, thanked me for stopping in but was not interested in further conversation.
[2021-05-16] MEDS: cefTRIAXone 1 GM/50 ML BAG IVPB (17:39)
--- NOTE | 2021-05-16 17:39 | W.PALLCONSUL ---
Date of service: 05/16/21 Time of Service: 16:15 History of Present Illness Narrative: Ms. Ravi is a 46 y/[facility] currently inpatient at [facility] 2/2 CHF exacerbation; PMHx sig for CAD, CHF w/EF 10%, AV heart block w/V pacemaker DM, SUB, obesity, asthma; consult placed Dr. Gonzalez to establish relationship w/pt and help navigate HC system upon discharge home Pt presented to [facility] ED? 05/11/21 w/SOB and CP; hypervolemia w/edema, fluid retention and weight gain all improved w/diuresis, cardiology consult continue current med routine, need for f/u w/[facility]F clinic to consider defibrillator PRN; LLQ pain imaging found sclerosis pannicalitis, surgical consult start Rocephin precautionary, lidocaine patches, pain improving; plan for discharge home tomorrow w/HH services: PT, RN Pt reports feeling much better since hospitalized, SOB and edema improved, LLQ improving; weight was 281# on admission is down to 227# now after appropriate diuresis; is nervous to return home 2/2 being in hospital provides her w/environment where people are monitoring her and ensuring appropriate medications, care etc; however, is eager to return home to dog, 3 cats and snake; reports is aware how important medication compliance is, despite not wanting to use Lasix prior to hospitalization; reports didn?t like using Lasix bc of increased urination needs, burning w/urination and soreness, previously had Pyridium w/good effect; reports will focus on taking Lasix at home alex now understanding how important it is for her fluid buildup and heart function; aware of need for f/u w/[facility] CHF and pacer clinics; requesting detailed discharge list of necessary appointments and care plan; aware of HH services and agreeable Reports intermittent constipation at home, has Metamucil at home that will try vs taking another medication, would like to trial this and f/u PRN; reports was told today that she is a ?perfect diabetic? w/A1C down to 6?s, feels comfortable maintaining mediations at home; Concerned for getting up 36 stairs required to enter home on discharge, will work w/PT prior to discharge to ensure safety returning home; d/t pharmacy closures new preferred pharmacy [facility] in [facility]; requesting best friend Karin included at f/u visits; soy Corcoran part of support system; 3 children 30, 27 and 17, one living in [facility], other two in [place] Goals: return home safely, keep better control of fluid build up, continue to follow w/[facility] care; Assessment and Plan Assessment and plan (1) Congestive heart failure (CHF): Status: Chronic Qualifiers: Heart failure type: systolic Heart failure chronicity: acute on chronic Qualified Code(s): I50.23 - Acute on chronic systolic (congestive) heart failure (2) Pacemaker: Status: Acute (3) Edema: Status: Acute (4) Sclerosing panniculitis: Status: Acute (5) Type 2 diabetes mellitus, with long-term current use of insulin: Status: Chronic Qualifiers: Diabetes mellitus complication status: with hyperglycemia Qualified Code(s): E11.65 - Type 2 diabetes mellitus with hyperglycemia; Z79.4 - watermaster (current) use of insulin (6) Need for home health care: Status: Acute (7) Palliative care patient: Status: Acute Assessment and plan: continue to follow through transition home, home visit to be scheduled 1-2 wks s/p discharge; review COLST/HCA at f/u continue all current meds, including abx; reviewed importance of medication compliance to avoid further complications; reviewed ejection fraction changes and importance of cardiac f/u at [facility], to be referred/scheduled w/discharge plan to start phenazopyridine PRN at discharge for urinary discomfort; to trial at home metamucil for BM regularity [facility] referral for RN and PT services at discharge shared plan w/CM - to provide discharge plan of care for pt Review of Systems Narrative: pertinent ROS reviewed in [facility] All Active Problems (Updated 05/16/21 @ 17:48 by Laxmi Mcintyre NP) Palliative care patient (Acute) Need for home health care (Acute) Edema (Acute) Sclerosing panniculitis (Acute) Cellulitis (Acute) Discharge planning issues (Acute) DVT prophylaxis (Acute) LLQ pain (Acute) Left upper extremity swelling (Acute) Post op infection (Acute) Pacemaker infection (Acute) Coronary artery disease (Chronic) Pacemaker (Acute) Dual lead Medtronic pacemaker - [id number] 01/03/2021 RA Medtronic 5076-52 [id number] RV Medtronic 5076-58 [id number] Bradycardia (Acute) Pacemaker placed 01/03/21 [facility] AV heart block (Chronic ~12/2020) 2:1, pacemaker place 01/03 21 History of smoking (Acute) Easy bruising (Chronic) dual anti-platelets Congestive heart failure (CHF) (Chronic) s/p MN, EF 40-45% Depression (Chronic) Type 2 diabetes mellitus, with long-term current use of insulin (Chronic) Neuropathy, microalbuminuria, labile blood sugars Microalbuminuria due to type 2 diabetes mellitus (Chronic) Anxiety (Chronic 03/15/15) Calculus of kidney (Chronic 06/07/15) Left, non-obstructing Substance use disorder (Chronic) Opioids Steatosis of liver (Chronic) Opioid use disorder (Chronic ~2008) MAT at [facility]: switched back to Suboxone 2017; methadone prior to that since ~09/2013; prior [facility]one ([facility]) Body mass index (BMI) 50-59.9, adult (Chronic) Witnessed apneic spells (Chronic) Snoring (Chronic) Disability, 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 Left bundle branch block (LBBB) on electrocardiogram (Chronic 08/30/16) new 08/27/16; prior JANET Essential hypertension (Chronic 03/15/15) Attention deficit hyperactivity disorder, combined type (Chronic 03/11/16) [facility] Asthma (Chronic 06/07/15) Recurrent CO2 retention!; [facility] status 10/2016 Hyperlipidemia (Chronic) Mood disorder (Chronic) Anxiety, depression, PTSD, ADHD Diabetic neuropathy (Chronic) Gabapentin in the past; d/c'ed following overdose leading to [facility] hospitalization (~2016 or 2017?) Restless legs syndrome (Chronic) Herniated lumbar disc without myelopathy (Chronic) Chronic pain (Chronic) Insomnia (Chronic) difficulty initiating sleep, Trazodone Rx, ?KARL Medical History Abdominal distension Acute heart failure with reduced ejection fraction and diastolic dysfunction (~11/2019) Arm pain, right (11/11/16) R upper arm pain and weakness and decreased sensation Constipation Diabetes esophageal microperforation Grade II internal hemorrhoids (02/07/16) colonoscopy 02/07/16 History of peptic ulcer Hypertension Internal derangement of left knee (~10/2018) Misuse of medication Myocardial infarct 12/06/2019 at [facility] to LAD Nephrolithiasis (06/07/15) ST elevation (STEMI) myocardial infarction involving left anterior descending coronary artery (~11/2019) 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 pills, has been clean for 2 years- on suboxone from [facility] in [place], [place] Tobacco use disorder Trigger finger, left middle finger (02/26/16) Urolithiasis Surgical History Appendectomy section x3 Cholecystectomy Colonoscopy - MAC (02/07/16) H/O: History of appendectomy History of cholecystectomy Ligation of fallopian tube Open Carpal Tunnel release Removal of foreign body (06/26/16) Dr Ott, [facility] S/P placement of cardiac pacemaker (01/03/21) Trigger Finger release Rgt thumb and middle finger; Dr Solomon Family History Son Crohn disease Daughter Crohn disease Daughter Crohn disease Social History Smoking/Tobacco Use Status: Former Tobacco Use Quit Date: 11/30/19 Smoking risk assessment performed?: Yes Alcohol Intake: never Drug use: Current Sobriety Substance use type: former substance user Caregiver/Support person: No Housing: apartment Number of Children: 3 Communication Needs: None Pets and animals: Yes Pets and animals: cat(s), dog(s) and snake(s) Sexually active: Yes Current gender identity: female What type of physical activity do you participate in: none Do you feel safe at home: Yes Do you feel safe in your relationship?: Yes Exam Narrative Exam Narrative: pt sitting comfortably in bed upon arrival Const General: cooperative, comfortable and no acute distress Nutritional Appearance: obese Orientation: alert, awake and oriented x3 Resp Effort & Inspection: normal respiratory effort, able to speak in complete sentences, no audible wheezes and no cough Skin General skin exam: no rashes or lesions noted Neuro General: patient alert, patient awake, patient oriented x3 and moves all extremities Cognition: normal cognition Speech: speech normal Extrem Other: no pedal edema Psych Appearance: grossly normal Mental Status: mental status grossly normal Speech and Movement: speech and movement normal Mood: congruent mood Attitude: cooperative Results Last Vital Signs Temp 97.5 F L 05/16/21 15:43 Pulse 59 L 05/16/21 15:43 Resp 17 05/16/21 15:43 BP 104/58 L 05/16/21 15:43 Pulse Ox 97 05/16/21 15:43 Labs Result diagrams: 05/15/21 06:18 05/15/21 06:18 Labs: Laboratory Results - last 24 hr 05/16/21 06:10 C-Reactive Protein 0.14
[2021-05-16] MEDS: QUEtiapine 300 MG TAB PO (21:07)
[2021-05-16] MEDS: QUEtiapine 100 MG TAB 200 MG PO (21:07)
[2021-05-16] MEDS: Atorvastatin 40 MG TAB 80 MG PO (21:09)
[2021-05-16] MEDS: Magnesium Oxide 400 MG TAB PO (21:09)
[2021-05-16] MEDS: Insulin Glargine 300 UNITS/3 ML PEN SC (21:11)
[2021-05-16] MEDS: Acetaminophen 325 MG TAB 650 MG PO (21:26)
[2021-05-17 03:59] VITALS: BP 98/58; PULSE 58; RESP 18; TEMP 36.2; O2SAT 93
[2021-05-17 07:02] LABS: Abs Immature Grans 0.01 10^3/uL (0.0-0.06); Absolute Basophil Count 0.02 10^3/uL (0.0-0.2); Absolute Eosinophil Count 0.06 10^3/uL (0.0-0.7); Absolute Monocyte Count 0.61 10^3/uL (0.1-0.8); Absolute Neutrophil Count 3.91 10^3/uL (1.2-6.7); Basophils % 0.3; Eosinophils % 0.9; HCT 41.5 % (36.0-46.0); HGB 12.7 g/dL (11.2-15.7); Immature Grans % 0.2; Lymphocytes % 29.2; MCH 24.3 pg (27.0-33.0); MCHC 30.6 % (32.0-36.0); MCV 79.3 fL (80-95); MPV 10.7 fL (8.0-11.0); Monocytes % 9.4; Nucleated RBC 0 %; Platelet Count 302 10^3/uL (130-400); RBC 5.23 10^6/uL (3.93-5.22); RDW 16.1 % (11.7-14.6); RDW-SD 46.1 fL; WBC 6.51 10^3/uL (4.4-10.8)
[2021-05-17 07:08] VITALS: PULSE 62
[2021-05-17 07:28] LABS: Anion Gap 2.9 mmol/L (3-11); BUN 33 mg/dL (7-18); CO2 37.1 mmol/L (21.0-32.0); CREATININE 0.9 mg/dL (0.55-1.02); Calcium 8.8 mg/dL (8.5-10.1); Chloride 99 mmol/L (98-107); Glucose 162 mg/dL (74-106); Magnesium 2.2 mg/dL (1.8-2.4); Potassium 4.1 mmol/L (3.5-5.1); Sodium 139 mmol/L (136-145)
[2021-05-17 07:31] VITALS: BP 124/80; PULSE 76; RESP 14; TEMP 36.3; O2SAT 98
[2021-05-17] MEDS: Docusate Sodium 100 MG/10 ML CUP PO (07:47)
[2021-05-17] MEDS: Polyethylene Glycol 3350 17 GM PACKET PO (07:48)
[2021-05-17] MEDS: Omeprazole 20 MG CAPCR PO (07:48)
[2021-05-17] MEDS: busPIRone 15 MG TAB 30 MG PO (07:48)
[2021-05-17] MEDS: Senna TAB 1 TAB PO (07:48)
[2021-05-17] MEDS: Lisinopril 5 MG TAB PO (07:49)
[2021-05-17] MEDS: Buprenorphine/Naloxone 8 mg/2 mg FILM 1 EACH SL (07:49)
[2021-05-17] MEDS: Metoprolol CR 50 MG TABCR PO (07:49)
[2021-05-17] MEDS: Furosemide 40 MG TAB PO (07:49)
[2021-05-17] MEDS: Aspirin E.C. 81 MG TABEC PO (07:49)
[2021-05-17] MEDS: Insulin Aspart 300 UNITS/3 ML PEN SC ×2 (08:01→11:59)
--- NOTE | 2021-05-17 09:20 | CMPROGNOTE_ITS ---
- If Service Date Differs Date of service: 05/17/21 Time of Service: 09:20 Care Management Progress Note S/O: Palliative care provided the following recommendations: Pt to receive written, easy to understand instructions and a RX for Pyridium for urinary discomfort. Breonna would also like to change her preferred pharmacy to [facility] in [facility] (CM updated.) A: 46 year old female admitted to [facility] 05/11/21 for acute on chronic CHF. P: Breonna will discharge home via private vehicle with friend when medically ready with new [facility] services, through [facility]. She will follow up with [facility] cardiology. Breonna will follow up with community providers and discharge plan of care as prescribed.
--- NOTE | 2021-05-17 09:20 | PDOC.CMPRO ---
- If Service Date Differs Date of service: 05/17/21 Time of Service: 09:20 Care Management Progress Note S/O: Palliative care provided the following recommendations: Pt to receive written, easy to understand instructions and a RX for Pyridium for urinary discomfort. Breonna would also like to change her preferred pharmacy to [facility] in [facility] (CM updated.) A: 46 year old female admitted to [facility] 05/11/21 for acute on chronic CHF. P: Breonna will discharge home via private vehicle with friend when medically ready with new [facility] services, through [facility]. She will follow up with [facility] cardiology. Breonna will follow up with community providers and discharge plan of care as prescribed.
[2021-05-17] MEDS: Lidocaine 5% Patch 1 PATCH TP (09:33)
--- NOTE | 2021-05-17 09:58 | PT.INIE ---
Date of service: 05/17/21 Time of Service: 09:58 PT Notes Visit Reasons: Acute on Chronic Congestive Heart Failure Physical Therapy Inpatient Initial Evaluation Date: 05/17/2021 Referring Doctor: Kylee Gonzalez MD PT Orders: PT CONSULT: Limited ability Precautions: Fall. Standard. Activity as tolerated. Patient Profile/Admitting Diagnosis: Breonna is a 46-year-old female with diagnoses of sclerosing panniculitis, congestive heart failure with pacemaker in place, asthma, coronary artery disease atrioventricular heart block, depression, and anxiety admitted to this hospital for management. Referral for PT was made in order to conduct step negotiation/training as patient has 36 steps to enter her apartment. PMHX: All Active Problems?(Updated 05/12/21 @ 00:31 by Ralph Campoverde MD) Hypokalemia (Acute) Left upper extremity swelling (Acute) Post op infection (Acute) Pacemaker infection (Acute) Coronary artery disease (Acute) Pacemaker (Acute) Dual lead Medtronic pacemaker - [id number]? [id number] 01/03/2021 RA Medtronic 5076-52? [id number] RV Medtronic 5076-58? [id number] (Acute) [facility] 2:1, pacemaker place 01/03 21Chest pain (Acute) History of smoking (Acute) Easy bruising (Chronic) dual anti-plateletsCongestive heart failure (CHF) (Chronic) s/p DE, EF 40-45%Depression (Chronic) Type 2 diabetes mellitus, with long-term current use of insulin (Chronic) Neuropathy, microalbuminuria, labile blood sugarsMicroalbuminuria due to type 2 diabetes mellitus (Chronic) Anxiety (Chronic 03/15/15) Calculus of kidney (Chronic 06/07/15) Left, non-obstructingSubstance use disorder (Chronic) OpioidsSteatosis of liver (Chronic) Opioid use disorder (Chronic ~2008) MAT at [facility]: switched back to Suboxone 2017; methadone prior to that since ~09/2013; prior Suboxone ([facility])Body mass index (BMI) 50-59.9, adult (Chronic) Witnessed apneic spells (Chronic) Snoring (Chronic) Disability, 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 Left bundle branch block (LBBB) on electrocardiogram (Chronic 08/30/16) new 08/27/16; prior JANET Essential hypertension (Chronic 03/15/15) Attention deficit hyperactivity disorder, combined type (Chronic 03/11/16) NKHSAsthma (Chronic 06/07/15) Recurrent CO2 retention!; [facility] status 10/2016 Hyperlipidemia (Chronic) Mood disorder (Chronic) Anxiety, depression, PTSD, ADHDDiabetic neuropathy (Chronic) Gabapentin in the past; d/c'ed following overdose leading to [facility] hospitalization (~2016 or 2017?)Restless legs syndrome (Chronic) Herniated lumbar disc without myelopathy (Chronic) Chronic pain (Chronic) Insomnia (Chronic) difficulty initiating sleep, Trazodone Rx, ?KARL Medical History? Abdominal distension Acute heart failure with reduced ejection fraction and diastolic dysfunction (~11/2019) Arm pain, right (11/11/16) R upper arm pain and weakness and decreased sensation Constipation Diabetes esophageal microperforation Grade II internal hemorrhoids (02/07/16) colonoscopy 02/07/16 History of peptic ulcer Hypertension Internal derangement of left knee (~10/2018) Misuse of medication Myocardial infarct 12/06/2019 at [facility]? to LADNephrolithiasis (06/07/15) ST elevation (STEMI) myocardial infarction involving left anterior descending coronary artery (~11/2019) 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 pills, has been clean for 2 years- [facility] [place] Trigger finger, left middle finger (02/26/16) Urolithiasis Surgical History? Appendectomy section [id number] Colonoscopy - MAC (02/07/16) H/O: History of appendectomy History of cholecystectomy Ligation of fallopian tube Open Carpal Tunnel release Removal of foreign body (06/26/16) Dr Ott, [facility]/ placement of cardiac pacemaker (01/03/21) Trigger Finger release Rgt thumb and middle finger; Dr Solomon Social History/Home Situation: Has 36 steps with rails on B sides to her apartment. Equipment Owned/DME: None Subjective: Agreeable to stairs training. Objective: General Observation: Seated on edge of bed. Mental Status: Alert and oriented as to person, place, time, and purpose. Able to pay attention, focus, and respond appropriately. Pain: Denies ROM: Right Upper Extremity: Shoulder Flexion WFL. Shoulder abduction WFL. Elbow flexion WFL. Wrist flexion WFL. Functional opening and closing of hand WFL. Left Upper Extremity: Shoulder Flexion WFL. Shoulder abduction WFL. Elbow flexion WFL. Wrist flexion WFL. Functional opening and closing of hand WFL. Right Lower Extremity: Hip flexion WFL. Hip abduction WFL. Knee flexion WFL. Ankle dorsiflexion WFL. Ankle plantarflexion WFL. Left Lower Extremity: Hip flexion WFL. Hip abduction WFL. Knee flexion WFL. Ankle dorsiflexion WFL. Ankle plantarflexion WFL. Strength: Right Upper Extremity: Shoulder flexors 5/5. Shoulder abductors 5/5. Elbow flexors 5/5. Elbow extensors 5/5. Circuitry Negative Inspector strong. Left Upper Extremity: Shoulder flexors 5/5. Shoulder abductors 5/5. Elbow flexors 5/5. Elbow extensors 5/5. Circuitry Negative Inspector strong. Right Lower Extremity: Hip flexors 5/5. Hip abductors 5/5. Knee flexors 5/5. Knee extensors 5/5. Ankle dorsiflexors 5/5. Ankle plantarflexors 5/5. Left Lower Extremity: Hip flexors 5/5. Hip abductors 5/5. Knee flexors 5/5. Knee extensors 5/5. Ankle dorsiflexors 5/5. Ankle plantarflexors 5/5. Bed Mobility/Transfers: Rolling independent Supine to sit independent Sit to supine independent Sit to stand independent Stand to sit independent Bed to reclining chair independent Gait: Independent with level surface ambulation of at least 300 feet x 2. No assistive device. No loss of balance. No shortness of breath that subsided adequate rest. No path deviation. Stairs: Tolerated up-and-down 6 x 4inch steps and 4 x 6 inch steps while holding onto bilateral rails dependently with minimal shortness of breath. Slowly completed 24 x 6 inch steps while holding onto 1 rail slowly with no undue symptoms nor complaints. Minimal shortness of breath seen, recovered with enough rest. Balance: Static Sitting: Normal Dynamic Sitting: Normal Static Standing: Normal Dynamic Standing: Good Special Tests: Mobility Limitations Standardized Measure [facility] AM-PAC 6 clicks Basic Mobility Inpatient Short Form: Raw Score: 24CMS Score: % deficit Informed Consent/Education: Patient was instructed in purpose of PT consult and is agreeable. Assessment: Breonna completed practice steps in PT room and actual stsirs to the tird floor of this building without any undue difficulty. She knows when to stop and rest to allow her body to adjust/recover from increasing cardiac demand of stair negotiation. Patient is assessed as a 02466 moderatecomplexity based on the following: History: 46-year-old female with past medical history as indicated above Examination: Deficit score of 0% utilizing the [facility] Mobility Inpatient Short Form Presentation: Stable Decision Makin moderate complexity Goals: N/A. PT evaluation only. Plan of Care/Treatment Plan: N/A. PT evaluation only DISCHARGE RECOMMENDATIONS: Home when medically cleared by hospitalist. May benefit from 1-2 sessions with PT at home for continued cardiac conditioning and stairs training. TREATMENT CODE/TIME: 96069 x 20 minutes beginning at 9:58 AM. Thank you for the opportunity to participate in the care of this patient. Lily Yoder PT, DPT, CLT [facility] [place], [place]
--- NOTE | 2021-05-17 11:04 | DSE_ITS ---
Date of service: 05/17/21 Time of Service: 11:05 DS: Diagnosis Discharge Diagnosis (1) Acute on chronic systolic CHF (congestive heart failure): Status: Acute Asessment and Plan: LVEF 10%, down from 40-45% in 11/2019. (2) Sclerosing panniculitis: Status: Acute Asessment and Plan: Abdominal wall (3) Asthma: Status: Chronic (4) Coronary artery disease: Status: Chronic (5) AV heart block: Status: Chronic (6) Type 2 diabetes mellitus, with long-term current use of insulin: Status: Chronic (7) Essential hypertension: Status: Chronic (8) Chronic pain: Status: Chronic (9) Mood disorder: Status: Chronic (10) Hyperlipidemia: Status: Chronic (11) Constipation: Status: Acute (12) Hypokalemia: Status: Resolved (13) Hypomagnesemia: Status: Resolved (14) Body mass index (BMI) 50-59.9, adult: Status: Chronic (15) Noncompliance with medication regimen: Status: Acute Discharge Plan Disposition Patient Disposition: HOME W/HOME HEALTH SERVICE Condition: Improving Discharge Details Reason For Visit: Acute on Chronic Congestive Heart Failure Admit Date/Time: 05/11/21 22:35 Admit Provider: Ralph Campoverde Attending Provider: Ralph Campoverde Primary Care Provider: Shabbir Hamilton [facility] Course Hospital Course: Ms Ureña is a 46 year old female with PMHx of CAD s/p MO, NICMO/chronic systolic CHF with previously known LVEF of 40-45%, IDDM2, asthma, medicatio noncompliance, who was admitted to [facility] hospitalist service on 05/11/21 for acute on chronic systolic CHF, suspected mild asthma exacerbation, and L-sided pain which ended up being LLQ abdominal pain. There was no evidence of ACS on this admission, and She tested negative for COVID-19. The patient did have a brief oxygen requirement, but this resolved by the morning of 05/12/21. The patient was aggressively diuresed (net cumulative 12.8 L out), treated for an asthma exacerbation with steroids and bronchodilators with significant improvement of her respiratory symptoms. Repeat echocardiogram revealed LVEF of 11% with severe diffuse hypokinesis with regional variation, akinetic apex, evidence of diastolic dysfunction, moderate to severe tricuspid regurgitation and RVSP of 27 mmHg. This is a significant change from prior. The patient does have episodes of non-sustained Vtach, asymptomatic, but given her low EF, should be considered for an AICD. She will need follow up with [facility] CHF specialists. She was evaluated by Dr Ritchie of cardiology here who recommended continuation of beta blockers as well as lisinopril. As far as her L-sided abdominal pain, it is felt to be due to fat necrosis in LLQ of unknown etiology. Abdominal pain was exacerbated by abdominal wall edema in setting of CHF and by constipation. The patient has been resistant to taking a bowel regimen on this admission, but is willing to try it at home. She is being discharged home on empiric cefpodoxime (she was being treated with ceftriaxone for this here). She will follow up with general surgery on discharge. The patient states that her noncompliance with medication regimen - specifically, with lasix - had to do with the need for urination as well as with burning. Pyridium worked in the past, and she is getting a prescription for this on discharge. Her lasix dose on discharge is 40 mg PO BID. She is instructed to obtain a scale and weigh herself every day and to take an extra dose of lasix if she is noticing that she is gaining >3 lbs in 3 days. She is instructed to follow a low salt diet. She is getting discharged home with a referral for home health nursing to help monitor her CHF at home. She has met with palliative care on this admission and will continue to follow with them as an outpatient. She was evaluated by physical therapy and is felt to be safe to return home as well as climb the stairs as long as she takes breaks. The patient is medically stable for discharge home today. Care for patient as well as completion of her discharge summary on the day of discharge took 60 minutes. Home Meds and New Rx's Prescriptions: New bisacodyl 10 mg Suppository 10 mg WI DAILY PRN PRN (Reason: constipation) Qty: 12 0RF cefpodoxime 200 mg Tablet 400 mg PO Q12H Qty: 20 0RF furosemide 40 mg Tablet 40 mg PO BID@0830,1600 Qty: 60 0RF lidocaine 5 % Adhesive Patch,Medicated 1 patch topical Q24H Qty: 30 0RF Rx Instructions: apply to painful area on left lower abdomen magnesium oxide 400 mg (241.3 mg magnesium) Tablet 400 mg PO HS Qty: 10 0RF polyethylene glycol 3350 17 gram Powder In Packet 17 g PO BID Qty: 100 0RF sennosides [Senokot] 8.6 mg Tablet 8.6 mg PO BID Qty: 60 0RF docusate sodium 100 mg capsule 100 mg PO BID Qty: 60 0RF phenazopyridine [Pyridium] 100 mg tablet 100 mg PO TID PRN (Reason: dysuria) Qty: 21 0RF Continued metformin 1,000 mg tablet 1,000 mg PO BID Qty: 180 3RF (DME) nebulizers [facility] See Rx Instructions .ROUTE .MEDSUPPLY Qty: 1 0RF Rx Instructions: As directed, for dyspnea prn (DME) blood-glucose meter [facility] See Dose Instructions .ROUTE .MEDSUPPLY Qty: 1 0RF Dose Instruction: As directed to check daily morning fasting blood glucose. No insulin. Dispense covered brand. Rx Instructions: As directed to check 5 times daily blood glucose. On insulin. Dispense covered brand. (DME) lancets [facility] See Dose Instructions .ROUTE .MEDSUPPLY Qty: 500 3RF Dose Instruction: As directed to check daily morning fasting blood glucose Rx Instructions: To check 5 times daily blood glucose. On insulin. Dispense covered brand. albuterol sulfate [ProAir HFA] 90 mcg/actuation HFA aerosol inhaler 2 puff IH Q4H PRN (Reason: bronchospasm) Qty: 18 3RF fluticasone propion-salmeterol [Advair Diskus] 500-50 mcg/dose blister with device 1 inh IH BID Qty: 3 3RF lisinopril 5 mg tablet 5 mg PO DAILY Qty: 90 3RF Rx Instructions: per [facility] d/c 12/09/19 omeprazole 20 mg capsule,delayed release(DR/EC) 20 mg PO BID Qty: 180 3RF atorvastatin 80 mg tablet 80 mg PO QPM Qty: 90 3RF Rx Instructions: per [facility] d/c 12/09/19 (DME) lancets [OneTouch UltraSoft Lancets] 1 EACH [facility] 1 ea Miscellaneous BID Qty: 200 3RF Rx Instructions: to check BS for poorly controlled DM to get A1c at or below 7. nitroglycerin 0.4 mg tablet, sublingual 0.4 mg sublingual Q5M PRN0RF Label Comments: per [facility] d/c 12/09/19 Rx Instructions: do not exceed 3 doses per episode aspirin [Adult Low Dose Aspirin] 81 mg tablet,delayed release (DR/EC) 81 mg PO DAILY 0RF (DME) OneTouch Verio test strips Strip See Rx Instructions .ROUTE .MEDSUPPLY Qty: 100 6RF Rx Instructions: 4 times daily to keep A1c at or below 7.5 metoprolol succinate 50 mg tablet extended release 24 hr 50 mg PO DAILY 0RF trazodone 100 mg tablet 200 mg PO HS PRN PRN0RF Rx Instructions: at bedtime as needed. quetiapine 50 mg tablet 50 mg PO HS PRN MAY REPEAT X1 PRN0RF Rx Instructions: HS PRN AND MAY REPEAT X 1 IN THE NIGHT IF NEEDED FOR NIGHTMARES buspirone 30 mg tablet 30 mg PO BID 0RF Lantus U-100 Insulin 100 unit/mL solution 35 unit subcut QPM Qty: 30 6RF (DME) insulin syringe-needle U-100 [BD Insulin Syringe Ultra-Fine] 0.5 mL 31 gauge x 5/16 syringe See Rx Instructions .ROUTE .MEDSUPPLY Qty: 100 3RF Rx Instructions: As directed Jardiance 25 mg tablet 25 mg PO DAILY Qty: 90 3RF buprenorphine-naloxone [Suboxone] 8-2 mg Film 3 film SUBLINGUAL DAILY 0RF Rx Instructions: place 1 strip/tab under (each) side of tongue three times daily quetiapine 300 mg Tablet 300 mg PO HS 0RF Changed acetaminophen 500 mg capsule 1,000 mg PO Q6H PRNQty: 0 0RF Discontinued furosemide 80 mg tablet 80 mg PO BID 0RF Rx Instructions: 80 mg PO Alternate BID and QD; Discharge Instructions Instructions: Phenazopyridine (By mouth), Furosemide (By mouth), Cefpodoxime Proxetil (By mouth), Heart Failure (DC), Constipation (DC), Low-Sodium Diet (DC) Additional Instructions: Finish your antibiotics (cefpodoxime) as prescribed. Follow a 2 gram sodium diet and take your furosemide (lasix) as prescribed. Return to the hospital with any fever, bleeding, chest pain, or shortness of breath. Follow up with your PCP in 1-2 weeks. Follow up with cardiology at [facility] CHF clinic and with Dr Ritchie. Follow up with general surgery (Dr Malcolm) in 1-2 weeks. Weigh yourself daily at the same time wearing the same amount of clothes and keep a log. Take an extra dose of 40 mg of lasix if you have gained 3 lbs or greater in 3 days or if you notice worsening leg swelling - and call your PCP. Follow up for the 2nd dose of your COVID vaccine. Bloodwork in 1 week - to be collected by home health nursing. Referrals: CARDIOLOGY,[facility] [OTHER] - (CHF specialist follow up - CHF w/LVEF 11%) Charo Ritchie MD [ [facility] STAFF PHYSICIAN] - Shabbir Hamilton DO [Primary Care Provider] - Lila Malcolm DO [OSTEOPATHIC DOCTOR] - Activity:: Activity as Tolerated Equipment/Supplies:: No Equipment Needed Diet:: carb consistent 2 gram sodium Discharge Orders Discharge Orders: Discharge Order (Routine); Ordered 05/17/21 Ordered By: Kylee Gonzalez DS: Summary Time Spent with Patient providing and/or coordinating discharge services: Greater than 30 minutes Status at Discharge Functional status at discharge: independent ambulation Overall status at discharge: patient is progressing back to baseline Mental Status: mental status grossly normal Speech and Movement: speech and movement normal Mood: congruent mood Affect: normal affect Exam Narrative Exam Narrative: General: Obese female who looks better, A&Ox3, looks better HEENT: EOMI, MMM Heart: RRR, no m/r/g Lungs: CTAB Abdomen: + bowel sounds; soft with the exception of indurated non-erythematous area midline and to the left in the lower abdomen, which appears to be smaller in area today Extremities: no BLE edema, no c/c. Psych Mental Status: mental status grossly normal Speech and Movement: speech and movement normal Mood: congruent mood Affect: normal affect DS: Data Vitals/I&O Vitals and I&O: Vital Signs Temperature 36.3 C L 05/17/21 07:31 Temperature Source Tympanic 05/17/21 07:31 Pulse 76 05/17/21 07:31 Pulse Rhythm Regular 05/17/21 03:01 Pulse 59 L 05/14/21 14:00 Respiratory Rate 14 05/17/21 07:31 Respiratory Effort Non-Labored 05/17/21 03:01 Respiratory Depth Normal 05/17/21 03:01 Respiratory Pattern Normal 05/17/21 03:01 Blood Pressure 124/80 05/17/21 07:31 Blood Pressure Mean 66 05/14/21 11:48 Blood Pressure Position Supine 05/13/21 16:00 Pulse Oximetry 98 05/17/21 07:31 Oxygen Delivery Method Room Air 05/17/21 07:31 Oxygen Flow Rate 0 05/17/21 07:31 Fraction of Inspired Oxygen (FIO2) 30 05/14/21 08:57 Pain Level 6 05/17/21 07:31 Comment 05/16/21 07:26 Intake & Output 05/16/21 05/16/21 05/17/21 11:59 23:59 11:59 Intake Total 820 / 1360 540 / 1360 Output Total 1800 / 3200 1400 / 3200 1400 / 1400 Balance -980 / -1840 -860 / -1840 -1400 / -1400 Weight 100.8 kg Intake: IV 60 / 60 Oral 820 / 1300 480 / 1300 Output: Urine 1800 / 3200 1400 / 3200 1400 / 1400 Other: Urine Color Straw Light Angie Straw Urine Appearance Clear Clear Clear Urine Odor Normal Normal Normal Voiding Methods Toilet Toilet Toilet Data Completed and Pending Completed studies during hospitalization [Text1]: CXR 05/11/21: No acute pulmonary findings. CT chest/abdomen/pelvis 05/12/21: 1. No acute pulmonary process. 2. Moderate amount of free fluid in the pelvis. 3. Findings suggestive of an ileus.? (Clinically, constipation) XR abdomen 05/13/21: Air-filled loops of small and large bowel with some air-fluid levels.? The findings are consistent with an ileus.? Partial small bowel obstruction cannot be entirely excluded.? US abdomen LLQ 05/15/21: No discernible mass nor abscess evident in the area scanned with ultrasound today.? Echo 05/14/21: LVEF 11%, severe diffuse hypokinesis, regional variation, akinetic apex, elevated left-sided filling pressure. No thrombus on this non-contrast enhanced study. RV chamber size, wall thickness, and systolic function nml. RVSP 27 mmHg. Moderate to severe tricuspid regurgitation. Labs on day of discharge: Labs from last 24 hours 05/17/21 05/17/21 06:32 06:32 WBC 6.51 RBC 5.23 H Hgb 12.7 Hct 41.5 MCV 79.3 L MCH 24.3 L MCHC 30.6 L RDW 16.1 H Plt Count 302 MPV 10.7 Immature Gran % 0.2 Neutrophils % 60.0 Lymphocytes % 29.2 Monocytes % 9.4 Eosinophils % 0.9 Basophils % 0.3 Nucleated RBC % 0 Absolute Neutrophils 3.91 Absolute Lymphocytes 1.90 Absolute Monocytes 0.61 Absolute Eosinophils 0.06 Absolute Basophils 0.02 Sodium 139 Potassium 4.1 Chloride 99 Carbon Dioxide 37.1 H Anion Gap 2.9 L BUN 33 H Creatinine 0.9 Estimated GFR/1.73 m2 >= 60.00 Glucose 162 H Calcium 8.8 Magnesium 2.2 PFSH All Active Problems (Updated 05/17/21 @ 11:08 by Kylee Gonzalez MD) Noncompliance with medication regimen (Acute) Constipation (Acute) Acute on chronic systolic CHF (congestive heart failure) (Acute) Palliative care patient (Acute) Need for home health care (Acute) Edema (Acute) Sclerosing panniculitis (Acute) Cellulitis (Acute) Discharge planning issues (Acute) DVT prophylaxis (Acute) LLQ pain (Acute) Left upper extremity swelling (Acute) Post op infection (Acute) Pacemaker infection (Acute) Coronary artery disease (Chronic) Pacemaker (Acute) Dual lead Medtronic pacemaker - [id number] 01/03/2021 RA Medtronic 5076-52 [id number] RV Medtronic 5076-58 [id number] Bradycardia (Acute) Pacemaker placed 01/03/21 [facility] AV heart block (Chronic ~12/2020) 2:1, pacemaker place 01/03 21 History of smoking (Acute) Easy bruising (Chronic) dual anti-platelets Congestive heart failure (CHF) (Chronic) s/p MO, EF 40-45% Depression (Chronic) Type 2 diabetes mellitus, with long-term current use of insulin (Chronic) Neuropathy, microalbuminuria, labile blood sugars Microalbuminuria due to type 2 diabetes mellitus (Chronic) Anxiety (Chronic 03/15/15) Calculus of kidney (Chronic 06/07/15) Left, non-obstructing Substance use disorder (Chronic) Opioids Steatosis of liver (Chronic) Opioid use disorder (Chronic ~2008) MAT at [facility]: switched back to Suboxone 2017; methadone prior to that since ~09/2013; prior Suboxone ([facility]) Body mass index (BMI) 50-59.9, adult (Chronic) Witnessed apneic spells (Chronic) Snoring (Chronic) Disability, 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 Left bundle branch block (LBBB) on electrocardiogram (Chronic 08/30/16) new 08/27/16; prior JANET Essential hypertension (Chronic 03/15/15) Attention deficit hyperactivity disorder, combined type (Chronic 03/11/16) [facility] Asthma (Chronic 06/07/15) Recurrent CO2 retention!; [facility] status 10/2016 Hyperlipidemia (Chronic) Mood disorder (Chronic) Anxiety, depression, PTSD, ADHD Diabetic neuropathy (Chronic) Gabapentin in the past; d/c'ed following overdose leading to [facility] hospitalization (~2016 or 2017?) Restless legs syndrome (Chronic) Herniated lumbar disc without myelopathy (Chronic) Chronic pain (Chronic) Insomnia (Chronic) difficulty initiating sleep, Trazodone Rx, ?KARL Medical History Abdominal distension Acute heart failure with reduced ejection fraction and diastolic dysfunction (~11/2019) Arm pain, right (11/11/16) R upper arm pain and weakness and decreased sensation Constipation Diabetes esophageal microperforation Grade II internal hemorrhoids (02/07/16) colonoscopy 02/07/16 History of peptic ulcer Hypertension Internal derangement of left knee (~10/2018) Misuse of medication Myocardial infarct 12/06/2019 at [facility] to LAD Nephrolithiasis (06/07/15) ST elevation (STEMI) myocardial infarction involving left anterior descending coronary artery (~11/2019) 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 pills, has been clean for 2 years- on suboxone from [facility] in [place], [place] Tobacco use disorder Trigger finger, left middle finger (02/26/16) Urolithiasis Surgical History Appendectomy section x3 Cholecystectomy Colonoscopy - [facility] (02/07/16) H/O: History of appendectomy History of cholecystectomy Ligation of fallopian tube Open Carpal Tunnel release Removal of foreign body (06/26/16) Dr Ott, [facility] S/P placement of cardiac pacemaker (01/03/21) Trigger Finger release Rgt thumb and middle finger; Dr Solomon Family History Son Crohn disease Daughter Crohn disease Daughter Crohn disease Social History Smoking/Tobacco Use Status: Former Tobacco Use Quit Date: 11/30/19 Smoking risk assessment performed?: Yes Alcohol Intake: never Drug use: Current Sobriety Substance use type: former substance user Caregiver/Support person: No Housing: apartment Number of Children: 3 Communication Needs: None Pets and animals: Yes Pets and animals: cat(s), dog(s) and snake(s) Sexually active: Yes Current gender identity: female What type of physical activity do you participate in: none Do you feel safe at home: Yes Do you feel safe in your relationship?: Yes
--- NOTE | 2021-05-17 11:50 | CMDISCH_ITS ---
- If Service Date Differs Date of service: 05/17/21 Time of Service: 11:50 LACE Index Scoring Tool - Questions: Length of Stay (in days): 4 - 6 Acuity (Admit via E.D.?): Yes Comorbidities: Previous M.I., Diabetes w/o Complication, Congestive Heart Failure, Chronic Pulmonary Disease E.D. Visits: 4 - Answers: Total Score: 16 Risk of Readmission: High Risk Care Management Discharge Reason for Hospitalization: Acute on Chronic Congestive Heart Failure Discharge Plan: Discharge home with new [facility] services via private vehicle with friend. RX's sent to [facility] in [facility] at patients request. Breonna will follow up with Surgery (Dr. Malcolm), [facility], PCP and discharge plan of care as prescribed. Pfizer Covid vaccine #2 is due on or after 06/03/21, which can be done at the pharmacy. Patient/Family Education Needs: Review discharge instructions, limitations, medications and plan to follow up with community providers. Easy to understand written instructions are recommended. Instructions on when and where to get p fizer vaccine #2. ask me three. Services Needed at Discharge: Home Health Care Services ([facility] RN/PT. CM notified [facility])
--- NOTE | 2021-05-17 11:58 | PDOC.HHF2F ---
Home Health Certification Home Health Certification: 1. Encounter Date and Reason I certify that Breonna Ureña was seen by Kylee Gonzalez on 05/17/21 and that I had a [id number] encounter with this patient that meets the physician face to face encounter requirements. 2. Clinical Findings Supporting Skilled Need and Homebound Status I certify that home health services are medically necessary, include either intermittent retirement and/or physical/speech therapy, and that this patient is homebound in that absences from the home require considerable and taxing effort and are infrequent or of short duration, or are attributable to the need to receive medical care. [X] (a) Attached documentation from encounter provides clinical findings supporting skilled need and homebound status (including what assistance patient requires to leave the home). The encounter with the patient was in whole, or in part, for the following medical condition, which is the primary reason for home health care: Acute on Chronic Congestive Heart Failure Fdc: F/u admission for CHF w/ LVEF of 11%, help with organization of the medication regimen; Bloodwork on 05/24/21 (CBC, BMP, magnesium) - results to Dr Hamilton. Physical Therapy: eval and treat 3. Certification and Authentication I certify that I composed the above information based on my clinical judgement relating to this patient's medical condition and, if applicable, clinical findings communicated to me by the NPP or inpatient physician who performed the Home Health Referral. All further orders will be obtained through __Shabbir Hamilton (Community Based Physician - PCP)
[2021-05-17] MEDS: Cefpodoxime 200 MG TAB 400 MG PO (11:59)
[2021-05-17 12:00] VITALS: BP 93/62; PULSE 79; RESP 118; TEMP 36.8; O2SAT 92
== END 2021-05-17 13:28 | disposition home health service (06) | DRG 291 ==
LOC: ER 22:47 → ICU 23:27 → MS 05-14 22:51
PROVIDERS: Internal Medicine; Surgery; Admitting Provider Family Medicine; Emergency Provider Student in an Organized Health Care Education/Training Program; PCP Family Medicine; Visit Provider Family Medicine
DX: I11.0 Hypertensive heart disease with heart failure (principal); I50.23 Acute on chronic systolic (congestive) heart failure; Z68.41 Body mass index [BMI] 40.0-44.9, adult; K56.7 Ileus, unspecified; I47.2 Ventricular tachycardia; E11.40 Type 2 diabetes mellitus with diabetic neuropathy, unspecified; G25.81 Restless legs syndrome; Z95.0 Presence of cardiac pacemaker; I25.10 Atherosclerotic heart disease of native coronary artery without angina pectoris; Z79.4 Long term (current) use of insulin; E66.01 Morbid (severe) obesity due to excess calories; J45.909 Unspecified asthma, uncomplicated; F32.A Depression, unspecified; E78.5 Hyperlipidemia, unspecified; I44.1 Atrioventricular block, second degree; Z87.891 Personal history of nicotine dependence; F41.9 Anxiety disorder, unspecified; I44.7 Left bundle-branch block, unspecified; M51.26 Other intervertebral disc displacement, lumbar region; G89.29 Other chronic pain; G47.00 Insomnia, unspecified; F19.11 Other psychoactive substance abuse, in remission; E11.65 Type 2 diabetes mellitus with hyperglycemia; E83.42 Hypomagnesemia; E87.6 Hypokalemia; K59.00 Constipation, unspecified; M79.3 Panniculitis, unspecified; Z96.41 Presence of insulin pump (external) (internal); Z91.19 Patient's noncompliance with other medical treatment and regimen
CPT/HCPCS: 36415; 71250; 80048; 80053; 84145; 87637; 93005; 94640; 96365; 96366; 96375; 96376; 99291; 99292; 71045; 74019; 74176; 76705; 83735; 83880; 84443; 84484; 85025; 86140; 93010; 93306; 94660; 99223; 99232; 99233; 99239; J0696; J1644; J1940; J2270; J2930; J3475; J3480; J3490; J7512

== ENCOUNTER 2021-05-19 18:09 | Emergency (ER) | payer MEDICAID, SELFPAY ==
--- NOTE | 2021-05-19 18:00 | RT.EKG_ITS ---
APPROVED REPORT Exam: Resting ECG Reason for Exam: chest pain Patient Location: E HR:91 bpm ECG Measurements Heart Rate 91 AXIS AK 207 P 73 QRSd 184 QRS 265 QT 440 T 54 QTc 543 Conclusion Ventricular-paced rhythm V paced, left axis, normal rate. non ischemic
[2021-05-19 18:11] VITALS: BP 99/64; PULSE 95; RESP 16; TEMP 36.6; O2SAT 97
[2021-05-19 18:19] VITALS: RESP 14
--- NOTE | 2021-05-19 18:30 | DI.RAD_ITS ---
Exam(s) XR PORTABLE CHEST AP EXAM: XR PORTABLE CHEST AP CLINICAL HISTORY: chest pain, pace maker, hx of MT. TECHNIQUE: 2D digital imaging was performed. COMPARISON: CR,XR XR PORTABLE CHEST AP from 05/11/2021 FINDINGS: Heart size is unchanged, mildly enlarged.. The mediastinum is not widened. Bipolar left subclavian pacemaker again noted with lead tips in RA and RV, unchanged. Lungs remain clear. No infiltrates nor pleural effusions. No pulmonary edema. IMPRESSION: No acute pulmonary findings on this single AP portable view of the chest. Cardiac pacemaker. No pulmonary edema. DATA REPOSITORY: RADIATION DOSE DELIVERED: All CT scans at this facility use at least one of these dose optimization techniques: automated exposure control; mA and/or kV adjustment per patient size (includes targeted e xams where dose is matched to clinical indication); or iterative reconstruction.
--- NOTE | 2021-05-19 18:52 | ED.GENADUL_ITS ---
Discharge Plan Disposition Patient Disposition: HOME Condition: Stable Discharge Details Clinical Impression: Chest pain Primary Care Provider: Shabbir Hamilton ED Provider: Bobby Solo Home Meds and New Rx's Prescriptions: Continued metformin 1,000 mg tablet 1,000 mg PO BID Qty: 180 3RF (DME) nebulizers Mis See Rx Instructions .ROUTE .MEDSUPPLY Qty: 1 0RF Rx Instructions: As directed, for dyspnea prn (DME) blood-glucose meter mis See Dose Instructions .ROUTE .MEDSUPPLY Qty: 1 0RF Dose Instruction: As directed to check daily morning fasting blood glucose. No insulin. Dispense covered brand. Rx Instructions: As directed to check 5 times daily blood glucose. On insulin. Dispense covered brand. (DME) lancets mis See Dose Instructions .ROUTE .MEDSUPPLY Qty: 500 3RF Dose Instruction: As directed to check daily morning fasting blood glucose Rx Instructions: To check 5 times daily blood glucose. On insulin. Dispense covered brand. albuterol sulfate [ProAir HFA] 90 mcg/actuation HFA aerosol inhaler 2 puff IH Q4H PRN (Reason: bronchospasm) Qty: 18 3RF fluticasone propion-salmeterol [Advair Diskus] 500-50 mcg/dose blister with device 1 inh IH BID Qty: 3 3RF lisinopril 5 mg tablet 5 mg PO DAILY Qty: 90 3RF Rx Instructions: per [facility] d/c 12/09/19 omeprazole 20 mg capsule,delayed release(DR/EC) 20 mg PO BID Qty: 180 3RF atorvastatin 80 mg tablet 80 mg PO QPM Qty: 90 3RF Rx Instructions: per [facility] d/c 12/09/19 (DME) lancets [[facility] Miscellaneous BID Qty: 200 3RF Rx Instructions: to check BS for poorly controlled DM to get A1c at or below 7. nitroglycerin 0.4 mg tablet, sublingual 0.4 mg sublingual Q5M PRN0RF Label Comments: per [facility] d/c 12/09/19 Rx Instructions: do not exceed 3 doses per episode aspirin [Adult Low Dose Aspirin] 81 mg tablet,delayed release (DR/EC) 81 mg PO DAILY 0RF (DME) OneTouch Verio test strips Strip See Rx Instructions .ROUTE .MEDSUPPLY Qty: 100 6RF Rx Instructions: 4 times daily to keep A1c at or below 7.5 metoprolol succinate 50 mg tablet extended release 24 hr 50 mg PO DAILY 0RF trazodone 100 mg tablet 200 mg PO HS PRN PRN0RF Rx Instructions: at bedtime as needed. quetiapine 50 mg tablet 50 mg PO HS PRN MAY REPEAT X1 PRN0RF Rx Instructions: HS PRN AND MAY REPEAT X 1 IN THE NIGHT IF NEEDED FOR NIGHTMARES buspirone 30 mg tablet 30 mg PO BID 0RF Lantus U-100 Insulin 100 unit/mL solution 35 unit subcut QPM Qty: 30 6RF (DME) insulin syringe-needle U-100 [BD Insulin Syringe Ultra-Fine] 0.5 mL 31 gauge x 5/16 syringe See Rx Instructions .ROUTE .MEDSUPPLY Qty: 100 3RF Rx Instructions: As directed Jardiance 25 mg tablet 25 mg PO DAILY Qty: 90 3RF buprenorphine-naloxone [Suboxone] 8-2 mg Film 3 film SUBLINGUAL DAILY 0RF Rx Instructions: place 1 strip/tab under (each) side of tongue three times daily quetiapine 300 mg Tablet 300 mg PO HS 0RF bisacodyl 10 mg Suppository 10 mg AR DAILY PRN PRN (Reason: constipation) Qty: 12 0RF cefpodoxime 200 mg Tablet 400 mg PO Q12H Qty: 20 0RF furosemide 40 mg Tablet 40 mg PO BID@0830,1600 Qty: 60 0RF lidocaine 5 % Adhesive Patch,Medicated 1 patch topical Q24H Qty: 30 0RF Rx Instructions: apply to painful area on left lower abdomen magnesium oxide 400 mg (241.3 mg magnesium) Tablet 400 mg PO HS Qty: 10 0RF polyethylene glycol 3350 17 gram Powder In Packet 17 g PO BID Qty: 100 0RF sennosides [Senokot] 8.6 mg Tablet 8.6 mg PO BID Qty: 60 0RF docusate sodium 100 mg capsule 100 mg PO BID Qty: 60 0RF phenazopyridine [Pyridium] 100 mg tablet 100 mg PO TID PRN (Reason: dysuria) Qty: 21 0RF acetaminophen 500 mg capsule 1,000 mg PO Q6H PRNQty: 0 0RF Discharge Instructions Additional Instructions: Your blood work did not show any concerning findings at this time follow up with your mail handler assistant as scheduled if you feel more ill, have severe worsening pain or difficulty breathing return to the emergency department Medical Decision Making <Ralph Rawls MD - Last Filed: 05/19/21 20:02> 46-year-old female history of ischemic cardiomyopathy, CHF, presents with anterior chest discomfort radiating to left arm associate with nausea, given aspirin and nitro in the field, did have episode of hypotension on arrival self resolved now 126 systolic; consider ACS versus less likely pneumonia less like pneumothorax less likely PE less likely aortic pathology versus musculoskeletal discomfort versus less likely gastritis versus anxiety. Screening labs chest x- ray with patient history she has moderate to high risk heart score will likely require admission pending results. 20: 01 patient resting comfortably after morphine, hemodynamics have improved, chest pain-free at this time, first troponin negative, EKG ventricularly paced rhythm nonischemic, disposition pending second troponin reassessment patient, of note patient has been without her Suboxone for 2 days is now feeling better after morphine. Bedside ultrasound showing some cobblestoning to left lower abdominal wall, without discrete abscess, patient is on oral antibiotics. <Bobby Solo MD - Last Filed: 05/19/21 22:26> 46-year-old female history of ischemic cardiomyopathy, CHF, presents with anterior chest discomfort radiating to left arm associate with nausea, given aspirin and nitro in the field, did have episode of hypotension on arrival self resolved now 126 systolic; consider ACS versus less likely pneumonia less like pneumothorax less likely PE less likely aortic pathology versus musculoskeletal discomfort versus less likely gastritis versus anxiety. Screening labs chest x- ray with patient history she has moderate to high risk heart score will likely require admission pending results. 20: 01 patient resting comfortably after morphine, hemodynamics have improved, chest pain-free at this time, first troponin negative, EKG ventricularly paced rhythm nonischemic, disposition pending second troponin reassessment patient, of note patient has been without her Suboxone for 2 days is now feeling better after morphine. Bedside ultrasound showing some cobblestoning to left lower abdominal wall, without discrete abscess, patient is on oral antibiotics. Tracy: pt signed out to me pending delta trop and ekg which are unchanged. She feels better and apparently hasn't been having proper dose of suboxone due to pharmacy being closed and since then and she was discharged on . She states she has her normal dose tomorrow. SHe is eating and drinking without difficulties and feels better. Discussed admission vs discharge and f/u with cardiology and given she recently had an admission she prefers to go home and f/u which I feel is reasonable. Return precautions discussed at lengths as well Lab Data Lab results reviewed: Yes I reviewed the patient's lab results. ECG Data Attestation: I personally reviewed and interpreted this ECG (s) as follows: Prior ECG tracings: available for review Interpretation: paced, no acute changes from first ekg rate of 80 HPI <Ralph Rawls MD - Last Filed: 05/19/21 20:02> General Date/Time Provider Initiated Documentation: 05/19/21 18:26 . HPI Narrative: 46-year-old female history of ischemic cardiomyopathy, prior NC, pacemaker, presents with acute onset left-sided chest discomfort earlier this evening radiating to her arm, was given aspirin and nitro in the field, had a drop in her blood pressure to the 90s systolic after nitro, nausea without vomiting. Denies history of aortic pathology or thromboembolic phenomenon. Related Data Home Medications Medication Instructions Recorded Confirmed lancets ([employer] TradeTouch UltraSoft #200 ea 03/28/17 05/19/21 Lancets) blood-glucose meter #1 each 08/28/18 05/19/21 lancets #500 each 08/28/18 05/19/21 aspirin 81 mg tablet,delayed 81 mg PO DAILY 12/13/19 05/19/21 release (Adult Low Dose Aspirin) blood sugar diagnostic (OneTouch #100 ea 12/13/19 05/19/21 Verio test strips) nitroglycerin 0.4 mg sublingual 0.4 mg SUBLINGUAL Q5M PRN 12/13/19 05/19/21 tablet albuterol sulfate 90 mcg/actuation 2 puff IH Q4H PRN #18 g 04/20/20 05/19/21 aerosol inhaler (ProAir HFA) fluticasone 500 mcg-salmeterol 50 1 inh IH BID #3 ea 04/20/20 05/19/21 mcg/dose blistr powdr for inhalation (Advair Diskus) lisinopril 5 mg tablet 5 mg PO DAILY #90 tab 04/20/20 05/19/21 omeprazole 20 mg capsule,delayed 20 mg PO BID #180 cap 04/20/20 05/19/21 release metformin 1,000 mg tablet 1,000 mg PO BID #180 tab 12/14/20 05/19/21 nebulizers #1 ea 12/14/20 05/19/21 atorvastatin 80 mg tablet 80 mg PO QPM #90 tab 01/11/21 05/19/21 metoprolol succinate 50 mg 50 mg PO DAILY 01/16/21 05/19/21 tablet,extended release 24 hr buspirone 30 mg tablet 30 mg PO BID 01/25/21 05/19/21 quetiapine 50 mg tablet 50 mg PO HS PRN MAY REPEAT X1 PRN 01/25/21 05/19/21 trazodone 100 mg tablet 200 mg PO HS PRN PRN tab 01/25/21 05/19/21 insulin glargine 100 unit/mL 35 unit (0.35 mL) SUBCUT QPM #30 ml 03/12/21 05/19/21 subcutaneous solution (Lantus U-100 Insulin) insulin syringe-needle U-100 0.5 #100 ea 03/12/21 05/19/21 mL 31 gauge x 5/16 (BD Insulin Syringe Ultra-Fine) empagliflozin 25 mg tablet 25 mg PO DAILY #90 tab 05/08/21 05/19/21 (Jardiance) buprenorphine 8 mg-naloxone 2 mg 3 film SUBLINGUAL DAILY 05/13/21 05/19/21 sublingual film (Suboxone) quetiapine 300 mg tablet 300 mg PO HS 05/13/21 05/19/21 acetaminophen 500 mg capsule 1,000 mg PO Q6H PRN #0 cap 05/17/21 05/19/21 bisacodyl 10 mg rectal suppository 10 mg AR DAILY PRN PRN #12 ea 05/17/21 05/19/21 cefpodoxime 200 mg tablet 400 mg PO Q12H #20 tab 05/17/21 05/19/21 docusate sodium 100 mg capsule 100 mg PO BID #60 cap 05/17/21 05/19/21 furosemide 40 mg tablet 40 mg PO BID@0830,1600 #60 tab 05/17/21 05/19/21 lidocaine 5 % topical patch 1 patch TOPICAL Q24H #30 ea 05/17/21 05/19/21 magnesium oxide 400 mg (241.3 mg 400 mg PO HS #10 tab 05/17/21 05/19/21 magnesium) tablet phenazopyridine 100 mg tablet 100 mg PO TID PRN #21 tab 05/17/21 05/19/21 (Pyridium) polyethylene glycol 3350 17 gram 17 g PO BID #100 ea 05/17/21 05/19/21 oral powder packet sennosides 8.6 mg tablet (Senokot) 8.6 mg PO BID #60 tab 05/17/21 05/19/21 Previous Rx's Medication Instructions Recorded lancets ([employer] TradeTouch UltraSoft #200 ea 03/28/17 Lancets) blood-glucose meter #1 each 08/28/18 lancets #500 each 08/28/18 blood sugar diagnostic (OneTouch #100 ea 12/13/19 Verio test strips) albuterol sulfate 90 mcg/actuation 2 puff IH Q4H PRN #18 g 04/20/20 aerosol inhaler (ProAir HFA) fluticasone 500 mcg-salmeterol 50 1 inh IH BID #3 ea 04/20/20 mcg/dose blistr powdr for inhalation (Advair Diskus) lisinopril 5 mg tablet 5 mg PO DAILY #90 tab 04/20/20 omeprazole 20 mg capsule,delayed 20 mg PO BID #180 cap 04/20/20 release metformin 1,000 mg tablet 1,000 mg PO BID #180 tab 12/14/20 nebulizers #1 ea 12/14/20 atorvastatin 80 mg tablet 80 mg PO QPM #90 tab 01/11/21 insulin glargine 100 unit/mL 35 unit (0.35 mL) SUBCUT QPM #30 ml 03/12/21 subcutaneous solution (Lantus U-100 Insulin) insulin syringe-needle U-100 0.5 #100 ea 03/12/21 mL 31 gauge x 5/16 (BD Insulin Syringe Ultra-Fine) empagliflozin 25 mg tablet 25 mg PO DAILY #90 tab 05/08/21 (Jardiance) acetaminophen 500 mg capsule 1,000 mg PO Q6H PRN #0 cap 05/17/21 bisacodyl 10 mg rectal suppository 10 mg AR DAILY PRN PRN #12 ea 05/17/21 cefpodoxime 200 mg tablet 400 mg PO Q12H #20 tab 05/17/21 docusate sodium 100 mg capsule 100 mg PO BID #60 cap 05/17/21 furosemide 40 mg tablet 40 mg PO BID@0830,1600 #60 tab 05/17/21 lidocaine 5 % topical patch 1 patch TOPICAL Q24H #30 ea 05/17/21 magnesium oxide 400 mg (241.3 mg 400 mg PO HS #10 tab 05/17/21 magnesium) tablet phenazopyridine 100 mg tablet 100 mg PO TID PRN #21 tab 05/17/21 (Pyridium) polyethylene glycol 3350 17 gram 17 g PO BID #100 ea 05/17/21 oral powder packet sennosides 8.6 mg tablet (Senokot) 8.6 mg PO BID #60 tab 05/17/21 Allergies Allergy/AdvReac Type Severity Reaction Status Date / Time povidone-iodine Allergy Severe Skin Rash Verified 05/19/21 18:23 [From Betadine] paroxetine AdvReac Intermediate nightmares, Verified 05/19/21 18:23 shaking lisdexamfetamine dimesylate AdvReac Unknown GI upset Verified 05/19/21 18:23 [From Vyvanse] General Stated Complaint: Chest Pain LAWANDA: 2 Review of Systems <Ralph Rawls MD - Last Filed: 05/19/21 20:02> Narrative: Review of Systems Constitutional: negative Eyes: negative ENT: negative Cardiovascular: Chest pain Respiratory: negative Gastrointestinal: Nausea : negative Musculoskeletal: negative Skin: Skin infection Neurologic: negative Psych: negative PFSH <Ralph Rawls MD - Last Filed: 05/19/21 20:02> All Active Problems (Updated 05/19/21 @ 22:23 by Bobby Solo MD) Chest pain (Acute) Noncompliance with medication regimen (Acute) Constipation (Acute) Acute on chronic systolic CHF (congestive heart failure) (Acute) Palliative care patient (Acute) Need for home health care (Acute) Sclerosing panniculitis (Acute) Cellulitis (Acute) LLQ pain (Acute) Left upper extremity swelling (Acute) Post op infection (Acute) Pacemaker infection (Acute) Coronary artery disease (Chronic) Pacemaker (Acute) Dual lead Medtronic pacemaker - [id number] 01/03/2021 RA Medtronic 5076-52 [id number] RV Medtronic 5076-58 [id number] Bradycardia (Acute) Pacemaker placed 01/03/21 [facility] AV heart block (Chronic ~12/2020) 2:1, pacemaker place 01/03 21 Congestive heart failure (CHF) (Chronic) s/p NC, EF 40-45% Depression (Chronic) Type 2 diabetes mellitus, with long-term current use of insulin (Chronic) Neuropathy, microalbuminuria, labile blood sugars Microalbuminuria due to type 2 diabetes mellitus (Chronic) Anxiety (Chronic 03/15/15) Calculus of kidney (Chronic 06/07/15) Left, non-obstructing Substance use disorder (Chronic) Opioids Steatosis of liver (Chronic) Opioid use disorder (Chronic ~2008) MAT at [facility]: switched back to Suboxone 2017; methadone prior to that since ~09/2013; prior Suboxone ([facility]) Body mass index (BMI) 50-59.9, adult (Chronic) Witnessed apneic spells (Chronic) Snoring (Chronic) Disability, 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 Essential hypertension (Chronic 03/15/15) Attention deficit hyperactivity disorder, combined type (Chronic 03/11/16) [facility] Asthma (Chronic 06/07/15) Recurrent CO2 retention!; [facility] status 10/2016 Hyperlipidemia (Chronic) Mood disorder (Chronic) Anxiety, depression, PTSD, ADHD Diabetic neuropathy (Chronic) Gabapentin in the past; d/c'ed following overdose leading to [facility] hospitalization (~2016 or 2018?) Restless legs syndrome (Chronic) Herniated lumbar disc without myelopathy (Chronic) Chronic pain (Chronic) Insomnia (Chronic) difficulty initiating sleep, Trazodone Rx, ?KARL Medical History Abdominal distension Acute heart failure with reduced ejection fraction and diastolic dysfunction (~11/2019) Arm pain, right (11/11/16) R upper arm pain and weakness and decreased sensation Constipation Diabetes esophageal microperforation Grade II internal hemorrhoids (02/07/16) colonoscopy 02/07/16 History of peptic ulcer Hypertension Internal derangement of left knee (~10/2018) Misuse of medication Myocardial infarct 12/06/2019 at [facility] ANKIT to LAD Nephrolithiasis (06/07/15) ST elevation (STEMI) myocardial infarction involving left anterior descending coronary artery (~11/2019) 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 pills, has been clean for 2 years- on suboxone from [facility] in [place], [place] Tobacco use disorder Trigger finger, left middle finger (02/26/16) Urolithiasis Surgical History Appendectomy section x3 Cholecystectomy Colonoscopy - MAC (02/07/16) H/O: History of appendectomy History of cholecystectomy Ligation of fallopian tube Open Carpal Tunnel release Removal of foreign body (06/26/16) Dr Ott, [facility] S/P placement of cardiac pacemaker (01/03/21) Trigger Finger release Rgt thumb and middle finger; Dr Solomon Family History Son Crohn disease Daughter Crohn disease Daughter Crohn disease Social History Smoking/Tobacco Use Status: Former Tobacco Use Quit Date: 11/30/19 Smoking risk assessment performed?: Yes Alcohol Intake: never Drug use: Current Sobriety Substance use type: former substance user Caregiver/Support person: No Housing: apartment Number of Children: 3 Communication Needs: None Pets and animals: Yes Pets and animals: cat(s), dog(s) and snake(s) Sexually active: Yes Current gender identity: female What type of physical activity do you participate in: none Do you feel safe at home: Yes Do you feel safe in your relationship?: Yes Exam <Ralph Rawls MD - Last Filed: 05/19/21 20:02> Narrative Exam Narrative: Physical Examination General: alert, awake, cooperative, moderate distress on arrival HEENT: normocephalic, atraumatic; PERRL, EOM intact, conjunctiva normal; no nasal discharge; moist mucous membranes, oral and pharyngeal mucosa normal, tolerating secretions Neck: supple, trachea midline; full ROM Chest: normal to inspection Respiratory: normal respiratory effort, speaking in full sentences, clear to auscultation, no wheezing, rales or rhonchi Cardiac: regular rate, regular rhythm, S1S2 intact, no murmurs rubs or gallops GI: abdomen soft, non-tender, non-distended; no palpable mass or hepatosplenomegaly Skin: Induration to left abdominal wall lower approximately 7 cm in diameter no fluctuance Neuro: AAOx3, normal speech, moving all extremities Extremities: No peripheral edema Psych: Appropriate mood and affect Course <Ralph Rawls MD - Last Filed: 05/19/21 20:02> Vital Signs Vital signs: Vital Signs Temperature 36.6 C 05/19/21 18:11 Pulse 95 H 05/19/21 18:11 Respiratory Rate 16 05/19/21 18:11 Blood Pressure 99/64 L 05/19/21 18:11 Pulse Oximetry 97 05/19/21 18:11 Temperature 36.6 C 05/19/21 18:11 Temperature Source Temporal Artery Scan 05/19/21 18:11 Pulse 95 H 05/19/21 18:11 Respiratory Rate 14 05/19/21 18:19 Respiratory Effort Non-Labored 05/19/21 18:19 Respiratory Depth Normal 05/19/21 18:19 Respiratory Pattern Normal 05/19/21 18:19 Blood Pressure 99/64 L 05/19/21 18:11 Blood Pressure Position Supine 05/19/21 18:11 Pulse Oximetry 97 05/19/21 18:11 Oxygen Delivery Method Room Air 05/19/21 18:11 Oxygen Flow Rate 0 05/19/21 18:11 Pain Level 8 05/19/21 18:19 Sign Out <Ralph Rawls MD - Last Filed: 05/19/21 20:02> Sign Out Data: Sign Out Comment: awaiting second trop, reassess chest pain; admission v home with close follow-up Last updated by Ralph Rawls MD at 05/19/21 20:24
[2021-05-19 18:53] LABS: Abs Immature Grans 0.04 10^3/uL (0.0-0.06); Absolute Basophil Count 0.03 10^3/uL (0.0-0.2); Absolute Lymphocyte Count 2.06 10^3/uL (1.2-3.4); Absolute Monocyte Count 1.11 10^3/uL (0.1-0.8); Absolute Neutrophil Count 8.18 10^3/uL (1.2-6.7); Basophils % 0.3; Eosinophils % 0.3; HCT 47.3 % (36.0-46.0); HGB 14.6 g/dL (11.2-15.7); Immature Grans % 0.3; MCH 24.5 pg (27.0-33.0); MCHC 30.9 % (32.0-36.0); MCV 79.4 fL (80-95); MPV 10.5 fL (8.0-11.0); Monocytes % 9.7; Neutrophils % 71.4; Nucleated RBC 0 %; Platelet Count 375 10^3/uL (130-400); RBC 5.96 10^6/uL (3.93-5.22); RDW 16.3 % (11.7-14.6); RDW-SD 45.6 fL; WBC 11.46 10^3/uL (4.4-10.8)
[2021-05-19 18:55] LABS: Absolute Eosinophil Count 0.03 10^3/uL (0.0-0.7)
[2021-05-19 19:05] LABS: INR 1.1 (0.9-1.1); PTT Activated 26.5 sec (21.0-27.5); Prothrombin Time 11.1 sec (9.3-11.0)
[2021-05-19 19:15] LABS: ALT 41 U/L (14-59); AST 22 U/L (15-37); Alkaline Phosphatase 130 U/L (46-116); Anion Gap 4.7 mmol/L (3-11); Bilirubin, Total 1.1 mg/dL (0.2-1.0); CO2 32.3 mmol/L (21.0-32.0); CREATININE 0.9 mg/dL (0.55-1.02); Calcium 9.4 mg/dL (8.5-10.1); Chloride 96 mmol/L (98-107); NT-proBNP 2897 pg/mL (<300); Potassium 4.4 mmol/L (3.5-5.1); Sodium 133 mmol/L (136-145); Total Protein 7.9 g/dL (6.4-8.2); Troponin I < 50 ng/L (<or=60)
[2021-05-19] MEDS: MORPHine 10 MG/ML VIAL 2 MG IVP ×2 (19:15→19:57)
[2021-05-19] MEDS: Ondansetron 4 MG/2 ML VIAL IVP (19:16)
[2021-05-19 19:18] LABS: BUN 21 mg/dL (7-18); Glucose 249 mg/dL (74-106)
--- NOTE | 2021-05-19 19:24 | DI.VRAD_ITS ---
PROCEDURE INFORMATION: Exam: XR Chest Exam date and time: 05/19/2021 6:37 PM Age: 46 years old Clinical indication: Other: Unspecified; Prior surgery; Patient HX: Chest pain, pacemaker, HX of mi TECHNIQUE: Imaging protocol: XR of the chest. Views: 1 view. COMPARISON: CT CHEST/ABD/PEL WO 05/12/2021 2:00 PM. Chest radiograph, 05/11/2021. FINDINGS: Tubes, catheters and devices: A dual lead pacer device is again seen. Lungs: No focal consolidation. Pleural spaces: No pneumothorax. Heart/Mediastinum: The mediastinum is within normal limits. Mild cardiomegaly is again seen. Bones/joints: There are skeletal degenerative changes. IMPRESSION: 1. No focal consolidation or pneumothorax. 2. Mild cardiomegaly again seen. Dictated and Authenticated by: Kera Thompson MD. Ordering:SE Rosas MD
[2021-05-19 19:44] VITALS: BP 116/71; PULSE 87; RESP 18; TEMP 36.7; O2SAT 94
--- NOTE | 2021-05-19 21:15 | RT.EKG_ITS ---
APPROVED REPORT Exam: Resting ECG Reason for Exam: sob Patient Location: E HR:78 bpm ECG Measurements Heart Rate 78 AXIS IA 218 P 48 QRSd 189 QRS 221 QT 474 T 16 QTc 541 Conclusion Atrial-sensed ventricular-paced rhythm...ventricular pacing tracks p-waves
[2021-05-19 21:59] LABS: Troponin I < 50 ng/L (<or=60)
== END 2021-05-19 22:31 | disposition home or self-care (01) ==
PROVIDERS: Emergency Medicine; Emergency Provider Emergency Medicine; PCP Family Medicine
DX: R07.9 Chest pain, unspecified (principal); I50.9 Heart failure, unspecified; R11.0 Nausea
CPT/HCPCS: 36415; 80053; 81025; 93005; 96374; 96375; 99284; 71045; 83880; 84484; 85025; 85610; 85730; 93010; J2270; J2405

== ENCOUNTER 2021-06-29 04:01 | Outpatient (RCR) | payer MEDICAID, SELFPAY | END 2021-07-28 23:59 | disposition home or self-care (01) | LOC: CR 04:01 | PROVIDERS: PCP Family Medicine; Visit Provider Internal Medicine Cardiovascular Disease ==

== ENCOUNTER 2021-07-16 10:56 | Outpatient (REF) | payer MEDICAID, SELFPAY ==
[2021-07-16 13:59] LABS: Anion Gap 6.6 mmol/L (3-11); BUN 26 mg/dL (7-18); CO2 32.4 mmol/L (21.0-32.0); CREATININE 1.3 mg/dL (0.55-1.02); Calcium 8.7 mg/dL (8.5-10.1); Chloride 99 mmol/L (98-107); Estimated GFR 43.72 (mL/min/1.73m2); Glucose 102 mg/dL (74-106); Potassium 4.2 mmol/L (3.5-5.1); Sodium 138 mmol/L (136-145)
== END 2021-07-16 10:57 | disposition home or self-care (01) ==
LOC: LBN 10:56
PROVIDERS: PCP Family Medicine; Visit Provider Nurse Practitioner Adult Health
DX: I50.20 Unspecified systolic (congestive) heart failure (principal)
CPT/HCPCS: 80048